=== PATIENT | female | born 1980 | race Caucasian/White ===

== ENCOUNTER 2019-05-07 14:28 | Emergency (ER) | payer MEDICAID, SELFPAY ==
[2019-05-07 14:29] VITALS: BP 195/97; PULSE 101; RESP 18; TEMP 36.6; O2SAT 95; BMI 42.3
--- NOTE | 2019-05-07 15:11 | ED.DCSUM_ITS ---
- ER Visit Summary Date of Service: 05/07/19 Chief Complaint: Anxiety History of Present Illness: The patient is a 39 F who presents with anxiety that has been getting progressively worse over the past 3 weeks. Patient states she recently moved up here from [place] and ran out of her anxiety medicati ons. Patient states she normally takes Zoloft 100 mg daily and Xanax 1 mg twice daily. Patient states she has been having difficulty focusing. Patient states it feels like my eyes are floating. Patient denies any chest pain or shortness of breath. Patient denies any nausea or vomiting. Patient denies any suicidal or homicidal ideations. Physical Examination: Vital signs are stable. Patient is afebrile. Patient is in no acute distress. Oral mucosa is pink and moist. Neck is supple. Trachea is midline. There is no JVD noted. Heart was regular rate and rhythm. Lungs are clear and equal bilateral. Abdomen is soft. Bowel sounds are normal. There is no tenderness. There is no guarding noted. Skin is warm dry. Cranial nerves II through XII are intact. There are no focal motor or sensory deficits noted. Emergency Department Course and Treatment: Patient was given a prescription for refills of her Zoloft and a short course of Xanax. Patient was instructed to follow-up with her primary care physician that she is assigned on her medical card. Patient understood and was agreeable with the plan. All questions were answered. Disposition: Discharge home Impression: 1. Anxiety This note was generated with [employer] dictation software. It may contain incorrect words, spelling, and punctuation that were not noted in review of the chart prior to signing ED Disposition - Plan for ED Patient: Disposition: Home or Assisted Living Diagnosis: Anxiety Instructions: Anxiety Reaction Prescriptions: ALPRAZolam [Xanax] 1 mg PO BID PRN PRN 5 Days #10 tab PRN Reason: Anxiety Prescription Printed Sertraline HCl [Zoloft] 100 mg PO DAILY #30 tab Prescription Printed Additional Instructions: Follow-up with the primary care physician on your medical card in 5 to 7 days.
[2019-05-07 15:35] VITALS: PULSE 99; RESP 17; O2SAT 97
== END 2019-05-07 15:36 | disposition home or self-care (01) ==
LOC: ED 15:35
PROVIDERS: Emergency Provider Emergency Medicine
DX: F41.9 Anxiety disorder, unspecified (principal); E66.9 Obesity, unspecified
CPT/HCPCS: 99282

== ENCOUNTER 2019-08-07 21:21 | Emergency (ER) | payer MEDICAID, SELFPAY ==
[2019-08-07 21:22] VITALS: BP 177/114; PULSE 93; RESP 16; TEMP 36.8; O2SAT 96; BMI 52.0
--- NOTE | 2019-08-07 21:47 | ED.VIS.GEN ---
History of Present Illness Chief Complaint: Edema Informant: Patient Narrative: Smooth presents with a chief complaint of swelling over the left side of the face and left neck region. She does have chronic eczema of her face. She noted some subjective fevers recently. She denies any cough or congestion, she denies any shortness of breath she denies any other rash, she denies any neck stiffness. Is no urinary symptoms. She has no chest pain or shortness of breath. I did notice her blood pressure was quite elevated in triage tells me she is not on any blood pressure medications but every time she comes to the emergency department she is told that she has high blood pressure and she attributed to her significant anxiety Past Medical History - Allergies and Home Meds Allergies/Adverse Reactions: Allergies No Known Allergies Allergy (Verified 08/07/19 21:25) Primary Care Physician: Care Physician,No Primary [Primary Care Provider] - Past Medical History: - - Anxiety and depression Smoking Status: Never smoker Review of Systems General: Denies: Fever Eyes: Denies: Visual changes - bilaterally ENT: Reports: - - Chronic facial eczema, eyelid swelling. Denies: Sore throat Respiratory: Denies: Dyspnea, Cough Gastrointestinal: Denies: Abdominal pain Genitourinary: Denies: Dysuria Musculoskeletal: Denies: Myalgias Skin: Reports: Rash Neurological: Reports: - - She has generalized weakness but no focal weakness. Denies: Headache Psych: Reports: Depression, Anxiety Endocrine: Denies: Polyuria Hematologic: Reports: Lymphadenopathy. Denies: Easy bruising Allergy: Denies: Swelling of the mouth Physical Exam Vital Signs/Narrative: Vital Signs Temp Pulse Resp BP Pulse Ox 08/07/19 21:22 98.3 F 93 16 177/114 H 96 General: Well nourished, Obese, - Head: Normocephalic Eyes: Perrl ENT: Moist mucous membranes, - - There is slight rash over her face which is consistent with eczema, she has a supraorbital pustule which is not fluctuant, she has a posterior auricular lymph node. She also has a lymph node in the posterior lymph chain Neck: Supple Cardiovascular: Regular rate, Regular rhythm Respiratory: No distress Abdomen: Soft, Nontender Back: Nontender, Normal Inspection Extremities: Nontender, No edema Skin: Normal color, No rash Neurological: Alert, Normal Sensation Diagnostic/Tx/Re-eval Chest X-Ray - ED: 1 View, Read by ED Physician, Normal, Heart, Mediastinum, No Acute Disease - Medical Decision Making Patient has a normal work-up. She has a slight urinary tract infection. She also has a lymph node and a facial infection this may be odontogenic because she does have some widespread dental decay although I do not see an abscess. Her blood pressure improved on her own but it still high. I told her she needs to get this followed up and be seen by her PCP. At this time I will start Keflex and Bactrim. ED Disposition - Plan for ED Patient: Disposition: Psychiatric Hospital or Unit Diagnosis: Facial infection, Hypertension, UTI (urinary tract infection) Instructions: Understanding Urinary Tract Infections (UTIs), High Blood Pressure (Hypertension) Prescriptions: Smz/Tmp Ds [Bactrim Ds] 1 tab PO BID #14 tab Prescription Printed Cephalexin [Keflex] 500 mg PO Q6 #28 cap Prescription Printed Referrals: Diallo Hill MD [STAFF PHYSICIAN] - 3-5 Days
[2019-08-07 22:00] LABS: Mucous, Urine 0 SEEN /hpf (<or=2+)
--- NOTE | 2019-08-07 22:00 | RAD_ITS ---
STUDY: X-RAY CHEST REASON FOR EXAM: Female, 39 years old. Multiple complaints TECHNIQUE: Single AP portable view of the chest. COMPARISON: None. FINDINGS: The lungs are clear and expanded. There is no demonstrated pleural abnormality. Normal size heart. Normal mediastinum and swati. Normal visualized pulmonary arteries. Normal visualized aortic arch and descending thoracic aorta. Normal visualized thoracic spine. Normal visualized ribs, clavicles, and shoulders. There is no demonstrated abnormality of the visualized soft tissue structures of the upper abdomen. RAD/Chest 1 View (Portable) IMPRESSION: Normal x-ray examination of the chest. Electronically Signed: Yosi Hopkins MD at 22:23 EST , Service support ,
[2019-08-07 22:03] LABS: Hemoglobin 14.7 g/dL (12.0-15.0); Mean Corp Hgb Conc 32.7 g/dL (32-36); Mean Corpuscular Hgb 28.2 pg (27.0-32.0); Mean Corpuscular Volume 86.4 fL (81-99); Mean Platelet Vol. 9.3 fl (6.2-12.0); Platelet Count 289 K/mm3 (150-450); RBC Distribution Width SD 40.2 fl (35.1-43.9); Red Blood Count 5.21 M/mm3 (4.2-5.4); White Blood Count 9.3 K/mm3 (4.4-11.0)
[2019-08-07 22:06] LABS: Color, Urine Yellow (Yellow); Glucose, Dipstick Normal (Normal); Ketone-Dipstick 5 mg/dl (Negative); Leukocyte Esterase-Dipstick 500 /ul (Negative); Nitrite-Dipstick Negative (Negative); Occult Blood-Urine 250 /ul (Negative); Protein-Dipstick 30 mg/dl (Negative); Specific Gravity, Urine 1.025 (1.002-1.030); Urine Bilirubin Dipstick Negative (Negative); Urine Clarity Sl. Cloudy (Clear); Urine Urobilinogen Normal (Normal)
[2019-08-07 22:14] VITALS: BP 159/97; PULSE 87; RESP 20; O2SAT 95
[2019-08-07 22:18] LABS: Red Blood Cells-Urine 5-10 SEEN /hpf (0-5); White Blood Cells 5-10 SEEN /hpf (0-5)
[2019-08-07 22:19] LABS: Bacteria 2+ /hpf (None Seen); Squamous Epithelial Cells - UA 10-25 SEEN /hpf (5-10)
[2019-08-07 22:29] LABS: ALB/GLOB Ratio 0.9 RATIO (0.9-2.4); AST(SGOT) 38 U/L (15-37); Alanine Aminotransfer ALT/SGPT 36 U/L (13-56); Albumin, Serum 3.9 g/dL (3.2-5.0); Alkaline Phosphatase 110 U/L (45-117); Anion Gap 8 (5-15); BUN 12 mg/dL (7-18); BUN/Creat Ratio 15.4 RATIO (10-20); Calcium,Total 9.5 mg/dL (8.5-10.1); Chloride 106 mmol/L (98-107); Creatinine, Serum 0.78 mg/dL (0.55-1.02); EST Glomerular Filtration Rate 86 mL/min (>60); Est Glom Filt Rate - Afr Amer 105 mL/min (>60); Estimated Creatinine Clearance 85.41 ml/min; Globulin 4.5 g/dL (2.2-4.2); Glucose 141 mg/dL (74-106); Potassium 4.2 mmol/L (3.5-5.1); Protein, Total 8.4 g/dL (6.4-8.2); Sodium Level 138 mmol/L (136-145)
[2019-08-07] MEDS: Cephalexin 250 MG Capsule 500 MG PO (23:02)
[2019-08-07] MEDS: Smz/Tmp Ds Tablet 1 TABLET PO (23:02)
[2019-08-07 23:07] VITALS: BP 159/99
== END 2019-08-07 23:08 ==
PROVIDERS: Emergency Provider Emergency Medicine
DX: L08.9 Local infection of the skin and subcutaneous tissue, unspecified (principal); N39.0 Urinary tract infection, site not specified; F41.9 Anxiety disorder, unspecified; F32.9 Major depressive disorder, single episode, unspecified; Z79.899 Other long term (current) drug therapy
CPT/HCPCS: 71045; 80053; 81001; 84484; 85027; 99284; A4216

== ENCOUNTER 2019-08-13 13:46 | Emergency (ER) | payer MEDICAID, SELFPAY ==
[2019-08-13 13:47] VITALS: BP 167/108; PULSE 89; RESP 20; TEMP 36.8; O2SAT 98; BMI 53.3
--- NOTE | 2019-08-13 14:25 | US_ITS ---
STUDY: ABDOMINAL ULTRASOUND - RIGHT UPPER QUADRANT REASON FOR VISIT: Female, 39 years old abdominal pain TECHNIQUE: Ultrasound evaluation of the right upper quadrant was performed with real-time and static burgess-scale imaging. TECHNICAL QUALITY: Adequate. COMPARISON: None. FINDINGS: Liver: The liver measures 17 cm. There is diffusely increased echogenicity of the liver. The bile ducts are within normal limits. There is hepatic color flow. The direction of portal flow is hepatopetal. There is no demonstrated mass lesion. Gallbladder: Normal distended gallbladder. The gallbladder wall measures 2.3 mm. There is a positive sonographic Aponte's sign. There is no pericholecystic fluid. There is biliary sludge and a large stone.. Common Bile Duct (C.B.D.): The common bile duct measures 3.3 mm. Pancreas: Suboptimal visualized due to bowel gas Right Kidney: Normal size of the right kidney. The right kidney measures 11.5 x 4.7 x 5.4 cm. Normal renal cortex. The right cortex measures 1.8 cm. There is no demonstrated renal mass or cyst. There is no right hydronephrosis. US/Gallbladder IMPRESSION: Cholelithiasis with findings suspicious for acute cholecystitis. HIDA scan would be helpful for confirmation if clinically warranted Electronically Signed: Kun Umanzor MD at 16:49 EST , Service support ,
--- NOTE | 2019-08-13 14:28 | ED.DCSUM_ITS ---
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 No prior abdominal or other surgeries. He states around 10 AM's major eating breakfast started having right upper abdominal pain. No vomiting. No diarrhea. No fever. No dysuria currently. With her sisters present in the room states she had gallbladder disease. Physical Examination: Middle-aged female no acute distress vital signs stable afebrile. HEENT exam unremarkable. Neck nontender. Lungs clear to auscultation bilaterally. Abdomen is soft. Obese. Patient reports right upper quadrant tenderness but no peritoneal signs. No Aponte sign. Normal bowel sounds. No hernias or masses. No signs of obstruction. Patient is moving all 4 extremities. Neurovascular intact. No edema. Neurologically she is awake and alert with no focal motor deficits. Test Results: CBC White count 11.2. And hemoglobin of 15. Her BMP is unremarkable normal creatinine and gap. Liver enzymes normal. Lipase normal at 93. Right upper quadrant ultrasound shows gallstones with sludge. Consistent with biliary colic. Emergency Department Course and Treatment: Patient treated with IV morphine, Zofran and Toradol. History and exam are consistent with possible gallbladder disease. Repeat exam patient is doing well at 5:03 PM. Comfortable being discharged home. We discussed all test results. She and her sister also stated that her blood pressure is consistently elevated. They wanted me to start her on a blood pressure medication. Initial blood pressure here was 167/108 and she will be started on lisinopril 20 mg once a day to be taken at night. Treatment Plan: Follow-up with Dr. Walter Lopez local general surgeon for her gallbladder disease. Follow-up with [facility] to get a primary care physician. Started on lisinopril for hypertension. Disposition: Discharge Impression: Acute right upper quadrant abdominal pain secondary to gallstones and gallbladder disease Newly diagnosed hypertension This note was generated with [employer] dictation software. It may contain incorrect words, spelling, and punctuation that were not noted in review of the chart prior to signing ED Disposition - Plan for ED Patient: Referrals: Care Physician,No Primary [Primary Care Provider] -
[2019-08-13 14:41] LABS: Absolute Lymphocyte Count 2.46 X10^3/uL (0.83-4.51); Absolute Neutrophil Count 7.5 X10^3/uL (2.0-7.7); Basophil# 0.04 X10^3/uL; Basophil% 0.4 % (0-1); Eosinophils% 3.6 % (0-5); Hematocrit 46.1 % (37-47); Hemoglobin 15.1 g/dL (12.0-15.0); Lymphocyte # 2.46 X10^3/ul (4.0); Lymphocyte % 21.9 % (19-41); Mean Corp Hgb Conc 32.8 g/dL (32-36); Mean Corpuscular Hgb 28.7 pg (27.0-32.0); Mean Corpuscular Volume 87.6 fL (81-99); Mean Platelet Vol. 9.5 fl (6.2-12.0); Monocyte# 0.76 X10^3/uL; Monocyte% 6.8 % (0-10); NRBC Flagged by Analyzer 0 % (0-5); Neutrophil # 7.53 X10^3/uL (2.7-7.7); Neutrophil % 66.9 % (47-70); Platelet Count 375 K/mm3 (150-450); RBC Distribution Width CV 12.7 % (11.6-14.6); RBC Distribution Width SD 40.5 fl (35.1-43.9); Red Blood Count 5.26 M/mm3 (4.2-5.4); White Blood Count 11.2 K/mm3 (4.4-11.0)
[2019-08-13] MEDS: Ondansetron 4 MG/2 ML Vial IV (14:49)
[2019-08-13] MEDS: Morphine 4 MG/ML Syringe 6 MG IV (14:50)
[2019-08-13] MEDS: Ketorolac 30 MG/ML Syringe IV (14:50)
[2019-08-13 14:52] LABS: AST(SGOT) 13 U/L (15-37); Alanine Aminotransfer ALT/SGPT 25 U/L (13-56); Alkaline Phosphatase 111 U/L (45-117); Anion Gap 9 (5-15); BUN 9 mg/dL (7-18); BUN/Creat Ratio 8.7 RATIO (10-20); Calcium,Total 9.1 mg/dL (8.5-10.1); Chloride 107 mmol/L (98-107); Creatinine, Serum 1.04 mg/dL (0.55-1.02); EST Glomerular Filtration Rate 62 mL/min (>60); Est Glom Filt Rate - Afr Amer 75 mL/min (>60); Estimated Creatinine Clearance 61.47 ml/min; Globulin 4.5 g/dL (2.2-4.2); Glucose 116 mg/dL (74-106); Lipase 93 U/L (73-393); Protein, Total 8.5 g/dL (6.4-8.2); Sodium Level 139 mmol/L (136-145)
[2019-08-13 16:40] VITALS: BP 156/100; PULSE 84; O2SAT 96
--- NOTE | 2019-08-13 17:06 | ED.DEP ---
ED Disposition - Plan for ED Patient: Disposition: Home or Assisted Living Instructions: BILIARY COLIC with Gallstone (Confirmed), High Blood Pressure (Hypertension) Prescriptions: Lisinopril 20 mg PO DAILY #30 tab Prescription Printed Ondansetron [Zofran Odt] 4 mg PO Q8H PRN PRN #10 tab PRN Reason: Nausea Prescription Printed Referrals: Donny Mcadams MD [STAFF PHYSICIAN] - As soon as possible Walter Lopez MD [STAFF PHYSICIAN] - As soon as possible Additional Instructions: Your right upper quadrant abdominal pain is secondary to gallbladder disease and gallstones. Call and follow-up with Dr. Phil Lopez local general surgeon for discussion of having her gallbladder removed. Call and follow-up with Dr. Donny Mcadams to get a local primary care physician and discuss with him treatment of high blood pressure. Lisinopril 20 mg once a day taken at night before you go to bed. This should help control your blood pressure. If it still running too high or too low the dose will need to be adjusted. If it is running too low and you are feeling lightheaded and your pressure is running below 120 systolic then stop the medication.
== END 2019-08-13 17:22 | disposition home or self-care (01) ==
PROVIDERS: Emergency Provider Emergency Medicine
DX: K80.20 Calculus of gallbladder without cholecystitis without obstruction (principal); I10 Essential (primary) hypertension; N39.0 Urinary tract infection, site not specified; F32.9 Major depressive disorder, single episode, unspecified; Z79.2 Long term (current) use of antibiotics; Z79.899 Other long term (current) drug therapy
CPT/HCPCS: 76705; 80048; 80076; 83690; 85025; 96374; 96375; 99283; A4216; J2405

== ENCOUNTER 2019-08-27 05:52 | Day surgery (SDC) | payer MEDICAID, SELFPAY ==
[2019-08-25 09:30] VITALS: BMI 53.3
[2019-08-27] VITALS (11 sets, daily range): BP systolic 112–144; BP diastolic 66–100; PULSE 84–100; RESP 16; TEMP 36.2–37.3; O2SAT 93–98; BMI 54.0
--- NOTE | 2019-08-27 05:56 | EKG12_ITS ---
Test Reason : COUGH Blood Pressure : / mmHG Vent. Rate : 095 BPM Atrial Rate : 095 BPM P-R Int : 136 ms QRS Dur : 084 ms QT Int : 344 ms P-R-T Axes : 053 032 022 degrees QTc Int : 432 ms Normal sinus rhythm Low voltage QRS Borderline ECG Confirmed by ISIAH GARCIA ([id number]), web content editor RONEN FERRO ([id number]) on 09/01/2019 1:00:35 PM Referred By: Sridhar Cruz Confirmed By:ISIAH GARCIA
[2019-08-27 06:19] LABS: Internal QC Validated? YES +Cl - CLEAR BKGD; Pregnancy, Urine Negative Negative
[2019-08-27] MEDS: Lactated Ringers 1,000 ML 100 ML IV (06:29)
--- NOTE | 2019-08-27 07:00 | HP.PCM_ITS ---
Problem List (1) Cholelithiasis Status: Acute Qualifiers: Cholelithiasis location: gallbladder Cholecystitis presence: with cholecystitis Cholecystitis acuity: acute and chronic Biliary obstruction: without biliary obstruction Qualified Code(s): K80.12 - Calculus of gallbladder with acute and chronic cholecystitis without obstruction (2) RUQ abdominal pain Status: Acute History and Physical Date of Admission: 08/27/19 Intake Vital Signs 08/25/19 Body Mass Index (BMI) 53.3 08/25/19 Height 5 ft 4 in 08/25/19 Weight: 305 lb 08/25/19 Body Mass Index (BMI) 52.3 08/25/19 Blood Pressure 126/86 H 08/25/19 Blood Pressure Location Rt brachial 08/25/19 Blood Pressure Position Sitting 08/25/19 Respiratory Rate 18 08/25/19 Pulse Rate 103 H 08/25/19 Pulse Source Monitor 08/25/19 Temperature 98.5 F 08/25/19 Temperature Source Oral 08/25/19 Pulse Ox 97 08/25/19 Oxygen Delivery Method room air Intake Visit Reasons: CHOLELITHIASIS/SLUDGE Coat Joiner Required: No Is patient in pain?: Yes (RUQ/ Right Flank) Pain scale (1-10): 3 Allergies No Known Allergies Allergy (Verified 08/25/19 09:29) Medications Alprazolam [Xanax] 0.5 mg PO BID PRN 08/07/19 [History Confirmed 08/25/19] Lisinopril 20 mg PO DAILY #30 tab 08/13/19 [Rx Confirmed 08/25/19] Sertraline HCl [Zoloft] 100 mg PO DAILY 08/13/19 [History Confirmed 08/25/19] PFSH Medical History (Updated 08/25/19 @ 09:25 by Dahiana Quintanilla) Hemorrhoids (Acute) RUQ abdominal pain (Acute) Abdominal pain (Acute) SOB (shortness of breath) (Acute) Anxiety (Acute) Depression (Acute) Hypertension (Chronic) Back problem (Acute) Fatigue (Acute) Surgical History (Updated 08/25/19 @ 09:25 by Dahiana Quintanilla) No pertinent past surgical history (Acute) Family History (Updated 08/25/19 @ 09:26 by Dahiana Quintanilla) Mother Asthma Aunt Colon cancer Father Asthma Sister Asthma Social History (Updated 08/25/19 @ 09:50 by Sridhar Cruz MD) Smoking Status: Former smoker second hand exposure: No alcohol intake: never substance use type: does not use caffeine: Yes what type of physical activity do you participate in: none frequency: does not exercise HPI HPI HPI: REKHA LEIWS, is a 39 F who presents to the office today for HPI HPI HPI: REKHA LEWIS is a 39 F who presents to the office today for right upper quadrant pain. The patient reports that she presented to the emergency room at the end of July with right upper quadrant pain. She had not had any pain in the right upper quadrant prior to this. She reports that since being seen in the ER it has improved but is still present especially with eating. It is in the right upper quadrant and radiates to the back. She also notes that she has an umbilical hernia. ROS General General: Yes fatigue; no weight change HEENT HEENT: No difficulty swallowing, eye injury or eye surgery Endo Endocrine: No thyroid disease or diabetes mellitus Skin Skin: No rash or changing moles Musc Musculoskeletal: Yes back problems; no arthritis or rheumatoid arthritis Cardio Cardiovascular: Yes high blood pressure; no murmur, pacemaker, heart disease, atrial fibrillation, heart attack, heart stent, palpitations, shortness of breat with exertion or chest pain Psych Psychiatric: Yes depression and anxiety Resp Respiratory: Yes shortness of breath, Yes sleep apnea, No cough, No COPD, No asthma, No emphysema, No wheezing Gastro Gastrointestinal: Yes abdominal pain, No nausea or vomiting, No diarrhea, No constipation, No blood in stool, No acid reflux, Yes hemorrhoids, No ulcers, Yes gallbladder problem, No black,tarry stools Thee Hematologic: No blood thinners Neuro Neurologic: Yes system reviewed and no additional complaints, except as docu Exam Const General: cooperative Nutritional Appearance: obese Orientation: alert, oriented x3 HENMT Head: normal to inspection Ears: hearing grossly normal bilaterally Eyes General: appearance normal, both eyes and all related structures Visual Guardado: normal visual guardado by confrontation Neck Neck: normal visual inspection Chest Chest palpation & inspection: normal inspection of the chest Resp Effort & Inspection: normal respiratory effort Auscultation: clear to auscultation bilaterally Cardio Rate: regular rate Rhythm: regular rhythm Heart Sounds: no murmurs GI Inspection: non-distended Palpation: soft, hernia umbilical, tender in the RUQ Musc Cervical Spine: normal cervical lordosis, cervical ROM normal Skin General: no rashes or lesions noted Neuro General: alert, oriented x3 Cranial Nerves: CN's II-XI intact bilaterally Cognition: normal cognition Extrem General: normal to inspection, full ROM Psych Appearance: grossly normal Affect: normal affect Assessment & Plan Problems 1. RUQ abdominal pain R10.11 2. Umbilical hernia without obstruction and without gangrene K42.9 3. Calculus of gallbladder with acute on chronic cholecystitis without obstruction K80.12 Plan The patient has cholelithiasis with a gallstone in the neck of the gallbladder. She was recently seen in the emergency room on August 13. She likely had acute cholecystitis at that point. She reports that since being seen her pain has subsided for the most part but it is still recurring when she eats. She denies any fevers or chills. She says that she does have no nausea or vomiting only pain. Patient also has a reducible umbilical hernia. I advised that this can be repaired during the surgery. I discussed the procedure in detail with the patient. I discussed the risks, benefits, and alternatives of the procedure. I discussed the risks including but not limited to bleeding, infection, injury to surrounding organs such as the liver, bile duct, bowels. I did discuss the possibility of having to convert to an open procedure as well as the possibility that if any injuries occurred this may necessitate further surgery at a tertiary care center. Sridhar Cruz MD Pager: [facility] [address] [place] [address], [address] [place] [address] Office:
--- NOTE | 2019-08-27 07:30 | GALL_PTH ---
PATIENT: REKHA LEWIS [place] [facility] [place][id number] AGE/SX: 39/F ROOM: RE08/27/[address]: Dr. Sridhar Cruz MD : 1980 BED: DIS: 08/27/2019 SPEC #: [id number] RECD: 08/27/19 10:08 STATUS: HERMANN SENG #: [id number] AVANI: 08/27/19 07:[address]: Sridhar Cruz DEPT: SURGICAL PATHOLOGY RECD BY: Carlos Whaley ENTERED: 08/27/19 10:42 SP TYPE: JESSICA SALAS DR: Dr. Juliet Gao MD Tissues: Gallbladder, NOS Procedures: Surgery Specimen Level III HEADER OPERATION: Laparoscopic, cholecystectomy with IOC PRE-OP DIAGNOSIS: RUQ abdominal pain R10.11, umbilical hernia without obstruction and without gangrene K42.9, calculus of gallbladder with acute on chronic cholecystitis without obstruction K80.12 TISSUE SUBMITTED: Gallbladder MICROSCOPIC DIAGNOSIS Gallbladder, cholecystectomy: Cholesterolosis, chronic cholecystitis and cholelithiasis. AM:tia 08/30/19 MICROSCOPIC DESCRIPTION Slides are reviewed. GROSS DESCRIPTION Received is one container labeled with the patient's name and designated gallbladder. The specimen consists of a gallbladder measuring 10.5 x 3 x 3 cm. The external surface is smooth and glistening. Focally, it is granular, hemorrhagic and contains cautery artifact. The lumen of the gallbladder contains yellow-green mucoid bile and two ovoid, green-yellow calculi average in size 1.7 cm. The mucosa is bile-stained and without any mass lesions. The gallbladder wall averages 0.2 cm in thickness and is free of mass lesions. Turn Operator sections of the gallbladder and the cystic duct are submitted in one cassette. / AM:tia 08/27/19 TC:3 CPT: 58449
--- NOTE | 2019-08-27 07:50 | RAD_ITS ---
STUDY: INTRAOPERATIVE CHOLANGIOGRAM. REASON FOR EXAM: Female, 39 years old. Laparoscopic cholecystectomy. FLUOROSCOPY TIME (if supplied): ( 31.9 seconds ) minutes/seconds. A cine loop consisting of 41 images was submitted. TECHNIQUE: An intraoperative cholangiogram was performed by the surgeon. Imaging was submitted. COMPARISON: None. FINDINGS: The intrahepatic biliary ducts are unremarkable. No intraluminal filling defect is seen. The common duct is not dilated. No intraluminal filling defect is seen. There is free flow of contrast into the duodenum. RAD/Cholangiogram/ O R,Initial IMPRESSION: Unremarkable intraoperative cholangiogram. Electronically Signed: Javier Salinas, at 9:53 EST , Service support ,
[2019-08-27] MEDS: Bupiv/Epi 0.25% 30 ML Vial (09:11)
--- NOTE | 2019-08-27 10:07 | OP.PCM_ITS ---
Problem List (1) Cholelithiasis Status: Acute Qualifiers: Cholelithiasis location: gallbladder Cholecystitis presence: with cholecystitis Cholecystitis acuity: acute and chronic Biliary obstruction: without biliary obstruction Qualified Code(s): K80.12 - Calculus of gallbladder with acute and chronic cholecystitis without obstruction (2) RUQ abdominal pain Status: Acute Report of Operation Date of Procedure: 08/27/19 Pre-Operative Diagnosis: Cholelithiasis and biliary colic. Umbilical hernia Post-Operative Diagnosis: Same Surgery/Procedure Performed:: 1. Laparoscopic cholecystectomy with cholangiogram. 2. Umbilical hernia repair Specimen's removed: Gallbladder and contents Estimated Blood Loss (mL): 200 Fluids Replaced: 1000 Description of Procedure: After obtaining informed consent patient was brought back to the operating room. General anesthesia was induced. The abdomen was prepped and draped in usual sterile fashion. An incision was marked in a curvilinear fashion in the superior umbilicus. Incision was made and deepened to the fascia using electrocautery. The hernia sac was entered. Finger sweep was performed and the Haque trocar was placed into the abdomen. The balloon was inflated. The abdomen was inflated to 15 mmHg. Next a camera was introduced into the abdomen and the abdomen was inspected. Next under direct visualization three 5-mm ports were placed one subxiphoid and 2 subcostal. Next the gallbladder was elevated and retracted toward the right shoulder. The peritoneum was stripped from the gallbladder. The infundibulum was located and retracted laterally. Next the triangle of Calot was dissected and the cystic duct and cystic artery were identified. Cholangiograms were performed. The Gonzalez clamp was used to clamp across the infundibulum and the catheter needle was inserted into the gallbladder. Under fluoroscopy contrast was instilled into the gallbladder and the common duct, cystic duct as well as proximal hepatic ducts were identified. There was good filling of the duodenum. There were no filling defects noted in the common bile duct. The clamp was removed as well as the needle and the infundibulum was grasped once more. Three hemolock clips were placed across the cystic duct. The cystic duct was then divided leaving 2 clips on the stump. The cystic artery was difficult to identify and tore from retraction. There was bleeding in the infundibular area. After maintaining retraction and finding the vessel it was clipped. There was 200 cc of blood loss during attempt of visualization of this vessel. The hook cautery was then used to take the gallbladder off of the gallbladder bed. Hemostasis was obtained. Gallbladder fossa was irrigated and no active bleeding or bile leakage was noted. Surgicel snow powder was placed in the gallbladder fossa. Next the camera switched to a 5 mm camera and introduced in the subxiphoid port. An Endopouch bag was placed through the umbilical port and the gallbladder was placed into it. The gallbladder was then removed through the umbilical incision. The camera was then reinserted through the umbilical port. The gallbladder fossa was inspected once more and noted to be hemostatic with no leaking bile. The abdomen was suctioned dry. The 5 mm ports were removed under direct visualization. The umb ilical port was then removed and the air was removed from the abdomen. Next the fascia at the umbilical level hernia was closed with interrupted 0 Nurolon sutures in a [id number] fashion. The umbilical port site was irrigated local anesthetic was administered to all the incisions. All the incisions were closed with interrupted subcuticular 4-0 Monocryl sutures followed by Steri- Strips and dressings. The patient was awoken and taken to PACU in stable condition. - Admit VTE Documentation VTE Mechan Device Prophylaxis: SCD's
--- NOTE | 2019-08-27 11:02 | DCINST_ITS ---
Discharge Diet: Light diet - advance as tolerated Discharge Activity: Return to Normal Activity, May Not Drive - for 2-3 days or while taking narcotic pain medicataions., - - Do not drive, work heavy equipment or sign legal documents for 24 hours. May shower in (days): 1 - with the bandage in place. Lifting Restrictions: 20 lbs for 2 weeks Additional Activity Instructions:: Pain medication may cause nausea. You should typically eat light foods as you take your pain medications. Pain medication may also cause constipation. If this is a problem for you, please discuss with your doctor. Call your doctor if your incision/area has: Continuous Slow Oozing, Sudden Increased Bleeding, Increased Pain/ Swelling, Increased Redness, Foul Smelling Discharge, Fever of 101 or Higher Call your doctor if you observe: Fever of 101 or Higher Suture Line Care: Avoid Pulling/Pushing, Avoid Pinching/Bending Additional Dressing/Incision Instructions:: Leave operative bandaids on for 2 days. When you remove dressing, leave Steri-Strips on until your follow-up appointment, or until the Steri-Strips fall off on their own. Allergies/Adverse Reactions: Allergies No Known Allergies Allergy (Verified 08/27/19 06:15) Medications to take at Discharge Alprazolam [Xanax] 0.5 mg PO BID PRN 08/07/19 Sertraline HCl [Zoloft] 100 mg PO QHS 08/13/19 Albuterol IH (ProAir) [Proair Hfa (SP)Vent Pts] 1 - 2 puff INHALATION Q6H PRN PRN 08/26/19 Lisinopril 20 mg PO QHS 08/26/19 Oxycodone HCl/Acetaminophen [Percocet 5/325] 1 - 2 tab PO Q4H PRN PRN 7 Days #40 tab 08/27/19 The following prescriptions were given: Oxycodone HCl/Acetaminophen [Percocet 5/325] 1 - 2 tab PO Q4H PRN PRN 7 Days #40 tab PRN Reason: Pain Transmission Status: Received by [facility] Primary Care Physician: Juliet Gao MD [Primary Care Provider] - Test Results: Test results from this visit will be discussed in further detail at your follow- up appointment, if applicable. Please Follow Up With: Sridhar Cruz MD When: Please call to schedule 2 week follow up appointment. [phone]
== END 2019-08-27 12:48 | disposition home or self-care (01) ==
LOC: SDC 05:52 → AC 05:53
PROVIDERS: Anesthesiology; Family Provider Student in an Organized Health Care Education/Training Program; PCP Student in an Organized Health Care Education/Training Program; Referring Provider Surgery; Visit Provider Surgery
PROC: (CPT 47610; principal; 2019-08-27 07:10)
PROC: (CPT 47563; 2019-08-27 07:10)
DX: K80.10 Calculus of gallbladder with chronic cholecystitis without obstruction (principal); K42.9 Umbilical hernia without obstruction or gangrene; I10 Essential (primary) hypertension; F32.9 Major depressive disorder, single episode, unspecified; F41.9 Anxiety disorder, unspecified; E66.01 Morbid (severe) obesity due to excess calories; Z68.43 Body mass index [BMI] 50.0-59.9, adult; Z87.891 Personal history of nicotine dependence; Z79.899 Other long term (current) drug therapy
CPT/HCPCS: 47563; 49585; 74300; 76000; 81025; 88304; 93005; J7120; A4216; J2405

== ENCOUNTER 2019-08-29 08:06 | Observation (INO) | payer MEDICAID, SELFPAY ==
[2019-08-27 06:16] VITALS: BMI 54.0
[2019-08-29] VITALS (12 sets, daily range): BP systolic 104–145; BP diastolic 45–108; PULSE 85–103; RESP 15–16; TEMP 37.1–37.6; O2SAT 80–98; BMI 57.3; BMI 55.5; BMI 55.6
--- NOTE | 2019-08-29 08:19 | EKG12_ITS ---
Test Reason : PREOP Blood Pressure : / mmHG Vent. Rate : 097 BPM Atrial Rate : 097 BPM P-R Int : 144 ms QRS Dur : 086 ms QT Int : 352 ms P-R-T Axes : 057 038 025 degrees QTc Int : 447 ms Normal sinus rhythm Normal ECG Confirmed by ALLYN LAKE, JEREMIE ([id number]), newspaper managing editor EMERALD BARROS ([id number]) on 09/01/2019 1:29:14 PM Referred By: Sridhar Cruz Confirmed By:JEREMIE GRUBER MD
--- NOTE | 2019-08-29 08:19 | RAD_ITS ---
STUDY: X-RAY CHEST REASON FOR EXAM: Female, 39 years old. Pain. TECHNIQUE: AP portable upright chest radiograph. COMPARISON: 08/07/2019 chest radiograph. FINDINGS: No apparent pneumothorax, pneumonia, pleural effusion, or edema. Cardiac silhouette, swati and mediastinal contours are within normal limits. No acute osseous abnormality. No evidence of free air under the diaphragm. RAD/Chest 1 View (Portable) IMPRESSION: Negative chest radiograph. Electronically Signed: Jesseanna Tal, at 9:33 EST Tel , Service support ,
[2019-08-29 08:36] LABS: Absolute Lymphocyte Count 1.78 X10^3/uL (0.83-4.51); Absolute Neutrophil Count 7.1 X10^3/uL (2.0-7.7); Basophil# 0.05 X10^3/uL; Basophil% 0.5 % (0-1); Eosinophil# 0.36 X10^3/uL; Eosinophils% 3.5 % (0-5); Hemoglobin 13.4 g/dL (12.0-15.0); Lymphocyte # 1.78 X10^3/ul (4.0); Lymphocyte % 17.1 % (19-41); Mean Corp Hgb Conc 30.5 g/dL (32-36); Mean Corpuscular Volume 92.1 fL (81-99); Mean Platelet Vol. 9.1 fl (6.2-12.0); Monocyte# 1.06 X10^3/uL; Monocyte% 10.2 % (0-10); NRBC Flagged by Analyzer 0 % (0-5); Neutrophil # 7.09 X10^3/uL (2.7-7.7); Platelet Count 308 K/mm3 (150-450); RBC Distribution Width CV 13.3 % (11.6-14.6); RBC Distribution Width SD 44.9 fl (35.1-43.9); Red Blood Count 4.78 M/mm3 (4.2-5.4); White Blood Count 10.4 K/mm3 (4.4-11.0)
--- NOTE | 2019-08-29 08:39 | CT_ITS ---
STUDY: CT ABDOMEN AND PELVIS WITHOUT CONTRAST REASON FOR EXAM: Female, 39 years old. Left-sided abdominal pain. Cholecystectomy 08/27/2019. TECHNIQUE: Transaxial images were obtained from the dome of the diaphragm to the symphysis pubis without oral contrast, and without intravenous contrast. Sagittal and coronal images were reconstructed. Individualized dose optimization techniques were used for this CT. COMPARISON: 08/13/2019 abdominal ultrasound. FINDINGS: Partially visualized lower chest: Lung bases unremarkable. Liver: Diffuse hepatic steatosis. Mild hepatomegaly. Gallbladder and biliary tree: Status post recent cholecystectomy. Small amount of air and trace fluid in the cholecystectomy operative bed. No well-formed drainable collection is evident. No biliary ductal dilation. Pancreas: No pancreatic lesions or inflammation. Spleen: Normal size, no splenic lesions. Adrenal glands: No concerning masses. Kidneys and ureters: No hydronephrosis or renal stones. No concerning masses. No ureteral dilation. Incidental renal cysts, largest 2.5 cm off the lower pole of the right kidney. Bowel: Normal appendix. No obstruction or inflammation of the bowel. Urinary bladder: No stones or wall thickening. Reproductive:Normal uterus and ovaries. Vascular: No abdominal aortic aneurysm. Retroperitoneal and peritoneal spaces: Besides the extraluminal air and trace fluid in the cholecystectomy bed, there is no remote free air and no fluid in the pelvis. No retroperitoneal lesions. Osseous: No acute osseous abnormality. Degenerative changes lower lumbar spine. Abdominal and pelvic wall: Mild subcutaneous stranding in the periumbilical region compatible with recent laparoscopic surgery. No abscess or hematoma or other apparent complication. CT/Abdomen/Pelvis without Cont IMPRESSION: Small amount of air and trace fluid in the cholecystectomy operative bed, most likely resolving postoperative changes. No drainable collection is evident. Hepatic steatosis. Electronically Signed: Yosi Parada, at 10:14 EST Tel , Service support ,
--- NOTE | 2019-08-29 08:40 | ED.DCSUM_ITS ---
History of Present Illness Chief Complaint: Shortness of Breath Informant: Patient, Family Onset: Today Maximum Severity: Mild Narrative: Status post laparoscopic cholecystectomy, umbilical hernia repair Friday indicate left the hospital same day no issues last night after eating potato soup she can have a vague pain to the left side of the abdomen chest that persisted today it is worse when she takes a deep breath she cannot find a position of comfort she actually points to the left lower subcostal margin, she has had urinary habits no bowel habits since the surgery, she is able to eat and drink without vomiting she denies history of AR PE or DVT Past Medical History - Allergies and Home Meds Allergies/Adverse Reactions: Allergies No Known Allergies Allergy (Verified 08/29/19 08:06) Primary Care Physician: Juliet Gao MD [Primary Care Provider] - Past Medical History: - - Includes as above Smoking Status: Former smoker Review of Systems General: Denies: Chills, Fever, Sweats Eyes: Denies: Visual changes - bilaterally, Diplopia ENT: Denies: Rhinorrhea, Sore throat Cardiovascular: Reports: Chest pain. Denies: Palpitations Respiratory: Denies: Dyspnea, Cough, Dyspnea on exertion Gastrointestinal: Reports: Abdominal pain. Denies: Nausea, Vomiting, Diarrhea, Melena, Hematochezia Genitourinary: Denies: Dysuria, Hematuria, Frequency Musculoskeletal: Denies: Back pain, Extremity Pain Skin: Denies: Rash, Wounds Neurological: Denies: Headache, Weakness, Numbness Physical Exam Vital Signs/Narrative: Vital Signs Temp Pulse Resp BP Pulse Ox 08/29/19 08:23 97 08/29/19 08:07 99.6 F H 100 16 145/108 H 94 General: Well nourished, Well developed, No Acute Distress Head: Normocephalic, Atraumatic Eyes: Perrl, EOMI ENT: Moist mucous membranes, No rhinorrhea Neck: Supple, Nontender Cardiovascular: Regular rate, Regular rhythm, No murmurs Respiratory: No distress, CTA bilaterally, Chest nontender Abdomen: Soft, Nontender, Nondistended, Normal bowel sounds, - - The abdomen is slightly distended, there is a vague pain to the left subcostal margin area, the port sites are unremarkable the umbilical hernia repairs appear is unremarkable there is no rebound guarding organomegaly other than the distention, she does complain of this pain to the left subcostal margin left chest area as well, no back pain or flank pain, rectal exam with nurse artist color separation shows soft brown stool no obstruction no pain Back: Nontender, Normal Inspection Extremities: Nontender, No edema Skin: Normal color, No rash Neurological: Alert, Oriented x3, Cranial nerves II-XII grossly intact, Normal Strength, Normal Sensation Psychological: Normal affect, Normal Mood Diagnostic/Tx/Re-eval - Medical Decision Making Given all of the above and her risk factors differentials extensive would certainly include PE pneumonia abdominal issues, IV fluids pain management screening labs CTA chest CTA abdomen The patient's creatinine returns at about 2.4 her baseline prior to surgery was about 1, her liver enzymes are slightly elevated white count normal, so she was not sent for CTA of the chest, CT of the abdomen shows nothing acute chest x-ray is unremarkable EKG showed a sinus rhythm rate was 95 intervals normal no acute injury pattern She is received IV fluid bolus, her UA is pending, spoke with Dr. Restreop [place] regional sales manager for Dr. causey her surgeon she will be down shortly to admit the patient and will consult medicine for further management of the chest discomfort and the elevated creatinine Admit stable Impression final Acute renal insufficiency, left-sided abdominal and chest pain, recent laparoscopic cholecystectomy ED Disposition - Plan for ED Patient: Diagnosis: Abdominal pain Referrals: Juliet Gao MD [Primary Care Provider] -
[2019-08-29] MEDS: Ondansetron 4 MG/2 ML Vial IV ×2 (08:52→23:44)
[2019-08-29] MEDS: morphine 8 MG/ML Syringe 6 MG IV (08:52)
[2019-08-29 09:03] LABS: Anion Gap 6 (5-15); BUN 31 mg/dL (7-18); BUN/Creat Ratio 13.1 RATIO (10-20); Calcium,Total 9.3 mg/dL (8.5-10.1); Chloride 102 mmol/L (98-107); Creatinine, Serum 2.37 mg/dL (0.55-1.02); EST Glomerular Filtration Rate 24 mL/min (>60); Est Glom Filt Rate - Afr Amer 29 mL/min (>60); Estimated Creatinine Clearance 26.97 ml/min; Glucose 139 mg/dL (74-106); Sodium Level 136 mmol/L (136-145)
[2019-08-29 10:03] LABS: AST(SGOT) 422 U/L (15-37); Alanine Aminotransfer ALT/SGPT 326 U/L (13-56); Albumin, Serum 3.8 g/dL (3.2-5.0); Alkaline Phosphatase 123 U/L (45-117); Bilirubin, Direct 0.76 mg/dL (0.00-0.30); Globulin 4.2 g/dL (2.2-4.2); Lipase 145 U/L (73-393)
--- NOTE | 2019-08-29 11:02 | HP.PCM_ITS ---
History of Present Illness Date of Admission: 08/29/19 The patient is a 39 year old F presented to the ER due to left upper quadrant abdominal pain starting last night after eating. Patient did undergo laparoscopic cholecystectomy with Dr. Cruz on 08/27/2018. Patient denies having any flatus since the surgery or black bowel movement. Patient states that after eating the potato soup started having left upper quadrant pain denies any nausea or vomiting and only had some burping times once now. Patient did say that she felt a little short of breath as she was not taking deep breaths due to the pain. Patient had a CT abdomen pelvis done without contrast due to patient's increased creatinine which did not show anything acute patient did have large amount of stool in the right/transverse colon cannot see nothing obvious at the gallbladder fossa, patient's stomach is enlarged. Patient's white blood count is within normal limits, patient did have elevated LFTs however patient also had issues with bleeding during the surgery and her gallbladder fossa was bovied. Patient only states that the right upper quadrant and umbilical sites are sore but they have been improving every day and they have not gotten any worse. Patient's creatinine is 2.37. Patient states she has not been drinking that much water and she also states she is only really been ambulating from room to room. Past Medical History Past Medical History (Chronic Problems): Chronic Problems (Last Updated 08/25/19 @ 09:25 by Dahiana Quintanilla) Hypertension (Chronic) Medical History: Medical History (Last Updated 08/25/19 @ 09:25 by Dahiana Quintanilla) Hemorrhoids (Acute) K64.9 RUQ abdominal pain (Acute) R10.11 Abdominal pain (Acute) R10.9 SOB (shortness of breath) (Acute) R06.02 Anxiety (Acute) F41.9 Depression (Acute) F32.9 Hypertension (Chronic) I10 Back problem (Acute) M53.9 Fatigue (Acute) R53.83 Allergies No Known Allergies Allergy (Verified 08/29/19 08:06) Home Medications: Ambulatory Orders Medication Instructions Recorded Alprazolam [Xanax] 0.5 mg PO BID PRN 08/07/19 Sertraline HCl [Zoloft] 100 mg PO QHS 08/13/19 Albuterol IH (ProAir) [Proair Hfa 1 - 2 puff INHALATION Q6H PRN PRN 08/26/19 (SP)Vent Pts] Lisinopril 20 mg PO QHS 08/26/19 Oxycodone HCl/Acetaminophen 1 - 2 tab PO Q4H PRN PRN 7 Days 08/27/19 [Percocet 5/325] #40 tab Oxycodone HCl/Acetaminophen 1 - 2 tab PO Q6H PRN PRN 7 Days 08/27/19 [Percocet 5/325] #40 tab Surgical History: Surgical History (Last Updated 08/25/19 @ 09:25 by Dahiana Quintanilla) No pertinent past surgical history (Acute) Z78.9 Surgical History: cholecystectomy Psychiatric History: Anxiety [employer] History: No pertinent [employer] history Smoking Status: Former smoker - *Family History Maternal Family History: Family History (Last Updated 08/25/19 @ 09:26 by Dahiana Quintanilla) Mother Asthma Aunt Colon cancer Father Asthma Sister Asthma History Items: No pertinent history Review of Systems Eyes: Denies: Blurred vision HEENT: Denies: Difficulty Swallowing Cardiovascular: Denies: Chest Pain Respiratory: Reports: Shortness of Breath - With abdominal pain Gastrointestinal: Reports: Abdominal Pain, Constipation VTE Information - Inpt Only VTE Present on Admission: Yes VTE Mechan Device Prophylaxis: SCD's VTE Pharm Prophylaxis ordered?: Yes Patient Problems: Active and Suspected Problems (Last Updated 08/25/19 @ 09:25 by Dahiana Quintanilla) Abdominal pain (Acute) - Physical Exam Vitals/I&O's: Vital Signs Temp Pulse Resp BP Pulse Ox 99.6 F H 95 15 145/108 H 96 08/29/19 08:07 08/29/19 10:42 08/29/19 10:42 08/29/19 08:07 08/29/19 10:42 Oxygen Flow Rate (L/min) 2 Oxygen Delivery Method Nasal Cannula Weight: 334 lb 0.005 oz Body Mass Index (BMI) 57.3 General: Alert, Oriented x3, Cooperative, No apparent distress HEENT: Atraumatic Lungs: Clear to auscultation Cardiovascular: Tachycardic - Heart rate 100 Abdomen: Soft, Distended - Mild, Tender - Mild near incisions, incisions clean dry and intact, mild tenderness palpation in the left upper quadrant, no peritoneal signs Extremities: No clubbing, No cyanosis, No edema Laboratory Results 12/15/19 06:30: Total Bilirubin 1.20 H, Direct Bilirubin 0.76 H, AST 422 H, ALT 326 H, Alkaline Phosphatase 123 H, Total Protein 8.0, Albumin 3.8, Globulin 4.2, Lipase 145 08/29/19 06:30: Lipase Cancelled 08/29/19 08:30: WBC 10.4, RBC 4.78, Hgb 13.4, Hct 44.0, MCV 92.1, MCH 28.0, MCHC 30.5 L, RDW Std Deviation 44.9 H, RDW Coeff of Michelle 13.3, Plt Count 308, MPV 9.1, Immature Gran % (Auto) 0.700, Neut % (Auto) 68.0, Lymph % (Auto) 17.1 L, [place] % (Auto) 10.2 H, Eos % (Auto) 3.5, Baso % (Auto) 0.5, Absolute Neuts (auto) 7.1, Absolute Lymphs (auto) 1.78, Nucleated RBC % 0 08/29/19 08:30: Sodium 136, Potassium 4.0, Chloride 102, Carbon Dioxide 28.0, Anion Gap 6, BUN 31 H, Creatinine 2.37 H, Estim Creat Clear Calc 26.97, Est GFR (MDRD) Af Amer 29 L, Est GFR (MDRD) Non-Af 24 L, BUN/Creatinine Ratio 13.1, Glucose 139 H, Calcium 9.3, Troponin I < 0.015 08/29/19 08:30: B-Natriuretic Peptide 12.0 Assessment/Plan All Active Problems (Last Updated 08/25/19 @ 09:25 by Dahiana Quintanilla) Cholelithiasis (Acute) No pertinent past surgical history (Acute) Hemorrhoids (Acute) RUQ abdominal pain (Acute) Abdominal pain (Acute) SOB (shortness of breath) (Acute) Anxiety (Acute) Depression (Acute) Back problem (Acute) Fatigue (Acute) 39-year-old female status post laparoscopic cholecystectomy postop day 2 with abdominal pain, acute kidney injury 1. We will keep patient n.p.o. with sips only give her total of 2 L bolus along with IV fluids for dehydration. We will recheck patient's creatinine after this if improved we will plan to check CTA of the chest to rule out a PE as patient has not been that active after surgery. 2. Constipation?we will give patient several suppositories until starts having flatus and also encourage patient to walk on the floor. 3. Elevated liver functions likely due to bowing of the gallbladder fossa during surgery will continue to monitor Bella Restrepo M.D. Pager: [phone] [facility] [address] [place] [address], [facility], [address] [place] [id number] Office: [phone]
[2019-08-29] MEDS: Bisacodyl 10 MG Suppository RECTAL ×2 (12:17→14:49)
[2019-08-29] MEDS: 0.9% Normal Saline 1,000 ML 999 ML IV (12:17)
[2019-08-29 12:31] LABS: Bacteria 0 SEEN /hpf (None Seen); Mucous, Urine 0 SEEN /hpf (<or=2+); Red Blood Cells-Urine 0 SEEN /hpf (0-5)
[2019-08-29] MEDS: Acetaminophen 325 MG Tablet 650 MG PO ×2 (12:55→20:34)
[2019-08-29 13:03] LABS: Color, Urine Yellow (Yellow); Glucose, Dipstick Normal (Normal); Ketone-Dipstick Negative (Negative); Leukocyte Esterase-Dipstick 25 /ul (Negative); Nitrite-Dipstick Negative (Negative); Occult Blood-Urine 10 /ul (Negative); Protein-Dipstick 30 mg/dl (Negative); Specific Gravity, Urine 1.025 (1.002-1.030); Urine Clarity Sl. Cloudy (Clear); Urine Urobilinogen 1 mg/dl (Normal)
[2019-08-29 13:04] LABS: Urine Bilirubin Dipstick 1 mg/dL (Negative)
[2019-08-29 13:09] LABS: Squamous Epithelial Cells - UA 5-10 SEEN /hpf (5-10)
[2019-08-29 13:10] LABS: Amorphous Sediment 1+; Fine Granular Cast- Urine 0-5 SEEN /lpf (0-5); White Blood Cells 0-5 SEEN /hpf (0-5)
--- NOTE | 2019-08-29 13:48 | CPS ---
O2 placed back in pt's nose...93% on 2 lpm
[2019-08-29] MEDS: 0.9% Saline Lock 10 ML Syringe IV (14:34)
[2019-08-29] MEDS: Lactated Ringers 1,000 ML 150 ML IV ×2 (14:34→20:52)
--- NOTE | 2019-08-29 15:42 | PCM.PN.BLA ---
Progress Note late entry: 14:30 Pt now denies any abd pain in the LUQ, only the mild soreness at incisions- completing the 2nd bolus. Pt on lovenox and will recheck Cr. 15:40 Pt Cr just drawn pt still denies abd pain even with deep breaths, 97 on 2L NC, + flatus, will have pt amb and see if her pain changes, if pt is able to be weaned off NC - may hold off on CTA chest as she had abd pain and only SOB because of the pain. STROKE Vital Signs/Narrative: Vital Signs Pulse Ox 08/29/19 13:40 80
[2019-08-29] MEDS: Polyethylene Glycol 3350 17 GM PACKET PO (16:00)
--- NOTE | 2019-08-29 16:11 | NURSING ---
pt up to amb in [place] per dr. linares orders. pt walked around [place] and hr 122 with pox 89-90%. talked with resp therapy and spot check when pt sleeping was only 80% on ra.
[2019-08-29 16:25] LABS: Anion Gap 5 (5-15); BUN 33 mg/dL (7-18); Calcium,Total 8.3 mg/dL (8.5-10.1); Chloride 104 mmol/L (98-107); Creatinine, Serum 1.94 mg/dL (0.55-1.02); EST Glomerular Filtration Rate 30 mL/min (>60); Est Glom Filt Rate - Afr Amer 37 mL/min (>60); Estimated Creatinine Clearance 32.95 ml/min; Glucose 124 mg/dL (74-106); Sodium Level 136 mmol/L (136-145)
[2019-08-29] MEDS: Enoxaparin 40 MG/0.4 ML Syringe SC (16:35)
--- NOTE | 2019-08-29 18:41 | NURSING ---
pt's sister here and pt up ambulating in halls. up to br to attempt bm.
[2019-08-29] MEDS: Sertraline 100 MG Tablet PO (20:35)
[2019-08-29] MEDS: Lisinopril 20 MG Tablet PO (20:35)
[2019-08-29] MEDS: ALPRAZolam 0.5 MG Tablet PO (23:44)
[2019-08-30 02:49] VITALS: BP 123/68; PULSE 90; RESP 16; TEMP 36.9; O2SAT 97
[2019-08-30] MEDS: Acetaminophen 325 MG Tablet 650 MG PO ×3 (02:52→15:59)
[2019-08-30] MEDS: Lactated Ringers 1,000 ML 150 ML IV (03:05)
[2019-08-30 06:39] LABS: AST(SGOT) 245 U/L (15-37); Alanine Aminotransfer ALT/SGPT 312 U/L (13-56); Albumin, Serum 2.9 g/dL (3.2-5.0); Alkaline Phosphatase 163 U/L (45-117); Anion Gap 3 (5-15); BUN 14 mg/dL (7-18); BUN/Creat Ratio 17.7 RATIO (10-20); Bilirubin, Direct 0.83 mg/dL (0.00-0.30); Chloride 105 mmol/L (98-107); Creatinine, Serum 0.79 mg/dL (0.55-1.02); EST Glomerular Filtration Rate 85 mL/min (>60); Est Glom Filt Rate - Afr Amer 103 mL/min (>60); Estimated Creatinine Clearance 80.92 ml/min; Globulin 3.7 g/dL (2.2-4.2); Glucose 111 mg/dL (74-106); Potassium 4.1 mmol/L (3.5-5.1); Protein, Total 6.6 g/dL (6.4-8.2); Sodium Level 139 mmol/L (136-145)
[2019-08-30 07:11] VITALS: O2SAT 97
--- NOTE | 2019-08-30 08:09 | PN.SURG_ITS ---
Patient Problems: Active and Suspected Problems (Last Updated 08/25/19 @ 09:25 by Dahiana Quintanilla) Abdominal pain (Acute) Subjective: Patient reports she is feeling better. She is passing flatus and would like to try diet. - Physical Exam Vitals/I&O's: Vital Signs Temp Pulse Resp BP Pulse Ox 98.5 F 90 16 123/68 H 97 08/30/19 02:49 08/30/19 02:49 08/30/19 02:49 08/30/19 02:49 08/30/19 07:11 Oxygen Flow Rate (L/min) 2 Oxygen Delivery Method Nasal Cannula Weight: 323 lb 10.217 oz Body Mass Index (BMI) 55.5 Intake and Output for Last 24 Hours 08/28/19 08/29/19 08/30/19 23:59 23:59 23:59 Intake Total 2545 / 2695 1322.5 / 1322.5 Output Total 2525 / 2525 Balance 2545 / 2145 -1202.5 / -1202.5 General: Alert, Oriented x3 Lungs: Normal air movement Abdomen: Soft, Non Tender, Non-Distended Laboratory Results 08/29/19 06:30: Total Bilirubin 1.20 H, Direct Bilirubin 0.76 H, AST 422 H, ALT 326 H, Alkaline Phosphatase 123 H, Total Protein 8.0, Albumin 3.8, Globulin 4.2, Lipase 145 08/29/19 06:30: Lipase Cancelled 08/29/19 08:30: WBC 10.4, RBC 4.78, Hgb 13.4, Hct 44.0, MCV 92.1, MCH 28.0, MCHC 30.5 L, RDW Std Deviation 44.9 H, RDW Coeff of Michelle 13.3, Plt Count 308, MPV 9.1, Immature Gran % (Auto) 0.700, Neut % (Auto) 68.0, Lymph % (Auto) 17.1 L, [place] % (Auto) 10.2 H, Eos % (Auto) 3.5, Baso % (Auto) 0.5, Absolute Neuts (auto) 7.1, Absolute Lymphs (auto) 1.78, Nucleated RBC % 0 08/29/19 08:30: Sodium 136, Potassium 4.0, Chloride 102, Carbon Dioxide 28.0, Anion Gap 6, BUN 31 H, Creatinine 2.37 H, Estim Creat Clear Calc 26.97, Est GFR (MDRD) Af Amer 29 L, Est GFR (MDRD) Non-Af 24 L, BUN/Creatinine Ratio 13.1, Glucose 139 H, Calcium 9.3, Troponin I < 0.015 08/29/19 08:30: B-Natriuretic Peptide 12.0 08/29/19 12:20: Urine Color Yellow, Urine Clarity Sl. Cloudy, Urine pH 5.0, Ur Specific Rush 1.025, Urine Protein 30 H, Urine Glucose (UA) Normal, Urine Ketones Negative, Urine Occult Blood 10 H, Urine Nitrite Negative, Urine Bilirubin 1 H, Urine Urobilinogen 1 H, Ur Leukocyte Esterase 25 H, Urine RBC 0 SEEN, Urine WBC 0-5 SEEN, Ur Squamous Epith Cells 5-10 SEEN, Amorphous Sediment 1+, Urine Bacteria 0 SEEN, Fine Granular Casts 0-5 SEEN, Urine Mucus 0 SEEN 08/29/19 15:57: Sodium 136, Potassium 4.0, Chloride 104, Carbon Dioxide 27.0, Anion Gap 5, BUN 33 H, Creatinine 1.94 H, Estim Creat Clear Calc 32.95, Est GFR (MDRD) Af Amer 37 L, Est GFR (MDRD) Non-Af 30 L, BUN/Creatinine Ratio 17.0, Glucose 124 H, Calcium 8.3 L 08/30/19 05:20: Sodium 139, Potassium 4.1, Chloride 105, Carbon Dioxide 31.0, Anion Gap 3 L, BUN 14, Creatinine 0.79, Estim Creat Clear Calc 80.92, Est GFR (MDRD) Af Amer 103, Est GFR (MDRD) Non-Af 85, BUN/Creatinine Ratio 17.7, Glucose 111 H, Calcium 8.0 L, Total Bilirubin 1.70 H, Direct Bilirubin 0.83 H, AST 245 H , ALT 312 H, Alkaline Phosphatase 163 H, Total Protein 6.6, Albumin 2.9 L, Globulin 3.7 Current Medications Acetaminophen (Tylenol) 650 mg PO Q6H PRN PRN PRN Reason: HEADACHE PAIN (1-06/24) Last Admin: 08/30/19 02:52 Dose: 650 mg Documented by: Albuterol Sulfate (Ventolin Aerosols) 2.5 mg INHALATION Q4H PRN PRN PRN Reason: SOB &/OR WHEEZING Alprazolam (Xanax) 0.5 mg PO BID PRN PRN PRN Reason: ANXIETY Last Admin: 08/29/19 23:44 Dose: 0.5 mg Documented by: Enoxaparin Sodium (Lovenox) 40 mg SC BID [facility] Last Admin: 08/29/19 16:35 Dose: 40 mg Documented by: Lactated Ringer's () 1,000 mls @ 150 mls/hr IV .Q6H40M [facility] Last Admin: 08/30/19 03:05 Dose: 150 mls/hr Documented by: Lisinopril (Zestril) 20 mg PO QHS [facility] Last Admin: 08/29/19 20:35 Dose: 20 mg Documented by: Morphine Sulfate () 1 - 2 mg IV Q2H PRN PRN PRN Reason: Pain Score 1-10/10 Ondansetron HCl (Zofran) 4 mg IV Q8H PRN PRN PRN Reason: NAUSEA Last Admin: 08/29/19 23:44 Dose: 4 mg Documented by: Polyethylene Glycol (Miralax) 17 gm PO DAILY [facility] Last Admin: 08/29/19 16:00 Dose: 17 gm Documented by: Sertraline HCl (Zoloft) 100 mg PO QHS [facility] Last Admin: 08/29/19 20:35 Dose: 100 mg Documented by: Sodium Chloride () 10 - 40 ml IV UD PRN PRN Reason: SALINE FLUSH Last Admin: 08/29/19 14:34 Dose: 10 ml Documented by: Medical Necessity - Tobacco Use Smoking Status: Former smoker Assessment/Plan All Active Problems (Last Updated 08/25/19 @ 09:25 by Dahiana Quintanilla) Cholelithiasis (Acute) No pertinent past surgical history (Acute) Hemorrhoids (Acute) RUQ abdominal pain (Acute) Abdominal pain (Acute) SOB (shortness of breath) (Acute) Anxiety (Acute) Depression (Acute) Back problem (Acute) Fatigue (Acute) 39-year-old female status post laparoscopic cholecystectomy 1. Patient was readmitted through the emergency room with dehydration and abdominal pain. CT scan revealed a few air bubbles likely postoperative in the gallbladder fossa but nothing else. Her creatinine has responded to rehydration and she is making urine. I will lower her fluids and start a clear liquid diet and advance as tolerated. Once her diet is advanced and she is not having any abdominal pain she can go home. Sridhar Cruz MD Pager: [facility] [address] [place] [address] [address] [place] [phone] Office:
[2019-08-30 08:28] VITALS: BP 135/70; PULSE 86; RESP 18; TEMP 36.5; O2SAT 93
[2019-08-30] MEDS: Ondansetron 4 MG/2 ML Vial IV ×2 (08:53→22:00)
[2019-08-30] MEDS: Polyethylene Glycol 3350 17 GM PACKET PO (08:55)
[2019-08-30] MEDS: Enoxaparin 40 MG/0.4 ML Syringe SC ×2 (08:55→21:55)
[2019-08-30] MEDS: Lactated Ringers 1,000 ML 60 ML IV (13:05)
[2019-08-30 13:09] VITALS: BP 142/80; PULSE 88; RESP 18; TEMP 36.8; O2SAT 97
--- NOTE | 2019-08-30 13:50 | DCINST_ITS ---
Discharge Diet: Light diet - advance as tolerated Discharge Activity: Return to Normal Activity, May Shower May shower in (days): 1 - with the bandage in place. Additional Activity Instructions:: Pain medication may cause nausea. You should typically eat light foods as you take your pain medications. Pain medication may also cause constipation. If this is a problem for you, please discuss with your doctor. Call your doctor if your incision/area has: Continuous Slow Oozing, Sudden Increased Bleeding, Increased Pain/ Swelling, Increased Redness, Foul Smelling Discharge, Fever of 101 or Higher Call your doctor if you observe: Fever of 101 or Higher Suture Line Care: Avoid Pulling/Pushing, Avoid Pinching/Bending Allergies/Adverse Reactions: Allergies No Known Allergies Allergy (Verified 08/29/19 08:06) Medications to take at Discharge Alprazolam [Xanax] 0.5 mg PO BID PRN 08/07/19 Sertraline HCl [Zoloft] 100 mg PO QHS 08/13/19 Albuterol IH (ProAir) [Proair Hfa] 1 - 2 puff INHALATION Q6H PRN PRN 08/26/19 Lisinopril 20 mg PO QHS 08/26/19 Oxycodone HCl/Acetaminophen [Percocet 5-325] 1 - 2 tab PO Q4H PRN PRN 7 Days #40 tab 08/27/19 Primary Care Physician: Juliet Gao MD [Primary Care Provider] - Test Results: Test results from this visit will be discussed in further detail at your follow- up appointment, if applicable. Please Follow Up With: Sridhar Cruz MD When: Please call to schedule 2 week follow up appointment. [phone]
[2019-08-30] MEDS: oxyCODONE 5 MG Tablet PO ×2 (14:07→19:34)
[2019-08-30 17:45] VITALS: BP 143/72; PULSE 107; RESP 18; TEMP 37.2; O2SAT 97
[2019-08-30 21:52] VITALS: BP 110/59; PULSE 87; RESP 16; TEMP 36.9; O2SAT 96
[2019-08-30] MEDS: Sertraline 100 MG Tablet PO (21:55)
[2019-08-30] MEDS: Lisinopril 20 MG Tablet PO (21:55)
[2019-08-30] MEDS: 0.9% Saline Lock 10 ML Syringe IV (22:00)
[2019-08-31] MEDS: Acetaminophen 325 MG Tablet 650 MG PO (00:12)
[2019-08-31 00:14] VITALS: BP 131/67; PULSE 90; RESP 18; TEMP 37.1; O2SAT 100
[2019-08-31 05:42] VITALS: BP 109/65; PULSE 78; RESP 16; TEMP 36.8; O2SAT 94
[2019-08-31 08:40] VITALS: BP 117/69; PULSE 91; RESP 16; TEMP 37.1; O2SAT 96
--- NOTE | 2019-08-31 09:01 | PCM.DC.SUM ---
Discharge Date and Diagnosis Date of Admission: 08/29/19 Date of Discharge: 08/31/19 - Primary Discharge Diagnosis Constipation - Secondary Discharge Diagnosis Chronic Problems (Last Updated 08/25/19 @ 09:25 by Dahiana Quintanilla) Hypertension (Chronic) Hospital Course and Treatment Summary of Care Provided: The patient is a 39 year old F who presented two days post-op with abdominal pain. CT scan was performed and demonstrated Small amount of air and trace fluid in the cholecystectomy operative bed, most likely resolving postoperative changes. No drainable collection is evident. Hepatic steatosis. Patient was given Miralax with successful bowel movements. Patient had an uneventful hospitalization. Upon discharge, patient denies abdominal pain. She is tolerating a diet well. She is having bowel movements. Recommend continued Miralax. - Physical Exam Vitals/I&O's: Vital Signs Temp Pulse Resp BP Pulse Ox 98.8 F 91 16 117/69 96 08/31/19 08:40 08/31/19 08:40 08/31/19 08:40 08/31/19 08:40 08/31/19 08:40 Oxygen Flow Rate (L/min) 2 Oxygen Delivery Method Room Air Weight: 323 lb 10.217 oz Body Mass Index (BMI) 55.5 Intake and Output for Last 24 Hours 08/29/19 08/30/19 08/31/19 23:59 23:59 23:59 Intake Total 2545 / 2695 3376.5 / 3376.5 950 / 950 Output Total 3575 / 3575 Balance 2545 / 2145 -198.5 / -198.5 950 / 950 General: Alert, Oriented x3, Cooperative Abdomen: Bowel Sounds Present, Soft, Non Tender, - - Incisions c/d/i. No erythema or infection noted Microbiology Past 72 Hours 08/29/19 12:20 Urine, Clean Catch Urine Culture - Final Enterococcus faecalis Discharge Diet: Light diet - advance as tolerated Discharge Activity: Return to Normal Activity, May Shower May shower in (days): 1 - with the bandage in place. Additional Activity Instructions:: Pain medication may cause nausea. You should typically eat light foods as you take your pain medications. Pain medication may also cause constipation. If this is a problem for you, please discuss with your doctor. Call your doctor if your incision/area has: Continuous Slow Oozing, Sudden Increased Bleeding, Increased Pain/ Swelling, Increased Redness, Foul Smelling Discharge, Fever of 101 or Higher Call your doctor if you observe: Fever of 101 or Higher Suture Line Care: Avoid Pulling/Pushing, Avoid Pinching/Bending Home Medications: Medications to take at Discharge Alprazolam [Xanax] 0.5 mg PO BID PRN 08/07/19 Sertraline HCl [Zoloft] 100 mg PO QHS 08/13/19 Albuterol IH (ProAir) [Proair Hfa] 1 - 2 puff INHALATION Q6H PRN PRN 08/26/19 Lisinopril 20 mg PO QHS 08/26/19 Oxycodone HCl/Acetaminophen [Percocet 5-325] 1 - 2 tab PO Q4H PRN PRN 7 Days #40 tab 08/27/19 Primary Care Physician: Juliet Gao MD [Primary Care Provider] - Please Follow Up With: Sridhar Cruz MD When: Please call to schedule 2 week follow up appointment. [phone] Disposition: Home Minutes spent on discharge:: 20 Patient Condition:: Stable Medical Necessity - Tobacco Use Smoking Status: Former smoker Meaningful Use Info Meaningful Use Diagnoses (Choose all that apply): None applicable Code Visit Inpatient E&M: 16523 Disch Hosp
== END 2019-08-31 07:46 | disposition home or self-care (01) ==
LOC: ED 08:59 → PCU 12:04
PROVIDERS: Admitting Provider Surgery; Emergency Provider Emergency Medicine; Family Provider Student in an Organized Health Care Education/Training Program; PCP Student in an Organized Health Care Education/Training Program; Visit Provider Surgery
DX: K59.00 Constipation, unspecified (principal); I10 Essential (primary) hypertension; R06.02 Shortness of breath; F41.9 Anxiety disorder, unspecified; F32.9 Major depressive disorder, single episode, unspecified; E86.0 Dehydration; K76.0 Fatty (change of) liver, not elsewhere classified; Z79.899 Other long term (current) drug therapy; Z87.891 Personal history of nicotine dependence; Z90.49 Acquired absence of other specified parts of digestive tract
CPT/HCPCS: 36415; 71045; 74176; 80048; 80076; 81001; 83690; 83880; 84484; 85025; 87077; 87086; 87088; 87186; 93005; 96361; 96372; 96374; 96375; 96376; 99218; 99251; 99285; J7030; J7120; A4216; G0378; G0463; J2405

== ENCOUNTER 2020-03-17 15:02 | Emergency (ER) | payer MEDICAID, SELFPAY ==
[2019-08-29 11:28] VITALS: BMI 55.5
[2020-03-17 15:07] VITALS: BP 134/84; PULSE 104; RESP 17; TEMP 36.9; O2SAT 98; BMI 52.9
--- NOTE | 2020-03-17 15:19 | EKG12_ITS ---
Test Reason : DIZZINESS Blood Pressure : / mmHG Vent. Rate : 100 BPM Atrial Rate : 100 BPM P-R Int : 142 ms QRS Dur : 086 ms QT Int : 346 ms P-R-T Axes : 062 050 016 degrees QTc Int : 446 ms Normal sinus rhythm Normal ECG Confirmed by ISIAH GARCIA ([id number]), graphic editor EMERALD BARROS ([id number]) on 03/20/2020 2:12:52 PM Referred By: HARSHAL Confirmed By:ISIAH GARCIA
--- NOTE | 2020-03-17 15:36 | ED.DCSUM_ITS ---
History of Present Illness Chief Complaint: Anxiety Informant: Patient Narrative: Patient is a 39-year-old male with a past medical history of anxiety, hypertension who presents to the emergency department after having a panic attack today. She states that she was in the check out line self packing her groceries at [employer] and felt very rushed. Whenever she feels anxious she holds her breath. She felt very flushed in the face and warm. Her tongue became numb. She got tingling sensation in her bilateral fingers. The episode lasted no more than 10 minutes. She has had these many times before in the past. She states that she has anxiety attacks every day. Her doctor did just recently lower her dose of Zoloft and Ativan. She denies having any chest pain, chest pain or shortness of breath during any of this. She is currently asymptomatic. Denies any family history of cardiac disease. She denies smoking, drinking or drug use. Past Medical History - Allergies and Home Meds Allergies/Adverse Reactions: Allergies No Known Allergies Allergy (Verified 03/17/20 15:06) Primary Care Physician: Juliet Gao MD [Primary Care Provider] - Prior records reviewed: Yes Past Medical History: - - Hypertension, anxiety Surgical History: cholecystectomy Smoking Status: Never smoker Alcohol: None Drugs: None - Family History Maternal Family History: Family History (Last Updated 08/25/19 @ 09:26 by Dahiana Quintanilla) Mother Asthma Aunt Colon cancer Father Asthma Sister Asthma Family History: Reports: No pertinent history Review of Systems All systems negative except as indicated General: Denies: Chills, Fever, Sweats Eyes: Denies: Visual changes - bilaterally, Diplopia ENT: Denies: Rhinorrhea, Sore throat Cardiovascular: Denies: Chest pain, Palpitations Respiratory: Denies: Dyspnea, Cough, Dyspnea on exertion Gastrointestinal: Denies: Abdominal pain, Nausea, Vomiting, Diarrhea, Melena, Hematochezia Genitourinary: Denies: Dysuria, Hematuria, Frequency Musculoskeletal: Denies: Back pain, Extremity Pain Skin: Denies: Rash, Wounds Neurological: Reports: Parasthesia - Resolved. Denies: Headache, Weakness, Numbness Psych: Reports: Anxiety. Denies: Suicidal thoughts, Suicidal ideations Physical Exam Vital Signs/Narrative: Vital Signs Temp Pulse Resp BP Pulse Ox 03/17/20 15:07 98.4 F 104 H 17 134/84 H 98 General: Well nourished, Well developed, No Acute Distress Head: Normocephalic, Atraumatic Eyes: Perrl, EOMI ENT: Moist mucous membranes, No rhinorrhea Neck: Supple, Nontender Cardiovascular: Regular rate, Regular rhythm, No murmurs Respiratory: No distress, CTA bilaterally, Chest nontender Abdomen: Soft, Nontender, Nondistended, Normal bowel sounds Back: Nontender, Normal Inspection Extremities: Nontender, No edema Skin: Normal color, No rash Neurological: Alert, Oriented x3, Cranial nerves II-XII grossly intact, Normal Strength, Normal Sensation Psychological: Normal affect, Normal Mood, - - Patient does not feel anxious at this time. She is feeling much better and conversing well. Diagnostic/Tx/Re-eval - Medical Decision Making Patient is a 39-year-old female who presents emerge department for a panic attack. Upon arrival to the emerge department her symptoms have completely resolved. She states that she has been struggling with this for a long time. The ambulance was called for and the checkout line at [facility]. Whenever she arrived to the ED she was borderline tachycardic with otherwise normal vital signs. Given this I did offer to do some lab work but she is declining at this time. We did do an EKG which showed a ventricular rate of 100 bpm with normal intervals. Normal axis. No ST elevations or depressions. No arrhythmia. Throughout the course of ED stay. She has been asymptomatic. She is denying any chest pain, shortness of breath or heart palpitations. I have low concern for ACS.. No leg swelling to be concern for any PE and all symptoms have resolved. She is been satting well on room air. At this time will discharge her home in stable condition. She is to follow-up with her PCP to discuss medication adjustments as she is struggling with this daily. She understands and is agreeable this plan. Warning signs and symptoms for which to return to the emerge department were reviewed with her. ED Disposition - Plan for ED Patient: Disposition: Home or Assisted Living Diagnosis: Panic attack, Flushing Instructions: ED Panic Attack Referrals: Juliet aGo MD [Primary Care Provider] - 2 Days
[2020-03-17 15:49] VITALS: BP 128/89; PULSE 97; RESP 17; O2SAT 98
== END 2020-03-17 15:50 | disposition home or self-care (01) ==
LOC: ED 15:50
PROVIDERS: Emergency Provider Emergency Medicine; PCP Student in an Organized Health Care Education/Training Program
DX: F41.0 Panic disorder [episodic paroxysmal anxiety] (principal); R23.2 Flushing; I10 Essential (primary) hypertension; Z79.899 Other long term (current) drug therapy
CPT/HCPCS: 93005; 99284

== ENCOUNTER 2020-07-09 17:17 | Emergency (ER) | payer MEDICAID, SELFPAY ==
[2020-07-09 17:18] VITALS: BP 140/114; PULSE 108; RESP 16; TEMP 36.4; O2SAT 95; BMI 51.1
--- NOTE | 2020-07-09 17:27 | ED.VIS.GEN ---
History of Present Illness Chief Complaint: Eye Problem Narrative: Patient presents with supraorbital swelling, as well as facial pain. She has no fever or chills. She has chronic dry skin on her face. No cough or congestion. She has no eye involvement or vision changes. Past Medical History - Allergies and Home Meds Allergies/Adverse Reactions: Allergies No Known Allergies Allergy (Verified 03/17/20 15:06) Primary Care Physician: Juliet Gao MD [Primary Care Provider] - Past Medical History: - - Hypertension, she has not taken her antihypertensive medication today. Surgical History: cholecystectomy Smoking Status: Never smoker - Family History Maternal Family History: Family History (Last Updated 08/25/19 @ 09:26 by Dahiana Quintanilla) Mother Asthma Aunt Colon cancer Father Asthma Sister Asthma Family History: Reports: No pertinent history Review of Systems General: Denies: Fever Eyes: Denies: Visual changes - left ENT: Reports: - - Facial pain including the left supraorbital region. Cardiovascular: Denies: Chest pain Respiratory: Denies: Dyspnea, Cough Musculoskeletal: Denies: Myalgias Skin: Reports: Rash Neurological: Denies: Weakness Hematologic: Denies: Easy bruising Allergy: Denies: Swelling of the mouth, Swelling of the tongue Physical Exam Vital Signs/Narrative: Vital Signs Temp Pulse Resp BP Pulse Ox 07/09/20 17:18 97.6 F L 108 H 16 140/114 H 95 General: No Acute Distress Head: Normocephalic, Atraumatic Eyes: Perrl, EOMI. Negative for: Pale conjunctiva, Scleral icterus ENT: - - Patient has dry skin over her face, she has supraorbital fullness which could be early cellulitis there is some erythema in that region and some slight swelling of the left facial region. No posterior auricular lymph nodes or anterior lymphadenopathy. 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 We will treat with antibiotics if anything changes or worsen she is to return. She understands this. ED Disposition - Plan for ED Patient: Disposition: Psychiatric Hospital or Unit Diagnosis: Periorbital cellulitis of left eye Instructions: ED Cellulitis, ED FACIAL CELLULITIS Prescriptions: Clindamycin [Cleocin] 150 mg PO 4X/DAY #40 cap Prescription Printed Referrals: Juliet Gao MD [Primary Care Provider] - 2 Days
[2020-07-09] MEDS: Clindamycin HCl 150 MG Capsule 300 MG PO (17:31)
== END 2020-07-09 17:50 | disposition home or self-care (01) ==
LOC: ED 17:42
PROVIDERS: Emergency Provider Emergency Medicine; PCP Student in an Organized Health Care Education/Training Program
DX: L03.213 Periorbital cellulitis (principal); I10 Essential (primary) hypertension; Z79.899 Other long term (current) drug therapy
CPT/HCPCS: 99281

== ENCOUNTER → 2021-02-08 16:57 | Outpatient (CLI) | payer MEDICAID, SELFPAY ==
[2021-02-07 14:24] VITALS: BMI 46.0
--- NOTE | 2021-02-08 16:57 | CT_ITS ---
STUDY: CT ABDOMEN AND PELVIS WITH CONTRAST REASON FOR EXAM: Female, 40 years old. Right upper quadrant and lower abdominal pain. Status post hernia repair. RADIATION DOSAGE (If Supplied By Facility): CTDIvol = ( 23.87 ) mGy, DLP = ( 2705.15 ) mGycm TECHNIQUE: Transaxial images were obtained from the dome of the diaphragm to the symphysis pubis with oral contrast. Oral and amp; IV Readi-CAT and amp; 100mL Isovue-300 was administered. Sagittal and coronal images were reconstructed. Individualized dose optimization techniques were used for this CT. COMPARISON: Comparison is made with prior examination dated 08/29/2019. FINDINGS: The visualized lung bases are unremarkable. The visualized portions of the heart are within normal limits. There is decreased attenuation of the liver consistent with steatosis. Mild hepatomegaly. The patient is status post cholecystectomy. Normal spleen. Normal pancreas. Normal bilateral adrenal glands. There is a 2.3 cm cyst in the upper lateral aspect of the right kidney. A 1 cm cyst as well as a 3.2 cm cyst are seen in the lower pole. There is a 1.7 cm cyst in the lower pole of the left kidney. Normal visualized stomach. Normal small intestine. Normal colon. The appendix is visualized and appears normal. Normal abdominal aorta. Normal inferior vena cava. Normal retroperitoneum. Normal urinary bladder. There is a moderate-sized umbilical hernia containing fat. The neck of the hernia measures 8 cm. There are mild degenerative changes of the visualized lumbar spine. CT/Abdomen/Pelvis WITH Contrast IMPRESSION: Moderate sized umbilical hernia containing fat. The neck of the hernia measures 8 cm. Mild hepatomegaly and diffuse fatty infiltration of the liver. Stable bilateral renal cysts. The patient is status post cholecystectomy. Electronically Signed: Javier Salinas MD at 13:19 EDT , Service support ,
== END ==
PROVIDERS: PCP Student in an Organized Health Care Education/Training Program; Referring Provider Surgery; Visit Provider Surgery
DX: K46.9 Unspecified abdominal hernia without obstruction or gangrene (principal); R10.9 Unspecified abdominal pain
CPT/HCPCS: 74177; Q9967; A4216

== ENCOUNTER 2021-02-21 21:10 | Emergency (ER) | payer MEDICAID, SELFPAY ==
[2021-02-15 10:19] VITALS: BMI 46.0
[2021-02-21 21:11] VITALS: BP 168/105; PULSE 102; RESP 18; TEMP 36.6; O2SAT 97; BMI 48.0
--- NOTE | 2021-02-21 21:23 | ED.VIS.DENTA ---
HPI History of Present Illness Chief Complaint: Dental Informant: patient Onset/Context/Timing Onset: Days Context: Sudden Onset Timing: Continuous Quality: Pain Location: Numerous teeth Current Severity: Severe Maximum Severity: Severe Worsened by: Cold and hot Associated Symptoms Assocated Symptom - Dental: cold sensitivity and hot sensitivity; Negative for fever, jaw swelling or face swelling Narrative Narrative: Patient is a middle-aged woman who presents with dental pain that is worse with cold and possibly hot fluids. She has been on 7 days of Augmentin with no improvement. She was told she cannot be seen by dentist at the start of my clinic until May. She denies fever, chills night sweats. She denies rheumatic fever, heart murmur, SBE or being immune suppressed. She denies history of ulcers, renal disease or diabetes. Prior similar symptoms: Yes Recent Illness/Hospitalization: No PFSH PFSH Medical History Abdominal pain Anxiety Back problem Dental caries Depression Fatigue Hemorrhoids Hypertension Recurrent hernia RUQ abdominal pain SOB (shortness of breath) Home Medications albuterol sulfate 1 - 2 puff INHALATION Q6H PRN PRN 08/26/19 [History Last Taken Unknown] lisinopril 20 mg tablet 20 mg PO QHS PRN 01/30/21 [History Last Taken Unknown] hydrocodone-acetaminophen 1 tab PO Q6H PRN PRN 3 Days #10 tablet 02/21/21 [Rx Last Taken Unknown] naproxen 500 mg PO BID #20 tab 02/21/21 [Rx Last Taken Unknown] Allergy/AdvReac Type Severity Reaction Status Date / Time No Known Allergies Allergy Verified 02/21/21 21:12 Family History Mother Asthma Aunt Colon cancer Father Asthma Sister Asthma Surgical History History of laparoscopic cholecystectomy Social History Smoking Status: Former smoker second hand exposure: No alcohol intake: never substance use type: does not use caffeine: Yes what type of physical activity do you participate in: none frequency: does not exercise ROS ROS ED Constitutional Constitutional ED: Denies chills, fever(s) or subjective Eyes Eyes: Denies blurry vision or change in vision ENT ENT ED: Denies ear pain, rhinorrhea or sore throat Cardiovascular Cardiovascular: Denies chest pain or palpitations Respiratory/Chest Respiratory/Chest: Denies cough, dyspnea or dyspnea on exertion Gastrointestinal Gastrointestinal: Denies nausea or vomiting Musculoskeletal Musculoskeletal: Denies back pain or neck pain Integumentary Denies abscess or rash Allergic/Immunologic Allergic/Immunologic ED: Denies mouth swelling or tongue swelling EXAM Physical Exam Const Vital Signs: 02/21/21 21:11 Temperature 97.9 F Temperature Source Temporal Pulse Rate 102 H Respiratory Rate 18 Blood Pressure 168/105 H Blood Pressure Mean 126 Pulse Ox 97 Oxygen Delivery Method Room Air Positive well nourished, well developed and obese General Appearance ED: well developed Nutritional Appearance: obese HEENT Negative for trauma or tenderness Face and Sinus: Negative for sinuses nontender Mouth ED: Yes oral and palatal mucosa normal, Yes lips normal, Yes tongue normal, Yes salivary gland normal and No mouth trauma Mouth: oral and palatal mucosa normal, lips normal, tongue normal, salivary gland normal and No mouth trauma Teeth and Gingiva: abnormal tooth and associated gingiva, caries and poor dentition Throat: posterior oropharynx normal Eyes PERRL and EOMs intact bilaterally General Eye ED: Negative for pale conjunctiva or scleral icterus Neck no lymphadenopathy, supple and no JVD Neck Narrative: Trachea midline no inspiratory expiratory stridor. General: normal visual inspection Lymph Lymphatic: no lymphadenopathy noted Resp normal respiratory effort Cardio regular rate, regular rhythm, S1 normal heart sound, S2 normal heart sound and no murmurs Neuro oriented x3 and CN's II-XII intact bilaterally Sensorium / Orientation: alert Psych mental status grossly normal Skin no rashes or lesions noted and no wounds MDM MDM MDM Narrative Medical decision making narrative: Patient with numerous dental caries with exposure of dentin and pulp as well as erosions of the gumline. There is evidence of periodontal disease as well as gingivitis. With patient having persistent pain to cold she has developed symptomatic irreversible pulpitis. Patient was treated with NSAID and opiate analgesia. She was given a list of dentist that will care for her. Discharge Plan Triage Chief Complaint: Dental ED Provider: Jorge Eldridge Dx/Rx/DC Orders Clinical Impression: Symptomatic irreversible pulpitis, Dental caries extending into pulp, Dental caries extending into dentin Instructions: ED Dental Pain, ED Dental Cavity Prescriptions: New hydrocodone-acetaminophen [hydrocodone-acetaminophen] 1 TABLET tablet 1 tab PO Q6H PRN PRN (Reason: Pain) 3 Days Qty: 10 RF: 0 naproxen 500 MG tablet 500 mg PO BID Qty: 20 RF: 0 No Action albuterol sulfate 1 PUFF inhaler 1 - 2 puff inhalation Q6H PRN PRN (Reason: Sob &/Or Wheezing) RF: 0 lisinopril 20 mg tablet 20 mg PO QHS PRN (Reason: bloodpressure) RF: 0 Primary Care Provider: Juliet Gao Referrals: Juliet Gao MD [Primary Care Provider] - Melissa Bartlett [NON-STAFF] - As soon as possible Disposition Disposition: Home, self care
[2021-02-21] MEDS: HYDROcodone Bitartrate/Apap 5/325 Tablet PO (21:28)
[2021-02-21] MEDS: Naproxen 250 MG Tablet 500 MG PO (21:28)
[2021-02-21 21:38] VITALS: BP 144/78; PULSE 100; RESP 18; O2SAT 99
== END 2021-02-21 21:38 | disposition home or self-care (01) ==
LOC: ED 21:31
PROVIDERS: Emergency Provider Emergency Medicine; PCP Student in an Organized Health Care Education/Training Program
DX: K02.9 Dental caries, unspecified (principal); K04.02 Irreversible pulpitis; E66.9 Obesity, unspecified; Z79.899 Other long term (current) drug therapy; Z87.891 Personal history of nicotine dependence
CPT/HCPCS: 99283

== ENCOUNTER 2022-01-13 18:01 | Emergency (ER) | payer MEDICAID, SELFPAY ==
[2022-01-13 18:03] VITALS: BP 157/113; PULSE 99; RESP 17; TEMP 37; O2SAT 95; BMI 50.6
--- NOTE | 2022-01-13 18:19 | CT_ITS ---
STUDY: CT ABDOMEN AND PELVIS WITH CONTRAST REASON FOR EXAM: Female, 41 years old. right flank and rlq abd pain. No kidney stone hx. RADIATION DOSAGE (If Supplied By Facility): CTDIvol = ( 22.07 ) mGy, DLP = ( 1284.53 ) mGycm TECHNIQUE: Transaxial images were obtained from the dome of the diaphragm to the symphysis pubis without oral contrast. IV 100mL Isovue-370 was administered. Sagittal and coronal images were reconstructed. Individualized dose optimization techniques were used for this CT. COMPARISON: 02/08/2021 FINDINGS: The visualized lung bases are unremarkable. The visualized portions of the heart are within normal limits. Normal liver. There is non-visualization of the gallbladder, which may be secondary to either contraction or a prior cholecystectomy. Normal spleen. Normal pancreas. Normal bilateral adrenal glands. Normal right kidney. Normal left kidney. Multiple small bilateral renal cysts. Normal visualized stomach. Normal small intestine. Normal colon. The appendix is visualized and appears normal. Normal abdominal aorta. Normal inferior vena cava. Normal retroperitoneum. Normal urinary bladder. 7 cm umbilical hernia containing fat. Normal osseous structures. CT/Abdomen/Pelvis W IV Cont ONLY IMPRESSION: No acute abnormality. Electronically Signed: Chirag Miller MD at 20:08 EDT ,
--- NOTE | 2022-01-13 18:21 | ED.VIS.GI ---
HPI HPI - GI History of Present Illness Chief Complaint: Abd Pain Informant: patient Abdominal Pain/Flank Pain Onset: Days Context: Gradual Onset Timing: Continuous Quality: Aching Location: Right Flank Current Severity: Mild Maximum Severity: Mild Worsened by: Nothing Relieved by: Nothing Nausea/Vomiting/Emesis GI Symptom: Negative for Nausea and Vomiting Diarrhea/Melena/Hematochezia GI Symptom: Negative for Diarrhea, Melena and Hematochezia Associated Symptoms Associated Symptoms: Negative for Dysuria, Frequency and Hematuria Narrative Narrative: 41-year-old female history of a prior cholecystectomy. She said from a laparoscopic incisions she has a known periumbilical hernia which her surgeon is going to eventually fix but she is also diabetic and they want her to get her sugars under better control. She states the last 4 days she is also had right flank pain. She denies any history of kidney stone. She denies any trauma. She denies any nausea, vomiting, diarrhea or fever. No dysuria or hematuria. Nothing specifically makes the pain better or worse. Prior similar symptoms: No Recent Illness/Hospitalization: No PFSH PFSH Medical History (Updated 01/13/22 @ 20:[address] Ac Flores MD) Abdominal pain Anxiety Back problem Dental caries Depression Diabetes Fatigue Hemorrhoids Hypertension Recurrent hernia RUQ abdominal pain SOB (shortness of breath) Home Medications albuterol sulfate 1 - 2 puff INHALATION Q6H PRN PRN 08/26/19 [History Last Taken Unknown] lisinopril 20 mg tablet 20 mg PO QHS PRN 01/30/21 [History Last Taken Unknown] hydrocodone-acetaminophen 1 tab PO Q6H PRN PRN 3 Days #10 tablet 02/21/21 [Rx Last Taken Unknown] naproxen 500 mg PO BID #20 tab 02/21/21 [Rx Last Taken Unknown] Allergy/AdvReac Type Severity Reaction Status Date / Time No Known Allergies Allergy Verified 01/13/22 18:02 Family History Mother Asthma Aunt Colon cancer Father Asthma Sister Asthma Surgical History History of laparoscopic cholecystectomy Social History Smoking Status: Former smoker second hand exposure: No alcohol intake: never substance use type: does not use caffeine: Yes what type of physical activity do you participate in: none frequency: does not exercise ROS ROS ED ROS Narrative Right flank abdominal pain without other symptoms. Constitutional Constitutional ED: Reports fever(s) ENT ENT ED: Reports ear pain Cardiovascular Cardiovascular: Reports chest pain Respiratory/Chest Respiratory/Chest: Reports dyspnea Gastrointestinal Gastrointestinal: Reports abdominal pain; Denies diarrhea, nausea or vomiting Genitourinary Genitourinary ED: Denies dysuria or hematuria Musculoskeletal Musculoskeletal: Denies arthralgias or myalgias Integumentary Denies rash Neurologic Neurologic: Denies headache(s) Psychiatric Psychiatric: Denies depression Endocrine Endocrinology: Denies polyuria Hematologic/Lymphatic Hematologic/Lymphatic: Denies easy bruising Allergic/Immunologic Allergic/Immunologic ED: Denies urticaria EXAM Physical Exam Narrative Exam Narrative: 41-year-old female no acute distress vital signs stable except for blood pressure 137/113. H EENT exam unremarkable. Neck nontender no lymphadenopathy. Lungs clear to auscultation bilaterally. Heart regular rhythm no murmur. Abdomen morbidly obese soft nondistended normal bowel sounds no peritoneal signs. She has reducible umbilical hernia that she has had for some time. She also has pain over her right flank that not particularly reproducible. Patient is morbidly obese. There are no peritoneal signs. There is no McBurney's point tenderness. No distention or obstruction. Moving all 4 extremities. Back nontender. Neurologically she is awake and alert. Const Vital Signs: 01/13/22 18:03 Temperature 98.6 F Temperature Source Temporal Pulse Rate 99 Respiratory Rate 17 Blood Pressure 157/113 H Blood Pressure Mean 127 Pulse Ox 95 Oxygen Delivery Method Room Air Positive well nourished, well developed and obese; Negative for cachectic, contractures or unkempt General Appearance ED: well developed and NAD; Negative for unkempt, cachectic, contractures or pallor Nutritional Appearance: obese; Negative for cachectic HEENT Reports moist mucous membranes; Denies TM's clear normocephalic and atraumatic; Negative for trauma or tenderness Tympanic Membrane ED: Negative for TM's clear Eyes PERRL and EOMs intact bilaterally Neck no lymphadenopathy, supple and no JVD General: Negative for tenderness Resp normal respiratory effort and clear to auscultation bilaterally Auscultation: Negative for rales, rhonchi or wheezes Cardio regular rate, regular rhythm, S1 normal heart sound, S2 normal heart sound and no murmurs GI non-tender, non-distended and no masses Inspection: Negative for abdominal distention Auscultation: normoactive bowel sounds; Negative for hyperactive bowel sounds or hypoactive bowel sounds Palpation: soft; Negative for tender, guarding, rigid or rebound tenderness present Back/Spine no CVA tenderness General Back: Negative for CVA tenderness Cervical Spine: Negative for cervical spine tenderness Thoracic Spine / Upper Back: Negative for thoracic spinal tenderness Extremity full ROM General Extremety ED: Negative for edema or tenderness General Extremity: Negative for edema Neuro moves all extremities Sensorium / Orientation: alert, oriented to person, oriented to place and oriented to time; Negative for orientation impaired, confused, lethargic or stuporous Motor Exam: strength 5/5 throughout Psych mental status grossly normal and thought process normal Appearance: Negative for unkempt Skin no wounds General Skin Exam: Negative for jaundice or pallor Lesions: no lesions Rashes: no rashes MDM MDM MDM Narrative Medical decision making narrative: 41-year-old female with right flank pain. Exam benign. CAT scan labs pending. She has not anything for pain or nausea at this time. Repeat exam patient is doing well at 8:20 PM. We went over her test results. CAT scan showed no acute abnormality. She will be discharged home with outpatient follow-up. Lab Data Attestation: I reviewed the patient's lab results. Lab results narrative: Patient is awake 11.3. H&H 14 and 44. Platelets 319. Electrolytes unremarkable gap of 5 normal BUN and creatinine. Normal liver enzymes. UA negative. No whites nor reds nor nitrates nor bacteria. Labs: Laboratory Results - last 24 hr 01/13/22 01/13/22 01/13/22 16:30 16:30 18:35 WBC 11.3 H RBC 5.03 Hgb 14.6 Hct 44.1 MCV 87.7 MCH 29.0 MCHC 33.1 RDW Std Deviation 41.4 RDW Coeff of Michelle 12.9 Plt Count 319 MPV 9.4 Immature Gran % (Auto) 0.700 Neut % (Auto) 69.8 Lymph % (Auto) 20.9 [place] % (Auto) 5.6 Eos % (Auto) 2.6 Baso % (Auto) 0.4 Absolute Neuts (auto) 7.9 H Absolute Lymphs (auto) 2.37 Nucleated RBC % 0 Sodium 138 Potassium 4.1 Chloride 107 Carbon Dioxide 26.0 Anion Gap 5 BUN 14 Creatinine 0.76 Estim Creat Clear Calc 85.89 Est GFR (MDRD) Af Amer 107 Est GFR (MDRD) Non-Af 89 BUN/Creatinine Ratio 18.5 Glucose 113 H Calcium 9.8 Total Bilirubin 0.40 AST 10 L ALT 28 Alkaline Phosphatase 106 Total Protein 8.1 Albumin 3.9 Globulin 4.2 Albumin/Globulin Ratio 0.9 Urine Color Yellow Urine Clarity Clear Urine pH 6.0 Ur Specific [place] 1.020 Urine Protein Negative Urine Glucose (UA) Normal Urine Ketones Negative Urine Occult Blood 50 H Urine Nitrite Negative Urine Bilirubin Negative Urine Urobilinogen Normal Ur Leukocyte Esterase 25 H Urine RBC 0 SEEN Urine WBC 0 SEEN Ur Squamous Epith Cells 0-5 SEEN Urine Bacteria 0 SEEN Urine Mucus 0 SEEN Radiography Diagnostic Testing: Clinical Impression(s) from Imaging Studies Abdomen/Pelvis CT 01/13/22 18:19 IMPRESSION: No acute abnormality. Electronically Signed: Chirag Miller MD at 20:08 EDT , Discharge Plan Triage Chief Complaint: Abd Pain ED Provider: Ac Flores Dx/Rx/DC Orders Clinical Impression: Right flank pain, Hernia, umbilical, History of diabetes mellitus Instructions: ED Flank Pain, Uncertain Cause Prescriptions: No Action albuterol sulfate 1 PUFF inhaler 1 - 2 puff inhalation Q6H PRN PRN (Reason: Sob &/Or Wheezing) RF: 0 lisinopril 20 mg tablet 20 mg PO QHS PRN (Reason: bloodpressure) RF: 0 hydrocodone-acetaminophen [hydrocodone-acetaminophen] 1 TABLET tablet 1 tab PO Q6H PRN PRN (Reason: Pain) 3 Days Qty: 10 RF: 0 naproxen 500 MG tablet 500 mg PO BID Qty: 20 RF: 0 Primary Care Provider: Juliet Gao Referrals: Juliet Gao MD [Primary Care Provider] - As Needed Activity Restrictions/Additional Instructions: CAT scan labs are unremarkable. No specific cause for your right flank pain. Follow-up with your surgeon for your umbilical hernia. Disposition Disposition: Home, Self Care
[2022-01-13 18:39] LABS: Absolute Lymphocyte Count 2.37 X10^3/uL (0.83-4.51); Absolute Neutrophil Count 7.9 X10^3/uL (2.0-7.7); Basophil# 0.05 X10^3/uL; Basophil% 0.4 % (0-1); Eosinophil# 0.29 X10^3/uL; Eosinophils% 2.6 % (0-5); Hematocrit 44.1 % (37-47); Hemoglobin 14.6 g/dL (12.0-15.0); Lymphocyte # 2.37 X10^3/ul (0.83-4.51); Lymphocyte % 20.9 % (19-41); Mean Corp Hgb Conc 33.1 g/dL (32-36); Mean Corpuscular Volume 87.7 fL (81-99); Mean Platelet Vol. 9.4 fl (6.2-12.0); Monocyte# 0.64 X10^3/uL; Monocyte% 5.6 % (0-10); NRBC Flagged by Analyzer 0 % (0-5); Neutrophil # 7.91 X10^3/uL (2.7-7.7); Neutrophil % 69.8 % (47-70); Platelet Count 319 K/mm3 (150-450); RBC Distribution Width CV 12.9 % (11.6-14.6); RBC Distribution Width SD 41.4 fl (35.1-43.9); Red Blood Count 5.03 M/mm3 (4.2-5.4); White Blood Count 11.3 K/mm3 (4.4-11.0)
[2022-01-13 18:40] LABS: Bacteria 0 SEEN /hpf (None Seen); Mucous, Urine 0 SEEN /hpf (<or=2+); Red Blood Cells-Urine 0 SEEN /hpf (0-5); White Blood Cells 0 SEEN /hpf (0-5)
[2022-01-13 18:41] LABS: Color, Urine Yellow (Yellow); Glucose, Dipstick Normal (Normal); Ketone-Dipstick Negative (Negative); Leukocyte Esterase-Dipstick 25 /ul (Negative); Nitrite-Dipstick Negative (Negative); Occult Blood-Urine 50 /ul (Negative); Protein-Dipstick Negative (Negative); Urine Bilirubin Dipstick Negative (Negative); Urine Clarity Clear (Clear); Urine Urobilinogen Normal (Normal)
[2022-01-13 18:54] LABS: Squamous Epithelial Cells - UA 0-5 SEEN /hpf (5-10)
[2022-01-13 19:09] LABS: ALB/GLOB Ratio 0.9 RATIO (0.9-2.4); AST(SGOT) 10 U/L (15-37); Alanine Aminotransfer ALT/SGPT 28 U/L (13-56); Albumin, Serum 3.9 g/dL (3.2-5.0); Alkaline Phosphatase 106 U/L (45-117); Anion Gap 5 (5-15); BUN 14 mg/dL (7-18); BUN/Creat Ratio 18.5 RATIO (10-20); Calcium,Total 9.8 mg/dL (8.5-10.1); Chloride 107 mmol/L (98-107); Creatinine, Serum 0.76 mg/dL (0.55-1.02); EST Glomerular Filtration Rate 89 mL/min (>60); Est Glom Filt Rate - Afr Amer 107 mL/min (>60); Estimated Creatinine Clearance 85.89 ml/min; Globulin 4.2 g/dL (2.2-4.2); Glucose 113 mg/dL (74-106); Potassium 4.1 mmol/L (3.5-5.1); Protein, Total 8.1 g/dL (6.4-8.2); Sodium Level 138 mmol/L (136-145)
[2022-01-13 20:37] VITALS: BP 159/99; PULSE 76; RESP 18; O2SAT 93
== END 2022-01-13 20:38 | disposition home or self-care (01) ==
PROVIDERS: Emergency Provider Emergency Medicine; PCP Student in an Organized Health Care Education/Training Program; Visit Provider Emergency Medicine
DX: R10.9 Unspecified abdominal pain (principal); E11.9 Type 2 diabetes mellitus without complications; I10 Essential (primary) hypertension; Z87.891 Personal history of nicotine dependence; K42.9 Umbilical hernia without obstruction or gangrene; Z79.899 Other long term (current) drug therapy
CPT/HCPCS: 74177; 80053; 81001; 85025; 99283; Q9967; A4216

== ENCOUNTER 2022-01-21 21:17 | Emergency (ER) | payer MEDICAID, SELFPAY ==
[2022-01-21 21:17] VITALS: BP 180/99; PULSE 107; RESP 16; TEMP 36.2; O2SAT 97; BMI 49.4
[2022-01-21 21:19] VITALS: BP 180/99; PULSE 107; RESP 16; TEMP 36.2; O2SAT 97
--- NOTE | 2022-01-21 22:22 | EDS_ITS ---
HPI History of Present Illness Chief Complaint: Palpitations Informant: patient Onset/Context/Timing Onset: Days (2-3) Context: Sudden Onset Timing: Intermittent and Lasts (brief; seconds) Quality: flutter Location: mid-chest Current Severity: Gone Maximum Severity: Moderate Worsened by: nothing Relieved by: nothing Associated Symptoms Associated Symptoms: anxiety, none otherwise Narrative Narrative: Patient states she has a history of anxiety, when she has painful issues it tends to increase her anxiety, she has been having back issues lately, and for the past couple days she has felt intermittent palpitations-sensation in her mid chest, she states she cannot tell if it is her heart or if it is just anxiety, so she presents for evaluation. No associated lightheadedness, near- syncope or syncope. No dyspnea. No nausea. No chest pain. No other associated symptoms when this occurs. [facility] Medical History (Updated 01/21/22 @ 22:[address] Hugo Nick MD) Abdominal pain Anxiety Back problem Dental caries Depression Diabetes Fatigue Hemorrhoids Hyperlipidemia Hypertension Recurrent hernia RUQ abdominal pain SOB (shortness of breath) Home Medications albuterol sulfate 1 - 2 puff INHALATION Q6H PRN PRN 08/26/19 [History Last Taken Unknown] lisinopril 20 mg tablet 20 mg PO QHS PRN 01/30/21 [History Last Taken Unknown] hydrocodone-acetaminophen 1 tab PO Q6H PRN PRN 3 Days #10 tablet 02/21/21 [Rx Last Taken Unknown] naproxen 500 mg PO BID #20 tab 02/21/21 [Rx Last Taken Unknown] Allergy/AdvReac Type Severity Reaction Status Date / Time No Known Allergies Allergy Verified 01/21/22 21:19 Family History Mother Asthma Aunt Colon cancer Father Asthma Sister Asthma Surgical History History of laparoscopic cholecystectomy Social History Smoking Status: Former smoker second hand exposure: No alcohol intake: never substance use type: does not use caffeine: Yes what type of physical activity do you participate in: none frequency: does not exercise ROS ROS ED Constitutional Constitutional ED: Denies chills or fever(s) Eyes Eyes: Denies change in vision or diplopia ENT ENT ED: Denies rhinorrhea or sore throat Cardiovascular Cardiovascular: Reports as per HPI and palpitations; Denies chest pain Respiratory/Chest Respiratory/Chest: Denies cough or dyspnea Gastrointestinal Gastrointestinal: Denies abdominal pain, diarrhea, nausea or vomiting Genitourinary Genitourinary ED: Denies dysuria or hematuria Musculoskeletal Musculoskeletal: Reports back pain; Denies neck pain Integumentary Denies abscess or rash Neurologic Neurologic: Denies headache(s), paresthesias or weakness Psychiatric Psychiatric: Reports anxiety; Denies suicidal thoughts EXAM Physical Exam Const Vital Signs: 01/21/22 21:17 01/21/22 21:19 01/21/22 21:50 Temperature 97.2 F L 97.2 F L Temperature Source Temporal Temporal Pulse Rate 107 H 107 H Respiratory Rate 16 16 Respiratory Effort Normal Respiratory Pattern Normal Blood Pressure 180/99 H 180/99 H Blood Pressure Mean 126 126 Pulse Ox 97 97 Oxygen Delivery Method Room Air Room Air 01/21/22 22:23 Temperature Temperature Source Pulse Rate 93 Respiratory Rate 21 H Respiratory Effort Respiratory Pattern Blood Pressure 131/84 H Blood Pressure Mean 99 Pulse Ox Oxygen Delivery Method Positive well nourished, well developed and obese General Appearance ED: well developed and NAD Nutritional Appearance: obese HEENT Reports moist mucous membranes normocephalic and atraumatic Eyes PERRL and EOMs intact bilaterally Neck full ROM and supple Resp normal respiratory effort and clear to auscultation bilaterally Cardio regular rate, regular rhythm and no murmurs GI non-tender and non-distended Auscultation: normoactive bowel sounds Palpation: soft Back/Spine no CVA tenderness General Back: other FROM Thoracic Spine / Upper Back: pain with ROM Lumbar Spine / Lower Back: pain with ROM Extremity normal to inspection General Extremety ED: Negative for edema, pulses abnormal or tenderness General Extremity: Negative for edema or pulses abnormal Neuro oriented x3, CN's II-XII intact bilaterally and no sensory deficits noted Sensorium / Orientation: awake and alert Motor Exam: strength 5/5 throughout Skin no rashes or lesions noted and no wounds MDM MDM MDM Narrative Medical decision making narrative: Initial blood pressure when the patient arrived was 180/99, however before treating this, it came down spontaneously to 131/84 so we continued monitoring it did not give her any antihypertensives. She did have a brief event of palpitations while I was examining her initially, she did not have any ectopy or events on the monitor. I repeated her blood counts and electrolytes, and performed a troponin, she had a lot of these test when she was here for abdominal pain a week or so ago, they are unremarkable. She is reassured and discharged with advised to follow-up if the symptoms continue. Lab Data Attestation: I reviewed the patient's lab results. Labs: Laboratory Results - last 24 hr 01/21/22 01/21/22 22:45 22:45 WBC 10.4 RBC 4.78 Hgb 13.8 Hct 41.7 MCV 87.2 MCH 28.9 MCHC 33.1 RDW Std Deviation 40.9 RDW Coeff of Michelle 12.9 Plt Count 314 MPV 9.4 Immature Gran % (Auto) 0.400 Neut % (Auto) 69.2 Lymph % (Auto) 22.0 [place] % (Auto) 5.8 Eos % (Auto) 2.3 Baso % (Auto) 0.3 Absolute Neuts (auto) 7.2 Absolute Lymphs (auto) 2.28 Nucleated RBC % 0 Sodium 141 Potassium 4.2 Chloride 108 H Carbon Dioxide 25.0 Anion Gap 8 BUN 15 Creatinine 0.87 Estim Creat Clear Calc 75.03 Est GFR (MDRD) Af Amer 92 Est GFR (MDRD) Non-Af 76 BUN/Creatinine Ratio 17.3 Glucose 119 H Calcium 9.4 Troponin I High Sens < 3 L Rhythm Strip Rhythm Strip: Sinus Rhythm Rate: 95 Ectopy: None EKG Initial EKG: Attestation: I personally reviewed and interpreted this EKG as follows: Interpretation: Sinus Rhythm and No Acute Injury Pattern Comments: Normal EKG Discharge Plan Triage Chief Complaint: Palpitations ED Provider: Hugo Nick Dx/Rx/DC Orders Clinical Impression: Palpitations, Anxiety Instructions: ED Palpitations Prescriptions: No Action albuterol sulfate 1 PUFF inhaler 1 - 2 puff inhalation Q6H PRN PRN (Reason: Sob &/Or Wheezing) RF: 0 lisinopril 20 mg tablet 20 mg PO QHS PRN (Reason: bloodpressure) RF: 0 hydrocodone-acetaminophen [hydrocodone-acetaminophen] 1 TABLET tablet 1 tab PO Q6H PRN PRN (Reason: Pain) 3 Days Qty: 10 RF: 0 naproxen 500 MG tablet 500 mg PO BID Qty: 20 RF: 0 Primary Care Provider: Juliet Gao Referrals: Juliet Gao MD [Primary Care Provider] - 3-5 Days if not improving Disposition Disposition: Home, Self Care
[2022-01-21 22:23] VITALS: BP 131/84; PULSE 93; RESP 21
[2022-01-21 22:51] LABS: Absolute Lymphocyte Count 2.28 X10^3/uL (0.83-4.51); Absolute Neutrophil Count 7.2 X10^3/uL (2.0-7.7); Basophil# 0.03 X10^3/uL; Basophil% 0.3 % (0-1); Eosinophil# 0.24 X10^3/uL; Eosinophils% 2.3 % (0-5); Hematocrit 41.7 % (37-47); Hemoglobin 13.8 g/dL (12.0-15.0); Lymphocyte # 2.28 X10^3/ul (0.83-4.51); Mean Corp Hgb Conc 33.1 g/dL (32-36); Mean Corpuscular Hgb 28.9 pg (27.0-32.0); Mean Corpuscular Volume 87.2 fL (81-99); Mean Platelet Vol. 9.4 fl (6.2-12.0); Monocyte% 5.8 % (0-10); NRBC Flagged by Analyzer 0 % (0-5); Neutrophil # 7.17 X10^3/uL (2.7-7.7); Neutrophil % 69.2 % (47-70); Platelet Count 314 K/mm3 (150-450); RBC Distribution Width CV 12.9 % (11.6-14.6); RBC Distribution Width SD 40.9 fl (35.1-43.9); Red Blood Count 4.78 M/mm3 (4.2-5.4); White Blood Count 10.4 K/mm3 (4.4-11.0)
[2022-01-21 23:10] LABS: Anion Gap 8 (5-15); BUN 15 mg/dL (7-18); BUN/Creat Ratio 17.3 RATIO (10-20); Calcium,Total 9.4 mg/dL (8.5-10.1); Chloride 108 mmol/L (98-107); Creatinine, Serum 0.87 mg/dL (0.55-1.02); EST Glomerular Filtration Rate 76 mL/min (>60); Est Glom Filt Rate - Afr Amer 92 mL/min (>60); Estimated Creatinine Clearance 75.03 ml/min; Glucose 119 mg/dL (74-106); Potassium 4.2 mmol/L (3.5-5.1); Sodium Level 141 mmol/L (136-145); Troponin-I HS < 3 pg/mL (3.0-54.0)
--- NOTE | 2022-01-21 23:52 | EKG12_ITS ---
Test Reason : CP Blood Pressure : / mmHG Vent. Rate : 096 BPM Atrial Rate : 096 BPM P-R Int : 144 ms QRS Dur : 088 ms QT Int : 358 ms P-R-T Axes : 057 017 028 degrees QTc Int : 452 ms Normal sinus rhythm Normal ECG Confirmed by ALLYN LAKE, JEREMIE ([id number]), state editor EMERALD BARROS ([id number]) on 01/23/2022 11:03:48 AM Referred By: VIRGILIO Confirmed By:JEREMIE GRUBER MD
== END 2022-01-21 23:38 | disposition home or self-care (01) ==
PROVIDERS: Emergency Provider Emergency Medicine; PCP Student in an Organized Health Care Education/Training Program; Visit Provider Emergency Medicine
DX: R00.2 Palpitations (principal); E11.9 Type 2 diabetes mellitus without complications; I10 Essential (primary) hypertension; Z87.891 Personal history of nicotine dependence; E78.5 Hyperlipidemia, unspecified; F41.9 Anxiety disorder, unspecified; Z79.899 Other long term (current) drug therapy
CPT/HCPCS: 80048; 84484; 85025; 93005; 99283

== ENCOUNTER 2022-11-08 22:12 | Emergency (ER) | payer MEDICAID, SELFPAY ==
[2022-11-08 22:16] VITALS: BP 155/91; PULSE 98; RESP 16; TEMP 36.3; O2SAT 99; BMI 53.2
--- NOTE | 2022-11-08 22:45 | EDS_ITS ---
HPI HPI - GI History of Present Illness Chief Complaint: Abd Pain Informant: patient Abdominal Pain/Flank Pain Onset: Days Context: Gradual Onset Timing: Intermittent Location: RUQ Current Severity: Mild Maximum Severity: Mild Worsened by: Nothing Relieved by: Nothing Nausea/Vomiting/Emesis GI Symptom: Positive for Nausea Severity: Mild Associated Symptoms Associated Symptoms: Negative for Dysuria, Frequency, Hematuria or Urgency Narrative Narrative: 42-year-old female history of insulin-dependent diabetes, hypertension, anxiety, prior hernia repairs and prior cholecystectomy. States the last several days her blood sugars have been elevating and running around 280. She is also had diarrhea. Said initially it was watery and very loose and now she is having a small amount of bright red blood with her stool. No melena. No hematemesis. No fever. No dysuria. States that she has anxiety and that she believes that is playing a part in this. Prior similar symptoms: Yes Recent Illness/Hospitalization: No PFSH PFSH Medical History Abdominal pain Anxiety Back problem Dental caries Depression Diabetes Fatigue Hemorrhoids Hyperlipidemia Hypertension Recurrent hernia RUQ abdominal pain SOB (shortness of breath) Home Medications albuterol sulfate 90 mcg/actuation aerosol inhaler 1 - 2 puff inhalation Q6H PRN PRN Sob &/Or Wheezing 08/26/19 [History Last Taken Unknown] lisinopril 20 mg tablet (Zestril) 20 mg PO QHS PRN bloodpressure 01/30/21 [History Last Taken Unknown] alprazolam 1 mg tablet 0.5 mg PO TID PRN Anxiety 11/08/22 [History Last Taken Unknown] atorvastatin 20 mg tablet 20 mg PO QHS 11/08/22 [History Last Taken Unknown] insulin glargine 100 unit/mL (3 mL) subcutaneous pen (Lantus Solostar U-100 Insulin) 20 unit subcut BREAKFAST 11/08/22 [History Last Taken Unknown] insulin lispro 100 unit/mL subcutaneous pen (Humalog KwikPen (U-100) Insulin) 10 unit subcut TID 11/08/22 [History Last Taken Unknown] metformin 500 mg tablet 500 mg PO BID 11/08/22 [History Last Taken Unknown] sertraline 100 mg tablet (Zoloft) 200 mg PO DAILY 11/08/22 [History Last Taken Unknown] penicillin V potassium 500 mg tablet 500 mg PO 4X/DAY #40 tabs 11/09/22 [Rx Last Taken Unknown] Allergy/AdvReac Type Severity Reaction Status Date / Time No Known Allergies Allergy Verified 11/08/22 22:16 Family History Mother Asthma Aunt Colon cancer Father Asthma Sister Asthma Surgical History History of laparoscopic cholecystectomy Social History Smoking Status: Former smoker second hand exposure: No alcohol intake: never substance use type: does not use caffeine: Yes what type of physical activity do you participate in: none frequency: does not exercise ROS ROS ED ROS Narrative Nausea, diarrhea bright red blood with stool. Mild right upper quadrant abdominal discomfort. Review of Systems ROS Unobtainable: Denies due to encephalopathy Constitutional Constitutional ED: Reports chills; Denies fever(s) ENT ENT ED: Denies ear pain Cardiovascular Cardiovascular: Denies chest pain Respiratory/Chest Respiratory/Chest: Denies cough or dyspnea Gastrointestinal Gastrointestinal: Reports abdominal pain, diarrhea and nausea; Denies melena Genitourinary Genitourinary ED: Denies dysuria Musculoskeletal Musculoskeletal: Denies arthralgias Integumentary Denies abscess Neurologic Neurologic: Denies headache(s) Psychiatric Psychiatric: Reports anxiety Endocrine Endocrinology: Denies polydipsia Hematologic/Lymphatic Hematologic/Lymphatic: Denies easy bleeding Allergic/Immunologic Allergic/Immunologic ED: Denies mouth swelling or tongue swelling EXAM Physical Exam Narrative Exam Narrative: 42-year-old female no acute distress. Vital signs stable afebrile. She does not look septic or toxic. Does not look significantly dehydrated. H EENT exam unremarkable. Moist mucous membranes. Neck nontender. Lungs clear to auscultation bilaterally. Heart regular rhythm rate about 95 no murmur. Chest wall nontender. Abdomen soft, nondistended normal bowel sounds. No peritoneal signs. Very minimal right upper quadrant tenderness. No Aponte sign. Right lower quadrant unremarkable. No signs of obstruction. Moving all 4 extremit ies. Calves are nontender without edema. Back nontender. Neurologically she is awake and alert with no focal motor deficits Const Vital Signs: 11/08/22 22:16 11/09/22 02:20 Temperature 97.4 F L Temperature Source Temporal Pulse Rate 98 78 Respiratory Rate 16 18 Blood Pressure 155/91 H 145/78 H Blood Pressure Mean 112 100 Pulse Ox 99 97 Oxygen Delivery Method Room Air Room Air Positive well nourished, well developed and obese; Negative for cachectic, contractures or unkempt General Appearance ED: well developed; Negative for unkempt, cachectic, contractures or pallor Nutritional Appearance: obese; Negative for cachectic HEENT Reports moist mucous membranes normocephalic and atraumatic; Negative for trauma or tenderness Eyes PERRL and EOMs intact bilaterally General Eye ED: Negative for pale conjunctiva, scleral icterus or other Neck no lymphadenopathy, supple and no JVD General: Negative for tenderness Carotids: Negative for other Resp normal respiratory effort and clear to auscultation bilaterally Effort and Inspection: Negative for respiratory distress Auscultation: Negative for rales, rhonchi or wheezes Cardio regular rate, regular rhythm, S1 normal heart sound, S2 normal heart sound and no murmurs Rhythm: Negative for abnormal rhythm GI non-distended and no masses; Negative for non-tender Inspection: Negative for abdominal distention Auscultation: normoactive bowel sounds Palpation: soft and tender; Negative for guarding, rigid, mass, pulsatile mass or rebound tenderness present Back/Spine no CVA tenderness General Back: Negative for CVA tenderness Cervical Spine: Negative for cervical spine tenderness Thoracic Spine / Upper Back: Negative for thoracic spinal tenderness Lumbar Spine / Lower Back: Negative for lumbar spinal tenderness Extremity full ROM General Extremety ED: Negative for edema or tenderness General Extremity: Negative for edema Neuro CN's II-XII intact bilaterally and moves all extremities Sensorium / Orientation: alert, oriented to person, oriented to place and oriented to time; Negative for orientation impaired, confused, lethargic or stuporous Sensory Exam: No sensory level loss detected Motor Exam: strength 5/5 throughout; Negative for general weakness Psych mental status grossly normal and thought process normal Appearance: Negative for unkempt Attitude: No agitated Mood & Affect: Negative for depressed Skin General Skin Exam: Negative for jaundice or pallor Lesions: no lesions Rashes: no rashes Trauma: Negative for abrasion Nails: Negative for discolored MDM MDM MDM Narrative Medical decision making narrative: 42-year-old female anxious with nausea and diarrhea. I suspect the bright red blood is either from hemorrhoids or irritation to her rectum or colon. Does not sound like a significant mount of blood. She will be treated with IV fluids and IV Zofran. Screening labs are being obtained. Her exam is benign. At this time I do not think she needs any imaging. Differential would include viral syndrome versus colitis versus other etiologies. Also there is definitely a component of anxiety. She also has an elevated blood sugar which will be checked with the labs. Repeat exam patient is doing well. Abdomen is benign. At 2:40 AM. She has no peritoneal signs. No localizing tenderness. She and I went over her test results. She has had multiple recent CAT scans all of which were unremarkable of her abdomen. I do not think she needs further imaging. She will be discharged to home. She did have me evaluate her teeth her upper tooth is eroded into the gum there is gingivitis. She will be started on Pen-Vee K and a prescription to be sent to her pharmacy 4 times a day for 10 days. She has a follow-up appointment to see a dentist. She has a follow-up appointment to see a primary care physician at the local [facility]. Lab Data Attestation: I reviewed the patient's lab results. Lab results narrative: CBC shows a white count of 15.3. H&H of 14.1 and 43. Platelet count 305. Electrolytes show a gap of 9 normal BUN of 13 creatinine 0.79. Liver enzymes are normal. Lipase is 63. Glucose is 159. Labs: Laboratory Results - last 24 hr 11/08/22 11/08/22 23:40 23:40 WBC 15.3 H RBC 5.02 Hgb 14.1 Hct 43.1 MCV 85.9 MCH 28.1 MCHC 32.7 RDW Std Deviation 40.3 RDW Coeff of Michelle 13.1 Plt Count 305 MPV 9.3 Immature Gran % (Auto) 2.100 H Neut % (Auto) 81.4 H Lymph % (Auto) 10.3 L [place] % (Auto) 5.6 Eos % (Auto) 0.3 Baso % (Auto) 0.3 Absolute Neuts (auto) 12.5 H Absolute Lymphs (auto) 1.57 Nucleated RBC % 0 Sodium 140 Potassium 3.8 Chloride 107 Carbon Dioxide 24.0 Anion Gap 9 BUN 13 Creatinine 0.79 Estim Creat Clear Calc 81.77 Est GFR (MDRD) Af Amer 101 Est GFR (MDRD) Non-Af 84 BUN/Creatinine Ratio 16.4 Glucose 159 H Calcium 9.2 Total Bilirubin 0.50 AST 13 L ALT 31 Alkaline Phosphatase 97 Total Protein 7.6 Albumin 3.6 Globulin 4.0 Albumin/Globulin Ratio 0.9 Lipase 63 L Discharge Plan Triage Chief Complaint: Abd Pain Other Complaint: Nausea/Vomiting/Diarrhea ED Provider: Ac Flores Dx/Rx/DC Orders Clinical Impression: Abdominal pain, Diarrhea Instructions: Abdominal Pain Prescriptions: New penicillin V potassium 500 mg tablet 500 mg PO 4X/DAY Qty: 40 0RF No Action albuterol sulfate 1 PUFF inhaler 1 - 2 puff inhalation Q6H PRN PRN (Reason: Sob &/Or Wheezing) lisinopril [Zestril] 20 mg tablet 20 mg PO QHS PRN (Reason: bloodpressure) metformin 500 mg tablet 500 mg PO BID atorvastatin 20 mg tablet 20 mg PO QHS alprazolam 1 mg tablet 0.5 mg PO TID PRN (Reason: Anxiety) sertraline [Zoloft] 100 mg tablet 200 mg PO DAILY insulin lispro [Humalog KwikPen Insulin] 100 unit/mL insulin pen 10 unit SUBCUT TID insulin glargine [Lantus Solostar U-100 Insulin] 100 unit/mL (3 mL) insulin pen 20 unit SUBCUT BREAKFAST Primary Care Provider: Juliet Gao Referrals: Juliet Gao MD [Primary Care Provider] - Activity Restrictions/Additional Instructions: Follow-up with your doctor Disposition Disposition: Home, Self Care
[2022-11-08] MEDS: Ondansetron 4 MG/2 ML Vial IV (23:06)
[2022-11-08] MEDS: 0.9% Normal Saline 1,000 ML 999 ML IV (23:06)
[2022-11-09 00:04] LABS: Absolute Lymphocyte Count 1.57 X10^3/uL (0.83-4.51); Absolute Neutrophil Count 12.5 X10^3/uL (2.0-7.7); Basophil# 0.05 X10^3/uL; Basophil% 0.3 % (0-1); Eosinophil# 0.05 X10^3/uL; Eosinophils% 0.3 % (0-5); Hematocrit 43.1 % (37-47); Hemoglobin 14.1 g/dL (12.0-15.0); Lymphocyte # 1.57 X10^3/ul (0.83-4.51); Lymphocyte % 10.3 % (19-41); Mean Corp Hgb Conc 32.7 g/dL (32-36); Mean Corpuscular Hgb 28.1 pg (27.0-32.0); Mean Corpuscular Volume 85.9 fL (81-99); Mean Platelet Vol. 9.3 fl (6.2-12.0); Monocyte# 0.86 X10^3/uL; Monocyte% 5.6 % (0-10); NRBC Flagged by Analyzer 0 % (0-5); Neutrophil # 12.46 X10^3/uL (2.7-7.7); Neutrophil % 81.4 % (47-70); Platelet Count 305 K/mm3 (150-450); RBC Distribution Width CV 13.1 % (11.6-14.6); RBC Distribution Width SD 40.3 fl (35.1-43.9); Red Blood Count 5.02 M/mm3 (4.2-5.4); White Blood Count 15.3 K/mm3 (4.4-11.0)
[2022-11-09 00:20] LABS: ALB/GLOB Ratio 0.9 RATIO (0.9-2.4); AST(SGOT) 13 U/L (15-37); Alanine Aminotransfer ALT/SGPT 31 U/L (13-56); Albumin, Serum 3.6 g/dL (3.2-5.0); Alkaline Phosphatase 97 U/L (45-117); Anion Gap 9 (5-15); BUN 13 mg/dL (7-18); BUN/Creat Ratio 16.4 RATIO (10-20); Calcium,Total 9.2 mg/dL (8.5-10.1); Chloride 107 mmol/L (98-107); Creatinine, Serum 0.79 mg/dL (0.55-1.02); EST Glomerular Filtration Rate 84 mL/min (>60); Est Glom Filt Rate - Afr Amer 101 mL/min (>60); Estimated Creatinine Clearance 81.77 ml/min; Glucose 159 mg/dL (74-106); Lipase 63 U/L (73-393); Potassium 3.8 mmol/L (3.5-5.1); Protein, Total 7.6 g/dL (6.4-8.2); Sodium Level 140 mmol/L (136-145)
[2022-11-09 02:20] VITALS: BP 145/78; PULSE 78; RESP 18; O2SAT 97
[2022-11-09 03:11] VITALS: BP 138/76; PULSE 69; RESP 18; O2SAT 97
== END 2022-11-09 03:11 | disposition home or self-care (01) ==
PROVIDERS: Emergency Provider Emergency Medicine; PCP Student in an Organized Health Care Education/Training Program; Visit Provider Emergency Medicine
DX: R10.9 Unspecified abdominal pain (principal); E11.65 Type 2 diabetes mellitus with hyperglycemia; Z79.4 Long term (current) use of insulin; F41.9 Anxiety disorder, unspecified; I10 Essential (primary) hypertension; R11.2 Nausea with vomiting, unspecified; E78.5 Hyperlipidemia, unspecified; R19.7 Diarrhea, unspecified; Z87.891 Personal history of nicotine dependence; Z90.49 Acquired absence of other specified parts of digestive tract; Z79.84 Long term (current) use of oral hypoglycemic drugs; E66.9 Obesity, unspecified
CPT/HCPCS: 36415; 80053; 83690; 85025; 96361; 96374; 99284; J7030; A4216; J2405

== ENCOUNTER 2023-02-07 21:29 | Emergency (ER) | payer MEDICAID, SELFPAY ==
[2023-02-07 21:29] VITALS: BP 158/104; PULSE 103; RESP 16; TEMP 36.9; O2SAT 95; BMI 52.7
[2023-02-07 22:32] LABS: Mucous, Urine 0 SEEN /hpf (<or=2+)
[2023-02-07] MEDS: Cefazolin 1 GM/5 ML Vial IM (22:35)
[2023-02-07 22:44] LABS: Color, Urine Yellow (Yellow); Glucose, Dipstick Normal (Normal); Ketone-Dipstick 5 mg/dl (Negative); Leukocyte Esterase-Dipstick 100 /ul (Negative); Nitrite-Dipstick Negative (Negative); Occult Blood-Urine 150 /ul (Negative); Protein-Dipstick 30 mg/dl (Negative); Urine Bilirubin Dipstick Negative (Negative); Urine Clarity Clear (Clear); Urine Urobilinogen Normal (Normal)
[2023-02-07 22:56] LABS: Bacteria 3+ /hpf (None Seen); Red Blood Cells-Urine 0-5 SEEN /hpf (0-5); Squamous Epithelial Cells - UA 0-5 SEEN /hpf (5-10); White Blood Cells 0-5 SEEN /hpf (0-5)
--- NOTE | 2023-02-07 23:17 | EX.ED.UPPERE ---
HPI History of Present Illness Chief Complaint: Upper Extremity Injury Informant: patient Narrative Narrative: Patient states yesterday, she started getting a recurrent sore rash on the palmar right hand hyperthenar eminence that she has been having off and on for 10-15 years. She states they look like little blisters and they eventually go away. This morning, she noticed on the dorsum of the radial side of her hand, a red area that is very sore and now she has a red streak going up her arm and has what feels like to her a sore lymph node in her axilla. She denies any fevers chills obvious etiology of any of this, foreign body, injury recently. She also states that she recently had urinary symptoms dysuria and frequency, she was treated for UTI with an antibiotic, and she finished the UTI and her symptoms immediately came back which has been about a week ago. She still has those symptoms. No back pain, abdominal pain, vomiting, or fevers. No hematuria. [facility] Medical History Abdominal pain Anxiety Back problem Dental caries Depression Diabetes Fatigue Hemorrhoids Hyperlipidemia Hypertension Recurrent hernia RUQ abdominal pain SOB (shortness of breath) Home Medications albuterol sulfate 90 mcg/actuation aerosol inhaler 1 - 2 puff inhalation Q6H PRN PRN Sob &/Or Wheezing 08/26/19 [History Last Taken Unknown] lisinopril 20 mg tablet (Zestril) 20 mg PO QHS PRN bloodpressure 01/30/21 [History Last Taken Unknown] alprazolam 1 mg tablet 0.5 mg PO TID PRN Anxiety 11/08/22 [History Last Taken Unknown] atorvastatin 20 mg tablet 20 mg PO QHS 11/08/22 [History Last Taken Unknown] insulin glargine 100 unit/mL (3 mL) subcutaneous pen (Lantus Solostar U-100 Insulin) 20 unit subcut BREAKFAST 11/08/22 [History Last Taken Unknown] insulin lispro 100 unit/mL subcutaneous pen (Humalog KwikPen (U-100) Insulin) 10 unit subcut TID 11/08/22 [History Last Taken Unknown] metformin 500 mg tablet 500 mg PO BID 11/08/22 [History Last Taken Unknown] sertraline 100 mg tablet (Zoloft) 200 mg PO DAILY 11/08/22 [History Last Taken Unknown] penicillin V potassium 500 mg tablet 500 mg PO 4X/DAY #40 tabs 11/09/22 [Rx Last Taken Unknown] acyclovir 800 mg tablet 800 mg PO TID 1 week #21 tabs 02/07/23 [Rx Last Taken Unknown] cephalexin 500 mg capsule 500 mg PO Q6 #40 CAPSULES 02/07/23 [Rx Last Taken Unknown] Allergy/AdvReac Type Severity Reaction Status Date / Time No Known Allergies Allergy Verified 02/07/23 21:31 Family History Mother Asthma Aunt Colon cancer Father Asthma Sister Asthma Surgical History History of laparoscopic cholecystectomy Social History Smoking Status: Former smoker second hand exposure: No alcohol intake: never substance use type: does not use caffeine: Yes what type of physical activity do you participate in: none frequency: does not exercise ROS ROS ED Constitutional Constitutional ED: Denies chills or fever(s) Genitourinary Genitourinary ED: Reports dysuria; Denies hematuria Musculoskeletal Musculoskeletal: Reports extremity pain; Denies neck pain Integumentary Reports rash; Denies Abrasions or wounds Neurologic Neurologic: Denies paresthesias or weakness EXAM Physical Exam Const Vital Signs: 02/07/23 21:29 Temperature 98.4 F Temperature Source Temporal Pulse Rate 103 H Respiratory Rate 16 Blood Pressure 158/104 H Blood Pressure Mean 122 Pulse Ox 95 Oxygen Delivery Method Room Air Positive well nourished, well developed and obese Constitutional Narrative: Well-appearing in no distress General Appearance ED: well developed and NAD Nutritional Appearance: obese Neck full ROM and supple Back/Spine normal ROM and normal to inspection Extremity Extremity Narrative: On the right palmar hypothenar eminence, there is a single patch of tender erythema with multiple tender vesicles within it. No petechiae. No fluctuance or abscess. There is no streaking from this area, but on the dorsum of the hand radial aspect there is a patch of very mild erythema that is tender without subcutaneous emphysema or abscess, this extends to the dorsum of the wrist, and there is very faint redness that may be early lymphangitis that goes up the radial aspect of the forearm and up the medial aspect of the arm the patient is having pain and tenderness without redness, she also has a palpable tenderness in the axilla without an abscess that may be a lymph node obesity limits as part of the exam however. All muscular compartments are soft and nondistended throughout the right upper extremity, she has full range of motion of the fingers, wrist, elbow, shoulder. Neuro oriented x3, no focal motor deficits and no sensory deficits noted Sensorium / Orientation: alert Psych mental status grossly normal and thought process normal Skin no wounds Skin Narrative: See extremity exam right upper extremity rash/lesions. MDM MDM MDM Narrative Medical decision making narrative: First off, we did a urinalysis shows bacteria and leukocyte Estrace but no pyuria, so I am sending it for culture but not specifically treating it. However, with regards to the right upper extremity symptoms, the patch on the palm looks like herpetic megan. Since she has been having this recurrently I asked her about it, she states she has been told that may be the case in the past, and she has been put on an antiviral in the past which did help prevent it from recurring but now it is recurring again. She is amenable to antivirals especially since she has started with this in the past 48 hours I would be reasonable. It is possible this lymphangitis is due to that but it is not emanating from the patch itself, it is coming from somewhere different. They are firm considering the possibility of cellulitis separate from the megan, and treating her empirically for both with acyclovir 800 mg 3 times daily for 1 week, and cephalexin as well which if she has a UTI, should cover that. She is comfortable with that plan. Lab Data Attestation: I reviewed the patient's lab results. 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 Instructions: Cellulitis Dc, The Herpes Virus Prescriptions: New cephalexin [cephalexin] 500 mg capsule 500 mg PO Q6 Qty: 40 0RF acyclovir 800 mg tablet 800 mg PO TID 7 Days Qty: 21 0RF No Action albuterol sulfate 1 PUFF inhaler 1 - 2 puff inhalation Q6H PRN PRN (Reason: Sob &/Or Wheezing) lisinopril [Zestril] 20 mg tablet 20 mg PO QHS PRN (Reason: bloodpressure) metformin 500 mg tablet 500 mg PO BID atorvastatin 20 mg tablet 20 mg PO QHS alprazolam 1 mg tablet 0.5 mg PO TID PRN (Reason: Anxiety) sertraline [Zoloft] 100 mg tablet 200 mg PO DAILY insulin lispro [Humalog KwikPen Insulin] 100 unit/mL insulin pen 10 unit SUBCUT TID insulin glargine [Lantus Solostar U-100 Insulin] 100 unit/mL (3 mL) insulin pen 20 unit SUBCUT BREAKFAST penicillin V potassium 500 mg tablet 500 mg PO 4X/DAY Qty: 40 0RF Primary Care Provider: Juliet Gao Referrals: Juliet Gao MD [Primary Care Provider] - 3-5 Days if not improving Disposition Disposition: Home, Self Care Discharge Date/Time: 02/07/23 23:55
[2023-02-07] MEDS: Acyclovir 800 MG Tablet PO (23:48)
[2023-02-07 23:51] VITALS: BP 153/96; PULSE 94; RESP 18; O2SAT 95
== END 2023-02-07 23:55 | disposition home or self-care (01) ==
PROVIDERS: Emergency Provider Emergency Medicine; PCP Student in an Organized Health Care Education/Training Program; Visit Provider Emergency Medicine
DX: L03.113 Cellulitis of right upper limb (principal); E11.9 Type 2 diabetes mellitus without complications; Z87.891 Personal history of nicotine dependence; B00.89 Other herpesviral infection; I10 Essential (primary) hypertension; E78.5 Hyperlipidemia, unspecified; R30.0 Dysuria; R35.0 Frequency of micturition; E66.9 Obesity, unspecified
CPT/HCPCS: 81001; 87086; 87088; 96372; 99283

== ENCOUNTER 2023-04-14 20:37 | Emergency (ER) | payer MEDICAID, SELFPAY ==
[2023-04-14 20:41] VITALS: BP 129/89; PULSE 102; RESP 18; TEMP 36.6; O2SAT 98; BMI 51.2
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
[2023-04-14] MEDS: HYDROcodone Bitartrate/Apap 5/325 Tablet PO (22:02)
== END 2023-04-14 22:05 | disposition home or self-care (01) ==
PROVIDERS: Emergency Provider Emergency Medicine; PCP Student in an Organized Health Care Education/Training Program; Visit Provider Emergency Medicine
DX: K02.63 Dental caries on smooth surface penetrating into pulp (principal); Z68.43 Body mass index [BMI] 50.0-59.9, adult; Z79.4 Long term (current) use of insulin; K02.62 Dental caries on smooth surface penetrating into dentin; K04.02 Irreversible pulpitis; I10 Essential (primary) hypertension; E78.5 Hyperlipidemia, unspecified; E66.9 Obesity, unspecified; F32.A Depression, unspecified; F41.9 Anxiety disorder, unspecified; Z63.0 Problems in relationship with spouse or partner; Z79.84 Long term (current) use of oral hypoglycemic drugs; Z79.899 Other long term (current) drug therapy; Z87.891 Personal history of nicotine dependence
CPT/HCPCS: 99283

== ENCOUNTER 2023-06-06 04:01 | Emergency (ER) | payer MEDICAID, SELFPAY ==
[2023-06-06 04:04] VITALS: BP 146/92; PULSE 97; RESP 16; TEMP 36.5; O2SAT 98; BMI 51.0
[2023-06-06 04:18] VITALS: PULSE 95; RESP 17; O2SAT 99
--- NOTE | 2023-06-06 04:18 | EDS_ITS ---
HPI History of Present Illness Chief Complaint: Dental Narrative Narrative: 43-year-old female presents with dental pain that began acutely this morning that woke her from sleep. She had multiple problems including symptomatic irreversible pulpitis. She has had multiple root canals by Dr. Irvin, her dentist. She states that she had teeth in her right upper jaw worked on previously with root canals, [facility] Medical History Abdominal pain Anxiety Back problem Dental caries Depression Diabetes Fatigue Hemorrhoids Hyperlipidemia Hypertension Recurrent hernia RUQ abdominal pain SOB (shortness of breath) Home Medications albuterol sulfate 90 mcg/actuation aerosol inhaler 1 - 2 puff inhalation Q6H PRN PRN Sob &/Or Wheezing 08/26/19 [History Last Taken Unknown] lisinopril 20 mg tablet (Zestril) 20 mg PO QHS PRN bloodpressure 01/30/21 [History Last Taken Unknown] alprazolam 1 mg tablet 0.5 mg PO TID PRN Anxiety 11/08/22 [History Last Taken Unknown] atorvastatin 20 mg tablet 20 mg PO QHS 11/08/22 [History Last Taken Unknown] insulin glargine 100 unit/mL (3 mL) subcutaneous pen (Lantus Solostar U-100 Insulin) 20 unit subcut BREAKFAST 11/08/22 [History Last Taken Unknown] insulin lispro 100 unit/mL subcutaneous pen (Humalog KwikPen (U-100) Insulin) 10 unit subcut TID 11/08/22 [History Last Taken Unknown] metformin 500 mg tablet 500 mg PO BID 11/08/22 [History Last Taken Unknown] sertraline 100 mg tablet (Zoloft) 200 mg PO DAILY 11/08/22 [History Last Taken Unknown] amoxicillin 875 mg tablet 875 mg PO Q12H 06/06/23 [History Last Taken Unknown] hydrocodone-acetaminophen 5-325mg 5mg-325mg 1 tab PO Q6H PRN PRN Pain 3 days #12 TABLETS 06/06/23 [Rx Last Taken Unknown] Allergy/AdvReac Type Severity Reaction Status Date / Time ibuprofen Allergy Intermediate Swelling Verified 06/06/23 04:02 tramadol Allergy Intermediate Swelling Verified 06/06/23 04:02 Family History Mother Asthma Aunt Colon cancer Father Asthma Sister Asthma Surgical History History of laparoscopic cholecystectomy Social History Smoking Status: Former smoker second hand exposure: No alcohol intake: never substance use type: does not use caffeine: Yes what type of physical activity do you participate in: none frequency: does not exercise ROS ROS ED ROS Narrative Constitutional: No fever, no chills. HEENT: No sore throat. No neck pain. No loss of vision. No rhinorrhea. Positive dental pain mainly in teeth and right upper jaw towards front teeth. Cardiovascular: No chest pain. No palpitations. No pedal edema. Respiratory: No cough, no shortness of breath. Abdominal: No abdominal pain. No nausea. No vomiting. Genitourinary: No dysuria. No hematuria. Musculoskeletal: No myalgias. No arthralgias. Neurologic: No headaches. No dizziness. No lightheadedness. Skin: No rash. No change in color. Psychiatric: No depression. No anxiety. EXAM Physical Exam Narrative Exam Narrative: Afebrile. Vital signs noted. HEENT: Normocephalic. Atraumatic. PERRL, EOMI. Neck soft and supple. No point tenderness or step off. Positive dental tenderness right to front upper teeth, airway patent. No drooling or trismus. No fluctuant abscess of the gums, but mild gingival inflammation. Cardiovascular: Regular rate and rhythm. No murmurs, rubs, or gallops appreciated. Respiratory: No tachypnea. Lungs clear to auscultation bilaterally. Gastrointestinal: Abdomen soft, nontender, with normoactive bowel sounds. No rebound or guarding. Neurological: Awake. Alert. Nonfocal, nonlateralizing. Skin: No rash. Normal color. No pallor. Musculoskeletal: No pedal edema. Full range of motion extremities. Const Vital Signs: 06/06/23 04:04 Temperature 97.7 F L Temperature Source Temporal Pulse Rate 97 Respiratory Rate 16 Blood Pressure 146/92 H Blood Pressure Mean 110 Pulse Ox 98 Oxygen Delivery Method Room Air MDM MDM MDM Narrative Medical decision making narrative: I reviewed the patient's prior records. She was treated with opiates in the past because of her fear of washable pulpitis. She states she already has prescriptions that she can fill for antibiotics which would treat any gingivitis, but I do not feel that she has acute necrotizing gingivitis. This may be her irreversible pulpitis, but she states she has had root canal on some of these teeth before. As she drove here, I cannot give her any analgesics because she has strong allergies to ibuprofen and tramadol. She was written a prescription for 12 tablets of [place] which she has been prescribed in the past. She will follow-up with her dentist, Dr. Soto, on Friday as she states they are closed today. I feel she can be discharged safely home with follow-up on her antibiotics and a short course of therapy of narcotics. I did review her prescription monitoring program. Disposition is discharged in stable condition. Discharge Plan Triage Chief Complaint: Dental ED Provider: Andrews Scruggs Dx/Rx/DC Orders Clinical Impression: Pain, dental, Symptomatic irreversible pulpitis Instructions: ED Dental Pain Prescriptions: New hydrocodone-acetaminophen 5-325 mg tablet 1 tab PO Q6H PRN PRN (Reason: Pain) 3 Days Qty: 12 0RF No Action albuterol sulfate 1 PUFF inhaler 1 - 2 puff inhalation Q6H PRN PRN (Reason: Sob &/Or Wheezing) lisinopril [Zestril] 20 mg tablet 20 mg PO QHS PRN (Reason: bloodpressure) metformin 500 mg tablet 500 mg PO BID atorvastatin 20 mg tablet 20 mg PO QHS alprazolam 1 mg tablet 0.5 mg PO TID PRN (Reason: Anxiety) sertraline [Zoloft] 100 mg tablet 200 mg PO DAILY insulin lispro [Humalog KwikPen Insulin] 100 unit/mL insulin pen 10 unit SUBCUT TID insulin glargine [Lantus Solostar U-100 Insulin] 100 unit/mL (3 mL) insulin pen 20 unit SUBCUT BREAKFAST amoxicillin 875 mg tablet 875 mg PO Q12H Patient Comments: TAKE 1 TABLET BY MOUTH TWICE A DAY FOR 10 DAYS Primary Care Provider: Juliet Gao Referrals: Juliet Gao MD [Primary Care Provider] - Activity Restrictions/Additional Instructions: Follow-up with your dentist, Dr. Irvin on Friday. Disposition Disposition: Home, Self Care
== END 2023-06-06 05:27 | disposition home or self-care (01) ==
PROVIDERS: Emergency Provider Emergency Medicine; PCP Student in an Organized Health Care Education/Training Program; Visit Provider Emergency Medicine
DX: K04.02 Irreversible pulpitis (principal); E11.638 Type 2 diabetes mellitus with other oral complications; Z87.891 Personal history of nicotine dependence; I10 Essential (primary) hypertension; E78.5 Hyperlipidemia, unspecified
CPT/HCPCS: 99282

== ENCOUNTER 2023-07-15 02:13 | Emergency (ER) | payer MEDICAID, SELFPAY ==
[2023-07-15 02:13] VITALS: BP 138/87; PULSE 95; RESP 18; TEMP 35.8; O2SAT 99; BMI 23.8
--- NOTE | 2023-07-15 02:22 | ED.VIS.DENTA ---
HPI History of Present Illness Chief Complaint: Dental Narrative Narrative: Dental pain. She tells me she has widespread dental decay she has had multiple dental visits in the past few years she just had a dental visit and asked the dentist for pain medications and antibiotics but apparently they were not prescribed. She has no fever or chills. She tells me her pain is throughout her mouth and she points to 5 or 6 different teeth that are hurting. [facility] Medical History Abdominal pain Anxiety Back problem Dental caries Depression Diabetes Fatigue Hemorrhoids Hyperlipidemia Hypertension Recurrent hernia RUQ abdominal pain SOB (shortness of breath) Home Medications albuterol sulfate 90 mcg/actuation aerosol inhaler 1 - 2 puff inhalation Q6H PRN PRN Sob &/Or Wheezing 08/26/19 [History Last Taken Unknown] lisinopril 20 mg tablet (Zestril) 20 mg PO QHS PRN bloodpressure 01/30/21 [History Last Taken Unknown] atorvastatin 20 mg tablet 20 mg PO QHS 11/08/22 [History Last Taken Unknown] metformin 500 mg tablet 500 mg PO BID 11/08/22 [History Last Taken Unknown] sertraline 100 mg tablet (Zoloft) 200 mg PO DAILY 11/08/22 [History Last Taken Unknown] clindamycin HCl 150 mg capsule 150 mg PO TID #15 caps 07/15/23 [Rx Last Taken Unknown] dulaglutide 0.75 mg/0.5 mL subcutaneous pen injector (Trulicity) mg subcut .qwed 07/15/23 [History Last Taken Unknown] Allergy/AdvReac Type Severity Reaction Status Date / Time ibuprofen Allergy Intermediate Swelling Verified 07/15/23 02:18 tramadol Allergy Intermediate Swelling Verified 07/15/23 02:18 Family History Mother Asthma Aunt Colon cancer Father Asthma Sister Asthma Surgical History History of laparoscopic cholecystectomy Social History Smoking Status: Former smoker second hand exposure: No alcohol intake: never substance use type: does not use caffeine: Yes what type of physical activity do you participate in: none frequency: does not exercise ROS ROS ED ROS Narrative Review of systems: All systems negative except as indicated General: No fever ENT: Dental pain as in HPI Neck: No neck pain Cardiovascular: No chest pain Respiratory: No shortness of breath or cough EXAM Physical Exam Narrative Exam Narrative: Physical exam General: There is relatively comfortable as I walk into the Head: Normocephalic, Atraumatic Eyes: Conjunctiva not pale ENT: Some dental decay, she does not have any Alberto apical abscesses or any abscesses throughout her mouth. She is painful throughout but not 1 specific spot. There is no facial swelling. Neck: Supple, Nontender, No lymphadenopathy Const Vital Signs: 07/15/23 02:13 Temperature 96.4 F L Temperature Source Temporal Pulse Rate 95 Respiratory Rate 18 Blood Pressure 138/87 H Blood Pressure Mean 104 Pulse Ox 99 Oxygen Delivery Method Room Air MDM MDM MDM Narrative Medical decision making narrative: Patient had may have an infection especially she had recent dental work. I will put her on antibiotics. She tells me she can only take small amounts of ibuprofen she cannot take Naprosyn, she has been taking Tylenol at home. She requested opiate analgesics on multiple occasions, I told her I can give her a Percocet in the ED but she was driving if she can get a ride home I would give her Percocet. I do not feel comfortable prescribing opiate analgesics for home, as far as I am concerned this is relatively not verifiable pain she had a recent prescription about a month ago of Percocet, and I am worried about addiction therefore I will not prescribe opiates for home. She can follow-up with her dentist who can also prescribe opiates. Otherwise I will discharge her. I did give her clindamycin in the ED and a prescription for home Discharge Plan Triage Chief Complaint: Dental ED Provider: Diallo Harley Dx/Rx/DC Orders Clinical Impression: Dental caries, Odontalgia Instructions: ED Dental Pain Prescriptions: New clindamycin HCl 150 mg capsule 150 mg PO TID Qty: 15 0RF No Action albuterol sulfate 1 PUFF inhaler 1 - 2 puff inhalation Q6H PRN PRN (Reason: Sob &/Or Wheezing) lisinopril [Zestril] 20 mg tablet 20 mg PO QHS PRN (Reason: bloodpressure) metformin 500 mg tablet 500 mg PO BID atorvastatin 20 mg tablet 20 mg PO QHS sertraline [Zoloft] 100 mg tablet 200 mg PO DAILY Trulicity 0.75 mg/0.5 mL pen injector SUBCUT .qwed Patient Comments: INJECT 0.5 ML SUBCUTANEOUSLY EVERY WEEK Primary Care Provider: Juliet Gao Referrals: Juliet Gao MD [Primary Care Provider] - Activity Restrictions/Additional Instructions: Follow-up with your dentist who can prescribe pain medications and can reevaluate you. Disposition Disposition: Home, Self Care
[2023-07-15] MEDS: Clindamycin HCl 150 MG Capsule 300 MG PO (02:27)
== END 2023-07-15 02:31 | disposition home or self-care (01) ==
PROVIDERS: Emergency Provider Emergency Medicine; PCP Student in an Organized Health Care Education/Training Program; Visit Provider Emergency Medicine
DX: K02.9 Dental caries, unspecified (principal); E11.638 Type 2 diabetes mellitus with other oral complications; E78.5 Hyperlipidemia, unspecified; I10 Essential (primary) hypertension; Z87.891 Personal history of nicotine dependence; Z79.85 Long-term (current) use of injectable non-insulin antidiabetic drugs
CPT/HCPCS: 99282

== ENCOUNTER 2023-07-15 18:01 | Emergency (ER) | payer MEDICAID, SELFPAY ==
[2023-07-15 18:05] VITALS: BP 139/102; PULSE 96; RESP 18; TEMP 36.6; O2SAT 97; BMI 51.7
--- NOTE | 2023-07-15 19:03 | ED.VIS.DENTA ---
HPI History of Present Illness Chief Complaint: Dental Narrative Narrative: 43-year-old female presenting with dental pain. She states he is got multiple areas of dental pain including upper and lower teeth. She states that her dentist has been doing extensive work on her teeth but nothing seems to be getting fixed. She was seen this morning at 2 to 3 AM in the ED and was started on clindamycin. She states he is taken this in the past. She also states has been on multiple antibiotics. She does have any facial swelling. No tongue swelling. No difficulty swallowing or breathing. No fevers. She states that she tried to follow-up with her primary care physician however her primary care physician is out on maternity leave. She called the person who is on-call for them and the nursing line referred her to the emergency room for pain management consult. [facility] Medical History Abdominal pain Anxiety Back problem Dental caries Depression Diabetes Fatigue Hemorrhoids Hyperlipidemia Hypertension Recurrent hernia RUQ abdominal pain SOB (shortness of breath) Home Medications albuterol sulfate 90 mcg/actuation aerosol inhaler 1 - 2 puff inhalation Q6H PRN PRN Sob &/Or Wheezing 08/26/19 [History Last Taken Unknown] lisinopril 20 mg tablet (Zestril) 20 mg PO QHS PRN bloodpressure 01/30/21 [History Last Taken Unknown] atorvastatin 20 mg tablet 20 mg PO QHS 11/08/22 [History Last Taken Unknown] metformin 500 mg tablet 500 mg PO BID 11/08/22 [History Last Taken Unknown] sertraline 100 mg tablet (Zoloft) 200 mg PO DAILY 11/08/22 [History Last Taken Unknown] clindamycin HCl 150 mg capsule 150 mg PO TID #15 caps 07/15/23 [Rx Last Taken Unknown] dulaglutide 0.75 mg/0.5 mL subcutaneous pen injector (Trulicity) mg subcut .qwed 07/15/23 [History Last Taken Unknown] lidocaine HCl 2 % mucosal solution (Lidocaine Viscous) 1 applic mucous membrane TID PRN pain #100 mL 07/15/23 [Rx Last Taken Unknown] Allergy/AdvReac Type Severity Reaction Status Date / Time ibuprofen Allergy Intermediate Swelling Verified 07/15/23 18:05 tramadol Allergy Intermediate Swelling Verified 07/15/23 18:05 Family History Mother Asthma Aunt Colon cancer Father Asthma Sister Asthma Surgical History History of laparoscopic cholecystectomy Social History Smoking Status: Former smoker second hand exposure: No alcohol intake: never substance use type: does not use caffeine: Yes what type of physical activity do you participate in: none frequency: does not exercise ROS ROS ED Constitutional Constitutional ED: Denies chills, fever(s) or sweats Eyes Eyes: Denies blurry vision or change in vision ENT ENT ED: Reports other Details: Dental pain ; Denies ear pain or sore throat Cardiovascular Cardiovascular: Denies chest pain, palpitations or racing heartbeat Respiratory/Chest Respiratory/Chest: Denies cough, dyspnea or sputum Gastrointestinal Gastrointestinal: Denies abdominal pain, constipation, diarrhea, nausea or vomiting Genitourinary Genitourinary ED: Denies dysuria, hematuria or urinary frequency Musculoskeletal Musculoskeletal: Denies arthralgias, myalgias or neck pain Integumentary Denies abscess, Abrasions or rash Neurologic Neurologic: Denies headache(s), paresthesias or weakness Psychiatric Psychiatric: Denies anxiety, depression, suicidal ideation or suicidal thoughts Endocrine Endocrinology: Denies polydipsia or polyuria EXAM Physical Exam Const Vital Signs: 07/15/23 18:05 Temperature 98 F Temperature Source Temporal Pulse Rate 96 Respiratory Rate 18 Blood Pressure 139/102 H Blood Pressure Mean 114 Pulse Ox 97 Oxygen Delivery Method Room Air Positive well nourished HEENT Mouth ED: Yes oral and palatal mucosa normal, Yes lips normal, Yes tongue normal, Yes salivary gland normal and No mouth trauma Mouth: oral and palatal mucosa normal, lips normal, tongue normal, salivary gland normal and No mouth trauma Teeth and Gingiva: poor dentition; Negative for gingiva abnormal Throat: posterior oropharynx normal Eyes PERRL Resp normal respiratory effort Cardio regular rate and regular rhythm Neuro oriented x3 and CN's II-XII intact bilaterally Sensorium / Orientation: alert Psych mental status grossly normal Skin no rashes or lesions noted MDM MDM MDM Narrative Medical decision making narrative: Patient seen and evaluated for dental pain. On examination her dentition does not look infected or inflamed. She complains of subjective pain with palpation but otherwise her oropharynx is patent without stridor. Tongue not swollen. No sublingual edema. No submandibular edema. No evidence of Garland's angina. Agree with previous physician that the pain is not verifiable. I do not feel comfortable prescribing her narcotics for this either. I did further counseling services director her that I cannot provide her with a pain management consult from the ED. I did offer to switch her medications however she just started the clindamycin this morning. Patient offered an oxycodone here to help with pain. She is recommended to use NSAIDs at home. I gave her viscous lidocaine to see if this would help with some of her pain. Her [facility] report shows several different providers over the last few months of pain medicine. On reevaluation the patient had received her lidocaine swish and spit and it did help. Her oxycodone was given as well. I counseled her that I cannot confirm this and she is amenable to the lidocaine swishes at home. She will follow-up with her dentist. Impression: 1 dental pain Discharge Plan Triage Chief Complaint: Dental ED Provider: Andrea Luna Dx/Rx/DC Orders Instructions: ED Dental Pain Prescriptions: New lidocaine HCl [Lidocaine Viscous] 2 % solution 1 applic mucous membrane TID PRN (Reason: pain) Qty: 100 0RF No Action albuterol sulfate 1 PUFF inhaler 1 - 2 puff inhalation Q6H PRN PRN (Reason: Sob &/Or Wheezing) lisinopril [Zestril] 20 mg tablet 20 mg PO QHS PRN (Reason: bloodpressure) metformin 500 mg tablet 500 mg PO BID atorvastatin 20 mg tablet 20 mg PO QHS sertraline [Zoloft] 100 mg tablet 200 mg PO DAILY Trulicity 0.75 mg/0.5 mL pen injector SUBCUT .qwed Patient Comments: INJECT 0.5 ML SUBCUTANEOUSLY EVERY WEEK clindamycin HCl 150 mg capsule 150 mg PO TID Qty: 15 0RF Primary Care Provider: Juliet Gao Referrals: Juliet Gao MD [Primary Care Provider] - Disposition Disposition: Home, Self Care
[2023-07-15] MEDS: oxyCODONE 5 MG Tablet PO (20:04)
== END 2023-07-15 20:59 | disposition home or self-care (01) ==
PROVIDERS: Emergency Provider Student in an Organized Health Care Education/Training Program; PCP Student in an Organized Health Care Education/Training Program; Visit Provider Student in an Organized Health Care Education/Training Program
DX: K08.89 Other specified disorders of teeth and supporting structures (principal); E11.638 Type 2 diabetes mellitus with other oral complications; Z87.891 Personal history of nicotine dependence; I10 Essential (primary) hypertension; E78.5 Hyperlipidemia, unspecified; Z79.85 Long-term (current) use of injectable non-insulin antidiabetic drugs
CPT/HCPCS: 99283

== ENCOUNTER 2023-09-03 00:02 | Emergency (ER) | payer MEDICAID, SELFPAY ==
[2023-09-03 00:03] VITALS: BP 144/92; PULSE 105; RESP 15; TEMP 36.4; O2SAT 97
--- NOTE | 2023-09-03 00:18 | CT_ITS ---
EXAM: CT ABDOMEN AND PELVIS WITH INTRAVENOUS CONTRAST CLINICAL INDICATION: PAIN, SUPRAUMBILICAL HERNIA TECHNIQUE: Helically acquired images were obtained of the abdomen and pelvis with intravenous contrast. This CT exam was performed using one or more of the following dose reduction techniques: automated exposure control, adjustment of the mA and/or kV according to patient size, and/or use of iterative reconstruction technique. CONTRAST: IV 100mL Isovue-370 RADIATION DOSE: Total DLP: 1324.88 mGy-cm. COMPARISON: Abdominal pelvic CT of 01/13/2022. FINDINGS: LOWER THORAX: Visualized lung bases are clear. No coronary artery calcification is visualized. No significant pericardial effusion. ABDOMEN: LIVER: Unremarkable. Homogeneous. No focal mass. GALLBLADDER AND BILE DUCTS: Gallbladder is absent. No biliary ductal dilatation. PANCREAS: Unremarkable. No focal cystic or solid mass. SPLEEN: Unremarkable. Normal size without focal cystic or solid mass. ADRENALS: Unremarkable. No nodules. KIDNEYS AND URETERS: Spleen remains enlarged measuring 16.2 cm in AP diameter. Kidneys are normal in size, with symmetric nephrograms. Stable simple renal cysts are present bilaterally and require no follow-up. No hydronephrosis or obstructing ureteral stone. STOMACH AND BOWEL: A broad fat-filled periumbilical hernia is again noted , with the anterior abdominal wall defect measuring 7.8 cm in transverse diameter. No bowel loops extend into this hernia. No fat stranding is seen within the hernia to indicate fat process. No stomach or bowel distention. No focal inflammatory change. PELVIS: APPENDIX: Normal. No evidence of acute appendicitis. BLADDER: Urinary bladder is nearly empty. REPRODUCTIVE: Unremarkable as visualized. Normal size uterus. Normal size ovaries. 1.5 cm dominant follicle in the right ovary. ABDOMEN and PELVIS: INTRAPERITONEAL SPACE: Unremarkable. No ascites or other fluid collection. No free air. BONES/JOINTS: Lower thoracic and lumbar degenerative disc disease again noted. The L3/4 through L5/S1 disc spaces remain narrowed, most severe at L4/5. Posterior osteophytes in a central-left paracentral location at L3/4 moderately flatten the ventral aspect of the thecal sac. Posterior osteophytes at L4/5 are mildly flatten and efface the thecal sac. Thecal sac at L5/S1 is mildly effaced by annular bulging, posterior osteophytes, ligamentum flavum calcification and facet hypertrophy. No suspicious lytic or blastic abnormality. SOFT TISSUES: See above. VASCULATURE: Normal caliber abdominal aorta. LYMPH NODES: Unremarkable. No enlarged lymph nodes. CT/Abdomen/Pelvis W IV Cont ONLY IMPRESSION: Large fat-filled periumbilical hernia again noted; no bowel loops extend into the hernia and there are no findings of fat necrosis within the hernia. Stable splenomegaly. No findings of small bowel obstruction or other acute intra-abdominal abnormality. Electronically Signed: Igor Bueno MD at 3:01 EST ,
--- NOTE | 2023-09-03 00:20 | EDS_ITS ---
HPI HPI - GI History of Present Illness Chief Complaint: Abd Pain Informant: patient Narrative Narrative: Patient presents with left flank and abdominal discomfort. Patient states that for the last several days she has been having pain in her left back. It will occasionally radiate around the front. But that is mostly when she presses on it. She can lay on her left side and it does not hurt. But if she lays on her right it hurts. She can lean toward her right side and it does not hurt but if she leans toward the left it does hurt. It also hurts twisting. It is very motion related. She cannot think of anything she did to hurt it. Patient also states that she has chronic umbilical and ventral hernias. They have been there for years. They are slowly getting worse. They will bother her and hurt at times. But they have been hurting more for the last 4 days. She states that she can never reduce the upper hernia. But she is eating and drinking well. No nausea or vomiting and no change in bowel habits. No fevers or chills. But it is more painful than normal. Prior surgery in the abdomen was cholecystectomy several years ago [facility] Medical History Abdominal pain Anxiety Back problem Dental caries Depression Diabetes Fatigue Hemorrhoids Hyperlipidemia Hypertension Recurrent hernia RUQ abdominal pain SOB (shortness of breath) Home Medications albuterol sulfate 90 mcg/actuation aerosol inhaler 1 - 2 puff inhalation Q6H PRN PRN Sob &/Or Wheezing 08/26/19 [History Last Taken Unknown] lisinopril 20 mg tablet (Zestril) 20 mg PO QHS bloodpressure 01/30/21 [History Last Taken Unknown] atorvastatin 20 mg tablet 20 mg PO QHS 11/08/22 [History Last Taken Unknown] metformin 500 mg tablet 500 mg PO BID 11/08/22 [History Last Taken Unknown] sertraline 100 mg tablet (Zoloft) 200 mg PO DAILY 11/08/22 [History Last Taken Unknown] dulaglutide 0.75 mg/0.5 mL subcutaneous pen injector (Trulicity) 0.75 mg subcut .COMPLEX 07/15/23 [History Last Taken Unknown] alprazolam 1 mg tablet 1 mg PO BID PRN anxiety 09/03/23 [History Last Taken Unknown] hydrocodone-acetaminophen 5-325mg 5mg-325mg 1 tab PO Q6H PRN PRN Pain 3 days #10 TABLETS 09/03/23 [Rx Last Taken Unknown] insulin glargine 100 unit/mL (3 mL) subcutaneous pen (Lantus Solostar U-100 Insulin) 20 unit subcut DAILY hyperglycemia 09/03/23 [History Last Taken Unknown] insulin lispro 100 unit/mL subcutaneous pen (Humalog KwikPen (U-100) Insulin) 8 unit subcut Q8H hyperglycemia 09/03/23 [History Last Taken Unknown] tizanidine 2 mg tablet 2 mg PO .COMPLEX 09/03/23 [History Last Taken Unknown] Allergy/AdvReac Type Severity Reaction Status Date / Time diphenhydramine Allergy Severe Angioedema Verified 09/03/23 01:08 ibuprofen Allergy Intermediate Swelling Verified 09/03/23 01:08 tramadol Allergy Intermediate Swelling Verified 09/03/23 01:08 Family History Mother Asthma Aunt Colon cancer Father Asthma Sister Asthma Surgical History History of laparoscopic cholecystectomy Social History Smoking Status: Former smoker second hand exposure: No alcohol intake: never substance use type: does not use caffeine: Yes what type of physical activity do you participate in: none frequency: does not exercise ROS ROS ED ROS Narrative A complete review of systems was performed and is negative except as documented in the history of present illness. Some specific details below. Constitutional: No recent fevers or chills. Eyes: No change in color. ENT: No difficulty swallowing. No swelling. No pain. No GERD. CV: No chest pain or palpitations. Respiratory: No dyspnea. No hemoptysis. No difficulty taking breaths. GI: Please see history of present illness. : No frequency dysuria or hematuria. Musculoskeletal: No recent trauma. See history of present illness. No radicular symptoms whatsoever. No bowel or bladder dysfunction Skin: No rash. Nondiaphoretic. Neuro: No weakness or numbness. Endocrine: No polyuria or polydipsia. EXAM Physical Exam Narrative Exam Narrative: CONSTITUTIONAL: Patient is nontoxic in appearance. The patient looks comfortable. HEENT: No notable trauma. Mucous membranes moist. No sinus tenderness. No indication of pain with swallowing. EYES: No conjunctival injection. No icterus. CARDIOVASCULAR: Regular rate. Regular rhythm. No notable murmur. No JVD. RESPIRATORY: No respiratory distress. Breathing is unlabored. No wheezes. No rhonchi. No rales. No pain with a deep breath. GASTROINTESTINAL: Abdomen is obese and this does limit exam somewhat. Bowel sounds are normal. She does have supraumbilical hernia. The edges appear to be approximately 8 cm around. It is more tender on the left side. It is hard to tell if I can reduce this or not. It does not feel as though it is fully reducible but she states it has been out and not reducible for years. Rest of her abdomen is not tender. GENITOURINARY: No tenderness over the bladder. Mild left paraspinal tenderness but that is even with soft touch. Not truly CVA tenderness. There are no rashes or skin changes. There is very clear pain with twisting or bending that bothers her back. MUSCULOSKELETAL: Atraumatic. No asymmetry or tenderness. No numbness or tingling. NEUROLOGICAL: Patient is alert and appropriate. No focal deficit noted. SKIN: No noted rashes. No diaphoresis. PSYCHIATRIC: Patient is calm. Mood is appropriate. Const Vital Signs: 09/03/23 00:03 Temperature 97.5 F L Temperature Source Temporal Pulse Rate 105 H Respiratory Rate 15 Blood Pressure 144/92 H Blood Pressure Mean 109 Pulse Ox 97 Oxygen Delivery Method Room Air [facility] Narrative Medical decision making narrative: Pain and seem ECG shows no acute abnormality. Patient's electrolytes show no marked abnormalities. Glucose is well- controlled. Patient's liver function test show mild elevation of the alkaline phosphatase which has occurred before but other transaminases are normal. Patient's lipase normal. Patient's serum is negative. Patient's urinalysis shows no sign of infection of significance. It is not a perfectly clean-catch though. Patient is a CT scan of the abdomen done. Due to a problem with our system I am not able to look at these images at all and I therefore cannot get an independent interpretation. I am awaiting for the final reading. Final reading shows fatty tissue within the hernia. But no findings of necros is. No involvement of bowel. No I think the patient's back pain is really musculoskeletal. But she cannot tolerate nonsteroidals. I will give her a few tablets of pain meds. She has tolerated hydrocodone before. I did review her online prescribing report. But I am limited in what she can take. She will follow-up as planned to have this hernia repaired. If she develops worsening pain, redness over the hernia, fevers, nausea vomiting change in bowel habits or other issues she should return. It is not possible to predict when or if this hernia will cause a problem for her. Obstruction. No acute intra-abdominal process. Lab Data Attestation: I reviewed the patient's lab results. Labs: Laboratory Results - last 24 hr 09/03/23 09/03/23 00:33 00:55 WBC 9.1 RBC 4.51 Hgb 12.7 Hct 39.7 MCV 88.0 MCH 28.2 MCHC 32.0 RDW Std Deviation 42.3 RDW Coeff of Michelle 13.1 Plt Count 266 MPV 9.3 Immature Gran % (Auto) 0.800 Neut % (Auto) 62.6 Lymph % (Auto) 25.1 [place] % (Auto) 5.5 Eos % (Auto) 5.5 H Baso % (Auto) 0.5 Absolute Neuts (auto) 5.7 Absolute Lymphs (auto) 2.28 Nucleated RBC % 0 Sodium 140 Potassium 3.9 Chloride 108 H Carbon Dioxide 28.0 Anion Gap 4 L BUN 14 Creatinine 0.73 Est GFR (MDRD) Af Amer 111 Est GFR (MDRD) Non-Af 92 BUN/Creatinine Ratio 19.2 Glucose 117 H Calcium 9.2 Total Bilirubin 0.20 AST 22 ALT 49 Alkaline Phosphatase 120 H Total Protein 7.3 Albumin 3.6 Globulin 3.7 Albumin/Globulin Ratio 1.0 Lipase 29 Serum , Qual NEGATIVE Urine Color Yellow Urine Clarity Clear Urine pH 5.0 Ur Specific [place] 1.025 Urine Protein 15 H Urine Glucose (UA) Normal Urine Ketones 5 H Urine Occult Blood 25 H Urine Nitrite Negative Urine Bilirubin Negative Urine Urobilinogen 1 H Ur Leukocyte Esterase 25 H Urine RBC 5-10 SEEN Urine WBC 5-10 SEEN Ur Squamous Epith Cells 5-10 SEEN Urine Bacteria RARE Urine Mucus 0 SEEN Discharge Plan Triage Chief Complaint: Abd Pain ED Provider: Jesús Khan Dx/Rx/DC Orders Clinical Impression: Left lumbar pain, Supraumbilical hernia Instructions: ED Back Pain (Acute or Chronic), ED Hernia (Adult) Prescriptions: New hydrocodone-acetaminophen [hydrocodone-acetaminophen] 5-325 mg tablet 1 tab PO Q6H PRN PRN (Reason: Pain) 3 Days Qty: 10 0RF No Action albuterol sulfate 1 PUFF inhaler 1 - 2 puff inhalation Q6H PRN PRN (Reason: Sob &/Or Wheezing) lisinopril [Zestril] 20 mg tablet 20 mg PO QHS metformin 500 mg tablet 500 mg PO BID Patient Comments: once daily due to undesirable side effects atorvastatin 20 mg tablet 20 mg PO QHS sertraline [Zoloft] 100 mg tablet 200 mg PO DAILY alprazolam 1 mg tablet 1 mg PO BID PRN (Reason: anxiety) Patient Comments: TAKE 1 TABLET BY MOUTH TWICE DAILY NEEDED FOR ANXIETY tizanidine 2 mg tablet 2 mg PO .COMPLEX Patient Comments: TAKE 1 TABLET BY MOUTH ONCE DAILY in the IN THE MORNING, 1 (ONE) TABLET at noon, 2 (TWO) TABLETS at bedtime NEEDED (don't drive if you take medication) Rx Instructions: 2 mg orally ONCE DAILY in the IN THE MORNING, 1 (ONE) TABLET at noon, 2 (TWO) TABLETS at bedtime NEEDED; insulin glargine [Lantus Solostar U-100 Insulin] 100 unit/mL (3 mL) insulin pen 20 unit SUBCUT DAILY Patient Comments: INJECT 20 Units subcutaneously once daily In a.m insulin lispro [Humalog KwikPen Insulin] 100 unit/mL insulin pen 8 unit SUBCUT Q8H Patient Comments: INJECT 8 UNITS SUBCUTANEOUSLY THREE TIMES DAILY WITH MEALS; rarely takes d/t more controlled blood sugar Rx Instructions: 8 units subcutaneously; Trulicity 0.75 mg/0.5 mL pen injector 0.75 mg SUBCUT .COMPLEX Patient Comments: INJECT 0.5 ML SUBCUTANEOUSLY EVERY WEEK Rx Instructions: 0.75 mg subcutaneously every week on Wednesdays; Primary Care Provider: Juliet Gao Referrals: Juliet Gao MD [Primary Care Provider] - 3-5 Days Disposition Disposition: Home, Self Care
[2023-09-03 00:39] LABS: Mucous, Urine 0 SEEN /hpf (<or=2+)
[2023-09-03 00:40] LABS: Color, Urine Yellow (Yellow); Glucose, Dipstick Normal (Normal); Ketone-Dipstick 5 mg/dl (Negative); Leukocyte Esterase-Dipstick 25 /ul (Negative); Nitrite-Dipstick Negative (Negative); Occult Blood-Urine 25 /ul (Negative); Protein-Dipstick 15 mg/dl (Negative); Specific Gravity, Urine 1.025 (1.002-1.030); Urine Bilirubin Dipstick Negative (Negative); Urine Clarity Clear (Clear); Urine Urobilinogen 1 mg/dl (Normal)
[2023-09-03 00:48] LABS: Bacteria RARE /hpf (None Seen); Red Blood Cells-Urine 5-10 SEEN /hpf (0-5); Squamous Epithelial Cells - UA 5-10 SEEN /hpf (5-10); White Blood Cells 5-10 SEEN /hpf (0-5)
[2023-09-03] MEDS: 0.9% Normal Saline (1000mL) 500 ML 1000 ML IV (00:55)
[2023-09-03 01:01] LABS: Absolute Lymphocyte Count 2.28 X10^3/uL (0.83-4.51); Absolute Neutrophil Count 5.7 X10^3/uL (2.0-7.7); Basophil# 0.05 X10^3/uL; Basophil% 0.5 % (0-1); Eosinophils% 5.5 % (0-5); Hematocrit 39.7 % (37-47); Hemoglobin 12.7 g/dL (12.0-15.0); Lymphocyte # 2.28 X10^3/ul (0.83-4.51); Lymphocyte % 25.1 % (19-41); Mean Corpuscular Hgb 28.2 pg (27.0-32.0); Mean Platelet Vol. 9.3 fl (6.2-12.0); Monocyte% 5.5 % (0-10); NRBC Flagged by Analyzer 0 % (0-5); Neutrophil % 62.6 % (47-70); Platelet Count 266 K/mm3 (150-450); RBC Distribution Width CV 13.1 % (11.6-14.6); RBC Distribution Width SD 42.3 fl (35.1-43.9); Red Blood Count 4.51 M/mm3 (4.2-5.4); White Blood Count 9.1 K/mm3 (4.4-11.0)
[2023-09-03 01:19] LABS: AST(SGOT) 22 U/L (15-37); Alanine Aminotransfer ALT/SGPT 49 U/L (13-56); Albumin, Serum 3.6 g/dL (3.2-5.0); Alkaline Phosphatase 120 U/L (45-117); Anion Gap 4 (5-15); BUN 14 mg/dL (7-18); BUN/Creat Ratio 19.2 RATIO (10-20); Calcium,Total 9.2 mg/dL (8.5-10.1); Chloride 108 mmol/L (98-107); Creatinine, Serum 0.73 mg/dL (0.55-1.02); EST Glomerular Filtration Rate 92 mL/min (>60); Est Glom Filt Rate - Afr Amer 111 mL/min (>60); Globulin 3.7 g/dL (2.2-4.2); Glucose 117 mg/dL (74-106); Lipase 29 U/L (13-75); Potassium 3.9 mmol/L (3.5-5.1); Protein, Total 7.3 g/dL (6.4-8.2); Sodium Level 140 mmol/L (136-145)
[2023-09-03 01:27] LABS: Internal QC Validated? YES +Cl - CLEAR BKGD; Pregnancy, Serum, hCG Quali. NEGATIVE Negative
[2023-09-03 03:43] VITALS: BP 140/89; PULSE 74; RESP 16; O2SAT 97
== END 2023-09-03 03:47 | disposition home or self-care (01) ==
PROVIDERS: Emergency Provider Emergency Medicine; PCP Student in an Organized Health Care Education/Training Program; Visit Provider Emergency Medicine
DX: M54.50 Low back pain, unspecified (principal); E11.9 Type 2 diabetes mellitus without complications; I10 Essential (primary) hypertension; E78.5 Hyperlipidemia, unspecified; Z87.891 Personal history of nicotine dependence; K42.9 Umbilical hernia without obstruction or gangrene
CPT/HCPCS: 74177; 80053; 81001; 83690; 84703; 85025; 96360; 99282; J7030; Q9967; A4216

== ENCOUNTER 2023-12-27 21:31 | Emergency (ER) | payer MEDICAID, SELFPAY ==
[2023-12-27 21:33] VITALS: BP 165/104; PULSE 103; RESP 16; TEMP 35.7; O2SAT 96
--- NOTE | 2023-12-27 21:46 | EDS_ITS ---
HPI <ROWAN Lewis - Last Filed: 12/27/23 21:50> History of Present Illness Chief Complaint: Dental Narrative Narrative: Patient is a 43-year-old female with history of recurrent dental infections, anxiety, depression, back pain, obesity who presents the emergency department for pain to her upper jaw. Patient had gum flap surgery 4 days ago, she was given [place] for 3 days, however she states the pain is getting significantly worse. She is currently on amoxicillin. She called the dentist however they were unable to see her. She is here for evaluation for her pain. She did drive here, she was hoping to get a prescription for Percocet. She states [place] does not help her PFSH <ROWAN Lewis - Last Filed: 12/27/23 21:50> PFSH Medical History Abdominal pain Anxiety Back problem Dental caries Depression Diabetes Fatigue Hemorrhoids Hyperlipidemia Hypertension Recurrent hernia RUQ abdominal pain SOB (shortness of breath) Home Medications albuterol sulfate 90 mcg/actuation aerosol inhaler 1 - 2 puff inhalation Q6H PRN PRN Sob &/Or Wheezing 08/26/19 [History Last Taken Unknown] lisinopril 20 mg tablet (Zestril) 20 mg PO QHS bloodpressure 01/30/21 [History Last Taken Unknown] atorvastatin 20 mg tablet 20 mg PO QHS 11/08/22 [History Last Taken Unknown] metformin 500 mg tablet 500 mg PO DAILY 11/08/22 [History Last Taken Unknown] sertraline 100 mg tablet (Zoloft) 200 mg PO DAILY 11/08/22 [History Last Taken Unknown] dulaglutide 0.75 mg/0.5 mL subcutaneous pen injector (Trulicity) 0.75 mg subcut .COMPLEX 07/15/23 [History Last Taken Unknown] alprazolam 1 mg tablet 1 mg PO BID PRN anxiety 09/03/23 [History Last Taken Un known] hydrocodone-acetaminophen 5-325mg 5mg-325mg 1 tab PO Q6H PRN PRN Pain 3 days #10 TABLETS 09/03/23 [Rx Last Taken Unknown] insulin glargine 100 unit/mL (3 mL) subcutaneous pen (Lantus Solostar U-100 Insulin) 20 unit subcut DAILY hyperglycemia 09/03/23 [History Last Taken Unknown] insulin lispro 100 unit/mL subcutaneous pen (Humalog KwikPen (U-100) Insulin) 8 unit subcut Q8H hyperglycemia 09/03/23 [History Last Taken Unknown] tizanidine 2 mg tablet 2 mg PO .COMPLEX PRN pulled muscles 09/03/23 [History Last Taken Unknown] amoxicillin 875 mg tablet 875 mg PO BID 12/27/23 [History Last Taken Unknown] amoxicillin 875 mg-potassium clavulanate 125 mg tablet 1 tab PO BID 12/27/23 [History Last Taken Unknown] blood sugar diagnostic (True Metrix Glucose Test Strip) 12/27/23 [History Last Taken Unknown] oxycodone-acetaminophen 5 mg-325 mg tablet (Percocet) 1 tab PO Q8H PRN pain 3 days #10 tabs 12/27/23 [Rx Last Taken Unknown] Allergy/AdvReac Type Severity Reaction Status Date / Time diphenhydramine Allergy Severe Angioedema Verified 12/27/23 21:37 ibuprofen Allergy Intermediate Swelling Verified 12/27/23 21:37 tramadol Allergy Intermediate Swelling Verified 12/27/23 21:37 Family History Mother Asthma Aunt Colon cancer Father Asthma Sister Asthma Surgical History History of laparoscopic cholecystectomy Social History Smoking Status: Former smoker second hand exposure: No alcohol intake: never substance use type: does not use caffeine: Yes what type of physical activity do you participate in: none frequency: does not exercise ROS <ROWAN Lewis - Last Filed: 12/27/23 21:50> ROS ED ROS Narrative Constitutional: Negative for fever, chills, weight loss, weakness Eyes: Negative for vision loss, vision change, double vision ENT: Negative for any sore throat, ear pain, congestion. Positive for upper gum pain Cardiovascular: Negative for any chest pain, tightness, palpitations Respiratory: Negative for any cough, sputum production, hemoptysis, dyspnea, dyspnea on exertion, orthopnea Gastrointestinal: Negative for any abdominal pain, nausea, vomiting, diarrhea, constipation, blood in stool, blood in vomit : Negative for any urinary frequency, dysuria, retention, blood in urine Muscle skeletal: Negative for any neck pain, back pain Neurological: Negative for any headache, syncope, dizziness Skin: Negative for any rashes, itching, abrasions, lacerations Psychiatric: Negative for any depression, anxiety, stress, suicidal ideation, homicidal ideation Hematologic: Negative for any excessive bruising, easy bleeding EXAM <ROWAN Lewis - Last Filed: 12/27/23 21:50> Physical Exam Narrative Exam Narrative: Vital signs reviewed. HEET: Head normocephalic atraumatic, TMs clear bilaterally. Posterior pharynx is clear, moist mucous membranes. Nares clear bilaterally. Patient does have multiple sutures in place to the upper anterior gumline. There is some granulation tissue surrounding the gumline. Neck: Supple with no lymphadenopathy or tenderness. No signs of meningismus. Cardiac: Regular rate and rhythm no murmurs gallops or rubs, equal peripheral pulses bilaterally. Respiratory: Lungs clear to auscultation bilaterally. No chest tenderness. Abdomen: Soft, nontender, nondistended. No abdominal bruit or pulsatile masses. No hepatosplenomegaly Extremities: No peripheral edema, no signs of gross trauma or deformity. Active full range of motion of all extremities. Neuro: Cranial nerves II through XII intact, no focal neurological deficits. Skin: Clean dry and intact with no rash, purpura, petechiae, vesicles or pustules. Backs/flank: No CVA tenderness, no midline spinal tenderness, no deformity. Psych: Normal mood and affect. No SI, HI or acute psychosis. Const Vital Signs: 12/27/23 21:33 Temperature 96.2 F L Temperature Source Temporal Pulse Rate 103 H Respiratory Rate 16 Blood Pressure 165/104 H Blood Pressure Mean 124 Pulse Ox 96 Oxygen Delivery Method Room Air <Andrews Scruggs MD - Last Filed: 12/27/23 21:54> Physical Exam Const Vital Signs: 12/27/23 21:33 Temperature 96.2 F L Temperature Source Temporal Pulse Rate 103 H Respiratory Rate 16 Blood Pressure 165/104 H Blood Pressure Mean 124 Pulse Ox 96 Oxygen Delivery Method Room Air MDM <ROWAN Lewis - Last Filed: 12/27/23 21:50> [facility] Treatment and Re-Evaluation :: Differential diagnosis includes however is not limited to: Dental abscess, reversible pulpitis, gum abscess, postsurgery pain Patient appears to be in mild discomfort secondary to pain to her mouth. Patient is present to the emergency department for pain control following a recent gum flap surgery 4 days ago. Patient was given [place], and she states [place] does not help, she also used all of them. I did look at the patient's gumline, there does seem to be some inflammation, I looked at the patient's phone, it does appear that this surgery was pretty significant. I spoke with the patient regarding pain medicine in the ER for dental pain. Patient will follow-up with her oral surgeon this upcoming week. I will provide her with 10 Percocet tablets. She is on amoxicillin at this time. She was instructed that if she needs more pain medicine that she needs to go back to her dentist, did not use the ER, she verbally understands, stable for discharge. <Andrews Scruggs MD - Last Filed: 12/27/23 21:54> [facility] MDM Narrative Medical decision making narrative: Dr. Scruggs: I have personally performed a face to face assessment of the patient and have reviewed the SARTHAK Note. I performed a substantive portion of the visit including all aspects of the following. My sauceda findings include: History is mouth pain with recent dental surgery on , 3 days ago. Out of pain medication. Already on antibiotics. Exam is afebrile. Vital signs noted, positive noted sutures in place upper portion of jaw/front teeth. No drooling or trismus. Airway patent. Medical Decision Making: I reviewed her [facility] report. She was written for 10 tablets of [place] which she states does not really work for her. She is already on antibiotics. She will be written for 10 Percocet tablets for the next 3 days. She was told that further narcotic should not come from the emergency department but from her dentist. She does have multiple allergies to tramadol and ibuprofen/naproxen. Discharge. Other additions or changes: [None] Discharge Plan Triage Chief Complaint: Dental ED Midlevel Provider: Diallo Benitez ED Provider: Andrews Scruggs Dx/Rx/DC Orders Clinical Impression: Dental abscess Instructions: Dental Abscess, ED Tooth Abscess Prescriptions: New oxycodone-acetaminophen [Percocet] 5-325 mg tablet 1 tab PO Q8H PRN (Reason: pain) 3 Days Qty: 10 0RF No Action albuterol sulfate 1 PUFF inhaler 1 - 2 puff inhalation Q6H PRN PRN (Reason: Sob &/Or Wheezing) lisinopril [Zestril] 20 mg tablet 20 mg PO QHS metformin 500 mg tablet 500 mg PO DAILY Patient Comments: once daily due to undesirable side effects atorvastatin 20 mg tablet 20 mg PO QHS sertraline [Zoloft] 100 mg tablet 200 mg PO DAILY alprazolam 1 mg tablet 1 mg PO BID PRN (Reason: anxiety) Patient Comments: TAKE 1 TABLET BY MOUTH TWICE DAILY NEEDED FOR ANXIETY tizanidine 2 mg tablet 2 mg PO .COMPLEX PRN (Reason: pulled muscles) Patient Comments: TAKE 1 TABLET BY MOUTH ONCE DAILY in the IN THE MORNING, 1 (ONE) TABLET at noon, 2 (TWO) TABLETS at bedtime NEEDED (don't drive if you take medication) Rx Instructions: 2 mg orally ONCE DAILY in the IN THE MORNING, 1 (ONE) TABLET at noon, 2 (TWO) TABLETS at bedtime NEEDED; PRN; insulin glargine [Lantus Solostar U-100 Insulin] 100 unit/mL (3 mL) insulin pen 20 unit SUBCUT DAILY Patient Comments: INJECT 20 Units subcutaneously once daily In a.m insulin lispro [Humalog KwikPen Insulin] 100 unit/mL insulin pen 8 unit SUBCUT Q8H Patient Comments: INJECT 8 UNITS SUBCUTANEOUSLY THREE TIMES DAILY WITH MEALS; rarely takes d/t more controlled blood sugar Rx Instructions: 8 units subcutaneously; hydrocodone-acetaminophen [hydrocodone-acetaminophen] 5-325 mg tablet 1 tab PO Q6H PRN PRN (Reason: Pain) 3 Days Qty: 10 0RF Trulicity 0.75 mg/0.5 mL pen injector 0.75 mg SUBCUT .COMPLEX Patient Comments: INJECT 0.5 ML SUBCUTANEOUSLY EVERY WEEK Rx Instructions: 0.75 mg subcutaneously every week on Wednesdays; (DME) True Metrix Glucose Test Strip Strip MISCELLANEOUS 4X/DAY amoxicillin 875 mg tablet 875 mg PO BID amoxicillin-pot clavulanate 875-125 mg tablet 1 tab PO BID Primary Care Provider: Juliet Gao Referrals: Juliet Gao MD [Primary Care Provider] - Activity Restrictions/Additional Instructions: Please follow-up with your dentist. Disposition Disposition: Home, Self Care
[2023-12-27 22:03] VITALS: BP 140/97; PULSE 100; RESP 19; TEMP 36.9; O2SAT 99
== END 2023-12-27 22:03 | disposition home or self-care (01) ==
PROVIDERS: Emergency Provider Emergency Medicine; Visit Provider Emergency Medicine
DX: K04.7 Periapical abscess without sinus (principal); E11.638 Type 2 diabetes mellitus with other oral complications; F41.9 Anxiety disorder, unspecified; Z87.891 Personal history of nicotine dependence; R68.84 Jaw pain; E66.9 Obesity, unspecified; E78.5 Hyperlipidemia, unspecified; I10 Essential (primary) hypertension; Z98.890 Other specified postprocedural states
CPT/HCPCS: 99282

== ENCOUNTER 2024-04-23 09:43 | Emergency (ER) | payer MEDICAID, SELFPAY ==
[2024-04-23 09:45] VITALS: BP 171/102; PULSE 87; PULSE 95; RESP 20; TEMP 36.4; O2SAT 100; O2SAT 99; BMI 51.3
[2024-04-23 10:28] LABS: Absolute Lymphocyte Count 1.85 X10^3/uL (0.83-4.51); Absolute Neutrophil Count 5.1 X10^3/uL (2.0-7.7); Basophil# 0.04 X10^3/uL; Basophil% 0.5 % (0-1); Eosinophil# 0.42 X10^3/uL; Eosinophils% 5.4 % (0-5); Hematocrit 42.2 % (37-47); Hemoglobin 13.4 g/dL (12.0-15.0); Lymphocyte # 1.85 X10^3/ul (0.83-4.51); Lymphocyte % 23.6 % (19-41); Mean Corp Hgb Conc 31.8 g/dL (32-36); Mean Corpuscular Hgb 27.1 pg (27.0-32.0); Mean Corpuscular Volume 85.4 fL (81-99); Mean Platelet Vol. 9.2 fl (6.2-12.0); Monocyte# 0.38 X10^3/uL; Monocyte% 4.9 % (0-10); NRBC Flagged by Analyzer 0 % (0-5); Neutrophil # 5.11 X10^3/uL (2.7-7.7); Neutrophil % 65.2 % (47-70); Platelet Count 260 K/mm3 (150-450); RBC Distribution Width CV 13.3 % (11.6-14.6); Red Blood Count 4.94 M/mm3 (4.2-5.4); White Blood Count 7.8 K/mm3 (4.4-11.0)
[2024-04-23 10:38] LABS: Anion Gap 3 (5-15); BUN 9 mg/dL (7-18); BUN/Creat Ratio 11.9 RATIO (10-20); Chloride 108 mmol/L (98-107); Creatinine, Serum 0.76 mg/dL (0.55-1.02); EST Glomerular Filtration Rate 88 mL/min (>60); Est Glom Filt Rate - Afr Amer 106 mL/min (>60); Estimated Creatinine Clearance 129.02 ml/min; Glucose 113 mg/dL (74-106); Sodium Level 139 mmol/L (136-145)
[2024-04-23 11:44] VITALS: BP 131/85
[2024-04-23 13:00] VITALS: BP 140/94
--- NOTE | 2024-04-23 14:09 | EDS_ITS ---
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 Surgery was this past Friday. Patient was placed on Percocet. She presents because of facial swelling, bruising and pain. She states occasionally she taste blood. She attempted to contact the dentist. She was in instructed to come to the ER since they are closed. Patient denies objective fever. She did complain of subjective fever. She denies ocular, visual auditory symptoms. She denies difficulty opening or closing her mouth. She denies change in voice. Prior similar symptoms: No Recent Illness/Hospitalization: Yes PFSH PFS Medical History Hyperlipidemia Diabetes Dental caries Recurrent hernia Hemorrhoids RUQ abdominal pain Abdominal pain SOB (shortness of breath) Anxiety Depression Hypertension Back problem Fatigue Home Medications ?Medication ?Instructions ?Recorded ?Last Taken ?Type albuterol sulfate 90 mcg/actuation 1 - 2 puff inhalation Q6H PRN PRN 08/26/19 Unknown History aerosol inhaler Sob &/Or Wheezing lisinopril 20 mg tablet (Zestril) 20 mg PO QHS bloodpressure 01/30/21 Unknown History atorvastatin 20 mg tablet 20 mg PO QHS 11/08/22 Unknown History metformin 500 mg tablet 500 mg PO DAILY 11/08/22 Unknown History sertraline 100 mg tablet (Zoloft) 200 mg PO DAILY 11/08/22 Unknown History dulaglutide 0.75 mg/0.5 mL 0.75 mg subcut .COMPLEX 07/15/23 Unknown History subcutaneous pen injector (Trulicity) alprazolam 1 mg tablet 1 mg PO BID PRN anxiety 09/03/23 Unknown History hydrocodone-acetaminophen 5-325mg 1 tab PO Q6H PRN PRN Pain 3 days 09/03/23 Unknown Rx 5mg-325mg #10 TABLETS insulin glargine 100 unit/mL (3 20 unit subcut DAILY hyperglycemia 09/03/23 Unknown History mL) subcutaneous pen (Lantus Solostar U-100 Insulin) insulin lispro 100 unit/mL 8 unit subcut Q8H hyperglycemia 09/03/23 Unknown History subcutaneous pen (Humalog KwikPen (U-100) Insulin) tizanidine 2 mg tablet 2 mg PO .COMPLEX PRN pulled muscles 09/03/23 Unknown History amoxicillin 875 mg tablet 875 mg PO BID 12/27/23 Unknown History amoxicillin 875 mg-potassium 1 tab PO BID 12/27/23 Unknown History clavulanate 125 mg tablet blood sugar diagnostic (True 12/27/23 Unknown History Metrix Glucose Test Strip) oxycodone-acetaminophen 5 mg-325 1 tab PO Q8H PRN pain 3 days #10 12/27/23 Unknown Rx mg tablet (Percocet) tabs oxycodone-acetaminophen 5 mg-325 1 tab PO Q6H PRN PRN Pain 3 days 04/23/24 Unknown Rx mg tablet #12 TABLETS penicillin V potassium 500 mg 500 mg PO 4X/DAY #28 tabs 04/23/24 Unknown Rx tablet Allergy/AdvReac Type Severity Reaction Status Date / Time diphenhydramine Allergy Severe Angioedema Verified 04/23/24 09:44 ibuprofen Allergy Intermediate Swelling Verified 04/23/24 09:44 tramadol Allergy Intermediate Swelling Verified 04/23/24 09:44 Family History Mother Asthma Aunt Colon cancer Father Asthma Sister Asthma Surgical History History of laparoscopic cholecystectomy Social History Smoking Status: Former smoker second hand exposure: No alcohol intake: never substance use type: does not use caffeine: Yes what type of physical activity do you participate in: none frequency: does not exercise ROS ROS ED Constitutional Constitutional ED: Reports fever(s); Denies chills, subjective or sweats Eyes Eyes: Denies blurry vision or change in vision ENT ENT ED: Denies ear pain, rhinorrhea or sore throat Cardiovascular Cardiovascular: Denies chest pain or palpitations Respiratory/Chest Respiratory/Chest: Denies cough, dyspnea or dyspnea on exertion Gastrointestinal Gastrointestinal: Reports nausea; Denies abdominal pain or vomiting Musculoskeletal Musculoskeletal: Denies arthralgias, myalgias or neck pain Integumentary Denies rash Neurologic Neurologic: Denies headache(s) Allergic/Immunologic Allergic/Immunologic ED: Denies mouth swelling, tongue swelling or urticaria EXAM Physical Exam Narrative Exam Narrative: Vital signs are marked for an elevated blood pressure initially. Pressure has improved. Const Vital Signs: 04/23/24 09:45 04/23/24 09:45 04/23/24 11:44 Temperature 97.5 F L Temperature Source Temporal Pulse Rate 87 95 Respiratory Rate 20 H 20 H Blood Pressure 171/102 H 171/102 H 131/85 H Blood Pressure Mean 125 125 100 Pulse Ox 99 100 Oxygen Delivery Method Room Air Room Air 04/23/24 13:00 Temperature Temperature Source Pulse Rate Respiratory Rate Blood Pressure 140/94 H Blood Pressure Mean 109 Pulse Ox Oxygen Delivery Method Positive well nourished and well developed Constitutional Narrative: Patient does appear uncomfortable. She does not appear ill or toxic. General Appearance ED: well developed; Negative for NAD HEENT HEENT Narrative: There is tenderness above the lip on the right side in the proximity of tooth 6 7 and 8. Incisions are intact. There is no obvious drainage. There may be some soft tissue swelling which 1 would expect since she recently had significant surgery. There is no obvious dental caries. Tooth #7 had prior root canal. tenderness; Negative for trauma Mouth ED: Yes oral and palatal mucosa normal, Yes lips normal, Yes tongue normal, Yes salivary gland normal, No mouth trauma and Yes oral and palatal mucosa abnormal Mouth: oral and palatal mucosa normal, lips normal, tongue normal, salivary gland normal, No mouth trauma and oral and palatal mucosa abnormal Eyes PERRL and EOMs intact bilaterally General Eye ED: Negative for pale conjunctiva or scleral icterus Neck no lymphadenopathy, supple and no JVD Lymph Lymphatic: no lymphadenopathy noted and lymphadenopathy Resp normal respiratory effort and no retractions Cardio regular rate, regular rhythm, S1 normal heart sound, S2 normal heart sound and no murmurs Extremity normal to inspection and no joint enlargement Neuro oriented x3 and CN's II-XII intact bilaterally Sensorium / Orientation: alert Psych mental status grossly normal Skin Skin Narrative: Bruising noted near the area of the right mental foramen. There is soft tissue swelling above the upper lip on the right side. There is no induration, warmth or fluctuance. She does complain of tenderness. MDM MDM MDM Narrative Medical decision making narrative: Will obtain CBC to assess white count differential. As well as anemia since she complains of fatigue. BMP was obtained because of history of diabetes in the past. Images were not obtained since we do not have Capability of performing dental x-rays. Lab Data Attestation: I reviewed the patient's lab results. Lab results narrative: CBC is normal. BMP is remarkable for slight elevation of glucose of 113 with normal CO2 anion gap. Labs: Laboratory Results - last 24 hr 04/23/24 10:20 WBC 7.8 RBC 4.94 Hgb 13.4 Hct 42.2 MCV 85.4 MCH 27.1 MCHC 31.8 L RDW Std Deviation 41.0 RDW Coeff of Michelle 13.3 Plt Count 260 MPV 9.2 Immature Gran % (Auto) 0.400 Neut % (Auto) 65.2 Lymph % (Auto) 23.6 [place] % (Auto) 4.9 Eos % (Auto) 5.4 H Baso % (Auto) 0.5 Absolute Neuts (auto) 5.1 Absolute Lymphs (auto) 1.85 Nucleated RBC % 0 Sodium 139 Potassium 4.0 Chloride 108 H Carbon Dioxide 28.0 Anion Gap 3 L BUN 9 Creatinine 0.76 Estim Creat Clear Calc 129.02 Est GFR (MDRD) Af Amer 106 Est GFR (MDRD) Non-Af 88 BUN/Creatinine Ratio 11.9 Glucose 113 H Calcium 9.0 Treatment and Re-Evaluation Narrative: This patient does not have a ride she was medicated with p.o. Tylenol. She was discharged home with prescription for penicillin and Percocet. Discharge Plan Triage Chief Complaint: Dental ED Provider: Jorge Eldridge Dx/Rx/DC Orders Clinical Impression: Pain, dental, Post-op pain, Abscess of apex of dental root complicating chronic inflammation, Adult BMI 50.0-59.9 kg/sq m Instructions: ED Dental Pain Prescriptions: New penicillin V potassium 500 mg tablet 500 mg PO 4X/DAY Qty: 28 0RF oxycodone-acetaminophen 5-325 mg tablet 1 tab PO Q6H PRN PRN (Reason: Pain) 3 Days Qty: 12 0RF No Action albuterol sulfate 1 PUFF inhaler 1 - 2 puff inhalation Q6H PRN PRN (Reason: Sob &/Or Wheezing) lisinopril [Zestril] 20 mg tablet 20 mg PO QHS metformin 500 mg tablet 500 mg PO DAILY Patient Comments: once daily due to undesirable side effects atorvastatin 20 mg tablet 20 mg PO QHS sertraline [Zoloft] 100 mg tablet 200 mg PO DAILY alprazolam 1 mg tablet 1 mg PO BID PRN (Reason: anxiety) Patient Comments: TAKE 1 TABLET BY MOUTH TWICE DAILY NEEDED FOR ANXIETY tizanidine 2 mg tablet 2 mg PO .COMPLEX PRN (Reason: pulled muscles) Patient Comments: TAKE 1 TABLET BY MOUTH ONCE DAILY in the IN THE MORNING, 1 (ONE) TABLET at noon, 2 (TWO) TABLETS at bedtime NEEDED (don't drive if you take medication) Rx Instructions: 2 mg orally ONCE DAILY in the IN THE MORNING, 1 (ONE) TABLET at noon, 2 (TWO) TABLETS at bedtime NEEDED; PRN; insulin glargine [Lantus Solostar U-100 Insulin] 100 unit/mL (3 mL) insulin pen 20 unit SUBCUT DAILY Patient Comments: INJECT 20 Units subcutaneously once daily In a.m insulin lispro [Humalog KwikPen Insulin] 100 unit/mL insulin pen 8 unit SUBCUT Q8H Patient Comments: INJECT 8 UNITS SUBCUTANEOUSLY THREE TIMES DAILY WITH MEALS; rarely takes d/t more controlled blood sugar Rx Instructions: 8 units subcutaneously; hydrocodone-acetaminophen [hydrocodone-acetaminophen] 5-325 mg tablet 1 tab PO Q6H PRN PRN (Reason: Pain) 3 Days Qty: 10 0RF Trulicity 0.75 mg/0.5 mL pen injector 0.75 mg SUBCUT .COMPLEX Patient Comments: INJECT 0.5 ML SUBCUTANEOUSLY EVERY WEEK Rx Instructions: 0.75 mg subcutaneously every week on Wednesdays; oxycodone-acetaminophen [Percocet] 5-325 mg tablet 1 tab PO Q8H PRN (Reason: pain) 3 Days Qty: 10 0RF (DME) True Metrix Glucose Test Strip Strip MISCELLANEOUS 4X/DAY amoxicillin 875 mg tablet 875 mg PO BID amoxicillin-pot clavulanate 875-125 mg tablet 1 tab PO BID Primary Care Provider: Care Physician,No Primary Referrals: Care Physician,No Primary [Primary Care Provider] - Print Language: Japanese Disposition Disposition: Home, Self Care
[2024-04-23] MEDS: Acetaminophen 325 MG Tablet 650 MG PO (14:14)
== END 2024-04-23 14:46 | disposition home or self-care (01) ==
PROVIDERS: Emergency Provider Emergency Medicine; Visit Provider Emergency Medicine
DX: K04.7 Periapical abscess without sinus (principal); E11.9 Type 2 diabetes mellitus without complications; Z79.4 Long term (current) use of insulin; G89.18 Other acute postprocedural pain; E78.5 Hyperlipidemia, unspecified; I10 Essential (primary) hypertension; Z79.84 Long term (current) use of oral hypoglycemic drugs; Z79.85 Long-term (current) use of injectable non-insulin antidiabetic drugs; Z79.899 Other long term (current) drug therapy; Z87.891 Personal history of nicotine dependence
CPT/HCPCS: 80048; 85025; 99284; A4216

== ENCOUNTER 2024-09-11 16:29 | Emergency (ER) | payer MEDICAID, SELFPAY ==
[2024-09-11 16:31] VITALS: BP 134/106; PULSE 90; RESP 18; TEMP 35.9; O2SAT 97; BMI 55.6
[2024-09-11 17:08] LABS: Mucous, Urine 0 SEEN /hpf (<or=2+)
[2024-09-11 17:14] LABS: Color, Urine Red (Yellow); Glucose, Dipstick Normal (Normal); Ketone-Dipstick Negative (Negative); Leukocyte Esterase-Dipstick 500 /ul (Negative); Nitrite-Dipstick Positive (Negative); Occult Blood-Urine 250 /ul (Negative); Protein-Dipstick 100 mg/dl (Negative); Specific Gravity, Urine 1.025 (1.002-1.030); Urine Clarity Turbid (Clear); Urine Urobilinogen 8 mg/dl (Normal)
[2024-09-11 17:22] LABS: Urine Bilirubin Dipstick 3 mg/dL (Negative)
[2024-09-11 17:42] LABS: Bacteria 1+ /hpf (None Seen); Red Blood Cells-Urine > 100 SEEN /hpf (0-5); Squamous Epithelial Cells - UA 0-5 SEEN /hpf (5-10); White Blood Cells >100 SEEN /hpf (0-5)
--- NOTE | 2024-09-11 17:59 | EX.ED.DYSGE1 ---
HPI History of Present Illness Chief Complaint: Complaint Informant: patient Onset/Context/Timing Onset: Days (3) Context: Gradual Onset Timing: Continuous Quality: Throbbing, sharp with urination Location: Suprapubic area, low back, right flank Worsened by: Urination Relieved by: Nothing Associated Symptoms Associated Symptoms: Bilateral lower extremity edema, hematuria Narrative Narrative: Patient presents with possible urinary tract infection that has been getting worse over the last 3 days. Patient states she has been having very painful urination. Patient states she is having some hematuria and passing some clots. Patient states she recently completed a course of Keflex. Patient states her pain is sharp and throbbing. Patient states it is over the suprapubic area and into her back. Patient admits to some right flank pain as well. Patient states it is worse with urination. Patient states nothing seems to help with it. Patient admits to some subjective fevers and chills. Prior similar symptoms: Yes PFSH PFSH Medical History Hyperlipidemia Diabetes Dental caries Recurrent hernia Hemorrhoids RUQ abdominal pain Abdominal pain SOB (shortness of breath) Anxiety Depression Hypertension Back problem Fatigue Home Medications ?Medication ?Instructions ?Recorded ?Last Taken ?Type albuterol sulfate 90 mcg/actuation 1 - 2 puff inhalation Q6H PRN PRN 08/26/19 Unknown History aerosol inhaler Sob &/Or Wheezing lisinopril 20 mg tablet (Zestril) 20 mg PO QHS bloodpressure 01/30/21 Unknown History atorvastatin 20 mg tablet 20 mg PO QHS 11/08/22 Unknown History metformin 500 mg tablet 500 mg PO DAILY 11/08/22 Unknown History sertraline 100 mg tablet (Zoloft) 200 mg PO DAILY 11/08/22 Unknown History dulaglutide 0.75 mg/0.5 mL 0.75 mg subcut .COMPLEX 07/15/23 Unknown History subcutaneous pen injector (Trulicity) alprazolam 1 mg tablet 1 mg PO BID PRN anxiety 09/03/23 Unknown History hydrocodone-acetaminophen 5-325mg 1 tab PO Q6H PRN PRN Pain 3 days 09/03/23 Unknown Rx 5mg-325mg #10 TABLETS insulin glargine 100 unit/mL (3 20 unit subcut DAILY hyperglycemia 09/03/23 Unknown History mL) subcutaneous pen (Lantus Solostar U-100 Insulin) insulin lispro 100 unit/mL 8 unit subcut Q8H hyperglycemia 09/03/23 Unknown History subcutaneous pen (Humalog KwikPen (U-100) Insulin) tizanidine 2 mg tablet 2 mg PO .COMPLEX PRN pulled muscles 09/03/23 Unknown History amoxicillin 875 mg tablet 875 mg PO BID 12/27/23 Unknown History amoxicillin 875 mg-potassium 1 tab PO BID 12/27/23 Unknown History clavulanate 125 mg tablet blood sugar diagnostic (True 12/27/23 Unknown History Metrix Glucose Test Strip) oxycodone-acetaminophen 5 mg-325 1 tab PO Q8H PRN pain 3 days #10 12/27/23 Unknown Rx mg tablet (Percocet) tabs oxycodone-acetaminophen 5 mg-325 1 tab PO Q6H PRN PRN Pain 3 days 04/23/24 Unknown Rx mg tablet #12 TABLETS penicillin V potassium 500 mg 500 mg PO 4X/DAY #28 tabs 04/23/24 Unknown Rx tablet hydrocodone-acetaminophen 5-325mg 1 tab PO Q6H PRN PRN Pain 1 day #4 09/11/24 Unknown Rx 5mg-325mg TABLETS nitrofurantoin 100 mg PO Q12 #10 CAPSULES 09/11/24 Unknown Rx monohydrate/macrocrystals 100 mg capsule Allergy/AdvReac Type Severity Reaction Status Date / Time diphenhydramine Allergy Severe Angioedema Verified 09/11/24 16:31 ibuprofen Allergy Intermediate Swelling Verified 09/11/24 16:31 tramadol Allergy Intermediate Swelling Verified 09/11/24 16:31 Family History Mother Asthma Aunt Colon cancer Father Asthma Sister Asthma Surgical History History of laparoscopic cholecystectomy Social History Smoking Status: Former smoker second hand exposure: No alcohol intake: never substance use type: does not use caffeine: Yes what type of physical activity do you participate in: none frequency: does not exercise ROS ROS ED Constitutional Constitutional ED: Reports chills, fever(s) and subjective Eyes Eyes: Denies blurry vision or change in vision ENT ENT ED: Denies rhinorrhea or sore throat Cardiovascular Cardiovascular: Denies chest pain or palpitations Respiratory/Chest Respiratory/Chest: Denies cough or dyspnea Gastrointestinal Gastrointestinal: Reports abdominal pain and nausea; Denies vomiting Genitourinary Genitourinary ED: Reports dysuria and hematuria Musculoskeletal Musculoskeletal: Reports back pain; Denies neck pain Integumentary Denies abscess or rash Neurologic Neurologic: Reports headache(s); Denies weakness Allergic/Immunologic Allergic/Immunologic ED: Denies mouth swelling or urticaria EXAM Physical Exam Const Vital Signs: 09/11/24 16:31 09/11/24 18:30 09/11/24 19:59 Temperature 96.6 F L 98.1 F 98.7 F Temperature Source Temporal Oral Oral Pulse Rate 90 79 75 Respiratory Rate 18 18 18 Blood Pressure 134/106 H Blood Pressure Mean 115 Pulse Ox 97 98 96 Oxygen Delivery Method Room Air Room Air Room Air Positive well nourished and well developed General Appearance ED: well developed and NAD HEENT Reports moist mucous membranes Neck supple and no JVD Resp normal respiratory effort and clear to auscultation bilaterally Cardio regular rate and regular rhythm GI non-distended Palpation: soft and tender LLQ, RLQ and suprapubic; Negative for guarding or rebound tenderness present Back/Spine General Back: CVA tenderness right (Mild) Extremity General Extremety ED: Negative for tenderness Neuro oriented x3, CN's II-XII intact bilaterally and no sensory deficits noted Sensorium / Orientation: alert Motor Exam: strength 5/5 throughout Psych mental status grossly normal MDM MDM MDM Narrative Medical decision making narrative: Differential diagnosis includes urinary tract infection, ureteral calculus, pyelonephritis, ovarian cyst, and viral illness. CBC will be obtained to assess for leukocytosis and anemia. Basic metabolic profile will be obtained to assess for electrolyte abnormality and renal function. Urinalysis will be obtained to assess for urinary tract infection and hematuria. CT scan of the abdomen and pelvis will be obtained to assess for ureteral calculus and pyelonephritis. Urine culture will be obtained to assess for urinary tract infection. Lab Data Attestation: I reviewed the patient's lab results. Lab results narrative: Urinalysis was reviewed. There is turbid red urine. Leukocyte esterase was 500 with greater than 100 white blood cells. There is 1+ bacteria and positive nitrites. Urine occult blood was 250 with greater than 100 red blood cells. Labs: Laboratory Results - last 24 hr 09/11/24 09/11/24 17:00 18:21 WBC 11.1 H RBC 4.62 Hgb 12.9 Hct 40.4 MCV 87.4 MCH 27.9 MCHC 31.9 L RDW Std Deviation 41.8 RDW Coeff of Michelle 13.0 Plt Count 275 MPV 8.9 Immature Gran % (Auto) 0.500 Neut % (Auto) 74.1 H Lymph % (Auto) 16.7 L [place] % (Auto) 4.9 Eos % (Auto) 3.3 Baso % (Auto) 0.5 Absolute Neuts (auto) 8.2 H Absolute Lymphs (auto) 1.85 Nucleated RBC % 0 Sodium 139 Potassium 4.2 Chloride 105 Carbon Dioxide 28.0 Anion Gap 6 BUN 12 Creatinine 0.72 Estim Creat Clear Calc 141.19 Est GFR (MDRD) Af Amer 111 Est GFR (MDRD) Non-Af 92 BUN/Creatinine Ratio 16.6 Glucose 120 H Calcium 8.9 Urine Color Red Urine Clarity Turbid Urine pH 6.0 Ur Specific [place] 1.025 Urine Protein 100 H Urine Glucose (UA) Normal Urine Ketones Negative Urine Occult Blood 250 H Urine Nitrite Positive H Urine Bilirubin 3 H Urine Urobilinogen 8 H Ur Leukocyte Esterase 500 H Urine RBC > 100 SEEN Urine WBC >100 SEEN Ur Squamous Epith Cells 0-5 SEEN Urine Bacteria 1+ Urine Mucus 0 SEEN Radiography Diagnostic Testing: Clinical Impression(s) from Imaging Studies Abdomen/Pelvis CT 09/11/24 18:05 IMPRESSION: No acute disease. Electronically Signed: Hai Villegas MD at 20:39 EST , CT scan of the abdomen and pelvis was obtained. There is no acute abdominal process noted. There is no evidence of ureteral calculus or pyelonephritis. There is no free air or free fluid. There is no evidence of bowel obstruction or perforation. This was interpreted by the radiologist was also independently reviewed by myself Treatment and Re-Evaluation :: Patient was given IV fluids and morphine. Patient was given a dose of Rocephin here. Patient was advised of her findings. Patient was given a prescription for Macrobid. Patient was instructed to follow-up with her primary care physician in 5 to 7 days. Patient understood and was agreeable with plan. All questions were answered. Discharge Plan Triage Chief Complaint: Complaint ED Provider: Mathew Gonsales Dx/Rx/DC Orders Clinical Impression: Hemorrhagic cystitis, Abdominal pain Instructions: ED Cystitis Female Adult Prescriptions: New nitrofurantoin monohyd/m-cryst 100 mg capsule 100 mg PO Q12 Qty: 10 0RF hydrocodone-acetaminophen 5-325 mg tablet 1 tab PO Q6H PRN PRN (Reason: Pain) 1 Days Qty: 4 0RF No Action albuterol sulfate 1 PUFF inhaler 1 - 2 puff inhalation Q6H PRN PRN (Reason: Sob &/Or Wheezing) lisinopril [Zestril] 20 mg tablet 20 mg PO QHS metformin 500 mg tablet 500 mg PO DAILY Patient Comments: once daily due to undesirable side effects atorvastatin 20 mg tablet 20 mg PO QHS sertraline [Zoloft] 100 mg tablet 200 mg PO DAILY alprazolam 1 mg tablet 1 mg PO BID PRN (Reason: anxiety) Patient Comments: TAKE 1 TABLET BY MOUTH TWICE DAILY NEEDED FOR ANXIETY tizanidine 2 mg tablet 2 mg PO .COMPLEX PRN (Reason: pulled muscles) Patient Comments: TAKE 1 TABLET BY MOUTH ONCE DAILY in the IN THE MORNING, 1 (ONE) TABLET at noon, 2 (TWO) TABLETS at bedtime NEEDED (don't drive if you take medication) Rx Instructions: 2 mg orally ONCE DAILY in the IN THE MORNING, 1 (ONE) TABLET at noon, 2 (TWO) TABLETS at bedtime NEEDED; PRN; insulin glargine [Lantus Solostar U-100 Insulin] 100 unit/mL (3 mL) insulin pen 20 unit SUBCUT DAILY Patient Comments: INJECT 20 Units subcutaneously once daily In a.m insulin lispro [Humalog KwikPen Insulin] 100 unit/mL insulin pen 8 unit SUBCUT Q8H Patient Comments: INJECT 8 UNITS SUBCUTANEOUSLY THREE TIMES DAILY WITH MEALS; rarely takes d/t more controlled blood sugar Rx Instructions: 8 units subcutaneously; hydrocodone-acetaminophen [hydrocodone-acetaminophen] 5-325 mg tablet 1 tab PO Q6H PRN PRN (Reason: Pain) 3 Days Qty: 10 0RF Trulicity 0.75 mg/0.5 mL pen injector 0.75 mg SUBCUT .COMPLEX Patient Comments: INJECT 0.5 ML SUBCUTANEOUSLY EVERY WEEK Rx Instructions: 0.75 mg subcutaneously every week on Wednesdays; oxycodone-acetaminophen [Percocet] 5-325 mg tablet 1 tab PO Q8H PRN (Reason: pain) 3 Days Qty: 10 0RF (DME) True Metrix Glucose Test Strip Strip MISCELLANEOUS 4X/DAY amoxicillin 875 mg tablet 875 mg PO BID amoxicillin-pot clavulanate 875-125 mg tablet 1 tab PO BID penicillin V potassium 500 mg tablet 500 mg PO 4X/DAY Qty: 28 0RF oxycodone-acetaminophen 5-325 mg tablet 1 tab PO Q6H PRN PRN (Reason: Pain) 3 Days Qty: 12 0RF Primary Care Provider: Care Physician,No Primary Referrals: Care Physician,No Primary [Primary Care Provider] - Doctor,Your [Non-Staff] - 5-7 Days Print Language: Mohawk Disposition Disposition: Home, Self Care
--- NOTE | 2024-09-11 18:05 | CT_ITS ---
STUDY: CT ABDOMEN AND PELVIS WITHOUT CONTRAST REASON FOR EXAM: Female, 44 years old. Abdominal pain RADIATION DOSAGE (If Supplied By Facility): CTDIvol = ( 24.05 ) mGy, DLP = ( 1195.62 ) mGycm TECHNIQUE: Transaxial images were obtained from the dome of the diaphragm to the symphysis pubis without oral contrast, and without intravenous contrast. Sagittal and coronal images were reconstructed. Individualized dose optimization techniques were used for this CT. The protocol utilizes one or more of the following dose reduction techniques: automated exposure control, adjustment of mA and/or kV according to patient size,and/or use of iterative reconstruction technique. COMPARISON: CT chest abdomen and pelvis September 03, 2023. FINDINGS: The visualized lung bases are unremarkable. The visualized portions of the heart are within normal limits. Normal liver. There is non-visualization of the gallbladder, which may be secondary to either contraction or a prior cholecystectomy. Normal spleen. Normal pancreas. Normal bilateral adrenal glands. 3.9 cm simple right renal cortical cyst. Punctate nonobstructing nephrolith on the left. Simple left renal cortical cyst measuring up to 2.6 cm. No further follow-up required as the cysts appear simple/benign. Normal visualized stomach. Normal small intestine. Normal colon. The appendix is visualized and appears normal. Normal abdominal aorta. Normal inferior vena cava. Normal retroperitoneum. Normal urinary bladder. Uterus normal. Fat-containing ventral hernia. Multilevel disc marginal osteophytes and spinal stenosis.. CT/Abdomen/Pelvis without Cont IMPRESSION: No acute disease. Electronically Signed: Hai Villegas MD at 20:39 EST ,
[2024-09-11] MEDS: 0.9% Normal Saline (1000mL) 1,000 ML 1000 ML IV (18:22)
[2024-09-11] MEDS: Morphine 4 MG/ML Syringe IV (18:24)
[2024-09-11 18:29] LABS: Absolute Lymphocyte Count 1.85 X10^3/uL (0.83-4.51); Absolute Neutrophil Count 8.2 X10^3/uL (2.0-7.7); Basophil# 0.06 X10^3/uL; Basophil% 0.5 % (0-1); Eosinophil# 0.36 X10^3/uL; Eosinophils% 3.3 % (0-5); Hematocrit 40.4 % (37-47); Hemoglobin 12.9 g/dL (12.0-15.0); Lymphocyte # 1.85 X10^3/ul (0.83-4.51); Lymphocyte % 16.7 % (19-41); Mean Corp Hgb Conc 31.9 g/dL (32-36); Mean Corpuscular Hgb 27.9 pg (27.0-32.0); Mean Corpuscular Volume 87.4 fL (81-99); Mean Platelet Vol. 8.9 fl (6.2-12.0); Monocyte# 0.54 X10^3/uL; Monocyte% 4.9 % (0-10); NRBC Flagged by Analyzer 0 % (0-5); Neutrophil # 8.19 X10^3/uL (2.7-7.7); Neutrophil % 74.1 % (47-70); Platelet Count 275 K/mm3 (150-450); RBC Distribution Width SD 41.8 fl (35.1-43.9); Red Blood Count 4.62 M/mm3 (4.2-5.4); White Blood Count 11.1 K/mm3 (4.4-11.0)
[2024-09-11 18:30] VITALS: PULSE 79; RESP 18; TEMP 36.7; O2SAT 98
[2024-09-11 18:52] LABS: Anion Gap 6 (5-15); BUN 12 mg/dL (7-18); BUN/Creat Ratio 16.6 RATIO (10-20); Calcium,Total 8.9 mg/dL (8.5-10.1); Chloride 105 mmol/L (98-107); Creatinine, Serum 0.72 mg/dL (0.55-1.02); EST Glomerular Filtration Rate 92 mL/min (>60); Est Glom Filt Rate - Afr Amer 111 mL/min (>60); Estimated Creatinine Clearance 141.19 ml/min; Glucose 120 mg/dL (74-106); Potassium 4.2 mmol/L (3.5-5.1); Sodium Level 139 mmol/L (136-145)
[2024-09-11] MEDS: Ceftriaxone 1 GM/50 ML BAG IV (19:56)
[2024-09-11 19:59] VITALS: PULSE 75; RESP 18; TEMP 37.1; O2SAT 96
[2024-09-11 20:57] VITALS: PULSE 75; RESP 18; TEMP 36.3; O2SAT 97
== END 2024-09-11 21:18 | disposition home or self-care (01) ==
PROVIDERS: Emergency Provider Emergency Medicine; Visit Provider Emergency Medicine
DX: N30.81 Other cystitis with hematuria (principal); E11.9 Type 2 diabetes mellitus without complications; I10 Essential (primary) hypertension; Z87.891 Personal history of nicotine dependence; E78.5 Hyperlipidemia, unspecified; R60.0 Localized edema; R31.9 Hematuria, unspecified
CPT/HCPCS: 74176; 80048; 81001; 85025; 87086; 87088; 87186; 96361; 96365; 96375; 99283; A4216

== ENCOUNTER → 2024-12-31 | Outpatient (CLI) | payer MEDICAID, SELFPAY ==
--- NOTE | 2024-12-31 08:58 | EKG12_ITS ---
Test Reason : [facility] DR[employer] USE Blood Pressure : */* mmHG Vent. Rate : 88 BPM Atrial Rate : 88 BPM P-R Int : 152 ms QRS Dur : 88 ms QT Int : 374 ms P-R-T Axes : 65 59 53 degrees QTcB Int : 452 ms Normal sinus rhythm Normal ECG Confirmed by Martin Reese ([id number]), editor department VONDA CASH ([id number]) on 01/03/2025 8:50:46 AM Referred By: Virginia Sanchez Confirmed By: Martin Reese
== END | disposition home or self-care (01) ==
LOC: PSN 08:58
PROVIDERS: PCP Student in an Organized Health Care Education/Training Program; Referring Provider Psychiatry & Neurology Psychiatry; Visit Provider Psychiatry & Neurology Psychiatry
DX: Z79.899 Other long term (current) drug therapy (principal)
CPT/HCPCS: 93005

== ENCOUNTER 2025-05-16 15:27 | Emergency (ER) | payer MEDICAID, SELFPAY ==
[2025-05-16 15:28] VITALS: BP 151/100; PULSE 93; RESP 18; TEMP 35.6; O2SAT 97; BMI 53.2
--- OUTSIDE RECORDS SUMMARY | 2025-05-16 15:57 | XMS RPT_ITS | CCD ---
Author Organization [facility] Care Team Providers Care Flume Worker Name Role Phone [place], DR ROHAN [place] Attending Unavailabl e PHYSICIAN, NONE Primary Care Unavailable RADHA GAO MD Primary Care Unavailable RADHA GAO MD Consulting Unavailable RADHA GAO MD Admitting Unavailable RADHA GAO MD Attending Unavailable PROVIDER, UNKNOWN Consulting Unavailable PROVIDER, UNKNOWN Consulting Unavailable RADHA GAO MD Admitting Unavailable RADHA GAO MD Attending Unavailable RADHA GAO MD Consulting Unavailable RADHA GAO MD Primary Care Unavailable PROVIDER, UNKNOWN Consulting Unavailable PROVIDER, UNKNOWN Consulting Unavailable RADHA GAO MD Primary Care Unavailable RADHA GAO MD Consulting Unavailable RADHA GAO MD Admitting Unavailable RADHA GAO MD Attending Unavailable PROVIDER, UNKNOWN Consulting Unavailable PROVIDER, UNKNOWN Consulting Unavailable RADHA GAO MD Consulting Unavailable RADHA GAO MD Admitting Unavailable RADHA GAO MD Attending Unavailable RADHA GAO MD Primary Care Unavailable PROVIDER, UNKNOWN Consulting Unavailable PROVIDER, UNKNOWN Consulting Unavailable RADHA GAO MD Admitting Unavailable RADHA GAO MD Attending Unavailable RADHA GAO MD Consulting Unavailable RADHA GAO MD Primary Care Unavailable PROVIDER, UNKNOWN Consulting Unavailable PROVIDER, UNKNOWN Consulting Unavailable RADHA GAO MD Admitting Unavailable RADHA GAO MD Attending Unavailable RADHA GAO MD Consulting Unavailable RADHA GAO MD Primary Care Unavailable PROVIDER, UNKNOWN Consulting Unavailable PROVIDER, UNKNOWN Consulting Unavailable Eldridge, Jorge Attending Unavailable Care Physician, No Primary Primary Care Unava ilable Mathew Gonsales Attending Unavailable Care Physician, No Primary Primary Care Unava ilable Astreika, Vera Referring Unavailable Astreika, Vera Attending Unavailable Radha Gao Primary Care Unavailable Martin Reese Attending Unavailable Virginia Sanchez Referring Unavailable Radha Gao Primary Care Unavailable Allergies Allergy Classification Reported Allergen(s) Allergy Type Date of Onset Reaction(s) Facility (6 sources) Ibuprofen Drug Allergy 3 Swelling [facility] (6 sources) traMADol Drug Allergy 3 Swelling [facility] (2 sources) diphenhydrAMINE Drug Allergy 3 Angioedema [facility] (1 source) diphenhydrAMINE Drug Allergy 4 [facility] (1 source) Ibuprofen Drug Allergy 4 [facility] (1 source) traMADol Drug Allergy 4 [facility] Medications Current Medications Medication Drug Class(es) Dates Sig (Normalized) Sig (Original) acetaminophen 325 mg / HYDROcodone bitartrate 5 mg oral tablet (10 sources) Opioid Agonist Start: 09-03-2023 take 1 tablet by mouth every six hours as needed Hydrocodone-Aceta minophen Active 1 TABLET PO EVERY 6 HOURS NEEDED 10 September 03, 2023 Start: 04-14-2023 End: 06-06-2023 take 1 tablet by mouth every six hours as needed Hydrocodone-Acetaminophen Discontinued 1 TABLET PO EVERY 6 HOURS NEEDED 10 April 14, 2023 June 06, 2023 4:03am Start: 02-21-2021 take 1 tablet by patricia th every six hours as needed Hydrocodone-Acetaminophen Active 1 TABLE T PO EVERY 6 HOURS NEEDED 10 February 21, 2021 9:27pm acetaminophen 325 mg / oxyCODONE hydrochloride 5 mg oral tablet (15 sources) Opioid Agonist Start: 12-27-2023 take 1 tablet by mouth every eight hours Oxycodone-Acetaminophen (Percocet) 5-325 mg tablet Active 1 TABLET PO Q8H 10 December 27, 2023 Start: 06-06-2023 End: 07-15-2023 take 1 tablet by mouth every six hours Oxycodone-Acetaminophen (Percocet) 5-325 mg tablet Discontinued 1 TABLET PO EVERY 6 HOURS 10 June 06, 2023 July 15, 2023 2:20am Start: 08-27-2019 End: 09-03-2019 take 1 tablet by mouth every four hours as needed Oxycodone-Acetaminophen Discontinued 1 - 2 TABLET PO EVERY 4 HOURS NEEDED 40 7 August 27, 2019 September 03, 2019 1:10am [id number] 200 actuat albuterol 0.09 mg/actuat metered dose inhaler (9 sources) beta2-Adrenergic Agonist Start: 08-26-2019 take 1 puff(s) by inhalation every six hours as needed Albuterol Sulfate Active 1 - 2 PUFF INHALATION EVERY 6 HOURS NEEDED August 26, 2019 1:00am ALPRAZolam 1 mg oral tablet (20 sources) Benzodiazepine Start: 09-03-2023 take 1 mg by mouth twice daily Alprazolam Active 1 MG PO TWICE A DAY September 03, 2023 1:00am Start: 11-08-2022 End: 07-15-2023 take 0.5 mg by mouth three times daily Alprazolam Discontinued 0.5 MG PO THREE TIMES A DAY November 08, 2022 1:00am July 15, 2023 2:21am Start: 08-07-2019 End: 01-30-2021 Alprazolam Discontinued 0.2 MG PO NEEDED August 07, 2019 1:00am January 30, 2021 2:23pm Start: 05-07-2019 End: 05-15-2019 take 1 mg by mouth twice daily as needed Alprazolam Discontinued 1 MG PO TWICE DAILY NEEDED 10 5 May 07, 2019 12:00am May 15, 2019 12:08am amoxicillin 875 mg oral tablet (6 sources) Penicillin-class Antibacterial Start: 12-27-2023 take 875 mg by mouth twice daily Amoxicillin Active 875 MG PO TWICE A DAY December 27, 2023 12:00am Start: 06-06-2023 End: 07-15-2023 take 875 mg by mouth every twelve hours Amoxicillin Discontinued 875 MG PO Q12H June 06, 2023 12:00am July 15, 2023 2:21am amoxicillin 875 mg / clavulanate 125 mg oral tablet (1 source) Penicillin-class Antibacterial Start: 12-27-2023 take 1 tablet by mouth twice daily Amoxicillin-Pot Clavulanate Active 1 TABLET PO TWICE A DAY December 27, 2023 12:00am atorvastatin 20 mg oral tablet (7 sources) HMG-CoA Reductase Inhibitor Start: 11-08-2022 take 20 mg by mouth at bedtime Atorvastatin Active 20 MG PO AT BEDTIME November 08, 2022 1:00am Blood Sugar Diagnostic (1 source) Start: 12-27-2023 Blood Sugar Diagnostic Active STRIP MC 4 TIMES DAILY December 27, 2023 12:00am 0.5 ml dulaglutide 1.5 mg/ml auto-injector (4 sources) GLP-1 Receptor Agonist Start: 07-15-2023 Dulaglutide (Dulaglutide 0.75 Mg/0.5 Ml Subcutaneous Pen Injector) 0.75 mg/0.5 mL pen injector Active 0.75 MG SC .COMPLEX July 15, 2023 12:00am 0.75 mg subcutaneously every week on Wednesdays; 3 ml insulin glargine 100 unt/ml pen injector (9 sources) Insulin Analog Start: 09-03-2023 Insulin Glargine (Insulin Glargine 100 Unit/Ml (3 Ml) Subcutaneous Pen) 100 unit/mL (3 mL) insulin pen Active 20 UNIT SC DAILY September 03, 2023 1:00am Start: 11-08-2022 End: 07-15-2023 Insulin Glargine (Lantus Shelli ostar U-100 Insulin) 100 unit/mL (3 mL) insulin pen Discontinued 20 UNIT SC WITH BREAKFAST November 08, 2022 1:00am July 15, 2023 2:21am 3 ml insulin lispro 100 unt/ml pen injector (9 sources) Insulin Analog Start: 09-03-2023 inject 8 [IU] by subcutaneous injection every eight hours Insulin Lispro (Insulin Lispro 100 Unit/Ml Subcutaneous Pen) 100 unit/mL insulin pen Active 8 UNIT SC Q8H September 03, 2023 1:00am 8 units subcutaneously; Start: 11-08-2022 End: 07-15-2023 Insulin Lispro (Humalog Kwik pen Insulin) 100 unit/mL insulin pen Discontinued 10 UNIT SC THREE TIMES A DAY November 08, 2022 1:00am July 15, 2023 2:21am metFORMIN hydrochloride 500 mg oral tablet (7 sources) Biguanide Start: 11-08-2022 take 500 mg by mouth once daily Metformin Active 500 MG PO DAILY November 08, 2022 1:00am Start: 11-08-2022 take 500 mg by mouth twice igor ly Metformin Active 500 MG PO TWICE A DAY November 08, 2022 12:00am naproxen 500 mg oral tablet (2 sources) Nonsteroidal Anti-inflammatory Drug Start: 02-21-2021 take 500 mg by mouth twice daily Naproxen Active 500 MG PO TWICE A DAY February 21, 2021 9:27pm sertraline 100 mg oral tablet (16 sources) Serotonin Reuptake Inhibitor Start: 11-08-2022 take 2 tablets by mouth once daily Sertraline (Zoloft) 100 mg tablet Active 200 MG PO DAILY November 08, 2022 1:00am Start: 08-13-2019 End: 01-30-2021 take 100 mg by mouth at bedtime Sertraline Discontinue d 100 MG PO AT BEDTIME August 13, 2019 1:00am January 30, 2021 2:23pm tiZANidine 2 mg oral tablet (2 sources) Central alpha-2 Adrenergic Agonist Start: 09-03-2023 take 2 tablets by mouth once daily at bedtime as needed Tizanidine Active 2 MG PO .COMPLEX September 03, 2023 1:00am 2 mg orally ONCE DAILY in the IN THE MORNING, 1 (ONE) TABLET at noon, 2 (TWO) TABLETS at bedtime NEEDED; PRN; Completed/Discontinued Medications Medication Drug Class(es) Dates Sig (Normalized) Sig (Original) acyclovir 800 mg oral tablet (6 sources) Herpesvirus Nucleoside Analog DNA Polymerase Inhibitor, Herpes Simplex Virus Nucleoside Analog DNA Polymerase Inhibitor, Herpes Zoster Virus Nucleoside Analog DNA Polymerase Inhibitor Start: 02-07-2023 End: 06-06-2023 take 800 mg by mouth three times daily Acyclovir Discontinued 800 MG PO THREE TIMES A DAY 04 04February 07, 2023 12:00am June 06, 2023 4:02am cephalexin 500 mg oral capsule (15 sources) Cephalosporin Antibacterial Start: 02-07-2023 End: 06-06-2023 take 500 mg by mouth every six hours Cephalexin Discontinued 500 MG PO EVERY 6 HOURS February 07, 2023 12:00am June 06, 2023 4:03am Start: 08-07-2019 End: 08-25-2019 take 500 mg by mouth every six hours Cephalexin Discontinued 500 MG PO EVERY 6 HOURS August 07, 2019 1:00am August 25, 2019 10:30am clindamycin 150 mg oral capsule (13 sources) Lincosamide Antibacterial Start: 07-15-2023 End: 09-03-2023 take 150 mg by mouth three times daily Clindamycin Hcl Discontinued 150 MG PO THREE TIMES A DAY July 15, 2023 12:00am September 03, 2023 2:01am Start: 07-09-2020 End: 01-30-2021 take 150 mg by mouth four times daily Clindamycin Hcl Discontinued 150 MG PO 4 TIMES DAILY July 09, 2020 12:00am January 30, 2021 2:23pm Lidocaine (3 sources) Antiarrhythmic, Amide Local Anesthetic Start: 07-15-2023 End: 09-03-2023 Lidocaine Hcl (Lidocaine Viscous) 2 % solution Discontinued 1 APPLIC MUCOUS MEM THREE TIMES A DAY July 15, 2023 12:00am September 03, 2023 2:01am Start: 07-15-2023 End: 09-03-2023 Lidocaine Hcl (Lidocaine Vis cous) 2 % solution Discontinued 1 APPLIC MUCOUS MEM THREE TIMES A DAY July 14, 2023 11:00pm September 03, 2023 1:01am Start: 07-15-2023 Lidocaine Hcl (Lidocaine Viscous) 2 % solution Active 1 APPLIC MUCOUS MEM THREE TIMES A DAY July 15, 2023 12:00am lisinopril 20 mg oral tablet (20 sources) Angiotensin Converting Enzyme Inhibitor Start: 08-13-2019 End: 01-30-2021 take 20 mg by mouth at bedtime Lisinopril Discontinued 20 MG PO AT BEDTIME August 26, 2019 2:34pm January 30, 2021 2:24pm ondansetron 4 mg disintegrating oral tablet (9 sources) Serotonin-3 Receptor Antagonist Start: 08-13-2019 End: 08-25-2019 take 4 mg by mouth every eight hours as needed Ondansetron Discontinued 4 MG PO EVERY 8 HOURS NEEDED August 13, 2019 1:00am August 25, 2019 10:30am penicillin v potassium 500 mg oral tablet (7 sources) Start: 11-09-2022 End: 06-06-2023 take 500 mg by mouth four times daily Penicillin V Potassium Discontinued 500 MG PO 4 TIMES DAILY November 09, 2022 1:00am June 06, 2023 4:03am sulfamethoxazole 800 mg / trimethoprim 160 mg oral tablet (9 sources) Dihydrofolate Reductase Inhibitor Antibacterial, Sulfonamide Antimicrobial Start: 08-07-2019 End: 08-25-2019 take 1 tablet by mouth twice daily Sulfamethoxazole- Trimethoprim Discontinued 1 TABLET PO TWICE A DAY August 07, 2019 1:00am August 25, 2019 10:30am Problems Active Problems Problem Classification Problem Date Documented Da te Episodic/Chronic Abdominal hernia (20 sources) Umbilical hernia; Translations: [Umbilical hernia without obstruction or gangrene] 01-21-2022 Episodic Abdominal pain (20 sources) Right upper quadrant pain; Translations: [Right upper quadrant pain] 08-27-2019 Episodic Anxiety disorders (20 sources) Anxiety; Translations: [Anxiety disorder, unspecified] 01-21-2022 Chronic Biliary tract disease (9 sources) Biliary calculus; Translations: [Calculus of gallbladder without cholecystitis without obstruction] 08-29-2019 Episodic Cardiac dysrhythmias (8 sources) Palpitations; Translations: [Palpitations] 01-29-2022 Episodic Diabetes mellitus without complication (2 sources) Type 2 diabetes mellitus without complications; Translations: [Type 2 diabetes mellitus without complications] Onset: 08-11-2024 Chronic Essential hypertension (18 sources) Hypertensive disorder; Translations: [Essential (primary) hypertension] 08-27-2019 Chronic Hemorrhoids (9 sources) Hemorrhoids; Translations: [Unspecified hemorrhoids] 08-27-2019 Episodic Malaise and fatigue (9 sources) Fatigue; Translations: [Other fatigue] 08-27-2019 Episodic Mood disorders (9 sources) Depressive disorder; Translations: [Depression] 08-27-2019 Chronic Nutritional deficiencies (1 source) Vitamin D deficiency, unspecified; Translations: [Vitamin D deficiency, unspecified] Onset: 08-11-2024 Chronic Other aftercare (1 source) Other longterm (current) drug therapy; Translations: [Other longterm (current) drug therapy] Onset: 01-10-2025 Episodic Other gastrointestinal disorders (7 sources) Diarrhea; Translations: [Diarrhea, unspecified] 11-09-2022 Episodic Other lower respiratory disease (9 sources) Dyspnea; Translations: [Shortness of breath] 08-27-2019 Episodic Other nutritional; endocrine; and metabolic disorders (1 source) Morbid (severe) obesity due to excess calories; Translations: [Morbid (severe) obesity due to excess calories] Onset: 12-08-2023 Chronic Other nutritional; endocrine; and metabolic disorders (9 sources) H/O: diabetes mellitus; Translations: [Personal history of other endocrine, nutritional and metabolic disease] 01-21-2022 Episodic Residual codes; unclassified (9 sources) History finding; Translations: [Other specified health status] 01-30-2021 Episodic Residual codes; unclassified (9 sources) Flushing; Translations: [Flushing] 03-18-2020 Episodic Skin and subcutaneous tissue infections (20 sources) Infected face; Translations: [Local infection of the skin and subcutaneous tissue, unspecified] 08-08-2019 Episodic Spondylosis; intervertebral disc disorders; other back problems (11 sources) Back problem; Translations: [Dorsopathy, unspecified] 08-27-2019 Episodic Urinary tract infections (9 sources) Urinary tract infectious disease; Translations: [Urinary tract infection, site not specified] 08-08-2019 Episodic Viral infection (6 sources) Herpetic megan; Translations: [Other herpesviral infection] 02-15-2023 Episodic Past or Other Problems Problem Classification Problem Date Documented Da te Episodic/Chronic Disorders of teeth and jaw (20 sources) Dental caries; Translations: [Dental caries, unspecified] Onset: 05-07-2024 02-15-2021 Episodic Other female genital disorders (1 source) Unspecified condition associated with female genital organs and menstrual cycle; Translations: [Unspecified condition associated with female genital organs and menstrual cycle] Onset: 10-07-2024 Episodic Other non-traumatic joint disorders (1 source) Pain in unspecified joint; Translations: [Pain in unspecified joint] Onset: 12-08-2023 Episodic Results Test Name Value Interpretation Reference Range Facility 12 Lead EKGon 12-31-2024 12 Lead EKG [facility] Cardiovascular Services [address] [place] [address] 12 Lead EKG 12/31/24 0909 MR#: [id number] Acct: [id number] Name: REKHA LEWIS Rep #: [id number] : 1980 44 From: Martin Reese MD Attending Dr: Dr. 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 Rate : 88 BPM Atrial Rate : 88 BPM P-R Int : 152 ms QRS Dur : 88 ms QT Int : 374 ms P-R-T Axes : 65 59 53 degrees QTcB Int : 452 ms Normal sinus rhythm Normal ECG Confirmed by Martin Reese ([id number]), purchasing expeditor VONDA CASH ([id number]) on 01/03/2025 8:50:46 AM Referred By: Virginia Sanchez Confirmed By: Martin Reese 01/03/25 0850 Date Martin Reese MD CC: Dr. Radha Gao MD; Dr. Virginia Sanchez MD Signed Normal [facility] Urine Cultureon 09-13-2024 [facility] Presumptive E. coli [place] Count 80,000-100,000 Presumptive E. coli: REACTION Ampicillin Islt MARY <=2 Ampicillin+Sulbac Islt MARY <=2 S Cefepime Islt MARY <=0.12 S cefTRIAXone Islt MARY <=0.25 S Ciprofloxacin Islt MARY <=0.06 S B-Lactamase Extended Susc Islt NEG Gentamicin Islt MARY <=1 S levoFLOXacin Islt MARY <=0.12 S Meropenem Islt MARY <=0.25 S Nitrofurantoin Islt MARY <=16 S Pip+Tazo Islt MARY <=4 S TMP SMX Islt MARY <=20 S Normal [facility] Comment on above: Performed By: #### M [id number] #### [facility] [address] [place], [address] Abdomen/Pelvis without Conto n 09-11-2024 Abdomen/Pelvis without Cont [facility] Imaging Services [address] [facility] [place] [address] Abdomen/Pelvis without Cont MR#: [id number] Acct: [id number] Name: REKHA LEWIS Rep #: [id number] : 1980 F 44 From: Hai Patel PCP: Care Physician,No Primary Status: REG ER Study: Abdomen/Pelvis without Cont Date of Exam: 08/16 05/08 Exam# [id number] Ordering Dr: Mathew Gonsales DO [id number] STUDY: CT ABDOMEN AND PELVIS WITHOUT CONTRAST REASON FOR EXAM: Female, 44 years old. Abdominal pain RADIATION DOSAGE (If Supplied By Facility): CTDIvol = ( 24.05 ) mGy, DLP = ( 1195.62 ) mGycm TECHNIQUE: Transaxial images were obtained from the dome of the diaphragm to the symphysis pubis without oral contrast, and without intravenous contrast. Sagittal and coronal images were reconstructed. Individualized dose optimization techniques were used for this CT. The protocol utilizes one or more of the following dose reduction techniques: automated exposure control, adjustment of mA and/or kV according to patient size,and/or use of iterative reconstruction technique. COMPARISON: CT chest abdomen and pelvis September 03, 2023. FINDINGS: The visualized lung bases are unremarkable. The visualized portions of the heart are within normal limits. Normal liver. There is non-visualization of the gallbladder, which may be secondary to either contraction or a prior cholecystectomy. Normal spleen. Normal pancreas. Normal bilateral adrenal glands. 3.9 cm simple right renal cortical cyst. Punctate nonobstructing nephrolith on the left. Simple left renal cortical cyst measuring up to 2.6 cm. No further follow-up required as the cysts appear simple/benign. Normal visualized stomach. Normal small intestine. Normal colon. The appendix is visualized and appears normal. Normal abdominal aorta. Normal inferior vena cava. Normal retroperitoneum. Normal urinary bladder. Uterus normal. Fat-containing ventral hernia. Multilevel disc marginal osteophytes and spinal stenosis.. CT/Abdomen/Pelvis without Cont IMPRESSION: No acute disease. Electronically Signed: Hai Villegas MD at 20:39 EST , CC: Dr. Mathew Gonsales, DO; No Primary Care Physician County Administrator: Signed Normal [facility] Basic Metabolic Profile (BMP )on 09-11-2024 BUN/CRE 16.6 RATIO Normal 10-20 [facility] Comment on above: Performed By: #### L 500.2500, L100.0100 #### [facility] [address] [place], [address] CA,Total 8.9 mg/dL Normal 8.5-10.1 [facility] Comment on above: Performed By: #### L 500.2500, L100.0100 #### [facility] [address] [place], [address] Chloride [Moles/Vol] 105 mmol/L Normal 98-107 [facility] Comment on above: Performed By: #### L 500.2500, L100.0100 #### [facility] [address] [place], [address] CO2 [Moles/Vol] 28.0 mmol/L Normal 21.0-32.0 [facility] Comment on above: Performed By: #### L 500.2500, L100.0100 #### [facility] [address] [place], [address] Creatinine [Mass/Vol] 0.72 mg/dL Normal 0.55-1.02 [facility] Comment on above: Result Comment: The validity of the calculated GFR GFRAA in patients over 70 years has not been determined. Clinical correlation is essential. Performed By: #### L 500.2500, L100.0100 #### [facility] [address] [place], [address] ECRCL 141.19 ml/min Normal [facility] Comment on above: Performed By: #### L 500.2500, L100.0100 #### [facility] [address] [place], [address] EST GFR - AA 111 mL/min Normal >60 [facility] Comment on above: Result Comment: Afri can Citizen Of [place] GFR Calc Performed By: #### L 500.2500, L100.0100 #### [facility] [address] [place], [address] GAP 6 Normal 5-15 [facility] Comment on above: Performed By: #### L 500.2500, L100.0100 #### [facility] [address] [place], [address] GFR/1.73 sq M.predicted among non-blacks MDRD (S/P/Bld) [Vol rate/Area] 92 mL/min/{1.73_m2} Normal >60 [facility] Comment on above: Result Comment: Non- GFR Calc Performed By: #### L 500.2500, L100.0100 #### [facility] [address] [place], [address] Glucose [Mass/Vol] 120 mg/dL High 74-106 [facility] Comment on above: Result Comment: Fast ing Glucose result from 100 to 125 mg/dL suggests IMPAIRED HOMEOSTASIS per A.D.A. criteria. Performed By: #### L 500.2500, L100.0100 #### [facility] [address] [place], [address] Potassium [Moles/Vol] 4.2 mmol/L Normal 3.5-5.1 [facility] Comment on above: Performed By: #### L 500.2500, L100.0100 #### [facility] [address] [place], [address] Sodium [Moles/Vol] 139 mmol/L Normal 136-145 [facility] Comment on above: Performed By: #### L 500.2500, L100.0100 #### [facility] [address] [place], [address] Urea nitrogen [Mass/Vol] 12 mg/dL Normal 7-18 [facility] Comment on above: Performed By: #### L 500.2500, L100.0100 #### [facility] [address] [place], [address] CBC W/Diff, Automatedon 12-2 -2023 Absolute Lymph 1.85 X10 3/uL Normal 0.83-4.51 [facility] Comment on above: Performed By: #### L 500.2500, L100.0100 #### [facility] [address] [place], [address] Absolute Neut 8.2 X10 3/uL High 2.0-7.7 [facility] Comment on above: Performed By: #### L 500.2500, L100.0100 #### [facility] [address] [place], [address] Basophils/100 WBC (Bld) 0.5 % Normal 0-1 [facility] Comment on above: Performed By: #### L 500.2500, L100.0100 #### [facility] [address] [place], [address] Eosinophils/100 WBC (Bld) 3.3 % Normal 0-5 [facility] Comment on above: Performed By: #### L 500.2500, L100.0100 #### [facility] [address] [place], [address] Erythrocyte distribution width (RBC) [Ratio] 13.0 % Normal 11.6-14.6 [facility] Comment on above: Performed By: #### L 500.2500, L100.0100 #### [facility] [address] [place], [address] Hematocrit (Bld) [Volume fraction] 40.4 % Normal 37-47 [facility] Comment on above: Performed By: #### L 500.2500, L100.0100 #### [facility] [address] [place], [address] Hemoglobin (Bld) [Mass/Vol] 12.9 g/dL Normal 12.0-15.0 [facility] Comment on above: Performed By: #### L 500.2500, L100.0100 #### [facility] [address] [place], [address] IG% 0.500 Normal 0.0-0.9 [facility] Comment on above: Result Comment: IG% - Immature Granulocytes (promyelocytes, myelocytes and metamyelocytes) > 1% indicates that a LEFT SHIFT is Present. Performed By: #### L 500.2500, L100.0100 #### [facility] [address] [place], [address] Lymphocytes/100 WBC (Bld) 16.7 % Low 19-41 [facility] Comment on above: Performed By: #### L 500.2500, L100.0100 #### [facility] [address] [place], [address] MCH (RBC) [Entitic mass] 27.9 pg Normal 27.0-32.0 [facility] Comment on above: Performed By: #### L 500.2500, L100.0100 #### [facility] [address] [place], [address] MCHC (RBC) [Mass/Vol] 31.9 g/dL Low 32-36 [facility] Comment on above: Performed By: #### L 500.2500, L100.0100 #### [facility] [address] [place], [address] MCV (RBC) [Entitic vol] 87.4 fL Normal 81-99 [facility] Comment on above: Performed By: #### L 500.2500, L100.0100 #### [facility] [address] [place], [address] Monocytes/100 WBC (Bld) 4.9 % Normal 0-10 [facility] Comment on above: Performed By: #### L 500.2500, L100.0100 #### [facility] [address] [place], [address] Neutrophils/100 WBC (Bld) 74.1 % High 47-70 [facility] Comment on above: Performed By: #### L 500.2500, L100.0100 #### [facility] [address] [place], [address] Nucleated RBC (Bld) [#/Vol] 0 10*3/uL Normal 0-5 [facility] Comment on above: Performed By: #### L 500.2500, L100.0100 #### [facility] [address] [place], [address] Platelet mean volume (Bld) [Entitic vol] 8.9 fL Normal 6.2-12.0 [facility] Comment on above: Performed By: #### L 500.2500, L100.0100 #### [facility] [address] [place], [address] Platelets (Bld) [#/Vol] 275 10*3/uL Normal 150-450 [facility] Comment on above: Performed By: #### L 500.2500, L100.0100 #### [facility] [address] [place], [address] RBC (Bld) [#/Vol] 4.62 10*6/uL Normal 4.2-5.4 [facility] Comment on above: Performed By: #### L 500.2500, L100.0100 #### [facility] [address] [place], [address] RDW SD 41.8 fl Normal 35.1-43.9 [facility] Comment on above: Performed By: #### L 500.2500, L100.0100 #### [facility] [address] [place], [address] WBC (Bld) [#/Vol] 11.1 10*3/uL High 4.4-11.0 [facility] Comment on above: Performed By: #### L 500.2500, L100.0100 #### [facility] [address] [place], [address] Emergency Department Summary on 09-11-2024 Emergency Department Summary [facility] Medical Records Department [address] [place] [address] Emergency Department Summary 09/11/24 MR#: [id number] Acct: [id number] Name: REKHA LEWIS Rep #: [id number] : 1980 44 From: Mathew Gonsales DO PCP: Care Physician,No Primary Status:DEP ER Location: ED HPI History of Present Illness Chief Complaint: Complaint Informant: patient Onset/Context/Darling faye Onset: Days (3) Context: Gradual Onset Timing: Continuous Quality: Throbbing, sharp with urination Location: Suprapubic area, low back, right flank Worsened by: Urination Relieved by: Nothing Associated Symptoms Associated Symptoms: Bilateral lower extremity edema, hematuria Narrative Narrative: Patient presents with possible urinary tract infection that has been getting worse over the last 3 days. Patient states she has been having very painful urination. Patient states she is having some hematuria and passing some clots. Patient states she recently completed a course of Keflex. Patient states her pain is sharp and throbbing. Patient states it is over the suprapubic area and into her back. Patient admits to some right flank pain as well. Patient states it is worse with urination. Patient states nothing seems to help with it. Patient admits to some subjective fevers and chills. Prior similar symptoms: Yes PFSH PFS Medical History Hyperlipidemia Diabetes Dental caries Recurrent hernia Hemorrhoids RUQ abdominal pain Abdominal pain SOB (shortness of breath) Anxiety Depression Hypertension Back problem Fatigue Home Medications ???Medication ???Instructions ???Recorded ???Last Taken ???Type albuterol sulfate 90 mcg/actuation 1 - 2 puff inhalation Q6H PRN PRN 08/26/19 Unknown History aerosol inhaler Sob /Or Wheezing lisinopril 20 mg tablet (Zestril) 20 mg PO QHS bloodpressure 01/30/21 Unknown History atorvastatin 20 mg tablet 20 mg PO QHS 11/08/22 Unknown History metformin 500 mg tablet 500 mg PO DAILY 11/08/22 Unknown History sertraline 100 mg tablet (Zoloft) 200 mg PO DAILY 11/08/22 Unknown History dulaglutide 0.75 mg/0.5 mL 0.75 mg subcut .COMPLEX 07/15/23 Unknown History subcutaneous pen injector (Trulicity) alprazolam 1 mg tablet 1 mg PO BID PRN anxiety 09/03/23 Unknown History hydrocodone-acetami nophen 5-325mg 1 tab PO Q6H PRN PRN Pain 3 days 09/03/23 Unknown Rx 5mg-325mg #10 TABLETS insulin glargine 100 unit/mL (3 20 unit subcut DAILY hyperglycemia 09/03/23 Unknown History mL) subcutaneous pen (Lantus Solostar U-100 Insulin) insulin lispro 100 unit/mL 8 unit subcut Q8H hyperglycemia 09/03/23 Unknown History subcutaneous pen (Humalog KwikPen (U-100) Insulin) tizanidine 2 mg tablet 2 mg PO .COMPLEX PRN pulled muscles 09/03/23 Unknown History amoxicillin 875 mg tablet 875 mg PO BID 12/27/23 Unknown History amoxicillin 875 mg-potassium 1 tab PO BID 12/27/23 Unknown History clavulanate 125 mg tablet blood sugar diagnostic (True 12/27/23 Unknown History Metrix Glucose Test Strip) oxycodone-acetamino phen 5 mg-325 1 tab PO Q8H PRN pain 3 days #10 12/27/23 Unknown Rx mg tablet (Percocet) tabs oxycodone-acetamino phen 5 mg-325 1 tab PO Q6H PRN PRN Pain 3 days 04/23/24 Unknown Rx mg tablet #12 TABLETS penicillin V potassium 500 mg 500 mg PO 4X/DAY #28 tabs 04/23/24 Unknown Rx tablet hydrocodone-acetami nophen 5-325mg 1 tab PO Q6H PRN PRN Pain 1 day #4 09/11/24 Unknown Rx 5mg-325mg TABLETS nitrofurantoin 100 mg PO Q12 #10 CAPSULES 09/11/24 Unknown Rx monohydrate/macrocr ystals 100 mg capsule Allergy/AdvReac Type Severity Reaction Status Date / Time diphenhydramine Allergy Severe Angioedema Verified 09/11/24 16:31 ibuprofen Allergy Intermediate Swelling Verified 09/11/24 16:31 tramadol Allergy Intermediate Swelling Verified 09/11/24 16:31 Family History Mother Asthma Aunt Colon cancer Father Asthma Sister Asthma Surgical History History of laparoscopic cholecystectomy Social History Smoking Status: Former smoker second hand exposure: No alcohol intake: never substance use type: does not use caffeine: Yes what type of physical activity do you participate in: none frequency: does not exercise ROS ROS ED Constitutional Constitutional ED: Reports chills, fever(s) and subjective Eyes Eyes: Denies blurry vision or change in vision ENT ENT ED: Denies rhinorrhea or sore throat Cardiovascular Cardiovascular: Denies chest pain or palpitations Respiratory/Chest Respiratory/Chest: Denies cough or dyspnea Gastrointestinal Gastrointestinal: Reports ab (more content not included)... Normal [facility] Urinalysis, Completeon 09-11 BACTERIA 1+ /hpf Normal None Seen [facility] Comment on above: Order Comment: COLOR OF URINE MAY AFFECT DIPSTICK RESULTS. Microscopic field is filled. Other elements may be obscured. CLEAN CATCH Performed By: #### L 400.0001 #### [facility] [address] [place], [address] EPI,SQUAMOUS 0-5 SEEN Normal 5-10 [facility] Comment on above: Order Comment: COLOR OF URINE MAY AFFECT DIPSTICK RESULTS. Microscopic field is filled. Other elements may be obscured. CLEAN CATCH Performed By: #### L 400.0001 #### [facility] [address] [place], [address] RBC > 100 SEEN Normal 0-5 [facility] Comment on above: Order Comment: COLOR OF URINE MAY AFFECT DIPSTICK RESULTS. Microscopic field is filled. Other elements may be obscured. CLEAN CATCH Performed By: #### L 400.0001 #### [facility] [address] [place], [address] WBC >100 SEEN Normal 0-5 [facility] Comment on above: Order Comment: COLOR OF URINE MAY AFFECT DIPSTICK RESULTS. Microscopic field is filled. Other elements may be obscured. CLEAN CATCH Performed By: #### L 400.0001 #### [facility] [address] [place], [address] Mucus Ql (Urine sed) 0 SEEN Normal [facility] Comment on above: Order Comment: COLOR OF URINE MAY AFFECT DIPSTICK RESULTS. Microscopic field is filled. Other elements may be obscured. CLEAN CATCH Performed By: #### L 400.0001 #### [facility] [address] [place], [address] HEMOGLOBIN A1C (POM)on 08-11 Glucose [Mass/Vol] 111.2 mg/dL High 0.0 - 0.0 [facility] Comment on above: Result Comment: Do HEMOGLOBIN A1C REFERENCE RANGESBLDo Suggested Diagnosis HbA1c(%) HbA1C (mmol/mol Diabetic >/=6.5 >/=48 Prediabetes 5.7 - 6.4 39 - 47 Normal <5.7 <39 Performed By: #### 2 [id number] #### [facility],[address] [place] [address] HbA1c (Bld) [Mass fraction] 5.5 % Normal 0.0 - 6.5 [facility] Comment on above: Performed By: #### 2 22486 #### [facility],[address] [place] [address] VITAMIN D, 25 HYDROXYon 11-2 VitD 21.60 ng/mL Low 30.00 - 100 [facility] Comment on above: Result Comment: 25-O HD3 indicates both endogenous production and supplementation. 25-OHD2 is an indicator of exogenous sources, such as diet or supplementation. Therapy is based on measurement of Total 25-OHD, with levels <20 ng/mL indicative of Vitamin D deficiency, while levels between 20 ng/mL and 30 ng/mL suggest insufficiency. Optimal levels are >=30ng/mL. Vitamin D, 25-OH D3 Not Established Vitamin D, 25-OH D2 Not Established Performed By: #### 2 [id number] #### [facility],[address] [place] [address] Basic Metabolic Profile (BMP )on 04-23-2024 BUN/CRE 11.9 RATIO Normal 10-20 [facility] Comment on above: Performed By: #### L 500.2500, L100.0100 #### [facility] [address] [place], [address] CA,Total 9.0 mg/dL Normal 8.5-10.1 [facility] Comment on above: Performed By: #### L 500.2500, L100.0100 #### [facility] [address] [place], [address] Chloride [Moles/Vol] 108 mmol/L High 98-107 [facility] Comment on above: Performed By: #### L 500.2500, L100.0100 #### [facility] [address] [place], [address] CO2 [Moles/Vol] 28.0 mmol/L Normal 21.0-32.0 [facility] Comment on above: Performed By: #### L 500.2500, L100.0100 #### [facility] [address] [place], [address] Creatinine [Mass/Vol] 0.76 mg/dL Normal 0.55-1.02 [facility] Comment on above: Result Comment: The validity of the calculated GFR GFRAA in patients over 70 years has not been determined. Clinical correlation is essential. Performed By: #### L 500.2500, L100.0100 #### [facility] [address] [place], [address] ECRCL 129.02 ml/min Normal [facility] Comment on above: Performed By: #### L 500.2500, L100.0100 #### [facility] [address] [place], [address] EST GFR - AA 106 mL/min Normal >60 [facility] Comment on above: Result Comment: Afri can Citizen Of [place] GFR Calc Performed By: #### L 500.2500, L100.0100 #### [facility] [address] [place], [address] GAP 3 Low 5-15 [facility] Comment on above: Performed By: #### L 500.2500, L100.0100 #### [facility] [address] [place], [address] GFR/1.73 sq M.predicted among non-blacks MDRD (S/P/Bld) [Vol rate/Area] 88 mL/min/{1.73_m2} Normal >60 [facility] Comment on above: Result Comment: Non- GFR Calc Performed By: #### L 500.2500, L100.0100 #### [facility] [address] [place], [address] Glucose [Mass/Vol] 113 mg/dL High 74-106 [facility] Comment on above: Result Comment: Fast ing Glucose result from 100 to 125 mg/dL suggests IMPAIRED HOMEOSTASIS per A.D.A. criteria. Performed By: #### L 500.2500, L100.0100 #### [facility] [address] [place], [address] Potassium [Moles/Vol] 4.0 mmol/L Normal 3.5-5.1 [facility] Comment on above: Performed By: #### L 500.2500, L100.0100 #### [facility] [address] [place], [address] Sodium [Moles/Vol] 139 mmol/L Normal 136-145 [facility] Comment on above: Performed By: #### L 500.2500, L100.0100 #### [facility] [address] [place], [address] Urea nitrogen [Mass/Vol] 9 mg/dL Normal 7-18 [facility] Comment on above: Performed By: #### L 500.2500, L100.0100 #### [facility] [address] [place], [address] CBC W/Diff, Automatedon 08-0 9-2023 Absolute Lymph 1.85 X10 3/uL Normal 0.83-4.51 [facility] Comment on above: Performed By: #### L 500.2500, L100.0100 #### [facility] [address] [place], [address] Absolute Neut 5.1 X10 3/uL Normal 2.0-7.7 [facility] Comment on above: Performed By: #### L 500.2500, L100.0100 #### [facility] [address] [place], [address] Basophils/100 WBC (Bld) 0.5 % Normal 0-1 [facility] Comment on above: Performed By: #### L 500.2500, L100.0100 #### [facility] [address] [place] [place], [address] Eosinophils/100 WBC (Bld) 5.4 % High 0-5 [facility] Comment on above: Performed By: #### L 500.2500, L100.0100 #### [facility] [address] [place], [address] Erythrocyte distribution width (RBC) [Ratio] 13.3 % Normal 11.6-14.6 [facility] Comment on above: Performed By: #### L 500.2500, L100.0100 #### [facility] [address] [place], [address] Hematocrit (Bld) [Volume fraction] 42.2 % Normal 37-47 [facility] Comment on above: Performed By: #### L 500.2500, L100.0100 #### [facility] [address] [place], [address] Hemoglobin (Bld) [Mass/Vol] 13.4 g/dL Normal 12.0-15.0 [facility] Comment on above: Performed By: #### L 500.2500, L100.0100 #### [facility] [address] [place], [address] IG% 0.400 Normal 0.0-0.9 [facility] Comment on above: Result Comment: IG% - Immature Granulocytes (promyelocytes, myelocytes and metamyelocytes) > 1% indicates that a LEFT SHIFT is Present. Performed By: #### L 500.2500, L100.0100 #### [facility] [address] [place], [address] Lymphocytes/100 WBC (Bld) 23.6 % Normal 19-41 [facility] Comment on above: Performed By: #### L 500.2500, L100.0100 #### [facility] [address] [place], [address] MCH (RBC) [Entitic mass] 27.1 pg Normal 27.0-32.0 [facility] Comment on above: Performed By: #### L 500.2500, L100.0100 #### [facility] [address] [place], [address] MCHC (RBC) [Mass/Vol] 31.8 g/dL Low 32-36 [facility] Comment on above: Performed By: #### L 500.2500, L100.0100 #### [facility] [address] [place], [address] MCV (RBC) [Entitic vol] 85.4 fL Normal 81-99 [facility] Comment on above: Performed By: #### L 500.2500, L100.0100 #### [facility] [address] [place], [address] Monocytes/100 WBC (Bld) 4.9 % Normal 0-10 [facility] Comment on above: Performed By: #### L 500.2500, L100.0100 #### [facility] [address] [place], [address] Neutrophils/100 WBC (Bld) 65.2 % Normal 47-70 [facility] Comment on above: Performed By: #### L 500.2500, L100.0100 #### [facility] [address] [place], [address] Nucleated RBC (Bld) [#/Vol] 0 10*3/uL Normal 0-5 [facility] Comment on above: Performed By: #### L 500.2500, L100.0100 #### [facility] [address] [place], [address] Platelet mean volume (Bld) [Entitic vol] 9.2 fL Normal 6.2-12.0 [facility] Comment on above: Performed By: #### L 500.2500, L100.0100 #### [facility] [address] [place], [address] Platelets (Bld) [#/Vol] 260 10*3/uL Normal 150-450 [facility] Comment on above: Performed By: #### L 500.2500, L100.0100 #### [facility] [address] [place], [address] RBC (Bld) [#/Vol] 4.94 10*6/uL Normal 4.2-5.4 [facility] Comment on above: Performed By: #### L 500.2500, L100.0100 #### [facility] [address] [place], [address] RDW SD 41.0 fl Normal 35.1-43.9 [facility] Comment on above: Performed By: #### L 500.2500, L100.0100 #### [facility] [address] [place], [address] WBC (Bld) [#/Vol] 7.8 10*3/uL Normal 4.4-11.0 [facility] Comment on above: Performed By: #### L 500.2500, L100.0100 #### [facility] [address] [place], [address] Emergency Department Summary on 04-23-2024 Emergency Department Summary [facility] Medical Records Department [address] [place] [address] Emergency Department Summary 04/23/24 MR#: [id number] Acct: [id number] Name: REKHA LEWIS Rep #: [id number] : 1980 43 From: Jorge Eldridge MD PCP: Care Physician,No Primary Status:REG ER Location: ED HPI History of Present Illness Chief Complaint: Dental Detail of Chief Complaint: Dental pain status post oral surgery Informant: patient Onset/Context/Darling faye Onset: Days Context: Sudden Onset Timing: Continuous Quality: Pain Location: Above tooth #7 and 8 Current Severity: Moderate Maximum Severity: Severe Worsened by: Touch Relieved by: - (Patient has significant allergy to NSAIDs) Associated Symptoms Assocated Symptom - Dental: face swelling and hot sensitivity; Negative for fever, jaw swelling or cold sensitivity Narrative Narrative: 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 Surgery was this past Friday. Patient was placed on Percocet. She presents because of facial swelling, bruising and pain. She states occasionally she taste blood. She attempted to contact the dentist. She was in instructed to come to the ER since they are closed. Patient denies objective fever. She did complain of subjective fever. She denies ocular, visual auditory symptoms. She denies difficulty opening or closing her mouth. She denies change in voice. Prior similar symptoms: No Recent Illness/Hospitaliza tion: Yes PFSH PFSH Medical History Hyperlipidemia Diabetes Dental caries Recurrent hernia Hemorrhoids RUQ abdominal pain Abdominal pain SOB (shortness of breath) Anxiety Depression Hypertension Back problem Fatigue Home Medications ???Medication ???Instructions ???Recorded ???Last Taken ???Type albuterol sulfate 90 mcg/actuation 1 - 2 puff inhalation Q6H PRN PRN 08/26/19 Unknown History aerosol inhaler Sob /Or Wheezing lisinopril 20 mg tablet (Zestril) 20 mg PO QHS bloodpressure 01/30/21 Unknown History atorvastatin 20 mg tablet 20 mg PO QHS 11/08/22 Unknown History metformin 500 mg tablet 500 mg PO DAILY 11/08/22 Unknown History sertraline 100 mg tablet (Zoloft) 200 mg PO DAILY 11/08/22 Unknown History dulaglutide 0.75 mg/0.5 mL 0.75 mg subcut .COMPLEX 07/15/23 Unknown History subcutaneous pen injector (Trulicity) alprazolam 1 mg tablet 1 mg PO BID PRN anxiety 09/03/23 Unknown History hydrocodone-acetami nophen 5-325mg 1 tab PO Q6H PRN PRN Pain 3 days 09/03/23 Unknown Rx 5mg-325mg #10 TABLETS insulin glargine 100 unit/mL (3 20 unit subcut DAILY hyperglycemia 09/03/23 Unknown History mL) subcutaneous pen (Lantus Solostar U-100 Insulin) insulin lispro 100 unit/mL 8 unit subcut Q8H hyperglycemia 09/03/23 Unknown History subcutaneous pen (Humalog KwikPen (U-100) Insulin) tizanidine 2 mg tablet 2 mg PO .COMPLEX PRN pulled muscles 09/03/23 Unknown History amoxicillin 875 mg tablet 875 mg PO BID 04/13/24 Unknown History amoxicillin 875 mg-potassium 1 tab PO BID 12/27/23 Unknown History clavulanate 125 mg tablet blood sugar diagnostic (True 12/27/23 Unknown History Metrix Glucose Test Strip) oxycodone-acetamino phen 5 mg-325 1 tab PO Q8H PRN pain 3 days #10 12/27/23 Unknown Rx mg tablet (Percocet) tabs oxycodone-acetamino phen 5 mg-325 1 tab PO Q6H PRN PRN Pain 3 days 04/23/24 Unknown Rx mg tablet #12 TABLETS penicillin V potassium 500 mg 500 mg PO 4X/DAY #28 tabs 04/23/24 Unknown Rx tablet Allergy/AdvReac Type Severity Reaction Status Date / Time diphenhydramine Allergy Severe Angioedema Verified 04/23/24 09:44 ibuprofen Allergy Intermediate Swelling Verified 04/23/24 09:44 tramadol Allergy Intermediate Swelling Verified 04/23/24 09:44 Family History Mother Asthma Aunt Colon cancer Father Asthma Sister Asthma Surgical History History of laparoscopic cholecystectomy Social History Smoking Status: Former smoker second hand exposure: No alcohol intake: never substance use type: does not use caffeine: Yes what type of physical activity do you participate in: none frequency: does not exercise ROS ROS ED Constitutional Constitutional ED: Reports fever(s); Denies chills, subjective or sweats Eyes Eyes: Denies blurry vision or change in vision ENT ENT ED: Denies ear pain, rhinorrhea or sore throat Cardiovascular Cardiovascular: Denies chest pain or palpitations Respiratory/Chest Respiratory/Chest: Denies cough, dyspnea or dyspnea on exertion Gastrointestinal Gastrointestinal: Reports nausea; Denies abdominal pain or vomiting Musculoskeletal Musculoskelet (more content not included)... Normal [facility] BETTY PANEL 1 [CCL]on 12-09-19 BETTY Scr Qual. Negative Normal Negative [facility] Comment on above: Result Comment: The qualitative antinuclear antibody screen test performed using the following antigens: dsDNA, Chromatin, Ribosomal P, SS-A 60, SS-A 52, SS-B, Sm, SmRNP, TOOLING MANAGER A, TOOLING MANAGER 68, Scl-70, Cadence-1, and Centromere B. Methodology: Multiplex [place] [address] Sean Little III, M.D. [id number] Performed By: #### 2 [id number] #### [facility],[address] [place] [address] C-REACTIVE PROTEINon 024 CRP [Mass/Vol] mg/L Normal 0.00 - 0.90 [facility] Comment on above: Performed By: #### 2 [id number] #### [facility],[address] [place] [address] CBC + DIFFon 12-08-2023 Baso # 0.02 x10EE3/UL Normal 0.00 - 0.10 [facility] Comment on above: Performed By: #### 2 68579 #### [facility],[address] [place] [address] Basophils/100 WBC (Bld) 0.2 % Normal 0.0 - 2.0 [facility] Comment on above: Performed By: #### 2 14361 #### [facility],[address] [place] [address] CBC + DIFF Normal [facility] Comment on above: Result Comment: CBC- COMPLETE BLOOD COUNT Performed By: #### 2 62014 #### [facility],[address] [place] [address] EO # 0.14 x10EE3/UL Normal 0.00 - 0.50 [facility] Comment on above: Performed By: #### 2 01384 #### [facility],[address] [place] [address] Eosinophils/100 WBC (Bld) 1.3 % Normal 0.0 - 7.0 [facility] Comment on above: Performed By: #### 2 42587 #### [facility],[address] [place] [address] Erythrocyte distribution width (RBC) [Ratio] 13.8 % Normal 12.0 - 15.6 [facility] Comment on above: Performed By: #### 2 38014 #### [facility] [facility],[address] [place] [address] Hematocrit (Bld) [Volume fraction] 44.7 % Normal 34.0 - 46.0 [facility] Comment on above: Performed By: #### 2 [id number] #### [facility],[address] [place] [address] Hemoglobin (Bld) [Mass/Vol] 14.4 g/dL Normal 12.0 - 16.0 [facility] Comment on above: Performed By: #### 2 07442 #### [facility],[address] [place] [address] Lymph # 1.55 x10EE3/UL Normal 0.80 - 2.80 [facility] Comment on above: Performed By: #### 2 82636 #### [facility],[address] [place] [address] Lymphocytes/100 WBC (Bld) 14.3 % Low 20.0 - 45. 0 [facility] Comment on above: Performed By: #### 2 42656 #### [facility],[address] [place], [place] [id number] MANUAL DIFF N/A Normal [facility] Comment on above: Performed By: #### 2 72057 #### [facility],[address] [place], [place] [id number] MCH (RBC) [Entitic mass] 27 pg Normal 27 - 33 [facility] Comment on above: Performed By: #### 2 01528 #### [place] [id number] MCHC 32 X10 3 Normal 32 - 36 [facility] Comment on above: Performed By: #### 2 57261 #### [facility],[address] [place] [address]39 MCV (RBC) [Entitic vol] 84 fL Normal 80 - [address] [facility] Comment on above: Performed By: #### 2 36101 #### [facility],[address] [place] [address] [place] # 0.50 x10EE3/UL Normal 0.20 - 1.00 [facility] Comment on above: Performed By: #### 2 00083 #### [facility],[address] [place] [address] MONOS % 4.6 % Normal 0.0 - 10.0 [facility] Comment on above: Performed By: #### 2 66182 #### [facility],[address] [place] [address] Morphology [place] (Bld) [Interp] N/A Normal [facility] Comment on above: Performed By: #### 2 35736 #### [facility],[address] [place] [address] Neut # 8.67 x10EE3/UL High 1.50 - 7.10 [facility] Comment on above: Performed By: #### 2 47630 #### [facility],[address] [place], [place] [id number] Neutrophils/100 WBC (Bld) 79.7 % High 46.0 - 76. 0 [facility] Comment on above: Performed By: #### 2 59707 #### [facility],[address] [place] [address]30 PLATELET 301 x10EE3/UL Normal 150 - 450 [facility] Comment on above: Performed By: #### 2 80150 #### [facility],[address] [place], [place] [id number] Platelet mean volume (Bld) [Entitic vol] 7.4 fL Normal 6.6 - 10.5 [facility] Comment on above: Result Comment: AUTO MATED DIFFERENTIAL Performed By: #### 2 93212 #### [facility],[address] [place] [address] 98482 RBC 5.33 x 10EE6/UL High 4.10 - 5.30 [facility] Comment on above: Performed By: #### 2 82480 #### [facility],[address] [place] [address] 74916 WBC 10.9 x 10EE3/UL High 4.5 - 10.8 [facility] Comment on above: Performed By: #### 2 90513 #### [facility],[address] [place] [address]24 CMP with eGFRon 12-08-2023 AGE 43 years Normal [facility] Comment on above: Performed By: #### 2 58638 #### [facility],[address] [place] [address] 84476 Albumin [Mass/Vol] 3.9 g/dL Normal 3.4 - 5.0 [facility] Comment on above: Performed By: #### 2 73111 #### [facility],[address] [place] [address] 83859 Albumin/Globulin [Mass ratio] 1.0 {ratio} Normal 0.9 - 1.6 [facility] Comment on above: Performed By: #### 2 45468 #### [facility],[address] [place] [address] 26011 ALK PHOS 84 U/L Normal 46 - 116 [facility] Comment on above: Performed By: #### 2 34055 #### [facility],[address] [place] [address] 58358 ALT [Catalytic activity/Vol] 27 U/L Normal 16 - 63 [facility] Comment on above: Performed By: #### 2 90147 #### [facility],[address] [place] [address] 25337 Anion gap [Moles/Vol] 14 mmol/L Normal 10 - 20 [facility] Comment on above: Performed By: #### 2 72760 #### [facility],[address] [place] [address] 48978 AST [Catalytic activity/Vol] 14 U/L Normal 13 - 39 [facility] Comment on above: Performed By: #### 2 81649 #### [facility],[address] [place] [address] 60443 B/C RATIO 14 ratio Normal 0 - 30 [facility] Comment on above: Performed By: #### 2 36389 #### [facility],[address] [place] [address] 23259 Bilirubin [Mass/Vol] 0.6 mg/dL Normal 0.2 - 1.0 [facility] Comment on above: Performed By: #### 2 62919 #### [facility],[address] [place] [address] 85958 Calcium [Mass/Vol] 9.4 mg/dL Normal 8.5 - 10.1 [facility] Comment on above: Performed By: #### 2 28387 #### [facility],[address] [place] [address] 97818 Chloride [Moles/Vol] 103 mmol/L Normal 98 - 107 [facility] Comment on above: Performed By: #### 2 09903 #### [facility],[address] [place] [address] 56618 CMP with eGFR Normal [facility] Comment on above: Result Comment: COMP REHENSIVE METABOLIC PANEL Performed By: #### 2 35023 #### [facility],[address] [place] [address] 28297 CO2 [Moles/Vol] 27.1 mmol/L Normal 21.0 - 32.0 [facility] Comment on above: Performed By: #### 2 34217 #### [facility],[address] [place] [address] 02957 Creatinine [Mass/Vol] 0.69 mg/dL Normal 0.55 - 1.02 [facility] Comment on above: Performed By: #### 2 01255 #### [facility],[address] [place] [address] 78048 GFR/1.73 sq M.predicted among non-blacks MDRD (S/P/Bld) [Vol rate/Area] mL/min/{1.73_m2} Normal 60 - 999 [facility] Comment on above: Performed By: #### 2 04654 #### [facility],[address] [place], [place] [id number] Result Comment: ACCO RDING TO THE NATIONAL KIDNEY DISEASE EDUCATION PROGRAM(NKDE), A NORMAL eGFR IS A VALUE GREATER THAN OR EQUAL TO 60 ML/MIN/1.73 SQ METERS. CHRONIC KIDNEY DISEASE: <60mL/MIN/1.73 SQ METERS KIDNEY FAILURE: <15mL/MIN/1.73 SQ METERS THIS TEST SHOULD ONLY BE USED FOR PATIENTS 18 YEARS OF AGE AND OLDER. Globulin (S) [Mass/Vol] 4.0 g/dL High 1.5 - 3.8 [facility] Comment on above: Performed By: #### 2 16140 #### [facility],[address] [place] [address] 81390 Glucose [Mass/Vol] 116 mg/dL High 74 - 106 [facility] Comment on above: Performed By: #### 2 19419 #### [facility],[address] [place] [address] 76979 Potassium [Moles/Vol] 3.9 mmol/L Normal 3.5 - 5.1 [facility] Comment on above: Performed By: #### 2 70055 #### [facility],[address] [place] [address] 64385 Protein [Mass/Vol] 7.9 g/dL Normal 6.4 - 8.2 [facility] Comment on above: Performed By: #### 2 87363 #### [facility],[address] [place] [address] 66266 Sodium [Moles/Vol] 140 mmol/L Normal 136 - 145 [facility] Comment on above: Performed By: #### 2 07927 #### [facility],[address] [place] [address] 31816 Urea nitrogen [Mass/Vol] 10 mg/dL Normal 7 - 18 [facility] Comment on above: Performed By: #### 2 56827 #### [facility],[address] [place] [address] 19928 FACIAL BONES LESS 2 VIEWSon 12-08-2023 FACIAL BONES LESS 2 VIEWS [facility] [address] [place], [place] [id number] Patient: REKHA LEWIS Phone#: : 1980 Age: 43 Gender: F Pt. Type: Out Account: [id number] Location: Ordering: RADHA GAO Exam Date: 12/08/2023/12:07 Family Phys: Charge Code: [id number] Physician: [place] Order #: [id number] Dose#: PROCEDURE: X-RAY FACIAL BONES 2 VIEWS COMPARISON: None. INDICATIONS: Right side facial pain FINDINGS: BONES: Periapical lucency adjacent to a right anterior maxillary tooth. The frontal sinuses and maxillary sinuses aerated. Mastoid air cells are aerated. SOFT TISSUES: Negative. No visible soft tissue swelling. OTHER: Negative. CONCLUSION: 1. A right anterior maxillary tooth demonstrates a periapical lucency, concerning for focal infection. If there is concern for soft tissue involvement recommend CT face with contrast. Dictated by: Val Paige MD on 12/08/2023 at 12:44 Approved by: Val Paige MD on 12/08/2023 at 12:46 Normal [facility] HEMOGLOBIN A1C (POM)on 12-07 Glucose [Mass/Vol] 119.8 mg/dL High 0.0 - 0.0 [facility] Comment on above: Result Comment: BLDo HEMOGLOBIN A1C REFERENCE RANGESBLDo Suggested Diagnosis HbA1c(%) HbA1C (mmol/mol Diabetic >/=6.5 >/=48 Prediabetes 5.7 - 6.4 39 - 47 Normal <5.7 <39 Performed By: #### 2 03447 #### [facility],[address] [place] [address] 85191 HbA1c (Bld) [Mass fraction] 5.8 % Normal 0.0 - 6.5 [facility] Comment on above: Performed By: #### 2 98737 #### [facility],[address] [place] [address] 96655 LIPID PROFILEon 12-08-2023 Cholesterol [Mass/Vol] 119 mg/dL Normal 0 - 240 [facility] Comment on above: Performed By: #### 2 70200 #### [facility],[address] [place] [address] 54460 Cholesterol in HDL [Mass/Vol] 58 mg/dL Normal 40 - 60 [facility] Comment on above: Performed By: #### 2 56162 #### [facility],[address] [place] [address] 95280 Cholesterol in LDL [Mass/Vol] 43 mg/dL Normal 0 - 129 [facility] Comment on above: Performed By: #### 2 44820 #### [facility],[address] [place] [address] 65642 Cholesterol.total/Cholest negin in HDL [Mass ratio] 2.1 {ratio} Normal 0.0 - 5.0 [facility] Comment on above: Performed By: #### 2 29846 #### [facility],[address] [place] [address] 82735 Lipid 1996 panel Normal [facility] Comment on above: Result Comment: LIPI D PROFILE Performed By: #### 2 72229 #### [facility],[address] [place] [address] 66268 Triglyceride [Mass/Vol] 92 mg/dL Normal 0 - 150 [facility] Comment on above: Performed By: #### 2 48158 #### [facility],[address] [place], [place] [id number] SEDRATEon 12-08-2023 SEDRATE 13 mm/hr Normal 0 - 30 [facility] Comment on above: Performed By: #### 2 48380 #### [facility],[address] [place] [address] TSHon 12-08-2023 TSH Qn 1.79 m[IU]/L Normal 0.35 - 3.74 [facility] Comment on above: Performed By: #### 2 23025 #### [facility],[address] [place] [address] VITAMIN D, 25 HYDROXYon 11-14 VitD 15.30 ng/mL Low 30.00 - 100 [facility] Comment on above: Result Comment: 25-O HD3 indicates both endogenous production and supplementation. 25-OHD2 is an indicator of exogenous sources, such as diet or supplementation. Therapy is based on measurement of Total 25-OHD, with levels <20 ng/mL indicative of Vitamin D deficiency, while levels between 20 ng/mL and 30 ng/mL suggest insufficiency. Optimal levels are >=30ng/mL. Vitamin D, 25-OH D3 Not Established Vitamin D, 25-OH D2 Not Established Performed By: #### 2 44481 #### [facility],[address] [place], [place] [id number] Absolute lymphocyte countOrd ered By: Jesús Khan on 09-03-2023 Lymphocytes Auto (Unsp spec) [#/Vol] 2.28 10*3/uL 0.83-4.51 [facility] Basophil percentageOrdered B y: Jesús Khan on 09-03-2023 Basophils/100 WBC (Bld) 0.5 % 0-1 [facility] Bilirubin [Mass/Vol] 0.20 mg/dL 0.20-1.00 [facility] Comment on above: For patients on eltr ombopag therapy, use of Dimension [place] TBIL is not recommended. Chloride [Moles/Vol] 108 mmol/L 98-107 [facility] Eosinophils/100 WBC (Bld) 5.5 % 0-5 [facility] Glucose [Mass/Vol] 117 mg/dL 74-106 [facility] Comment on above: Fasting Glucose resu lt from 100 to 125 mg/dL suggests IMPAIRED HOMEOSTASIS per A.D.A. criteria. Neutrophils (Bld) [#/Vol] 5.7 10*3/uL 2.0-7.7 [facility] Neutrophils/100 WBC (Bld) 62.6 % 47-70 [facility] Potassium [Moles/Vol] 3.9 mmol/L 3.5-5.1 [facility] Protein [Mass/Vol] 7.3 g/dL 6.4-8.2 [facility] Sodium [Moles/Vol] 140 mmol/L 136-145 [facility] WBC (Bld) [#/Vol] 9.1 10*3/uL 4.4-11.0 [facility] Basophil percentage 5-10 SEEN /hpf 0-5 [facility] Beta hCG serum qualOrdered B y: Jesús Khan on 09-03-2023 Beta HCG ( test) Ql Negative [facility] Bilirubin Test strip Ql (U)O rdered By: Jesús Khan on 09-03-2023 Bilirubin Ql (U) Negative Negative [facility] Blood erythrocytes count (nu mber/volume)Ordered By: Jesús Khan on 09-03-2023 RBC (Bld) [#/Vol] 4.51 10*6/uL 4.2-5.4 [facility] Blood hemoglobin measurement (mass/volume)Ordered By: Jesús Khan on 09-03-2023 Hemoglobin (Bld) [Mass/Vol] 12.7 g/dL 12.0-15.0 [facility] Blood lymphocytes/100 leukoc ytesOrdered By: Jesús Khan on 09-03-2023 Lymphocytes/100 WBC (Bld) 25.1 % 19-41 [facility] Blood monocytes/100 leukocyt esOrdered By: Jesús Khan on 09-03-2023 Monocytes/100 WBC (Bld) 5.5 % 0-10 [facility] Blood platelet mean volumeOr dered By: Jesús Khan on 09-03-2023 Platelet mean volume (Bld) [Entitic vol] 9.3 fL 6.2-12.0 [facility] Determination of erythrocyte mean corpuscular volume (MCV)Ordered By: Jesús Khan on 09-03-2023 MCV (RBC) [Entitic vol] 88.0 fL 81-99 [facility] Hematocrit Auto (Bld) [Volum e fraction]Ordered By: Jesús Khan on 09-03-2023 Hematocrit (Bld) [Volume fraction] 39.7 % 37-47 [facility] Ketones Test strip Ql (U)Ord ered By: Jesús Khan on 09-03-2023 Ketones Ql (U) 5 mg/dl Negative [facility] Laboratory - Chemistry and C hemistry - challengeOrdered By: Jesús Khan on 09-03-2023 ALP [Catalytic activity/Vol] 120 U/L 45-117 [facility] ALT [Catalytic activity/Vol] 49 U/L 13-56 [facility] CO2 [Moles/Vol] 28.0 mmol/L 21.0-32.0 [facility] Globulin (S) [Mass/Vol] 3.7 g/dL 2.2-4.2 [facility] Lipase [Catalytic activity/Vol] 29 U/L - [facility] Comment on above: Please note:LIPASE r evised reference range effective 22. New Lipase methodology. Expected to produce lower values than the previous assay method. NEW Reference Range: 13 - 75 U/L Urea nitrogen/Creatinine [Mass ratio] 19.2 mg/mg - [facility] - Hematology and Cell countsOrdered By: Jesús Khan on 09-03-2023 Erythrocyte distribution width (RBC) [Entitic vol] 42.3 fL 35.1-43.9 [facility] Erythrocyte distribution width (RBC) [Ratio] 13.1 % 11.6-14.6 [facility] Immature granulocytes/100 WBC (Bld) 0.800 % 0.0-0.9 [facility] Comment on above: IG% - Immature Granu locytes (promyelocytes, myelocytes and metamyelocytes) > 1% indicates that a LEFT SHIFT is Present. MCH (RBC) [Entitic mass] 28.2 pg 27.0-32.0 [facility] Nucleated RBC/100 WBC (Bld) [Ratio] 0 % 0-5 [facility] MCHC Auto (RBC) [Mass/Vol]Or dered By: Jesús Khan on 09-03-2023 MCHC (RBC) [Mass/Vol] 32.0 g/dL 32-36 [facility] Mucus LM Ql (Urine sed)Order ed By: Jesús Khan on 09-03-2023 Mucus Ql (Urine sed) 0 SEEN /hpf [facility] Nitrite Test strip Ql (U)Ord ered By: Jesús Khan on 09-03-2023 Nitrite Ql (U) Negative Negative [facility] No Panel InformationOrdered By: Jesús Khan on 09-03-2023 Estimated GFR (MDRD) Amer 111 mL/min >60 [facility] Comment on above: GFR Calc Estimated GFR (MDRD) Non-Af Amer 92 mL/min >60 [facility] Comment on above: Non- GFR Calc Platelets bldOrdered By: Santy Khan on 09-03-2023 Platelets (Bld) [#/Vol] 266 10*3/uL 150-450 [facility] Protein Test strip Ql (U)Ord ered By: Jesús Khan on 09-03-2023 Protein Ql (U) 15 mg/dl Negative [facility] Serum or plasma albumin regulo urement (mass/volume)Ordered By: Jesús Khan on 09-03-2023 Albumin [Mass/Vol] 3.6 g/dL 3.2-5.0 [facility] Serum or plasma albumin/glob ulin mass ratioOrdered By: Jesús Khan on 09-03-2023 Albumin/Globulin [Mass ratio] 1.0 {ratio} 0.9-2.4 [facility] Serum or plasma calcium regulo urement (mass/volume)Ordered By: Jesús Khan on 09-03-2023 Calcium [Mass/Vol] 9.2 mg/dL 8.5-10.1 [facility] Serum or plasma creatinine m easurement (mass/volume)Ordered By: Jesús Khan on 09-03-2023 Creatinine [Mass/Vol] 0.73 mg/dL 0.55-1.02 [facility] Comment on above: The validity of the calculated GFR & GFRAA in patients over 70 years has not been determined. Clinical correlation is essential. Serum or plasma urea nitroge n measurement (mass/volume)Ordered By: Jesús Khan on 09-03-2023 Urea nitrogen [Mass/Vol] 14 mg/dL 7-18 [facility] Squamous epithelial cells de tection in urine sediment by light microscopyOrdered By: Jesús Khan on 09-03-2023 Epithelial cells.squamous LM Ql (Urine sed) 5-10 SEEN /hpf 5-10 [facility] Thin prep Papanicolaou smear with manual screeningOrdered By: Jesús Khan on 09-03-2023 Thin prep Papanicolaou smear with manual screening 22 U/L 15-37 [facility] Thin prep Papanicolaou smear with manual screening 4 5-15 [facility] Urine blood detectionOrdered By: Jesús Khan on 09-03-2023 RBC Ql (U) 25 /ul Negative [facility] RBC Ql (U) 5-10 SEEN /hpf 0-5 [facility] Urine clarityOrdered By: Santy Khan on 09-03-2023 Clarity (U) Clear Clear [facility] Urine color determinationOrd ered By: Jesús Khan on 09-03-2023 Color (U) Yellow Yellow [facility] Urine glucose detectionOrder ed By: Jesús Khan on 09-03-2023 Glucose Ql (U) Normal mg/dl Normal [facility] Urine leukocyte esterase det ection by dipstickOrdered By: Jesús Khan on 09-03-2023 Leukocyte esterase Test strip Ql (U) 25 /ul Negative [facility] Urine pHOrdered By: Jesús tafoya on 09-03-2023 pH (U) 5.0 [pH] 5.0 - 8.0 [facility] Urine sediment bacteria coun t by microscopy (number/high power field)Ordered By: Jesús Khan on 09-03-2023 Bacteria LM.HPF (Urine sed) [#/Area] RARE /hpf None Seen [facility] Urine specific gravity measu rementOrdered By: Jesús Khan on 09-03-2023 Specific gravity (U) [Rel density] 1.025 1.002-1.030 [facility] Urobilinogen Auto test strip Ql (U)Ordered By: Jesús Khan on 09-03-2023 Urobilinogen Ql (U) 1 mg/dl Normal [facility] Basophil percentageOrdered B y: Hugo Nick on 02-07-2023 Basophil percentage 0-5 SEEN /hpf 0-5 [facility] Bilirubin Test strip Ql (U)O rdered By: Hugo Nick on 02-07-2023 Bilirubin Ql (U) Negative Negative [facility] Culture, urineOrdered By: Taiwo Nick on 02-07-2023 Bacteria identified Cx Nom (U) Positive [facility] Ketones Test strip Ql (U)Ord ered By: Hugo Nick on 02-07-2023 Ketones Ql (U) 5 mg/dl Negative [facility] Mucus LM Ql (Urine sed)Order ed By: Hugo Nick on 02-07-2023 Mucus Ql (Urine sed) 0 SEEN /hpf [facility] Nitrite Test strip Ql (U)Ord ered By: Hugo Nick on 02-07-2023 Nitrite Ql (U) Negative Negative [facility] Protein Test strip Ql (U)Ord ered By: Hugo Nick on 02-07-2023 Protein Ql (U) 30 mg/dl Negative [facility] Squamous epithelial cells de tection in urine sediment by light microscopyOrdered By: Hugo Nick on 02-07-2023 Epithelial cells.squamous LM Ql (Urine sed) 0-5 SEEN /hpf 5-10 [facility] Urine blood detectionOrdered By: Hugo Nick on 02-07-2023 RBC Ql (U) 150 /ul Negative [facility] RBC Ql (U) 0-5 SEEN /hpf 0-5 [facility] Urine clarityOrdered By: Brenda Nick on 02-07-2023 Clarity (U) Clear Clear [facility] Urine color determinationOrd ered By: Hugo Nick on 02-07-2023 Color (U) Yellow Yellow [facility] Urine glucose detectionOrder ed By: Hugo Nick on 02-07-2023 Glucose Ql (U) Normal mg/dl Normal [facility] Urine leukocyte esterase det ection by dipstickOrdered By: Hugo Nick on 02-07-2023 Leukocyte esterase Test strip Ql (U) 100 /ul Negative [facility] Urine pHOrdered By: Hugo Nick on 02-07-2023 pH (U) 5.0 [pH] 5.0 - 8.0 [facility] Urine sediment bacteria coun t by microscopy (number/high power field)Ordered By: Hugo Nick on 02-07-2023 Bacteria LM.HPF (Urine sed) [#/Area] 3 /[HPF] None Seen [facility] Urine specific gravity measu rementOrdered By: Hugo Nick on 02-07-2023 Specific gravity (U) [Rel density] 1.020 1.002-1.030 [facility] Urobilinogen Auto test strip Ql (U)Ordered By: Hugo Nick on 02-07-2023 Urobilinogen Ql (U) Normal mg/dl Normal [facility] Absolute lymphocyte countOrd ered By: ED PROVIDER on 11-08-2022 Lymphocytes Auto (Unsp spec) [#/Vol] 1.57 10*3/uL 0.83-4.51 [facility] Basophil percentageOrdered B y: ED PROVIDER on 11-08-2022 Basophils/100 WBC (Bld) 0.3 % 0-1 [facility] Eosinophils/100 WBC (Bld) 0.3 % 0-5 [facility] Neutrophils (Bld) [#/Vol] 12.5 10*3/uL 2.0-7.7 [facility] Neutrophils/100 WBC (Bld) 81.4 % 47-70 [facility] WBC (Bld) [#/Vol] 15.3 10*3/uL 4.4-11.0 [facility] Basophil percentageOrdered B y: Dr. Flores on 11-08-2022 Bilirubin [Mass/Vol] 0.50 mg/dL 0.20-1.00 [facility] Comment on above: For patients on eltr ombopag therapy, use of Dimension [place] TBIL is not recommended. Chloride [Moles/Vol] 107 mmol/L 98-107 [facility] Glucose [Mass/Vol] 159 mg/dL 74-106 [facility] Comment on above: Fasting Glucose resu lt greater than or equal to 126 mg/dL suggests DIABETES MELLITUS per A.D.A. criteria. Potassium [Moles/Vol] 3.8 mmol/L 3.5-5.1 [facility] Protein [Mass/Vol] 7.6 g/dL 6.4-8.2 [facility] Sodium [Moles/Vol] 140 mmol/L 136-145 [facility] Blood erythrocytes count (nu mber/volume)Ordered By: ED PROVIDER on 11-08-2022 RBC (Bld) [#/Vol] 5.02 10*6/uL 4.2-5.4 [facility] Blood hemoglobin measurement (mass/volume)Ordered By: ED PROVIDER on 11-08-2022 Hemoglobin (Bld) [Mass/Vol] 14.1 g/dL 12.0-15.0 [facility] Blood lymphocytes/100 leukoc ytesOrdered By: ED PROVIDER on 11-08-2022 Lymphocytes/100 WBC (Bld) 10.3 % 19-41 [facility] Blood monocytes/100 leukocyt esOrdered By: ED PROVIDER on 11-08-2022 Monocytes/100 WBC (Bld) 5.6 % 0-10 [facility] Blood platelet mean volumeOr dered By: ED PROVIDER on 11-08-2022 Platelet mean volume (Bld) [Entitic vol] 9.3 fL 6.2-12.0 [facility] Determination of erythrocyte mean corpuscular volume (MCV)Ordered By: ED PROVIDER on 11-08-2022 MCV (RBC) [Entitic vol] 85.9 fL 81-99 [facility] Hematocrit Auto (Bld) [Volum e fraction]Ordered By: ED PROVIDER on 11-08-2022 Hematocrit (Bld) [Volume fraction] 43.1 % 37-47 [facility] Laboratory - Chemistry and C hemistry - challengeOrdered By: Dr. Flores on 11-08-2022 ALP [Catalytic activity/Vol] 97 U/L 45-117 [facility] ALT [Catalytic activity/Vol] 31 U/L 13-56 [facility] CO2 [Moles/Vol] 24.0 mmol/L 21.0-32.0 [facility] Globulin (S) [Mass/Vol] 4.0 g/dL 2.2-4.2 [facility] Lipase [Catalytic activity/Vol] 63 U/L 73-393 [facility] Urea nitrogen/Creatinine [Mass ratio] 16.4 mg/mg 10-20 [facility] Laboratory - Hematology and Cell countsOrdered By: ED PROVIDER on 11-08-2022 Erythrocyte distribution width (RBC) [Entitic vol] 40.3 fL 35.1-43.9 [facility] Erythrocyte distribution width (RBC) [Ratio] 13.1 % 11.6-14.6 [facility] Immature granulocytes/100 WBC (Bld) 2.100 % 0.0-0.9 [facility] Comment on above: IG% - Immature Granu locytes (promyelocytes, myelocytes and metamyelocytes) > 1% indicates that a LEFT SHIFT is Present. MCH (RBC) [Entitic mass] 28.1 pg 27.0-32.0 [facility] Nucleated RBC/100 WBC (Bld) [Ratio] 0 % 0-5 [facility] MCHC Auto (RBC) [Mass/Vol]Or dered By: ED PROVIDER on 11-08-2022 MCHC (RBC) [Mass/Vol] 32.7 g/dL 32-36 [facility] No Panel InformationOrdered By: Dr. Flores on 11-08-2022 Estimated Creatinine Clearance Calc 81.77 ml/min [facility] Estimated GFR (MDRD) Amer 101 mL/min >60 [facility] Comment on above: GFR Calc Estimated GFR (MDRD) Non-Af Amer 84 mL/min >60 [facility] Comment on above: Non- GFR Calc Platelets bldOrdered By: ED PROVIDER on 11-08-2022 Platelets (Bld) [#/Vol] 305 10*3/uL 150-450 [facility] Serum or plasma albumin regulo urement (mass/volume)Ordered By: Dr. Flores on 11-08-2022 Albumin [Mass/Vol] 3.6 g/dL 3.2-5.0 [facility] Serum or plasma albumin/glob ulin mass ratioOrdered By: Dr. Flores on 11-08-2022 Albumin/Globulin [Mass ratio] 0.9 {ratio} 0.9-2.4 [facility] Serum or plasma calcium regulo urement (mass/volume)Ordered By: Dr. Flores on 11-08-2022 Calcium [Mass/Vol] 9.2 mg/dL 8.5-10.1 [facility] Serum or plasma creatinine m easurement (mass/volume)Ordered By: Dr. Flores on 11-08-2022 Creatinine [Mass/Vol] 0.79 mg/dL 0.55-1.02 [facility] Comment on above: The validity of the calculated GFR & GFRAA in patients over 70 years has not been determined. Clinical correlation is essential. Serum or plasma urea nitroge n measurement (mass/volume)Ordered By: Dr. Flores on 11-08-2022 Urea nitrogen [Mass/Vol] 13 mg/dL 7-18 [facility] Thin prep Papanicolaou smear with manual screeningOrdered By: Dr. Flores on 11-08-2022 Thin prep Papanicolaou smear with manual screening 13 U/L 15-37 [facility] Thin prep Papanicolaou smear with manual screening 9 5-15 [facility] Absolute lymphocyte counton 01-21-2022 Lymphocytes Auto (Unsp spec) [#/Vol] 2.28 10*3/uL 0.83-4.51 [facility] Work Phone: Basophil percentageon 2021 Basophils/100 WBC (Bld) 0.3 % 0-1 [facility] Work Phone: [phone] Chloride [Moles/Vol] 108 mmol/L 98-107 [facility] Work Phone: [phone] Eosinophils/100 WBC (Bld) 2.3 % 0-5 [facility] Work Phone: Glucose [Mass/Vol] 119 mg/dL 74-106 [facility] Work Phone: Comment on above: Fasting Glucose resu lt from 100 to 125 mg/dL suggests IMPAIRED HOMEOSTASIS per A.D.A. criteria. Neutrophils (Bld) [#/Vol] 7.2 10*3/uL 2.0-7.7 [facility] Work Phone: [phone] Neutrophils/100 WBC (Bld) 69.2 % 47-70 [facility] Work Phone: Potassium [Moles/Vol] 4.2 mmol/L 3.5-5.1 [facility] [place]: Sodium [Moles/Vol] 141 mmol/L 136-145 [facility] Work Phone: WBC (Bld) [#/Vol] 10.4 10*3/uL 4.4-11.0 [facility] Work [facility]: Blood erythrocytes count (nu mber/volume)on 01-21-2022 RBC (Bld) [#/Vol] 4.78 10*6/uL 4.2-5.4 [facility] Work Phone: Blood hemoglobin measurement (mass/volume)on 01-21-2022 Hemoglobin (Bld) [Mass/Vol] 13.8 g/dL 12.0-15.0 [facility] Work Phone: Blood lymphocytes/100 leukoc yteson 01-21-2022 Lymphocytes/100 WBC (Bld) 22.0 % 19-41 [facility] Work Phone: Blood monocytes/100 leukocyt eson 01-21-2022 Monocytes/100 WBC (Bld) 5.8 % 0-10 [facility] Work Phone: Blood platelet mean volumeon 01-21-2022 Platelet mean volume (Bld) [Entitic vol] 9.4 fL 6.2-12.0 [facility] Work Phone: Determination of erythrocyte mean corpuscular volume (MCV)on 01-21-2022 MCV (RBC) [Entitic vol] 87.2 fL 81-99 [facility] Work Phone: Hematocrit Auto (Bld) [Volum e fraction]on 01-21-2022 Hematocrit (Bld) [Volume fraction] 41.7 % 37-47 [facility] Work Phone: Laboratory - Chemistry and C hemistry - challengeon 01-21-2022 CO2 [Moles/Vol] 25.0 mmol/L 21.0-32.0 [facility] Work Phone: Urea nitrogen/Creatinine [Mass ratio] 17.3 mg/mg 10-20 [facility] Work Phone: Laboratory - Hematology and Cell countson 01-21-2022 Erythrocyte distribution width (RBC) [Entitic vol] 40.9 fL 35.1-43.9 [facility] Work Phone: Erythrocyte distribution width (RBC) [Ratio] 12.9 % 11.6-14.6 [facility] Work Phone: Immature granulocytes/100 WBC (Bld) 0.400 % 0.0-0.9 [facility] Work Phone: Comment on above: IG% - Immature Granu locytes (promyelocytes, myelocytes and metamyelocytes) > 1% indicates that a LEFT SHIFT is Present. MCH (RBC) [Entitic mass] 28.9 pg 27.0-32.0 [facility] Work Phone: Nucleated RBC/100 WBC (Bld) [Ratio] 0 % 0-5 [facility] Work Phone: MCHC Auto (RBC) [Mass/Vol]on 01-21-2022 MCHC (RBC) [Mass/Vol] 33.1 g/dL 32-36 [facility] Work Phone: No Panel Informationon 01-21 Estimated Creatinine Clearance Calc 75.03 ml/min [facility] Work Phone: Estimated GFR (MDRD) Amer 92 mL/min >60 [facility] Work Phone: Comment on above: GFR Calc Estimated GFR (MDRD) Non-Af Amer 76 mL/min >60 [facility] Work Phone: Comment on above: Non- GFR Calc Troponin I High Sensitivity < 3 pg/mL 3.0-54.0 [facility] Work Phone: Comment on above: Please Note: New Theodora t Units and Gender Specific Reference Ranges. For more information see Policy Stat Procedure [place] High Sensitivity Troponin (TNIH) and attachments. Platelets bldon 01-21-2022 Platelets (Bld) [#/Vol] 314 10*3/uL 150-450 [facility] Work Phone: Serum or plasma calcium regulo urement (mass/volume)on 01-21-2022 Calcium [Mass/Vol] 9.4 mg/dL 8.5-10.1 [facility] Work Phone: Serum or plasma creatinine m easurement (mass/volume)on 01-21-2022 Creatinine [Mass/Vol] 0.87 mg/dL 0.55-1.02 [facility] Work Phone: Comment on above: The validity of the calculated GFR & GFRAA in patients over 70 years has not been determined. Clinical correlation is essential. Serum or plasma urea nitroge n measurement (mass/volume)on 01-21-2022 Urea nitrogen [Mass/Vol] 15 mg/dL 7-18 [facility] Work Phone: Thin prep Papanicolaou smear with manual screeningon 01-21-2022 Thin prep Papanicolaou smear with manual screening 8 5-15 [facility] Work Phone: Absolute lymphocyte counton 01-13-2022 Lymphocytes Auto (Unsp spec) [#/Vol] 2.37 10*3/uL 0.83-4.51 [facility] Work Phone: Basophil percentageon 2021 Basophil percentage 0 SEEN /hpf [facility] Work Phone: Basophils/100 WBC (Bld) 0.4 % 0-1 [facility] Work Phone: Bilirubin [Mass/Vol] 0.40 mg/dL 0.20-1.00 [facility] Work Phone: Comment on above: For patients on eltr ombopag therapy, use of Dimension [place] TBIL is not recommended. Chloride [Moles/Vol] 107 mmol/L 98-107 [facility] Work Phone: Eosinophils/100 WBC (Bld) 2.6 % 0-5 [facility] Work Phone: Glucose [Mass/Vol] 113 mg/dL 74-106 [facility] Work Phone: Comment on above: Fasting Glucose resu lt from 100 to 125 mg/dL suggests IMPAIRED HOMEOSTASIS per A.D.A. criteria. Neutrophils (Bld) [#/Vol] 7.9 10*3/uL 2.0-7.7 [facility] Work Phone: Neutrophils/100 WBC (Bld) 69.8 % 47-70 [facility] Work Phone: Potassium [Moles/Vol] 4.1 mmol/L 3.5-5.1 [facility] Work Phone: Protein [Mass/Vol] 8.1 g/dL 6.4-8.2 [facility] Work Phone: Sodium [Moles/Vol] 138 mmol/L 136-145 [facility] Work Phone: WBC (Bld) [#/Vol] 11.3 10*3/uL 4.4-11.0 [facility] Work Phone: Bilirubin Test strip Ql (U)o n 01-13-2022 Bilirubin Ql (U) Negative Negative [facility] Work Phone: Blood erythrocytes count (nu mber/volume)on 01-13-2022 RBC (Bld) [#/Vol] 5.03 10*6/uL 4.2-5.4 [facility] Work Phone: Blood hemoglobin measurement (mass/volume)on 01-13-2022 Hemoglobin (Bld) [Mass/Vol] 14.6 g/dL 12.0-15.0 [facility] Work Phone: Blood lymphocytes/100 leukoc yteson 01-13-2022 Lymphocytes/100 WBC (Bld) 20.9 % 19-41 [facility] Work Phone: Blood monocytes/100 leukocyt eson 01-13-2022 Monocytes/100 WBC (Bld) 5.6 % 0-10 [facility] Work Phone: Blood platelet mean volumeon 01-13-2022 Platelet mean volume (Bld) [Entitic vol] 9.4 fL 6.2-12.0 [facility] Work Phone: Determination of erythrocyte mean corpuscular volume (MCV)on 01-13-2022 MCV (RBC) [Entitic vol] 87.7 fL 81-99 [facility] Work Phone: Hematocrit Auto (Bld) [Volum e fraction]on 01-13-2022 Hematocrit (Bld) [Volume fraction] 44.1 % 37-47 [facility] Work Phone: Ketones Test strip Ql (U)on 01-13-2022 Ketones Ql (U) Negative Negative [facility] Work Phone: Laboratory - Chemistry and C hemistry - challengeon 01-13-2022 ALP [Catalytic activity/Vol] 106 U/L 45-117 [facility] Work Phone: ALT [Catalytic activity/Vol] 28 U/L 13-56 [facility] Work Phone: CO2 [Moles/Vol] 26.0 mmol/L 21.0-32.0 [facility] Work Phone: Globulin (S) [Mass/Vol] 4.2 g/dL 2.2-4.2 [facility] Work Phone: Urea nitrogen/Creatinine [Mass ratio] 18.5 mg/mg 10-20 [facility] Work Phone: Laboratory - Hematology and Cell countson 01-13-2022 Erythrocyte distribution width (RBC) [Entitic vol] 41.4 fL 35.1-43.9 [facility] Work Phone: Erythrocyte distribution width (RBC) [Ratio] 12.9 % 11.6-14.6 [facility] Work Phone: Immature granulocytes/100 WBC (Bld) 0.700 % 0.0-0.9 [facility] Work Phone: Comment on above: IG% - Immature Granu locytes (promyelocytes, myelocytes and metamyelocytes) > 1% indicates that a LEFT SHIFT is Present. MCH (RBC) [Entitic mass] 29.0 pg 27.0-32.0 [facility] Work Phone: Nucleated RBC/100 WBC (Bld) [Ratio] 0 % 0-5 [facility] Work Phone: MCHC Auto (RBC) [Mass/Vol]on 01-13-2022 MCHC (RBC) [Mass/Vol] 33.1 g/dL 32-36 [facility] Work Phone: Mucus LM Ql (Urine sed)on Mucus Ql (Urine sed) 0 SEEN /hpf [facility] Work Phone: Nitrite Test strip Ql (U)on 01-13-2022 Nitrite Ql (U) Negative Negative [facility] Work Phone: No Panel Informationon 01-13 Estimated Creatinine Clearance Calc 85.89 ml/min [facility] Work Phone: Estimated GFR (MDRD) Amer 107 mL/min >60 [facility] Work Phone: Comment on above: GFR Calc Estimated GFR (MDRD) Non-Af Amer 89 mL/min >60 [facility] Work Phone: Comment on above: Non- GFR Calc Platelets bldon 01-13-2022 Platelets (Bld) [#/Vol] 319 10*3/uL 150-450 [facility] Work Phone: Protein Test strip Ql (U)on 01-13-2022 Protein Ql (U) Negative Negative [facility] Work Phone: Serum or plasma albumin regulo urement (mass/volume)on 01-13-2022 Albumin [Mass/Vol] 3.9 g/dL 3.2-5.0 [facility] Work Phone: Serum or plasma albumin/glob ulin mass ratioon 01-13-2022 Albumin/Globulin [Mass ratio] 0.9 {ratio} 0.9-2.4 [facility] Work Phone: Serum or plasma calcium regulo urement (mass/volume)on 01-13-2022 Calcium [Mass/Vol] 9.8 mg/dL 8.5-10.1 [facility] Work Phone: Serum or plasma creatinine m easurement (mass/volume)on 01-13-2022 Creatinine [Mass/Vol] 0.76 mg/dL 0.55-1.02 [facility] Work Phone: Comment on above: The validity of the calculated GFR & GFRAA in patients over 70 years has not been determined. Clinical correlation is essential. Serum or plasma urea nitroge n measurement (mass/volume)on 01-13-2022 Urea nitrogen [Mass/Vol] 14 mg/dL 7-18 [facility] Work Phone: Squamous epithelial cells de tection in urine sediment by light microscopyon 01-13-2022 Epithelial cells.squamous LM Ql (Urine sed) 0-5 SEEN /hpf [facility] Work Phone: Thin prep Papanicolaou smear with manual screeningon 01-13-2022 Thin prep Papanicolaou smear with manual screening 10 U/L 15-37 [facility] Work Phone: Thin prep Papanicolaou smear with manual screening 5 5-15 [facility] Work Phone: Urine blood detectionon RBC Ql (U) 50 /ul Negative [facility] Work Phone: RBC Ql (U) 0 SEEN /hpf [facility] Work Phone: Urine clarityon 01-13-2022 Clarity (U) Clear Clear [facility] Work Phone: Urine color determinationon 01-13-2022 Color (U) Yellow Yellow [facility] Work Phone: Urine glucose detectionon Glucose Ql (U) Normal mg/dl Normal [facility] Work Phone: Urine leukocyte esterase det ection by dipstickon 01-13-2022 Leukocyte esterase Test strip Ql (U) 25 /ul Negative [facility] Work Phone: Urine pHon 01-13-2022 pH (U) 6.0 [pH] [facility] Work Phone: Urine sediment bacteria coun t by microscopy (number/high power field)on 01-13-2022 Bacteria LM.HPF (Urine sed) [#/Area] 0 /[HPF] None Seen [facility] Work Phone: Urine specific gravity measu rementon 01-13-2022 Specific gravity (U) [Rel density] 1.020 [facility] Work Phone: Urobilinogen Auto test strip Ql (U)on 01-13-2022 Urobilinogen Ql (U) Normal mg/dl Normal [facility] Work Phone: Hemoglobin A1con 05-31-2021 Glucose [Mass/Vol] 252 mg/dL Normal [facility] Comment on above: Performed By: #### H BA1C #### [facility] Routine Lab [address], [place] [address] HbA1c (Bld) [Mass fraction] 10.4 % High 4.3-5.6 [facility] Comment on above: Performed By: #### H BA1C #### [facility] Routine Lab [address], [place] [address] Vital Signs Date Time Vital Sign Value Performing Clinician Faci lity 12-27-2023 22:03-0400 Body temperature 98.4 [degF] [facility] 12-27-2023 22:03-0400 Diastolic blood pressure 97 mm[Hg] [facility] 12-27-2023 22:03-0400 Heart rate 100 /min [facility] 12-27-2023 22:03-0400 Respiratory rate 19 /min [facility] 12-27-2023 22:03-0400 SaO2% (BldA) [Mass fraction] 99 % [facility] 12-27-2023 22:03-0400 Systolic blood pressure 140 mm[Hg] [facility] 12-27-2023 21:33-0400 Body height 162.56 cm [facility] 09-03-2023 03:43-0500 Diastolic blood pressure 89 mm[Hg] [facility] 09-03-2023 03:43-0500 Heart rate 74 /min [facility] 09-03-2023 03:43-0500 Respiratory rate 16 /min [facility] 09-03-2023 03:43-0500 SaO2% (BldA) [Mass fraction] 97 % [facility] 09-03-2023 03:43-0500 Systolic blood pressure 140 mm[Hg] [facility] 09-03-2023 00:03-0500 Body height 162.56 cm [facility] 09-03-2023 00:03-0500 Body temperature 97.5 [degF] [facility] 07-15-2023 18:05-0400 Body height 162.56 cm [facility] 07-15-2023 18:05-0400 Body mass index (BMI) [Ratio] 51.7 kg/m2 [facility] 07-15-2023 18:05-0400 Body temperature 98 [degF] [facility] 07-15-2023 18:05-0400 Body weight 136.8 kg [facility] 07-15-2023 18:05-0400 Diastolic blood pressure 102 mm[Hg] [facility] 07-15-2023 18:05-0400 Heart rate 96 /min [facility] 07-15-2023 18:05-0400 Respiratory rate 18 /min [facility] 07-15-2023 18:05-0400 SaO2% (BldA) [Mass fraction] 97 % [facility] 07-15-2023 18:05-0400 Systolic blood pressure 139 mm[Hg] [facility] 07-15-2023 02:13-0400 Body height 162.56 cm [facility] 07-15-2023 02:13-0400 Body mass index (BMI) [Ratio] 23.8 kg/m2 [facility] 07-15-2023 02:13-0400 Body temperature 96.4 [degF] [facility] 07-15-2023 02:13-0400 Body weight 63.04 kg [facility] 07-15-2023 02:13-0400 Diastolic blood pressure 87 mm[Hg] [facility] 07-15-2023 02:13-0400 Heart rate 95 /min [facility] 07-15-2023 02:13-0400 Respiratory rate 18 /min [facility] 07-15-2023 02:13-0400 SaO2% (BldA) [Mass fraction] 99 % [facility] 07-15-2023 02:13-0400 Systolic blood pressure 138 mm[Hg] [facility] 06-06-2023 04:18-0400 Heart rate 95 /min [facility] 06-06-2023 04:18-0400 Respiratory rate 17 /min [facility] 06-06-2023 04:18-0400 SaO2% (BldA) [Mass fraction] 99 % [facility] 06-06-2023 04:04-0400 Body height 162.56 cm [facility] 06-06-2023 04:04-0400 Body mass index (BMI) [Ratio] 51 kg/m2 [facility] 06-06-2023 04:04-0400 Body temperature 97.7 [degF] [facility] 06-06-2023 04:04-0400 Body weight 134.71 kg [facility] 06-06-2023 04:04-0400 Diastolic blood pressure 92 mm[Hg] [facility] 06-06-2023 04:04-0400 Systolic blood pressure 146 mm[Hg] [facility] 04-14-2023 20:41-0400 Body height 165.1 cm [facility] 04-14-2023 20:41-0400 Body mass index (BMI) [Ratio] 51.2 kg/m2 [facility] 04-14-2023 20:41-0400 Body temperature 97.9 [degF] [facility] 04-14-2023 20:41-0400 Body weight 139.75 kg [facility] 04-14-2023 20:41-0400 Diastolic blood pressure 89 mm[Hg] [facility] 04-14-2023 20:41-0400 Heart rate 102 /min [facility] 04-14-2023 20:41-0400 Respiratory rate 18 /min [facility] 04-14-2023 20:41-0400 SaO2% (BldA) [Mass fraction] 98 % [facility] 04-14-2023 20:41-0400 Systolic blood pressure 129 mm[Hg] [facility] 02-07-2023 23:51-0400 Diastolic blood pressure 96 mm[Hg] [facility] 02-07-2023 23:51-0400 Heart rate 94 /min [facility] 02-07-2023 23:51-0400 Respiratory rate 18 /min [facility] 02-07-2023 23:51-0400 SaO2% (BldA) [Mass fraction] 95 % [facility] 02-07-2023 23:51-0400 Systolic blood pressure 153 mm[Hg] [facility] 02-07-2023 21:29-0400 Body mass index (BMI) [Ratio] 52.7 kg/m2 [facility] 02-07-2023 21:29-0400 Body temperature 98.4 [degF] [facility] 02-07-2023 21:29-0400 Body weight 139.3 kg [facility] 11-09-2022 03:11-0500 Diastolic blood pressure 76 mm[Hg] [facility] 11-09-2022 03:11-0500 Heart rate 69 /min [facility] 11-09-2022 03:11-0500 Respiratory rate 18 /min [facility] 11-09-2022 03:11-0500 SaO2% (BldA) [Mass fraction] 97 % [facility] 11-09-2022 03:11-0500 Systolic blood pressure 138 mm[Hg] [facility] 11-08-2022 22:16-0500 Body height 165.1 cm [facility] 11-08-2022 22:16-0500 Body mass index (BMI) [Ratio] 53.2 kg/m2 [facility] 11-08-2022 22:16-0500 Body temperature 97.4 [degF] [facility] 11-08-2022 22:16-0500 Body weight 145.14 kg [facility] 01-21-2022 22:23-0400 Diastolic blood pressure 84 mm[Hg] [facility] Work Phone: 01-21-2022 22:23-0400 Heart rate 93 /min [facility] Work Phone: 01-21-2022 22:23-0400 Respiratory rate 21 /min [facility] Work Phone: 01-21-2022 22:23-0400 Systolic blood pressure 131 mm[Hg] [facility] Work Phone: 01-21-2022 21:19-0400 Body temperature 97.2 [degF] [facility] Work Phone: 01-21-2022 21:19-0400 SaO2% (BldA) [Mass fraction] 97 % [facility] Work Phone: 01-21-2022 21:17-0400 Body height 165.1 cm [facility] Work Phone: 01-21-2022 21:17-0400 Body mass index (BMI) [Ratio] 49.4 kg/m2 [facility] Work Phone: 01-21-2022 21:17-0400 Body weight 134.71 kg [facility] Work Phone: 01-13-2022 20:37-0400 Diastolic blood pressure 99 mm[Hg] [facility] Work Phone: 01-13-2022 20:37-0400 Heart rate 76 /min [facility] Work Phone: 01-13-2022 20:37-0400 Respiratory rate 18 /min [facility] Work Phone: 01-13-2022 20:37-0400 SaO2% (BldA) [Mass fraction] 93 % [facility] Work Phone: 01-13-2022 20:37-0400 Systolic blood pressure 159 mm[Hg] [facility] Work Phone: 01-13-2022 18:03-0400 Body height 165.1 cm [facility] Work Phone: 01-13-2022 18:03-0400 Body mass index (BMI) [Ratio] 50.6 kg/m2 [facility] Work Phone: 01-13-2022 18:03-0400 Body temperature 98.6 [degF] [facility] Work Phone: 01-13-2022 18:03-0400 Body weight 138.1 kg [facility] Work Phone: Encounters Encounter Date Encounter Type Care Provider Facility Start: 12-31-2024 End: 12-31-2024 ambulatory Martin Reese Facility:[facility] Start: 12-31-2024 End: 12-31-2024 ambulatory Virginia Sanchez Facility:[facility] Start: 10-12-[address] [facility] Start: 09-11-2024 End: 09-11-2024 Emergency department patient visit Mathew Gonsales Facility:[facility] Start: 08-11-2024 End: 08-11-2024 ambulatory RADHA GAO [facility] Start: 04-23-2024 End: 04-23-2024 Emergency department patient visit Jorge Eldridge Facility:[facility] Start: 12-27-2023 End: 12-27-2023 Emergency department patient visit [facility] Work Phone: Start: 12-08-2023 End: 12-08-2023 ambulatory RADHA LAKE [facility] Start: 12-08-2023 End: 12-08-2023 ambulatory RADHA LAKE [facility] Start: 09-03-2023 End: 09-03-2023 Emergency department patient visit [facility] Work Phone: Start: 07-15-2023 End: 07-15-2023 Emergency department patient visit [facility] Work Phone: Start: 07-15-2023 End: 07-15-2023 Emergency department patient visit [facility] Work Phone: Start: 06-20-2023 End: 06-20-2023 Emergency department patient visit DR ROHAN MEDRANO MD Facility:B Start: 06-06-2023 End: 06-06-2023 Emergency department patient visit [facility] Work Phone: Start: 04-14-2023 End: 04-14-2023 Emergency department patient visit [facility] Work Phone: Start: 02-07-2023 End: 02-07-2023 Emergency department patient visit [facility] Work Phone: Start: 11-08-2022 End: 11-09-2022 Emergency department patient visit [facility] Start: 01-21-2022 End: 01-21-2022 Emergency department patient visit [facility] Start: 01-13-2022 End: 01-13-2022 [facility] Date Procedure Procedure Detail Performing Clinician Start: 09-03-2023 Computed tomography of abdomen and pelvis with intravenous contrast Start: 02-07-2023 Urine culture Start: 01-13-2022 Computed tomography of abdomen and pelvis with intravenous contrast Plan of Treatment Date Care Activity Detail Author Start: 12-27-2023 [facility] Start: 09-03-2023 [facility] Start: 09-03-2023 Computed tomography of abdomen and pelvis with intravenous contrast Abdomen/Pelvis W IV Cont ONLY [facility] Start: 09-03-2023 CT Abdomen and Pelvi s W contrast IV [facility] Start: 07-15-2023 [facility] Start: 07-15-2023 [facility] Patient Education [facility] Work Phone: Patient referral [facility] Work Phone: Immunizations Immunization Date Immunization Notes Care Provider Fa antwonty 09-15-2016 tetanus toxoid, redu roxana diphtheria toxoid, and acellular pertussis vaccine, adsorbed [facility] Payers Date Payer Category Payer Self-pay [id number] 2023 Unknown [id number] 1980 Unknown [id number] 2.16.8 [id number] 1980 Unknown [id number] 2.16.8 [id number] 1980 Unknown [id number] 2.16.8 [id number] Unknown [id number] Unknown [id number] 2.16.8 [id number] Unknown [id number] 2.16.8 [id number] Unknown [id number] 2.16.8 [id number] Unknown [id number] 2.16.8 [id number] Social History Date Type Detail Facility [facility] Work Phone: Start: 01-13-2022 End: 12-27-2023 Tobacco smoking status NHIS Unknown if ever smoked [facility] Start: 03-17-2020 None [facility] Start: 08-26-2019 Non-smoker [facility] Start: 1980 Sex Assigned At Female [facility] NEGATED: Highlighted row [facility] Medical Equipment Procedure Code Equipment Code Equipment Original Text Equipment Identifier Dates Total cholecystectomy with exploration of common bile duct CLIP,HEMOLOCK MED WECK FDA Start: 08-27-2019 Total cholecystectomy with exploration of common bile duct CLIP,HEMOLOCK MED WECK FDA Start: 08-27-2019 Total cholecystectomy with exploration of common bile duct CLIP,HEMOLOCK MED WECK FDA Start: 08-27-2019 Total cholecystectomy with exploration of common bile duct SURGICEL, POWDER 3GR FDA Start: 08-27-2019 Total cholecystectomy with exploration of common bile duct CLIP,HEMOLOCK MED WECK FDA Start: 08-27-2019 Total cholecystectomy with exploration of common bile duct CLIP,HEMOLOCK MED WECK FDA Start: 08-27-2019 Total cholecystectomy with exploration of common bile duct CLIP,HEMOLOCK MED WECK FDA Start: 08-27-2019 Total cholecystectomy with exploration of common bile duct SURGICEL, POWDER 3GR FDA Start: 08-27-2019 Total cholecystectomy with exploration of common bile duct CLIP,HEMOLOCK MED WECK FDA Start: 08-27-2019 Total cholecystectomy with exploration of common bile duct CLIP,HEMOLOCK MED WECK FDA Start: 08-27-2019 Total cholecystectomy with exploration of common bile duct CLIP,HEMOLOCK MED WECK FDA Start: 08-27-2019 Total cholecystectomy with exploration of common bile duct SURGICEL, POWDER 3GR FDA Start: 08-27-2019 Total cholecystectomy with exploration of common bile duct CLIP,HEMOLOCK MED WECK FDA Start: 08-27-2019 Total cholecystectomy with exploration of common bile duct CLIP,HEMOLOCK MED WECK FDA Start: 08-27-2019 Total cholecystectomy with exploration of common bile duct CLIP,HEMOLOCK MED WECK FDA Start: 08-27-2019 Total cholecystectomy with exploration of common bile duct SURGICEL, POWDER 3GR FDA Start: 08-27-2019 Total cholecystectomy with exploration of common bile duct CLIP,HEMOLOCK MED WECK FDA Start: 08-27-2019 Total cholecystectomy with exploration of common bile duct CLIP,LATESHA NAGY FDA Start: 08-27-2019 Total cholecystectomy with exploration of common bile duct CLIP,LATESHA NAGY FDA Start: 08-27-2019 Total cholecystectomy with exploration of common bile duct SURGICEL, POWDER 3GR FDA Start: 08-27-2019 Total cholecystectomy with exploration of common bile duct CLIP,LATESHA NAGY FDA Start: 08-27-2019 Total cholecystectomy with exploration of common bile duct CLIP,LATESHA NAGY FDA Start: 08-27-2019 Total cholecystectomy with exploration of common bile duct CLIP,LATESHA NAGY FDA Start: 08-27-2019 Total cholecystectomy with exploration of common bile duct SURGICEL, POWDER 3GR FDA Start: 08-27-2019 Total cholecystectomy with exploration of common bile duct CLIP,LATESHA NAGY FDA Start: 08-27-2019 Total cholecystectomy with exploration of common bile duct CLIP,LATESHA NAGY FDA Start: 08-27-2019 Total cholecystectomy with exploration of common bile duct CLIP,LATESHA NAGY FDA Start: 08-27-2019 Total cholecystectomy with exploration of common bile duct SURGICEL, POWDER 3GR FDA Start: 08-27-2019 Total cholecystectomy with exploration of common bile duct CLIP,LATESHA NAGY FDA Start: 08-27-2019 Total cholecystectomy with exploration of common bile duct CLIP,LATESHA NAGY FDA Start: 08-27-2019 Total cholecystectomy with exploration of common bile duct CLIP,LATESHA NAGY FDA Start: 08-27-2019 Total cholecystectomy with exploration of common bile duct SURGICEL, POWDER 3GR FDA Start: 08-27-2019 Total cholecystectomy with exploration of common bile duct CLIP,LATESHA NAGY FDA Start: 08-27-2019 Total cholecystectomy with exploration of common bile duct CLIP,LATESHA NAGY FDA Start: 08-27-2019 Total cholecystectomy with exploration of common bile duct CLIP,LATESHA NAGY FDA Start: 08-27-2019 Total cholecystectomy with exploration of common bile duct SURGICEL, POWDER 3GR FDA Start: 08-27-2019 Mental Status Date Assessment Result Facility 01-21-2022 Cognitive function Level Of Cons ciousness Awake;Alert;Appropriate;Follow s Commands [facility] Work Phone: Clinical Notes 11-09-2022 to 12-27-2023 Note Date & Type Note Facility 12-27-2023 Discharge summary Note Date/Time December 27, 2023 9:48pm [facility] Medical Records Department [address] [place] [address] Emergency Department Summary 12/27/23 MR#: [id number] Acct: [id number] Name: REKHA LEWIS Rep #:[id number] : 1980 43 From: Andrews Scruggs MD PCP: Dr. Radha Gao MD Status:P RE ER Location: ED HPI <ROWAN Lewis - Last Filed: 12/27/23 21:50> History of Present Illness Chief Complaint: Dental Narrative Narrative: Patient is a 43-year-old female with history of recurrent dental infections, anxiety, depression, back pain, obesity who presents the emergency department for pain to her upper jaw. Patient had gum flap surgery 4 days ago, she was given Homosassa for 3 days, however she states the pain is getting significantly worse. She is currently on amoxicillin. She called the dentist however they were unable to see her. She is here for evaluation for her pain. She did drivehere, she was hoping to get a prescription for Percocet. She states Homosassa does not help her PFSH <ROWAN Lewis - Last Filed: 12/27/23 21:50> PFSH Medical History Abdominal pain Anxiety Back problem Dental caries Depression Diabetes Fatigue Hemorrhoids Hyperlipidemia Hypertension Recurrent hernia RUQ abdominal pain SOB (shortness of breath) Home Medications albuterol sulfate 90 mcg/actuation aerosol inhaler 1 - 2 puff inhalation Q6H PRNPRN Sob &/Or Wheezing 08/26/19 [History Last Taken Unknown] lisinopril 20 mg tablet (Zestril) 20 mg PO QHS bloodpressure 01/30/21 [History Last Taken Unknown] atorvastatin 20 mg tablet 20 mg PO QHS 11/08/22 [History Last Taken Unknown] metformin 500 mg tablet 500 mg PO DAILY 11/08/22 [History Last Taken Unknown] sertraline 100 mg tablet (Zoloft) 200 mg PO DAILY 11/08/22 [History Last Taken Unknown] dulaglutide 0.75 mg/0.5 mL subcutaneous pen injector (Trulicity) 0.75 mg subcut .COMPLEX 07/15/23 [History Last Taken Unknown] alprazolam 1 mg tablet 1 mg PO BID PRN anxiety 09/03/23 [History Last Taken Unknown] hydrocodone-acetaminophen 5-325mg 5mg-325mg 1 tab PO Q6H PRN PRN Pain 3 days #10TABLETS 09/03/23 [Rx Last Taken Unknown] insulin glargine 100 unit/mL (3 mL) subcutaneous pen (Lantus Solostar U-100 Insulin) 20 unit subcut DAILY hyperglycemia 09/03/23 [History Last Taken Unknown] insulin lispro 100 unit/mL subcutaneous pen (Humalog KwikPen (U-100) Insulin) 8 unit subcut Q8H hyperglycemia 09/03/23 [History Last Taken Unknown] tizanidine 2 mg tablet 2 mg PO .COMPLEX PRN pulled muscles 09/03/23 [History Last Taken Unknown] amoxicillin 875 mg tablet 875 mg PO BID 12/27/23 [History Last Taken Unknown] amoxicillin 875 mg-potassium clavulanate 125 mg tablet 1 tab PO BID 12/27/23 [History Last Taken Unknown] blood sugar diagnostic (True Metrix Glucose Test Strip) 12/27/23 [History Last Taken Unknown] oxycodone-acetaminophen 5 mg-325 mg tablet (Percocet) 1 tab PO Q8H PRN pain 3 days #10 tabs 12/27/23 [Rx Last Taken Unknown] Allergy/AdvReac Type Severity Reaction Status Date / Time diphenhydramine Allergy Severe Angioedema Verified 12/27/23 21:37 ibuprofen Allergy Intermediate Swelling Verified 12/27/23 21:37 tramadol Allergy Intermediate Swelling Verified 12/27/23 21:37 Family History Mother Asthma Aunt Colon cancer Father Asthma Sister Asthma Surgical History History of laparoscopic cholecystectomy Social History Smoking Status: Former smoker second hand exposure: No alcohol intake: never substance use type: does not use caffeine: Yes what type of physical activity do you participate in: none frequency: does not exercise ROS <ROWAN Lewis - Last Filed: 12/27/23 21:50> ROS ED ROS Narrative Constitutional: Negative for fever, chills, weight loss, weakness Eyes: Negative for vision loss, vision change, double vision ENT: Negative for any sore throat, ear pain, congestion. Positive for upper gumpain Cardiovascular: Negative for any chest pain, tightness, palpitations Respiratory: Negative for any cough, sputum production, hemoptysis, dyspnea, dyspnea on exertion, orthopnea Gastrointestinal: Negative for any abdominal pain, nausea, vomiting, diarrhea, constipation, blood in stool, blood in vomit : Negative for any urinary frequency, dysuria, retention, blood in urine Muscle skeletal: Negative for any neck pain, back pain Neurological: Negative for any headache, syncope, dizziness Skin: Negative for any rashes, itching, abrasions, lacerations Psychiatric: Negative for any depression, anxiety, stress, suicidal ideation, homicidal ideation Hematologic: Negative for any excessive bruising, easy bleeding EXAM <ROWAN Lewis - Last Filed: 12/27/23 21:50> Physical Exam Narrative Exam Narrative: Vital signs reviewed. HEET: Head normocephalic atraumatic, TMs clear bilaterally. Posterior pharynx is clear, moist mucous membranes. Nares clear bilaterally. Patient does have multiple sutures in place to the upper anterior gumline. There is some granulation tissue surrounding the gumline. Neck: Supple with no lymphadenopathy or tenderness. No signs of meningismus. Cardiac: Regular rate and rhythm no murmurs gallops or rubs, equal peripheral pulses bilaterally. Respiratory: Lungs clear to auscultation bilaterally. No chest tenderness. Abdomen: Soft, nontender, nondistended. No abdominal bruit or pulsatile masses. No hepatosplenomegaly Extremities: No peripheral edema, no signs of gross trauma or deformity. Activefull range of motion of all extremities. Neuro: Cranial nerves II through XII intact, no focal neurological deficits. Skin: Clean dry and intact with no rash, purpura, petechiae, vesicles or pustules. Backs/flank: No CVA tenderness, no midline spinal tenderness, no deformity. Psych: Normal mood and affect. No SI, HI or acute psychosis. Const Vital Signs: 12/27/23 21:33 Temperature 96.2 F L Temperature Source Temporal Pulse Rate 103 H Respiratory Rate 16 Blood Pressure 165/104 H Blood Pressure Mean 124 Pulse Ox 96 Oxygen Delivery Method Room Air <Andrews Scruggs MD - Last Filed: 12/27/23 21:54> Physical Exam Const Vital Signs: 12/27/23 21:33 Temperature 96.2 F L Temperature Source Temporal Pulse Rate 103 H Respiratory Rate 16 Blood Pressure 165/104 H Blood Pressure Mean 124 Pulse Ox 96 Oxygen Delivery Method Room Air [facility] <ROWAN Lewis - Last Filed: 12/27/23 21:50> [facility] Treatment and Re-Evaluation :: Differential diagnosis includes however is not limited to: Dental abscess, reversible pulpitis, gum abscess, postsurgery pain Patient appears to be in mild discomfort secondary to pain to her mouth. Patient is present to the emergency department for pain control following a recent gum flap surgery 4 days ago. Patient was given Homosassa, and she states Homosassa does not help, she also used all of them. I did look at the patient's gumline, there does seem to be some inflammation, I looked at the patient's phone, it does appear that this surgery was pretty significant. I spoke with the patient regarding pain medicine in the ER for dental pain. Patient will follow-up with her oral surgeon this upcoming week. I will provide her with 10 Percocet tablets. She is on amoxicillin at this time. She was instructed that if she needs more pain medicine that she needs to go back to her dentist, did not use the ER, she verbally understands, stable for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 Last Taken Unknown] sertraline 100 mg tablet (Zoloft) 200 mg PO DAILY 11/08/22 [History Last Taken Unknown] penicillin V potassium 500 mg tablet 500 mg PO 4X/DAY #40 tabs 11/09/22 [Rx Last Taken Unknown] acyclovir 800 mg tablet 800 mg PO TID 1 week #21 tabs 02/07/23 [Rx Last Taken Unknown] cephalexin 500 mg capsule 500 mg PO Q6 #40 CAPSULES 02/07/23 [Rx Last Taken Unknown] hydrocodone-acetaminophen 5-325mg 5mg-325mg 1 tab PO Q6H PRN PRN Pain 3 days #10TABLETS 04/14/23 [Rx Last Taken Unknown] Allergy/AdvReac Type Severity Reaction Status Date / Time ibuprofen Allergy Intermediate Swelling Verified 04/14/23 20:41 tramadol Allergy Intermediate Swelling Verified 04/14/23 20:41 Family History Mother Asthma Aunt Colon cancer Father Asthma Sister Asthma Surgical History History of laparoscopic cholecystectomy Social History Smoking Status: Former smoker second hand exposure: No alcohol intake: never substance use type: does not use caffeine: Yes what type of physical activity do you participate in: none frequency: does not exercise ROS ROS ED Constitutional Constitutional ED: Denies chills, fever(s), subjective, sweats or weight loss Eyes Eyes: Denies blurry vision, change in vision or other ENT ENT ED: Denies ear pain, rhinorrhea or sore throat Hematologic/Lymphatic Hematologic/Lymphatic: Denies easy bleeding or easy bruising Allergic/Immunologic Allergic/Immunologic ED: Denies mouth swelling, tongue swelling or urticaria EXAM Physical Exam Const Vital Signs: 04/14/23 20:41 Temperature 97.9 F Temperature Source Temporal Pulse Rate 102 H Respiratory Rate 18 Blood Pressure 129/89 H Blood Pressure Mean 102 Pulse Ox 98 Oxygen Delivery Method Room Air Positive well nourished, well developed and obese Constitutional Narrative: Patient appears uncomfortable. General Appearance ED: well developed Nutritional Appearance: obese HEENT Reports TM's clear HEENT Narrative: Is no trismus. There is no area of swelling or fluctuance. Face and Sinus: Negative for sinuses nontender Tympanic Membrane ED: Yes TM's clear Mouth ED: Yes oral and palatal mucosa normal, Yes lips normal, Yes tongue normal, Yes salivary gland normal, No mouth trauma and No oral and palatal mucosa abnormal Mouth: oral and palatal mucosa normal, lips normal, tongue normal, salivary gland normal, No mouth trauma and No oral and palatal mucosa abnormal Teeth and Gingiva: abnormal tooth and associated gingiva, caries, gingiva abnormal, poor dentition and teeth discoloration Throat: posterior oropharynx normal Eyes PERRL and EOMs intact bilaterally General Eye ED: Negative for pale conjunctiva or scleral icterus Neck no lymphadenopathy, supple and no JVD Neck Narrative: Trachea is midline. There is no firmness to the submental area. There is no inspiratory expiratory stridor. General: normal visual inspection; Negative for tenderness or submandibular swelling Lymph Lymphatic: no lymphadenopathy noted Resp normal respiratory effort and clear to auscultation bilaterally Cardio regular rate, regular rhythm, S1 normal heart sound, S2 normal heart sound and no murmurs Cardio Narrative: There is no history rheumatic fever or heart murmur. Patient is on no immunosuppressive meds. Extremity normal to inspection and no joint enlargement Neuro oriented x3, CN's II-XII intact bilaterally and moves all extremities Psych Mood & Affect: anxious Skin no rashes or lesions noted and no wounds MDM MDM MDM Narrative Medical decision making narrative: Patient has irreversible pulpitis. Treatment is opiate analgesics especially since patient has significant reaction to ibuprofen. She has schedule appointment with her dentist. As previously noted 9 of the 12 teeth have undergone root canal. There are 3 teeth remaining that need to be done. Discharge Plan Triage Chief Complaint: Dental ED Provider: Jorge Eldridge Dx/Rx/DC Orders Clinical Impression: Dental caries extending into pulp, Dental caries extending into dentine, Symptomatic irreversible pulpitis Instructions: ED Dental Pain Prescriptions: New hydrocodone-acetaminophen [hydrocodone-acetaminophen] 5-325 mg tablet 1 tab PO Q6H PRN PRN (Reason: Pain) 3 Days Qty: 10 0RF No Action albuterol sulfate 1 PUFF inhaler 1 - 2 puff inhalation Q6H PRN PRN (Reason: Sob &/Or Wheezing) lisinopril [Zestril] 20 mg tablet 20 mg PO QHS PRN (Reason: bloodpressure) metformin 500 mg tablet 500 mg PO BID atorvastatin 20 mg tablet 20 mg PO QHS alprazolam 1 mg tablet 0.5 mg PO TID PRN (Reason: Anxiety) sertraline [Zoloft] 100 mg tablet 200 mg PO DAILY insulin lispro [Humalog KwikPen Insulin] 100 unit/mL insulin pen 10 unit SUBCUT TID insulin glargine [Lantus Solostar U-100 Insulin] 100 unit/mL (3 mL) insulin pen 20 unit SUBCUT BREAKFAST penicillin V potassium 500 mg tablet 500 mg PO 4X/DAY Qty: 40 0RF cephalexin [cephalexin] 500 mg capsule 500 mg PO Q6 Qty: 40 0RF acyclovir 800 mg tablet 800 mg PO TID 7 Days Qty: 21 0RF Primary Care Provider: Radha Gao Referrals: Radha Gao MD [Primary Care Provider] - Disposition Disposition: Home, Self Care What to do if you have Problems For any increased pain, shortness of breath, bleeding, nausea or vomiting, chestpain, or any unexpected problems, contact your Primary Care Provider. Call [facility] ([phone]) or report to the closest Emergency Room. Call 911 if necessary. 04/14/232199 <Electronically signed by Joreg Eldridge MD> Cosigner Signature (if applicable): CC: Dr. Radha Gao MD ~ Signed [facility] Work Phone: 1(568) 931-988102-25-[address] Flores [facility] November 09, 2022 2:56am Note Date/Time November 08, 2022 10:51pm [facility] Medical Records Department [address] [place] [id number] Emergency Department Summary 11/08/22 MR#: [id number] Acct: [id number] Name: REKHA LEWIS Rep #:[id number] : 1980 42 From: Ac Flores MD PCP: Dr. Radha Gao MD Status:R EG ER Location: ED HPI HPI - GI History of Present Illness Chief Complaint: Abd Pain Informant: patient Abdominal Pain/Flank Pain Onset: Days Context: Gradual Onset Timing: Intermittent Location: RUQ Current Severity: Mild Maximum Severity: Mild Worsened by: Nothing Relieved by: Nothing Nausea/Vomiting/Emesis GI Symptom: Positive for Nausea Severity: Mild Associated Symptoms Associated Symptoms: Negative for Dysuria, Frequency, Hematuria or Urgency Narrative Narrative: 42-year-old female history of insulin-dependent diabetes, hypertension, anxiety,prior hernia repairs and prior cholecystectomy. States the last several days her blood sugars have been elevating and running around 280. She is also had diarrhea. Said initially it was watery and very loose and now she is having a small amount of bright red blood with her stool. No melena. No hematemesis. No fever. No dysuria. States that she has anxiety and that she believes that is playing a part in this. Prior similar symptoms: Yes Recent Illness/Hospitalization: No PFSH PFSH Medical History Abdominal pain Anxiety Back problem Dental caries Depression Diabetes Fatigue Hemorrhoids Hyperlipidemia Hypertension Recurrent hernia RUQ abdominal pain SOB (shortness of breath) Home Medications albuterol sulfate 90 mcg/actuation aerosol inhaler 1 - 2 puff inhalation Q6H PRNPRN Sob &/Or Wheezing 08/26/19 [History Last Taken Unknown] lisinopril 20 mg tablet (Zestril) 20 mg PO QHS PRN bloodpressure 01/30/21 [History Last Taken Unknown] alprazolam 1 mg tablet 0.5 mg PO TID PRN Anxiety 11/08/22 [History Last Taken Unknown] atorvastatin 20 mg tablet 20 mg PO QHS 11/08/22 [History Last Taken Unknown] insulin glargine 100 unit/mL (3 mL) subcutaneous pen (Lantus Solostar U-100 Insulin) 20 unit subcut BREAKFAST 11/08/22 [History Last Taken Unknown] insulin lispro 100 unit/mL subcutaneous pen (Humalog KwikPen (U-100) Insulin) 10unit subcut TID 11/08/22 [History Last Taken Unknown] metformin 500 mg tablet 500 mg PO BID 11/08/22 [History Last Taken Unknown] sertraline 100 mg tablet (Zoloft) 200 mg PO DAILY 11/08/22 [History Last Taken Unknown] penicillin V potassium 500 mg tablet 500 mg PO 4X/DAY #40 tabs 11/09/22 [Rx Last Taken Unknown] Allergy/AdvReac Type Severity Reaction Status Date / Time No Known Allergies Allergy Verified 11/08/22 22:16 Family History Mother Asthma Aunt Colon cancer Father Asthma Sister Asthma Surgical History History of laparoscopic cholecystectomy Social History Smoking Status: Former smoker second hand exposure: No alcohol intake: never substance use type: does not use caffeine: Yes what type of physical activity do you participate in: none frequency: does not exercise ROS ROS ED ROS Narrative Nausea, diarrhea bright red blood with stool. Mild right upper quadrant abdominal discomfort. Review of Systems ROS Unobtainable: Denies due to encephalopathy Constitutional Constitutional ED: Reports chills; Denies fever(s) ENT ENT ED: Denies ear pain Cardiovascular Cardiovascular: Denies chest pain Respiratory/Chest Respiratory/Chest: Denies cough or dyspnea Gastrointestinal Gastrointestinal: Reports abdominal pain, diarrhea and nausea; Denies melena Genitourinary Genitourinary ED: Denies dysuria Musculoskeletal Musculoskeletal: Denies arthralgias Integumentary Denies abscess Neurologic Neurologic: Denies headache(s) Psychiatric Psychiatric: Reports anxiety Endocrine Endocrinology: Denies polydipsia Hematologic/Lymphatic Hematologic/Lymphatic: Denies easy bleeding Allergic/Immunologic Allergic/Immunologic ED: Denies mouth swelling or tongue swelling EXAM Physical Exam Narrative Exam Narrative: 42-year-old female no acute distress. Vital signs stable afebrile. She does not look septic or toxic. Does not look significantly dehydrated. H EENT exam unremarkable. Moist mucous membranes. Neck nontender. Lungs clear to auscultation bilaterally. Heart regular rhythm rate about 95 no murmur. Chest wall nontender. Abdomen soft, nondistended normal bowel sounds. No peritoneal signs. Very minimal right upper quadrant tenderness. No Aponte sign. Right lower quadrant unremarkable. No signs of obstruction. Moving all 4 extremities. Calves are nontender without edema. Back nontender. Neurologically she is awake and alert with no focal motor deficits Const Vital Signs: 11/08/22 22:16 11/09/22 02:20 Temperature 97.4 F L Temperature Source Temporal Pulse Rate 98 78 Respiratory Rate 16 18 Blood Pressure 155/91 H 145/78 H Blood Pressure Mean 112 100 Pulse Ox 99 97 Oxygen Delivery Method Room Air Room Air Positive well nourished, well developed and obese; Negative for cachectic, contractures or unkempt General Appearance ED: well developed; Negative for unkempt, cachectic, contractures or pallor Nutritional Appearance: obese; Negative for cachectic HEENT Reports moist mucous membranes normocephalic and atraumatic; Negative for trauma or tenderness Eyes PERRL and EOMs intact bilaterally General Eye ED: Negative for pale conjunctiva, scleral icterus or other Neck no lymphadenopathy, supple and no JVD General: Negative for tenderness Carotids: Negative for other Resp normal respiratory effort and clear to auscultation bilaterally Effort and Inspection: Negative for respiratory distress Auscultation: Negative for rales, rhonchi or wheezes Cardio regular rate, regular rhythm, S1 normal heart sound, S2 normal heart sound and no murmurs Rhythm: Negative for abnormal rhythm GI non-distended and no masses; Negative for non-tender Inspection: Negative for abdominal distention Auscultation: normoactive bowel sounds Palpation: soft and tender; Negative for guarding, rigid, mass, pulsatile mass or rebound tenderness present Back/Spine no CVA tenderness General Back: Negative for CVA tenderness Cervical Spine: Negative for cervical spine tenderness Thoracic Spine / Upper Back: Negative for thoracic spinal tenderness Lumbar Spine / Lower Back: Negative for lumbar spinal tenderness Extremity full ROM General Extremety ED: Negative for edema or tenderness General Extremity: Negative for edema Neuro CN's II-XII intact bilaterally and moves all extremities Sensorium / Orientation: alert, oriented to person, oriented to place and oriented to time; Negative for orientation impaired, confused, lethargic or stuporous Sensory Exam: No sensory level loss detected Motor Exam: strength 5/5 throughout; Negative for general weakness Psych mental status grossly normal and thought process normal Appearance: Negative for unkempt Attitude: No agitated Mood & Affect: Negative for depressed Skin General Skin Exam: Negative for jaundice or pallor Lesions: no lesions Rashes: no rashes Trauma: Negative for abrasion Nails: Negative for discolored MDM MDM MDM Narrative Medical decision making narrative: 42-year-old female anxious with nausea and diarrhea. I suspect the bright red blood is either from hemorrhoids or irritation to her rectum or colon. Does notsound like a significant mount of blood. She will be treated with IV fluids andIV Zofran. Screening labs are being obtained. Her exam is benign. At this time I do not think she needs any imaging. Differential would include viral syndrome versus colitis versus other etiologies. Also there is definitely a component of anxiety. She also has an elevated blood sugar which will be checked with the labs. Repeat exam patient is doing well. Abdomen is benign. At 2:40 AM. She has noperitoneal signs. No localizing tenderness. She and I went over her test results. She has had multiple recent CAT scans all of which were unremarkable of her abdomen. I do not think she needs further imaging. She will be discharged to home. She did have me evaluate her teeth her upper tooth is eroded into the gum there is gingivitis. She will be started on Pen-Vee K and aprescription to be sent to her pharmacy 4 times a day for 10 days. She has a follow-up appointment to see a dentist. She has a follow-up appointment to see a primary care physician at the local [facility]. Lab Data Attestation: I reviewed the patient's lab results. Lab results narrative: CBC shows a white count of 15.3. H&H of 14.1 and 43. Platelet count 305. Electrolytes show a gap of 9 normal BUN of 13 creatinine 0.79. Liver enzymes are normal. Lipase is 63. Glucose is 159. Labs: Laboratory Results - last 24 hr 11/08/22 11/08/22 23:40 23:40 WBC 15.3 H RBC 5.02 Hgb 14.1 Hct 43.1 MCV 85.9 MCH 28.1 MCHC 32.7 RDW Std Deviation 40.3 RDW Coeff of Michelle 13.1 Plt Count 305 MPV 9.3 Immature Gran % (Auto) 2.100 H Neut % (Auto) 81.4 H Lymph % (Auto) 10.3 L [place] % (Auto) 5.6 Eos % (Auto) 0.3 Baso % (Auto) 0.3 Absolute Neuts (auto) 12.5 H Absolute Lymphs (auto) 1.57 Nucleated RBC % 0 Sodium 140 Potassium 3.8 Chloride 107 Carbon Dioxide 24.0 Anion Gap 9 BUN 13 Creatinine 0.79 Estim Creat Clear Calc 81.77 Est GFR (MDRD) Af Amer 101 Est GFR (MDRD) Non-Af 84 BUN/Creatinine Ratio 16.4 Glucose 159 H Calcium 9.2 Total Bilirubin 0.50 AST 13 L ALT 31 Alkaline Phosphatase 97 Total Protein 7.6 Albumin 3.6 Globulin 4.0 Albumin/Globulin Ratio 0.9 Lipase 63 L Discharge Plan Triage Chief Complaint: Abd Pain Other Complaint: Nausea/Vomiting/Diarrhea ED Provider: Ac Flores Dx/Rx/DC Orders Clinical Impression: Abdominal pain, Diarrhea Instructions: Abdominal Pain Prescriptions: New penicillin V potassium 500 mg tablet 500 mg PO 4X/DAY Qty: 40 0RF No Action albuterol sulfate 1 PUFF inhaler 1 - 2 puff inhalation Q6H PRN PRN (Reason: Sob &/Or Wheezing) lisinopril [Zestril] 20 mg tablet 20 mg PO QHS PRN (Reason: bloodpressure) metformin 500 mg tablet 500 mg PO BID atorvastatin 20 mg tablet 20 mg PO QHS alprazolam 1 mg tablet 0.5 mg PO TID PRN (Reason: Anxiety) sertraline [Zoloft] 100 mg tablet 200 mg PO DAILY insulin lispro [Humalog KwikPen Insulin] 100 unit/mL insulin pen 10 unit SUBCUT TID insulin glargine [Lantus Solostar U-100 Insulin] 100 unit/mL (3 mL) insulin pen 20 unit SUBCUT BREAKFAST Primary Care Provider: Radha Gao Referrals: Radha Gao MD [Primary Care Provider] - Activity Restrictions/Additional Instructions: Follow-up with your doctor Disposition Disposition: Home, Self Care What to do if you have Problems For any increased pain, shortness of breath, bleeding, nausea or vomiting, chestpain, or any unexpected problems, contact your Primary Care Provider. Call [facility] ([phone]) or report to the closest Emergency Room. Call 911 if necessary. 11/09/22255 <Electronically signed by Ac Flores MD> Cosigner Signature (if applicable): CC: Dr. Radha Gao MD ~ Signed [facility] Work Phone: Discharge summary Author Andrews Scruggs [facility] June 06, 2023 4:43am Note Date/Time June 06, 2023 4:19am [facility] Medical Records Department [address] [place] [address] Emergency Department Summary 06/06/23 MR#: [id number] Acct: [id number] Name: REKHA LEWIS Rep #:[id number] : 1980 43 From: Andrews Scruggs MD PCP: Dr. Radha Gao MD Status:R EG ER Location: ED HPI History of Present Illness Chief Complaint: Dental Narrative Narrative: 43-year-old female presents with dental pain that began acutely this morning that woke her from sleep. She had multiple problems including symptomatic irreversible pulpitis. She has had multiple root canals by Dr. Irvin, her dentist. She states that she had teeth in her right upper jaw worked on previously with root canals, [facility] Medical History Abdominal pain Anxiety Back problem Dental caries Depression Diabetes Fatigue Hemorrhoids Hyperlipidemia Hypertension Recurrent hernia RUQ abdominal pain SOB (shortness of breath) Home Medications albuterol sulfate 90 mcg/actuation aerosol inhaler 1 - 2 puff inhalation Q6H PRNPRN Sob &/Or Wheezing 08/26/19 [History Last Taken Unknown] lisinopril 20 mg tablet (Zestril) 20 mg PO QHS PRN bloodpressure 01/30/21 [History Last Taken Unknown] alprazolam 1 mg tablet 0.5 mg PO TID PRN Anxiety 11/08/22 [History Last Taken Unknown] atorvastatin 20 mg tablet 20 mg PO QHS 11/08/22 [History Last Taken Unknown] insulin glargine 100 unit/mL (3 mL) subcutaneous pen (Lantus Solostar U-100 Insulin) 20 unit subcut BREAKFAST 11/08/22 [History Last Taken Unknown] insulin lispro 100 unit/mL subcutaneous pen (Humalog KwikPen (U-100) Insulin) 10unit subcut TID 11/08/22 [History Last Taken Unknown] metformin 500 mg tablet 500 mg PO BID 11/08/22 [History Last Taken Unknown] sertraline 100 mg tablet (Zoloft) 200 mg PO DAILY 11/08/22 [History Last Taken Unknown] amoxicillin 875 mg tablet 875 mg PO Q12H 06/06/23 [History Last Taken Unknown] hydrocodone-acetaminophen 5-325mg 5mg-325mg 1 tab PO Q6H PRN PRN Pain 3 days #12TABLETS 06/06/23 [Rx Last Taken Unknown] Allergy/AdvReac Type Severity Reaction Status Date / Time ibuprofen Allergy Intermediate Swelling Verified 06/06/23 04:02 tramadol Allergy Intermediate Swelling Verified 06/06/23 04:02 Family History Mother Asthma Aunt Colon cancer Father Asthma Sister Asthma Surgical History History of laparoscopic cholecystectomy Social History Smoking Status: Former smoker second hand exposure: No alcohol intake: never substance use type: does not use caffeine: Yes what type of physical activity do you participate in: none frequency: does not exercise ROS ROS ED ROS Narrative Constitutional: No fever, no chills. HEENT: No sore throat. No neck pain. No loss of vision. No rhinorrhea. Positive dental pain mainly in teeth and right upper jaw towards front teeth. Cardiovascular: No chest pain. No palpitations. No pedal edema. Respiratory: No cough, no shortness of breath. Abdominal: No abdominal pain. No nausea. No vomiting. Genitourinary: No dysuria. No hematuria. Musculoskeletal: No myalgias. No arthralgias. Neurologic: No headaches. No dizziness. No lightheadedness. Skin: No rash. No change in color. Psychiatric: No depression. No anxiety. EXAM Physical Exam Narrative Exam Narrative: Afebrile. Vital signs noted. HEENT: Normocephalic. Atraumatic. PERRL, EOMI. Neck soft and supple. No pointtenderness or step off. Positive dental tenderness right to front upper teeth, airway patent. No drooling or trismus. No fluctuant abscess of the gums, but mild gingival inflammation. Cardiovascular: Regular rate and rhythm. No murmurs, rubs, or gallops appreciated. Respiratory: No tachypnea. Lungs clear to auscultation bilaterally. Gastrointestinal: Abdomen soft, nontender, with normoactive bowel sounds. No rebound or guarding. Neurological: Awake. Alert. Nonfocal, nonlateralizing. Skin: No rash. Normal color. No pallor. Musculoskeletal: No pedal edema. Full range of motion extremities. Const Vital Signs: 06/06/23 04:04 Temperature 97.7 F L Temperature Source Temporal Pulse Rate 97 Respiratory Rate 16 Blood Pressure 146/92 H Blood Pressure Mean 110 Pulse Ox 98 Oxygen Delivery Method Room Air MDM MDM MDM Narrative Medical decision making narrative: I reviewed the patient's prior records. She was treated with opiates in the past because of her fear of washable pulpitis. She states she already has prescriptions that she can fill for antibiotics which would treat any gingivitis, but I do not feel that she has acute necrotizing gingivitis. This may be her irreversible pulpitis, but she states she has had root canal on some of these teeth before. As she drove here, I cannot give her any analgesics because she has strong allergies to ibuprofen and tramadol. She was written a prescription for 12 tablets of [place] which she has been prescribed in the past. She will follow-up with her dentist, Dr. Soto, on Friday as she states they are closed today. I feel she can be discharged safely home with follow-up on her antibiotics and a short course of therapy of narcotics. I did review her prescription monitoring program. Disposition is discharged in stable condition. Discharge Plan Triage Chief Complaint: Dental ED Provider: Andrews Scruggs Dx/Rx/DC Orders Clinical Impression: Pain, dental, Symptomatic irreversible pulpitis Instructions: ED Dental Pain Prescriptions: New hydrocodone-acetaminophen 5-325 mg tablet 1 tab PO Q6H PRN PRN (Reason: Pain) 3 Days Qty: 12 0RF No Action albuterol sulfate 1 PUFF inhaler 1 - 2 puff inhalation Q6H PRN PRN (Reason: Sob &/Or Wheezing) lisinopril [Zestril] 20 mg tablet 20 mg PO QHS PRN (Reason: bloodpressure) metformin 500 mg tablet 500 mg PO BID atorvastatin 20 mg tablet 20 mg PO QHS alprazolam 1 mg tablet 0.5 mg PO TID PRN (Reason: Anxiety) sertraline [Zoloft] 100 mg tablet 200 mg PO DAILY insulin lispro [Humalog KwikPen Insulin] 100 unit/mL insulin pen 10 unit SUBCUT TID insulin glargine [Lantus Solostar U-100 Insulin] 100 unit/mL (3 mL) insulin pen 20 unit SUBCUT BREAKFAST amoxicillin 875 mg tablet 875 mg PO Q12H Patient Comments: TAKE 1 TABLET BY MOUTH TWICE A DAY FOR 10 DAYS Primary Care Provider: Radha Gao Referrals: Radha Gao MD [Primary Care Provider] - Activity Restrictions/Additional Instructions: Follow-up with your dentist, Dr. Irvin on Friday. Disposition Disposition: Home, Self Care What to do if you have Problems For any increased pain, shortness of breath, bleeding, nausea or vomiting, chestpain, or any unexpected problems, contact your Primary Care Provider. Call [facility] ([phone]) or report to the closest Emergency Room. Call 911 if necessary. 06/06/23 0443 <Electronically signed by Andrews Scruggs MD> Cosigner Signature (if applicable): CC: Dr. Radha Gao MD ~ Signed [facility] Work Phone: Discharge summary Author Diallo Harley [facility] July 15, 2023 2:27am Note Date/Time July 15, 2023 2 :26am [facility] Medical Records Department [address] [place] [address] Emergency Department Summary 07/15/23 MR#: [id number] Acct: [id number] Name: REKHA LEWIS Rep #:[id number] 4 : 1980 43 From: Diallo Harley MD PCP: Dr. Radha Gao MD Status:R EG ER Location: ED HPI History of Present Illness Chief Complaint: Dental Narrative Narrative: Dental pain. She tells me she has widespread dental decay she has had multiple dental visits in the past few years she just had a dental visit and asked the dentist for pain medications and antibiotics but apparently they were not prescribed. She has no fever or chills. She tells me her pain is throughout her mouth and she points to 5 or 6 different teeth that are hurting. [facility] Medical History Abdominal pain Anxiety Back problem Dental caries Depression Diabetes Fatigue Hemorrhoids Hyperlipidemia Hypertension Recurrent hernia RUQ abdominal pain SOB (shortness of breath) Home Medications albuterol sulfate 90 mcg/actuation aerosol inhaler 1 - 2 puff inhalation Q6H PRNPRN Sob &/Or Wheezing 08/26/19 [History Last Taken Unknown] lisinopril 20 mg tablet (Zestril) 20 mg PO QHS PRN bloodpressure 01/30/21 [History Last Taken Unknown] atorvastatin 20 mg tablet 20 mg PO QHS 11/08/22 [History Last Taken Unknown] metformin 500 mg tablet 500 mg PO BID 11/08/22 [History Last Taken Unknown] sertraline 100 mg tablet (Zoloft) 200 mg PO DAILY 11/08/22 [History Last Taken Unknown] clindamycin HCl 150 mg capsule 150 mg PO TID #15 caps 07/15/23 [Rx Last Taken Unknown] dulaglutide 0.75 mg/0.5 mL subcutaneous pen injector (Trulicity) mg subcut .qwed1 [History Last Taken Unknown] Allergy/AdvReac Type Severity Reaction Status Date / Time ibuprofen Allergy Intermediate Swelling Verified 07/15/23 02:18 tramadol Allergy Intermediate Swelling Verified 07/15/23 02:18 Family History Mother Asthma Aunt Colon cancer Father Asthma Sister Asthma Surgical History History of laparoscopic cholecystectomy Social History Smoking Status: Former smoker second hand exposure: No alcohol intake: never substance use type: does not use caffeine: Yes what type of physical activity do you participate in: none frequency: does not exercise ROS ROS ED ROS Narrative Review of systems: All systems negative except as indicated General: No fever ENT: Dental pain as in HPI Neck: No neck pain Cardiovascular: No chest pain Respiratory: No shortness of breath or cough EXAM Physical Exam Narrative Exam Narrative: Physical exam General: There is relatively comfortable as I walk into the Head: Normocephalic, Atraumatic Eyes: Conjunctiva not pale ENT: Some dental decay, she does not have any Alberto apical abscesses or any abscesses throughout her mouth. She is painful throughout but not 1 specific spot. There is no facial swelling. Neck: Supple, Nontender, No lymphadenopathy Const Vital Signs: 07/15/23 02:13 Temperature 96.4 F L Temperature Source Temporal Pulse Rate 95 Respiratory Rate 18 Blood Pressure 138/87 H Blood Pressure Mean 104 Pulse Ox 99 Oxygen Delivery Method Room Air MDM MDM MDM Narrative Medical decision making narrative: Patient had may have an infection especially she had recent dental work. I willput her on antibiotics. She tells me she can only take small amounts of ibuprofen she cannot take Naprosyn, she has been taking Tylenol at home. She requested opiate analgesics on multiple occasions, I told her I can give her a Percocet in the ED but she was driving if she can get a ride home I would give her Percocet. I do not feel comfortable prescribing opiate analgesics for home,as far as I am concerned this is relatively not verifiable pain she had a recentprescription about a month ago of Percocet, and I am worried about addiction therefore I will not prescribe opiates for home. She can follow-up with her dentist who can also prescribe opiates. Otherwise I will discharge her. I did give her clindamycin in the ED and a prescription for home Discharge Plan Triage Chief Complaint: Dental ED Provider: Diallo Harley Dx/Rx/DC Orders Clinical Impression: Dental caries, Odontalgia Instructions: ED Dental Pain Prescriptions: New clindamycin HCl 150 mg capsule 150 mg PO TID Qty: 15 0RF No Action albuterol sulfate 1 PUFF inhaler 1 - 2 puff inhalation Q6H PRN PRN (Reason: Sob &/Or Wheezing) lisinopril [Zestril] 20 mg tablet 20 mg PO QHS PRN (Reason: bloodpressure) metformin 500 mg tablet 500 mg PO BID atorvastatin 20 mg tablet 20 mg PO QHS sertraline [Zoloft] 100 mg tablet 200 mg PO DAILY Trulicity 0.75 mg/0.5 mL pen injector SUBCUT .qwed Patient Comments: INJECT 0.5 ML SUBCUTANEOUSLY EVERY WEEK Primary Care Provider: Radha Gao Referrals: Radha Gao MD [Primary Care Provider] - Activity Restrictions/Additional Instructions: Follow-up with your dentist who can prescribe pain medications and can reevaluate you. Disposition Disposition: Home, Self Care What to do if you have Problems For any increased pain, shortness of breath, bleeding, nausea or vomiting, chestpain, or any unexpected problems, contact your Primary Care Provider. Call [facility] ([phone]) or report to the closest Emergency Room. Call 911 if necessary. 07/15/23226 <Electronically signed by Diallo Harley MD> Cosigner Signature (if applicable): CC: Dr. Radha Gao MD ~ Signed [facility] Work Phone: Evaluation noteNo assessment information available [facility] Work Phone: Hospital Discharge instructions Additional Instructions CAT scan labs are unremarkable. No specific cause for your right flank pain. Follow-up with your surgeon for your umbilical hernia.[facility] Work Phone: [facility]: [facility] Discharge instructions Additional Instructions [facility] Work Phone: Hospital Discharge instructions Additional Instructions Follow-up with your dentist, Dr. Irvin on Friday.[facility] Work Phone: Hospital Discharge instructions Additional Instructions Follow-up with your dentist who can prescribe pain medications and can reevaluate you.[facility] Work Phone: Hospital Discharge instructions Additional Instructions Please follow-up with your dentist.[facility] Work Phone: Summary Purpose Family History No Family History Records Found Relationship Condition Age at Onset Recorded Date/T jeremie mother Asthma Unknown aunt Malignant neoplasm of colon Unknown father Asthma Unknown sister Asthma Unknown Advance Directives No Advanced Directives Records Found Advance Directive Response Recorded Date/ Time Living Will No January 13, 2022 6: 27pm Power of Crimp Setter No January 13, 2022 6:27pm Advance Directive Response Recorded Date/ Time Living Will No January 21, 2022 9: 50pm Power of Crimp Setter No January 21, 2022 9:50pm Advance Directive Response Recorded Date/ Time Living Will No November 08 11:41pm Power of Crimp Setter No November 08, 2022 11:41pm Advance Directive Response Recorded Date/ Time Living Will No April 14, 2023 9:52pm Power of Crimp Setter No April 14 9:52pm Advance Directive Response Recorded Date/ Time Living Will No June 06, 2023 4:05am Power of Crimp Setter No May 4:05am Advance Directive Response Recorded Date/ Time Living Will No July 15 2:17am Power of Crimp Setter No July 15, 2023 2:17am Advance Directive Response Recorded Date/ Time Living Will No July 15 6:21pm Power of Crimp Setter No July 15, 2023 6:21pm Advance Directive Response Recorded Date/ Time Living Will No September 03, 023 2:31am Power of Crimp Setter No September 03, 2023 2:31am Advance Directive Response Recorded Date/ Time Living Will No December 27, 2023 9:43pm Power of Crimp Setter No December 26 9:43pm Chief Complaint and Reason for Visit Chief Complaint ABD PAIN Chief Complaint ABD PAIN PALPITATIONS Chief Complaint NVD Chief Complaint ARM PAIN Mouth pain Chief Complaint ARM PAIN Mouth pain dental pain Chief Complaint Mouth pain dental pain teeth Chief Complaint Mouth pain dental pain teeth dental Chief Complaint dental pain teeth dental ABD & FLANK PAIN Chief Complaint ABD & FLANK PAIN post op pain Additional Source Comments INFORMATION SOURCE (unrecogn ized section and content) DATE CREATED AUTHOR 06/02/2021 [facility] DATE CREATED AUTHOR AUTHOR'S ORGANIZ ATION 06/30/2023 [facility] ([place]) DATE CREATED AUTHOR AUTHOR'S ORGANIZ ATION 10/13/2024 [facility] DATE CREATED AUTHOR AUTHOR'S ORGANIZ ATION 01/11/2025 [facility] Goals (unrecognized section and content) Goals may be documented in a n alternate sectionGoals may be documented in an alternate sectionGoals may be documented in an alternate sectionGoals may be documented in an alternate sectionGoals may be documented in an alternate sectionGoals may be documented in an alternate sectionGoals may be documented in an alternate sectionGoals may be documented in an alternate sectionGoals may be documented in an alternate section Care Teams (unrecognized sec tion and content) Team Status: Active Member Role Status Dates Dr. Radha Gao MD Family Provider Active Dr. Radha Gao MD Primary Care Provider Active Team Status: Inactive Member Role Status Dates Dr. Radha Gao MD Primary Care Provider Active Dr. Ac Flores MD Emergency Provider Active Team Status: Inactive Member Role Status Dates Dr. Radha Gao MD Primary Care Provider Active Dr. Hugo Nick MD Attending Provider, Emergency Provider Active Team Status: Inactive Member Role Status Dates Dr. Radha Gao MD Primary Care Provider Active Dr. Jorge Eldridge MD Emergency Provider Active Team Status: Inactive Member Role Status Dates Dr. Radha Gao MD Primary Care Provider Active Dr. Jorge Eldridge MD Attending Provider, Emergency Provi mansoor Active Team Status: Inactive Member Role Status Dates Dr. Radha Gao MD Primary Care Provider Active Andrews Scruggs MD Emergency Provider Active Team Status: Inactive Member Role Status Dates Dr. Radha Gao MD Primary Care Provider Active Andrews Scruggs MD Attending Provider, Emergency Provid er Active Team Status: Inactive Member Role Status Dates Dr. Radha Gao MD Primary Care Provider Active Dr. Diallo Harley MD Emergency Provider Active Team Status: Inactive Member Role Status Dates Dr. Radha Gao MD Primary Care Provider Active Dr. Andrea Luna DO Emergency Provider Active Team Status: Inactive Member Role Status Dates Dr. Radha Gao MD Primary Care Provider Active Dr. Andrea Luna DO Attending Provider, Emergency Provider Active Team Status: Inactive Member Role Status Dates Dr. Radha Gao MD Primary Care Provider Active Dr. Jesús Khan MD Emergency Provider Active Team Status: Inactive Member Role Status Dates Dr. Radha Gao MD Primary Care Provider Active Dr. Diallo Harley MD Attending Provider, Emergency Pr ovider Active Team Status: Active Member Role Status Dates Dr. Radha Gao MD Family Provider Active No Primary Care Physician Primary Care Provider Active Team Status: Inactive Member Role Status Dates Dr. Radha Gao MD Primary Care Provider Active Dr. Jesús Khan MD Attending Provider, Emergency Provider Active Team Status: Inactive Member Role Status Dates Andrews Scruggs MD Emergency Provider Active No Primary Care Physician Primary Care Provider Active FOR RECORDS PERTAINING TO PATIENTS WHO ARE OR HAVE BEEN ENROLLED IN A CHEMICAL DEPENDENCY/SUBSTANCEABUSE PROGRAM, SOME INFORMATION MAY BE OMITTED. This clinical summary was aggregated from multiple sources. Caution should be exercised in using it in the provision of clinical care. This summary normalizes information from multiple sources, and as a consequence, information in this document may materially change the coding, format and clinical context of patient data. In addition, data may be omitted in some cases. CLINICAL DECISIONS SHOULD BE BASED ON THE PRIMARY CLINICAL RECORDS. [facility]. provides no warranty or guarantee of the accuracy or completeness of information in this document.
--- NOTE | 2025-05-16 16:03 | EDS_ITS ---
HPI History of Present Illness HPI Narrative: 45-year-old female past medical history of hypertension diabetes. She has had chronic left shoulder pain for years. Is progressively gotten worse over the last week. Denies any fall injury or trauma. She has never had surgery of her left shoulder and denies ever having an MRI. She was told by her primary care physician in [place] that she might have a rotator cuff tear years ago but they never did imaging to confirm that. She denies any fever redness or swelling her shoulder just hurts with movement. Repeat exam patient is doing well at 4:50 PM. She however x-ray shows no acute abnormality. I explained that we do not see cartilage or tendon or ligaments. Do not see the rotator cuff or the labrum on x-ray. She needs a follow-up MRI. She is referred to local orthopedics. She has appointment to see her primary care physician this week. She be written for limited [place] for pain and then she needs further evaluation. We discussed but she did not want a shoulder joint injection at this time but will discuss that with the orthopedic phys ician. She knows to return if she develops a fever or redness or swelling of the shoulder but clinically this is not infected at this time and her exam is unchanged from the initial exam today. Chief Complaint: Upper Extremity Injury Informant: patient Occured/Mechanism Mechanism/Context: No injury and No blunt trauma Onset/Context/Timing Onset: Month(s) Context: Gradual Onset Timing: Continuous Quality of Pain: Sharp Current Severity: Moderate Maximum Severity: Severe Associated Symptoms Associated Symptoms: Negative for Parasthesia, Weakness or Loss of Funtion Narrative Narrative: 45-year-old female [id number] acute on chronic worsening left shoulder pain. No fall injury or trauma. No fever or redness nor swelling. No prior surgery. Much worse with movement. Prior similar symptoms: Yes Recent Illness/Hospitalization: No PFSH PFSH Medical History Hyperlipidemia Diabetes Dental caries Recurrent hernia Hemorrhoids RUQ abdominal pain Abdominal pain SOB (shortness of breath) Anxiety Depression Hypertension Back problem Fatigue Home Medications ?Medication ?Instructions ?Recorded ?Last Taken ?Type albuterol sulfate 90 mcg/actuation 1 - 2 puff inhalati on Q6H PRN PRN 08/26/19 Unknown History aerosol inhaler Sob &/Or Wheezing lisinopril 20 mg tablet (Zestril) 20 mg PO QHS bloodpr essure 01/30/21 Unknown History atorvastatin 20 mg tablet 20 mg PO QHS 11/08/22 Unknow n History metformin 500 mg tablet 500 mg PO DAILY 11/08/22 Unk nown History sertraline 100 mg tablet (Zoloft) 200 mg PO DAILY 10/17 01/05 Unknown History dulaglutide 0.75 mg/0.5 mL 0.75 mg subcut .COMPLEX Unknown History subcutaneous pen injector (Trulicity) alprazolam 1 mg tablet 1 mg PO BID PRN anxiety 08/16 Unknown History hydrocodone-acetaminophen 5-325mg 1 tab PO Q6H PRN PRN Pain 3 days 09/03/23 Unknown Rx 5mg-325mg #10 TABLETS insulin glargine 100 unit/mL (3 20 unit subcut DAILY h yperglycemia 09/03/23 Unknown History mL) subcutaneous pen (Lantus Solostar U-100 Insulin) insulin lispro 100 unit/mL 8 unit subcut Q8H hyperglyc emia 09/03/23 Unknown History subcutaneous pen (Humalog KwikPen (U-100) Insulin) tizanidine 2 mg tablet 2 mg PO .COMPLEX PRN pulled muscles 09/03/23 Unknown History amoxicillin 875 mg tablet 875 mg PO BID 12/27/23 Unkno wn History amoxicillin 875 mg-potassium 1 tab PO BID 12/27/23 Unk nown History clavulanate 125 mg tablet blood sugar diagnostic (True 12/27/23 Unknown History Metrix Glucose Test Strip) oxycodone-acetaminophen 5 mg-325 1 tab PO Q8H PRN pain 3 days #10 12/27/23 Unknown Rx mg tablet (Percocet) tabs oxycodone-acetaminophen 5 mg-325 1 tab PO Q6H PRN PRN Pain 3 days 04/23/24 Unknown Rx mg tablet #12 TABLETS penicillin V potassium 500 mg 500 mg PO 4X/DAY #28 tab s 04/23/24 Unknown Rx tablet hydrocodone-acetaminophen 5-325mg 1 tab PO Q6H PRN PRN Pain 1 day #4 09/11/24 Unknown Rx 5mg-325mg TABLETS nitrofurantoin 100 mg PO Q12 #10 CAPSULES 1 11/12/23 Unknown Rx monohydrate/macrocrystals 100 mg capsule hydrocodone-acetaminophen 5-325mg 1 tab PO Q6H PRN PRN Pain 4 days 05/16/25 Unknown Rx 5mg-325mg #12 TABLETS Allergy/AdvReac Type Severity Reaction Status Date / Time diphenhydramine Allergy Severe Angioedema Verified 05/16/25 15:28 ibuprofen Allergy Intermediate Swelling Verified 05/16/25 15:28 tramadol Allergy Intermediate Swelling Verified 05/16/25 15:28 Family History Mother Asthma Aunt Colon cancer Father Asthma Sister Asthma Surgical History History of laparoscopic cholecystectomy Social History Smoking Status: Former smoker second hand exposure: No alcohol intake: never substance use type: does not use caffeine: Yes what type of physical activity do you participate in: none frequency: does not exercise ROS ROS ED ROS Narrative Denies recent illness. Constitutional Constitutional ED: Denies fever(s) Eyes Eyes: Denies blurry vision ENT ENT ED: Denies ear pain Cardiovascular Cardiovascular: Denies chest pain Respiratory/Chest Respiratory/Chest: Denies cough or dyspnea Gastrointestinal Gastrointestinal: Denies abdominal pain Genitourinary Genitourinary ED: Denies dysuria or hematuria Musculoskeletal Musculoskeletal: Denies back pain or myalgias Integumentary Denies abscess Neurologic Neurologic: Denies headache(s) Psychiatric Psychiatric: Denies anxiety or depression Endocrine Endocrinology: Denies cold intolerance Hematologic/Lymphatic Hematologic/Lymphatic: Denies easy bleeding, easy bruising or lymphadenopathy Allergic/Immunologic Allergic/Immunologic ED: Denies mouth swelling, tongue swelling or urticaria EXAM Physical Exam Narrative Exam Narrative: 45-year-old male vital signs stable afebrile no acute distress. Sitting upright in bed. H EENT exam normal. Pupils round react light. Moist mucous membranes. Lungs clear to auscultation bilateral. Heart regular rhythm no murmur. Chest wall ribs nontender. Abdomen soft nontender. Moving all 4 extremities. Left shoulder is not specifically tender. No swelling or redness. No warmth. No deformity exquisite pain with range of motion. No signs of septic joint. Normal flexion extension of the elbow and wrist. Normal temporary receptionist strength. Normal radial pulse intact sensation. Shoulder is normal in appearance there is no axillary lymphadenopathy. This does not appear to be a septic joint. Other extremities are unremarkable. If I lift the shoulder she can hold it up and just hurts to move it. Neurologically she is awake and alert. Answer question following commands. Const Vital Signs: 05/16/25 15:28 Temperature 96.1 F L Temperature Source Temporal Pulse Rate 93 Respiratory Rate 18 Blood Pressure 151/100 H Blood Pressure Mean 117 Pulse Ox 97 Oxygen Delivery Method Room Air Positive well nourished, well developed, cachectic, contractures and unkempt General Appearance ED: unkempt, well developed, cachectic, contractures, diaphoretic and NAD Nutritional Appearance: cachectic HEENT Reports moist mucous membranes normocephalic and atraumatic Eyes PERRL and EOMs intact bilaterally Neck full ROM and supple Chest Wall inspection of chest normal and palpation of chest normal Resp normal respiratory effort and clear to auscultation bilaterally Cardio regular rate, regular rhythm, S1 normal heart sound, S2 normal heart sound and no murmurs GI non-tender, non-distended and no masses Auscultation: normoactive bowel sounds Palpation: soft; Negative for tender, guarding or rebound tenderness present Back/Spine no CVA tenderness General Back: Negative for CVA tenderness Cervical Spine: Negative for cervical spine tenderness Thoracic Spine / Upper Back: Negative for thoracic spinal tenderness Lumbar Spine / Lower Back: Negative for lumbar spinal tenderness Extremity normal to inspection and full ROM Extremity Narrative: Except left shoulder. Pain with range of motion. No redness. No warmth. No effusion or swelling. No deformity. She can hold the arm up above her shoulder if I lifted for she does has pain with range of motion. I do not think this is a torn rotator cuff. I think it is more likely a labral issue. There is no signs this being of infection. Neuro oriented x3, CN's II-XII intact bilaterally, moves all extremities, no focal motor deficits and no sensory deficits noted Sensorium / Orientation: alert, oriented to person, oriented to place and oriented to time Motor Exam: strength 5/5 throughout Psych mental status grossly normal Appearance: unkempt Skin Lesions: no lesions Rashes: no rashes MDM MDM MDM Narrative Medical decision making narrative: 45-year-old with acute on chronic left shoulder pain. X-rays being obtained. She understands I cannot get an acute MRI today. She was given [place] for pain. History & Record Review Discussion w/independent historian: Patient Additional record(s) reviewed:: Prior inpatient record, Prior outpatient record, Prior ED visit and Prior labs Lab Data Attestation: I reviewed the patient's lab results. Radiography Diagnostic Testing: Left shoulder x-ray 4 views interpreted myself shows no acute abnormality. No fracture. No dislocation. No significant arthritis. Discharge Plan Triage Chief Complaint: Upper Extremity Injury ED Provider: Ac Flores Dx/Rx/DC Orders Clinical Impression: Acute shoulder pain Prescriptions: New hydrocodone-acetaminophen 5-325 mg tablet 1 tab PO Q6H PRN PRN (Reason: Pain) 4 Days Qty: 12 0RF No Action albuterol sulfate 1 PUFF inhaler 1 - 2 puff inhalation Q6H PRN PRN (Reason: Sob &/Or Wheezing) lisinopril [Zestril] 20 mg tablet 20 mg PO QHS metformin 500 mg tablet 500 mg PO DAILY Patient Comments: once daily due to undesirable side effects atorvastatin 20 mg tablet 20 mg PO QHS sertraline [Zoloft] 100 mg tablet 200 mg PO DAILY alprazolam 1 mg tablet 1 mg PO BID PRN (Reason: anxiety) Patient Comments: TAKE 1 TABLET BY MOUTH TWICE DAILY NEEDED FOR ANXIETY tizanidine 2 mg tablet 2 mg PO .COMPLEX PRN (Reason: pulled muscles) Patient Comments: TAKE 1 TABLET BY MOUTH ONCE DAILY in the IN THE MORNING, 1 (ONE) TABLET at noon, 2 (TWO) TABLETS at bedtime NEEDED (don't drive if you take medication) Rx Instructions: 2 mg orally ONCE DAILY in the IN THE MORNING, 1 (ONE) TABLET at noon, 2 (TWO) TABLETS at bedtime NEEDED; PRN; insulin glargine [Lantus Solostar U-100 Insulin] 100 unit/mL (3 mL) insulin pen 20 unit SUBCUT DAILY Patient Comments: INJECT 20 Units subcutaneously once daily In a.m insulin lispro [Humalog KwikPen Insulin] 100 unit/mL insulin pen 8 unit SUBCUT Q8H Patient Comments: INJECT 8 UNITS SUBCUTANEOUSLY THREE TIMES DAILY WITH MEALS; rarely takes d/t more controlled blood sugar Rx Instructions: 8 units subcutaneously; hydrocodone-acetaminophen [hydrocodone-acetaminophen] 5-325 mg tablet 1 tab PO Q6H PRN PRN (Reason: Pain) 3 Days Qty: 10 0RF Trulicity 0.75 mg/0.5 mL pen injector 0.75 mg SUBCUT .COMPLEX Patient Comments: INJECT 0.5 ML SUBCUTANEOUSLY EVERY WEEK Rx Instructions: 0.75 mg subcutaneously every week on Wednesdays; nitrofurantoin monohyd/m-cryst 100 mg capsule 100 mg PO Q12 Qty: 10 0RF hydrocodone-acetaminophen 5-325 mg tablet 1 tab PO Q6H PRN PRN (Reason: Pain) 1 Days Qty: 4 0RF oxycodone-acetaminophen [Percocet] 5-325 mg tablet 1 tab PO Q8H PRN (Reason: pain) 3 Days Qty: 10 0RF (DME) True Metrix Glucose Test Strip Strip MISCELLANEOUS 4X/DAY amoxicillin 875 mg tablet 875 mg PO BID amoxicillin-pot clavulanate 875-125 mg tablet 1 tab PO BID penicillin V potassium 500 mg tablet 500 mg PO 4X/DAY Qty: 28 0RF oxycodone-acetaminophen 5-325 mg tablet 1 tab PO Q6H PRN PRN (Reason: Pain) 3 Days Qty: 12 0RF Primary Care Provider: Juliet Gao Referrals: Kevin Malik DO [Med Staff - Active Staff] - As soon as possible Juliet Gao MD [Primary Care Provider] - Keep Deepa appointment Activity Restrictions/Additional Instructions: Call and follow-up with an orthopedic physician. I gave you Dr. Kevin Malik for referral. Ice to your shoulder. Motrin for pain and inflammation. [place] for more severe pain. Return if fever, redness or swelling to your shoulder. But at this time there is no signs of infection. Print Language: Bahraini Disposition Disposition: Home, Self Care
[2025-05-16] MEDS: HYDROcodone Bitartrate/Apap 5/325 Tablet PO (16:09)
--- NOTE | 2025-05-16 16:15 | RAD_ITS ---
PROCEDURE: SHOULDER MIN 2 VIEWS 05/16/2025 REASON FOR EXAM: ATRAUMATIC PAIN TECHNIQUE: Procedure Code: RADSH Modality: DX Procedure: SHOULDER MIN 2 VIEWS Laterality: Left COMPARISON: None FINDINGS: Fracture/dislocation: None visible. Joint space(s): Glenohumeral joint space relatively preserved. Moderate loss of AC joint space without bony hypertrophic changes. Soft tissues: Questioned joint effusion as below. Foreign bodies: None visible. Bone mineralization: Unremarkable. Other: Slight inferior subluxation of the humeral head with respect of the glenoid questioned on some images with slight soft tissue prominence, as can be seen in a joint effusion. RAD/Shoulder min 2 Views IMPRESSION: 1. No visible acute displaced fracture. 2. Question a nonspecific glenohumeral joint effusion. Reading Location: [id number]
[2025-05-16 17:01] VITALS: BP 150/80; PULSE 93; RESP 18; TEMP 35.6; O2SAT 97
== END 2025-05-16 17:01 | disposition home or self-care (01) ==
PROVIDERS: Emergency Provider Emergency Medicine; PCP Student in an Organized Health Care Education/Training Program; Visit Provider Emergency Medicine
DX: M25.512 Pain in left shoulder (principal); E11.9 Type 2 diabetes mellitus without complications; Z87.891 Personal history of nicotine dependence
CPT/HCPCS: 73030; 99282

== ENCOUNTER 2025-06-17 18:12 | Emergency (ER) | payer MEDICAID, SELFPAY ==
[2025-06-17 18:14] VITALS: BP 162/108; PULSE 100; RESP 18; TEMP 36.6; O2SAT 99; BMI 52.9
--- NOTE | 2025-06-17 20:11 | CM.ED ---
Social Work Patient requesting information regarding PCP. [facility] provider list given. No further needs at this time. Natasha Richard, GED TEACHER, PROPOSAL LEAD WRITER
[2025-06-17 20:13] VITALS: BP 132/70; PULSE 80; RESP 16; O2SAT 98
--- OUTSIDE RECORDS SUMMARY | 2025-06-17 20:31 | XMS RPT_ITS | CCD ---
Author Organization [facility] Care Team Providers Care Building Inspection Engineer Name Role Phone [place], DR ROHAN [place] Attending Unavailabl e PHYSICIAN, NONE Primary Care Unavailable Sima [place], Dr. hCung Primary Care Provider Mark [place], Dr. Shen Emergency Provider [phone] Radha Gao Primary Care Unavailable Ac Flores Attending Unavailable Mathew Gonsales Attending Unavailable Care Physician, No Primary Primary Care Unava ilable Radha Gao Primary Care Unavailable Oswaldo Sawyer Attending Unavailable Radha Gao Referring Unavailable Martin Reese Attending Unavailable Virginia Sanchez Referring Unavailable Radha Gao Primary Care Unavailable Radha Gao Primary Care Unavailable Astrrashmi Vera Referring Unavailable Bang Sancheza Attending Unavailable RADHA GAO MD Primary Care Unavailable RADHA GAO MD Consulting Unavailable RADHA GAO MD Attending Unavailable RADHA GAO MD Admitting Unavailable PROVIDER, UNKNOWN Consulting Unavailable PROVIDER, UNKNOWN Consulting Unavailable RADHA GAO MD Consulting Unavailable RADHA GAO MD Attending Unavailable RADHA GAO MD Admitting Unavailable RADHA GAO MD Primary Care Unavailable PROVIDER, UNKNOWN Consulting Unavailable PROVIDER, UNKNOWN Consulting Unavailable RADHA GAO MD Consulting Unavailable RADHA GAO MD Primary Care Unavailable RADHA GAO MD Attending Unavailable RADHA GAO MD Admitting Unavailable PROVIDER, UNKNOWN Consulting Unavailable PROVIDER, UNKNOWN Consulting Unavailable RADHA GAO MD Consulting Unavailable RADHA GAO MD Attending Unavailable RADHA GAO MD Admitting Unavailable RADHA GAO MD Primary Care Unavailable PROVIDER, UNKNOWN Consulting Unavailable PROVIDER, UNKNOWN Consulting Unavailable RADHA GAO MD Consulting Unavailable RADHA GAO MD Attending Unavailable RADHA GAO MD Admitting Unavailable RADHA GAO MD Primary Care Unavailable PROVIDER, UNKNOWN Consulting Unavailable PROVIDER, UNKNOWN Consulting Unavailable Allergies Allergy Classification Reported Allergen(s) Allergy Type Date of Onset Reaction(s) Facility (7 sources) Ibuprofen Drug Allergy 3 Swelling [facility] (7 sources) traMADol Drug Allergy 3 Swelling [facility] (3 sources) diphenhydrAMINE Drug Allergy 3 Angioedema [facility] Comment on above: high doses (1 source) diphenhydrAMINE Drug Allergy 5 [facility] Repository (1 source) Ibuprofen Drug Allergy 5 [facility] Repository (1 source) traMADol Drug Allergy 5 [facility] Repository Medications Current Medications Medication Drug Class(es) Dates Sig (Normalized) Sig (Original) acetaminophen 325 mg / HYDROcodone bitartrate 5 mg oral tablet (14 sources) Opioid Agonist Start: 09-03-2023 take 1 tablet by mouth every six hours as needed for pain Hydrocodone-Acetam inophen 5-325 mg tablet Active 1 {tbl} PO EVERY 6 HOURS NEEDED as needed for Pain 12 4 0 May 16, 2025 Acute shoulder pain Pain in unspecified shoulder Start: 09-03-2023 take 1 tablet by patricia th every six hours as needed Hydrocodone-Acetaminophen Active 1 TABLE T PO EVERY 6 HOURS NEEDED 10 3 September 03, 2023 Start: 04-14-2023 End: 06-06-2023 Hydrocodone-Acetaminophen 5- 325 mg tablet Discontinued 1 {tbl} PO EVERY 6 HOURS NEEDED as needed for Pain 10 3 0 April 14, 2023 June 06, 2023 4:03am Symptomatic irreversible pulpitis Dental caries extending into dentin Dental caries extending into pulp Irreversible pulpitis Dental caries on smooth surface penetrating into dentin Dental caries, unspecified Start: 04-14-2023 End: 06-06-2023 take 1 tablet by mouth every six hours as needed Hydrocodone-Acetaminophen Discontinued 1 TABLET PO EVERY 6 HOURS NEEDED 10 3 April 14, 2023 June 06, 2023 4:03am Start: 02-21-2021 take 1 tablet by ptaricia th every six hours as needed Hydrocodone-Acetaminophen Active 1 TABLE T PO EVERY 6 HOURS NEEDED 10 3 February 21, 2021 9:27pm acetaminophen 325 mg / oxyCODONE hydrochloride 5 mg oral tablet (19 sources) Opioid Agonist Start: 04-23-2024 take 1 tablet by mouth every six hours as needed for pain Oxycodone-Acetaminophen 5-325 mg tablet Active 1 {tbl} PO EVERY 6 HOURS NEEDED as needed for Pain 12 3 0 April 23, 2024 Abscess of apex of dental root complicating chronic inflammation Postoperative pain Periapical abscess without sinus Other acute postprocedural pain Start: 12-27-2023 take 1 tablet by patricia th every eight hours as needed for pain Oxycodone-Acetaminophen (Percocet) 5-325 mg tablet Active 1 {tbl} PO Q8H as needed for pain 10 3 0 December 27, 2023 Dental caries extending into pulp Dental caries, unspecified Start: 06-06-2023 End: 07-15-2023 Oxycodone-Acetaminophen (Per cocet) 5-325 mg tablet Discontinued 1 {tbl} PO EVERY 6 HOURS as needed for pain 10 3 0 June 06, 2023 July 15, 2023 2:20am Symptomatic irreversible pulpitis Irreversible pulpitis Start: 08-27-2019 End: 09-03-2019 Oxycodone-Acetaminophen 1 TA BLET tablet Discontinued 1 - 2 {tbl} PO EVERY 4 HOURS NEEDED as needed for Pain 40 7 0 August 27, 2019 September 02, 2019 1:00am September 03, 2019 1:10am Cholelithiasis Calculus of gallbladder without cholecystitis without obstruction Start: 08-27-2019 End: 09-03-2019 take 1 tablet by mouth every four hours as needed Oxycodone-Acetaminophen Discontinued 1 - 2 TABLET PO EVERY 4 HOURS NEEDED 40 7 August 27, 2019 September 03, 2019 1:10am [id number] 200 actuat albuterol 0.09 mg/actuat metered dose inhaler (10 sources) beta2-Adrenergic Agonist Start: 08-26-2019 Albut negin Sulfate 1 PUFF inhaler Active 1 - 2 NMA INHALATION EVERY 6 HOURS NEEDED as needed for Sob &/Or Wheezing August 26, 2019 1:00am Start: 08-26-2019 take 1 puff(s) by in halation every six hours as needed Albuterol Sulfate Active 1 - 2 PUFF INHALATION EVERY 6 HOURS NEEDED August 26, 2019 1:00am ALPRAZolam 1 mg oral tablet (20 sources) Benzodiazepine Start: 09-03-2023 take 1 tablet by mouth twice daily as needed for anxiety Alprazolam 1 mg tablet Active 1 mg PO TWICE A DAY as needed for anxiety September 03, 2023 1:00am Start: 11-08-2022 End: 07-15-2023 take 0.5 mg by mouth three times daily as needed for anxiety Alprazolam 1 mg tablet Discontinued 0.5 mg PO THREE TIMES A DAY as needed for Anxiety November 08, 2022 1:00am July 15, 2023 2:21am Start: 11-08-2022 End: 07-15-2023 take 0.5 mg by mouth three times daily Alprazolam Discontinued 0.5 MG PO THREE TIMES A DAY November 08, 2022 1:00am July 15, 2023 2:21am Start: 08-07-2019 End: 01-30-2021 Alprazolam 0.5 MG tablet Discontinued 0.2 mg PO NEEDED as needed for Anxiety August 07, 2019 1:00am January 30, 2021 2:23pm Start: 08-07-2019 End: 01-30-2021 Alprazolam Discontinued 0.2 MG PO NEEDED August 07, 2019 1:00am January 30, 2021 2:23pm Start: 05-07-2019 End: 05-15-2019 take 1 tablet by mouth twice daily as needed for anxiety Alprazolam 1 MG tablet Discontinued 1 mg PO TWICE DAILY NEEDED as needed for Anxiety 10 5 May 07, 2019 12:00am May 11, 2019 12:00am May 15, 2019 12:08am amoxicillin 875 mg oral tablet (8 sources) Penicillin-class Antibacterial Start: 12-27-2023 take 1 tablet by mouth twice daily Amoxicillin 875 mg tablet Active 875 mg PO TWICE A DAY December 27, 2023 12:00am Start: 06-06-2023 End: 07-15-2023 take 1 tablet by mouth every twelve hours Amoxicillin 875 mg tablet Discontinued 875 mg PO Q12H June 06, 2023 12:00am July 15, 2023 2:21am amoxicillin 875 mg / clavulanate 125 mg oral tablet (2 sources) Penicillin-class Antibacterial Start: 12-27-2023 Amoxicillin-Pot Clavulanate 875-125 mg tablet Active 1 {tbl} PO TWICE A DAY December 27, 2023 12:00am Start: 12-27-2023 take 1 tablet by patricia th twice daily Amoxicillin-Pot Clavulanate Active 1 TABLET PO TWICE A DAY December 27, 2023 12:00am atorvastatin 20 mg oral tablet (8 sources) HMG-CoA Reductase Inhibitor Start: 11-08-2022 take 1 tablet by mouth at bedtime Atorvastatin 20 mg tablet Active 20 mg PO AT BEDTIME November 08, 2022 1:00am Blood Sugar Diagnostic (1 source) Start: 12-27-2023 Blood Sugar Diagnostic Active STRIP MC 4 TIMES DAILY December 27, 2023 12:00am 0.5 ml dulaglutide 1.5 mg/ml auto-injector (5 sources) GLP-1 Receptor Agonist Start: 07-15-2023 Dulaglutide (Dulaglutide 0.75 Mg/0.5 Ml Subcutaneous Pen Injector) 0.75 mg/0.5 mL pen injector Active 0.75 mg SC .COMPLEX July 15, 2023 12:00am 0.75 mg subcutaneously every week on Wednesdays; 3 ml insulin glargine 100 unt/ml pen injector (11 sources) Insulin Analog Start: 09-03-2023 Insulin Glargi ne (Insulin Glargine 100 Unit/Ml (3 Ml) Subcutaneous Pen) 100 unit/mL (3 mL) insulin pen Active 20 U SC DAILY September 03, 2023 1:00am hyperglycemia Start: 11-08-2022 End: 07-15-2023 Insulin Glargine (Lantus Shelli ostar U-100 Insulin) 100 unit/mL (3 mL) insulin pen Discontinued 20 U SC WITH BREAKFAST November 08, 2022 1:00am July 15, 2023 2:21am 3 ml insulin lispro 100 unt/ml pen injector (11 sources) Insulin Analog Start: 09-03-2023 inject 8 [IU] by subcutaneous injection every eight hours Insulin Lispro (Insulin Lispro 100 Unit/Ml Subcutaneous Pen) 100 unit/mL insulin pen Active 8 U SC Q8H September 03, 2023 1:00am hyperglycemia 8 units subcutaneously; Start: 11-08-2022 End: 07-15-2023 Insulin Lispro (Humalog Kwik pen Insulin) 100 unit/mL insulin pen Discontinued 10 U SC THREE TIMES A DAY November 08, 2022 1:00am July 15, 2023 2:21am metFORMIN hydrochloride 500 mg oral tablet (8 sources) Biguanide Start: 11-08-2022 take 1 tablet by mouth once daily Metformin 500 mg tablet Active 500 mg PO DAILY November 08, 2022 1:00am Start: 11-08-2022 take 500 mg by mouth twice igor ly Metformin Active 500 MG PO TWICE A DAY November 08, 2022 12:00am naproxen 500 mg oral tablet (2 sources) Nonsteroidal Anti-inflammatory Drug Start: 02-21-2021 take 500 mg by mouth twice daily Naproxen Active 500 MG PO TWICE A DAY February 21, 2021 9:27pm nitrofurantoin, macrocrystals 25 mg / nitrofurantoin, monohydrate 75 mg oral capsule (1 source) Nitrofuran Antibacterial Start: 09-11-2024 take 1 capsule by mouth every twelve hours Nitrofurantoin Monohyd/M-Cryst 100 mg capsule Active 100 mg PO EVERY 12 HOURS 10 0 September 11, 2024 1:00am penicillin v potassium 500 mg oral tablet (9 sources) Start: 04-23-2024 take 1 tablet by mouth four times daily Penicillin V Potassium 500 mg tablet Active 500 mg PO 4 TIMES DAILY 28 0 April 23, 2024 12:00am Start: 11-09-2022 End: 06-06-2023 take 1 tablet by mouth four times daily Penicillin V Potassium 500 mg tablet Discontinued 500 mg PO 4 TIMES DAILY 40 0 November 09, 2022 1:00am June 06, 2023 4:03am sertraline 100 mg oral tablet (18 sources) Serotonin Reuptake Inhibitor Start: 11-08-2022 take 2 tablets by mouth once daily Sertraline (Zoloft) 100 mg tablet Active 200 mg PO DAILY November 08, 2022 1:00am Start: 08-13-2019 End: 01-30-2021 take 1 tablet by mouth at bedtime Sertraline 100 MG tablet Discontinued 100 mg PO AT BEDTIME August 13, 2019 1:00am January 30, 2021 2:23pm depression tiZANidine 2 mg oral tablet (3 sources) Central alpha-2 Adrenergic Agonist Start: 09-03-2023 take 2 tablets by mouth once daily at bedtime as needed Tizanidine 2 mg tablet Active 2 mg PO .COMPLEX as needed for pulled muscles September 03, 2023 1:00am 2 mg orally ONCE DAILY in the IN THE MORNING, 1 (ONE) TABLET at noon, 2 (TWO) TABLETS at bedtime NEEDED; PRN; Completed/Discontinued Medications Medication Drug Class(es) Dates Sig (Normalized) Sig (Original) acyclovir 800 mg oral tablet (7 sources) Herpesvirus Nucleoside Analog DNA Polymerase Inhibitor, Herpes Simplex Virus Nucleoside Analog DNA Polymerase Inhibitor, Herpes Zoster Virus Nucleoside Analog DNA Polymerase Inhibitor Start: 02-07-2023 End: 06-06-2023 take 1 tablet by mouth three times daily Acyclovir 800 mg tablet Discontinued 800 mg PO THREE TIMES A DAY 21 7 0 February 07, 2023 12:00am June 06, 2023 4:02am cephalexin 500 mg oral capsule (17 sources) Cephalosporin Antibacterial Start: 02-07-2023 End: 06-06-2023 take 1 capsule by mouth every six hours Cephalexin 500 mg capsule Discontinued 500 mg PO EVERY 6 HOURS 40 0 February 07, 2023 12:00am June 06, 2023 4:03am Start: 08-07-2019 End: 08-25-2019 take 1 capsule by mouth every six hours Cephalexin 500 MG capsule Discontinued 500 mg PO EVERY 6 HOURS 28 0 August 07, 2019 1:00am August 25, 2019 10:30am clindamycin 150 mg oral capsule (15 sources) Lincosamide Antibacterial Start: 07-15-2023 End: 09-03-2023 take 1 capsule by mouth three times daily Clindamycin Hcl 150 mg capsule Discontinued 150 mg PO THREE TIMES A DAY 15 0 July 15, 2023 12:00am September 03, 2023 2:01am Start: 07-09-2020 End: 01-30-2021 take 1 capsule by mouth four times daily Clindamycin Hcl 150 MG capsule Discontinued 150 mg PO 4 TIMES DAILY 40 0 July 09, 2020 12:00am January 30, 2021 2:23pm Lidocaine (4 sources) Antiarrhythmic, Amide Local Anesthetic Start: 07-15-2023 End: 09-03-2023 Lidocaine Hcl (Lidocaine Viscous) 2 % solution Discontinued 1 NMA MUCOUS MEM THREE TIMES A DAY as needed for pain 100 0 July 15, 2023 12:00am September 03, 2023 2:01am Start: 07-15-2023 End: 09-03-2023 Lidocaine Hcl (Lidocaine Vis cous) 2 % solution Discontinued 1 APPLIC MUCOUS MEM THREE TIMES A DAY 100 July 15, 2023 12:00am September 03, 2023 [...] Enzyme Inhibitor Start: 08-13-2019 End: 01-30-2021 take 1 tablet by mouth at bedtime Lisinopril 20 MG tablet Discontinued 20 mg PO AT BEDTIME August 26, 2019 2:34pm January 30, 2021 2:24pm bloodpressure ondansetron 4 mg disintegrating oral tablet (10 sources) Serotonin-3 Receptor Antagonist Start: 08-13-2019 End: 08-25-2019 take 1 tablet by mouth every eight hours as needed for nausea Ondansetron 4 MG tablet Discontinued 4 mg PO EVERY 8 HOURS NEEDED as needed for Nausea August 13, 2019 1:00am August 25, 2019 10:30am sulfamethoxazole 800 mg / trimethoprim 160 mg oral tablet (10 sources) Dihydrofolate Reductase Inhibitor Antibacterial, Sulfonamide Antimicrobial Start: 08-07-2019 End: 08-25-2019 Sulfamethoxazole-T rimethoprim 1 TABLET tablet Discontinued 1 {tbl} PO TWICE A DAY 14 0 August 07, 2019 1:00am August 25, 2019 10:30am Start: 08-07-2019 End: 08-25-2019 take 1 tablet by mouth twice daily Sulfamethoxazole-Trimethoprim Discontinu ed 1 TABLET PO TWICE A DAY August [...] disorder, unspecified] 01-21-2022 Chronic Biliary tract disease (10 sources) Biliary calculus; Translations: [Calculus of gallbladder without cholecystitis without obstruction] 08-29-2019 Episodic Cardiac dysrhythmias (9 sources) Palpitations; Translations: [Palpitations] 01-29-2022 Episodic Diabetes mellitus without complication (2 sources) Type 2 diabetes mellitus without complications; Translations: [Type 2 diabetes mellitus without complications] Onset: 08-11-2024 Chronic Disorders of teeth and jaw (20 sources) Dental caries; Translations: [Dental caries, unspecified] 02-15-2021 Episodic Essential hypertension (20 sources) Hypertensive disorder; Translations: [Essential (primary) hypertension] 08-27-2019 Chronic Hemorrhoids (10 sources) Hemorrhoids; Translations: [Unspecified hemorrhoids] 08-27-2019 Episodic Malaise and fatigue (10 sources) Fatigue; Translations: [Other fatigue] 08-27-2019 Episodic Mood disorders (10 sources) Depressive disorder; Translations: [Depression] 08-27-2019 Chronic Nutritional deficiencies (1 source) Vitamin D deficiency, unspecified; Translations: [Vitamin D deficiency, unspecified] Onset: 05-23-2025 Chronic Other gastrointestinal disorders (8 sources) Diarrhea; Translations: [Diarrhea, unspecified] 11-09-2022 Episodic Other lower respiratory disease (10 sources) Dyspnea; Translations: [Shortness of breath] 08-27-2019 Episodic Other nervous system disorders (1 source) Postoperative pain ; Translations: [Other acute postprocedural pain] 05-01-2024 Episodic Other non-traumatic joint disorders (1 source) Shoulder pain; Translations: [Pain in unspecified shoulder] 05-16-2025 Episodic Other non-traumatic joint disorders (1 source) Pain in left shoulder; Translations: [Pain in left shoulder] Onset: 05-19-2025 Episodic Other nutritional; endocrine; and metabolic disorders (1 source) Body mass index 40+ - severely obese; Translations: [Body mass index (BMI) 50.0-59.9, adult] 05-01-2024 Chronic Other nutritional; endocrine; and metabolic disorders (10 sources) H/O: diabetes mellitus; Translations: [Personal history of other endocrine, nutritional and metabolic disease] 01-21-2022 Episodic Residual codes; unclassified (10 sources) History finding; Translations: [Other specified health status] 01-30-2021 Episodic Residual codes; unclassified (10 sources) Flushing; Translations: [Flushing] 03-18-2020 Episodic Skin and subcutaneous tissue infections (20 sources) Infected face; Translations: [Local infection of the skin and subcutaneous tissue, unspecified] 08-08-2019 Episodic Spondylosis; intervertebral disc disorders; other back problems (13 sources) Back problem; Translations: [Dorsopathy, unspecified] 08-27-2019 Episodic Urinary tract infections (11 sources) Urinary tract infectious disease; Translations: [Urinary tract infection, site not specified] 08-08-2019 Episodic Viral infection (7 sources) Herpetic megan; Translations: [Other herpesviral infection] 02-15-2023 Episodic Past or Other Problems Problem Classification Problem Date Documented Da te Episodic/Chronic Other aftercare (1 source) Other assisted (current) drug therapy; Translations: [Other intermodal customer service (current) drug therapy] Onset: 01-10-2025 Episodic Other female genital disorders (1 source) Unspecified condition associated with female genital organs and menstrual cycle; Translations: [Unspecified condition associated with female genital organs and menstrual cycle] Onset: 10-07-2024 Episodic Results Test Name Value Interpretation Reference Range Facility CBC (NO DIFF)on 05-23-2025 CBC panel Auto (Bld) Normal [facility] Comment on above: Result Comment: CBC( WITHOUT DIFFERENTIAL) Performed By: #### 2 [id number] #### [facility],[address] [place] [address] Erythrocyte distribution width (RBC) [Ratio] 13.8 % Normal 12.0 - 15.6 [facility] Comment on above: Performed By: #### 2 [id number] #### [facility],[address] [place] [address] Hematocrit (Bld) [Volume fraction] 45.7 % Normal 34.0 - 46.0 [facility] Comment on above: Performed By: #### 2 [id number] #### [facility],[address] [place] [address] Hemoglobin (Bld) [Mass/Vol] 15.2 g/dL Normal 12.0 - 16.0 [facility] Comment on above: Performed By: #### 2 [id number] #### [facility],[address] [place] [address] MCH (RBC) [Entitic mass] 28 pg Normal 27 - 33 [facility] Comment on above: Performed By: #### 2 [id number] #### [facility],[address] [place] [address] MCHC 33 X10 3 Normal 32 - 36 [facility] Comment on above: Performed By: #### 2 [id number] #### [facility],[address] [place] [address] MCV (RBC) [Entitic vol] 83 fL Normal 80 - 99 [facility] Comment on above: Performed By: #### 2 [id number] #### [facility],[address] [place] [address] PLATELET 271 x10EE3/UL Normal 150 - 450 [facility] Comment on above: Performed By: #### 2 [id number] #### [facility],[address] [place], [place] [id number] Platelet mean volume (Bld) [Entitic vol] 7.7 fL Normal 6.6 - 10.5 [facility] Comment on above: Performed By: #### 2 [id number] #### [facility],[address] [place], [place] [id number] RBC 5.49 x 10EE6/UL High 4.10 - 5.[address] [facility] Comment on above: Performed By: #### 2 [id number] #### [facility],[address],[place] [address] WBC 9.2 x 10EE3/UL Normal 4.5 - 10.8 [facility] Comment on above: Performed By: #### 2 [id number] #### [facility],[address] [place] [address]07 CMP with eGFRon 05-23-2025 AGE 45 years Normal [facility] Comment on above: Performed By: #### 2 [id number] #### [facility],[address] [place] [address] 61385 Albumin [Mass/Vol] 4.4 g/dL Normal 3.4 - 5.0 [facility] Comment on above: Performed By: #### 2 [id number] #### [facility],[address] [place] [address] 95058 Albumin/Globulin [Mass ratio] 1.4 {ratio} Normal 0.9 - 1.6 [facility] Comment on above: Performed By: #### 2 [id number] #### [facility],[address] [place] [address] 49133 ALK PHOS 101 U/L Normal 46 - 116 [facility] Comment on above: Performed By: #### 2 [id number] #### [facility],[address] [place] [address] 66715 ALT [Catalytic activity/Vol] 41 U/L Normal 16 - 63 [facility] Comment on above: Performed By: #### 2 [id number] #### [facility],[address] [place] [address] 93959 Anion gap [Moles/Vol] 13 mmol/L Normal 10 - 20 [facility] Comment on above: Performed By: #### 2 [id number] #### [facility],[address] [place] [address] 47313 AST [Catalytic activity/Vol] 18 U/L Normal 13 - 39 [facility] Comment on above: Performed By: #### 2 [id number] #### [facility],[address] [place] [address] 37695 B/C RATIO 21 ratio Normal 0 - 30 [facility] Comment on above: Performed By: #### 2 [id number] #### [facility],[address] [place] [address] 11935 Bilirubin [Mass/Vol] 0.6 mg/dL Normal 0.2 - 1.0 [facility] Comment on above: Performed By: #### 2 [id number] #### [facility],[address] [place] [address] 69288 Calcium [Mass/Vol] 9.2 mg/dL Normal 8.5 - 10.1 [facility] Comment on above: Performed By: #### 2 10947 #### [facility],[address] [place] [address] 13519 Chloride [Moles/Vol] 105 mmol/L Normal 98 - 107 [facility] Comment on above: Performed By: #### 2 [id number] #### [facility],[address] [place] [address] 36017 CMP with eGFR Normal [facility] Comment on above: Result Comment: COMP REHENSIVE METABOLIC PANEL Performed By: #### 2 [id number] #### [facility],[address] [place] [address] 64710 CO2 [Moles/Vol] 27.9 mmol/L Normal 21.0 - 32.0 [facility] Comment on above: Performed By: #### 2 83923 #### [facility],[address] [place] [address] 70020 Creatinine [Mass/Vol] 0.72 mg/dL Normal 0.55 - 1.02 [facility] Comment on above: Performed By: #### 2 [id number] #### [facility],[address] [place] [address] 16624 GFR/1.73 sq M.predicted among non-blacks MDRD (S/P/Bld) [Vol rate/Area] mL/min/{1.73_m2} Normal 60 - 999 [facility] Comment on above: Performed By: #### 2 63921 #### [facility],[address] [place] [address] 18081 Result Comment: ACCO RDING TO THE NATIONAL KIDNEY DISEASE EDUCATION PROGRAM(NKDE), A NORMAL eGFR IS A VALUE GREATER THAN OR EQUAL TO 60 ML/MIN/1.73 SQ METERS. CHRONIC KIDNEY DISEASE: <60mL/MIN/1.73 SQ METERS KIDNEY FAILURE: <15mL/MIN/1.73 SQ METERS THIS TEST SHOULD ONLY BE USED FOR PATIENTS 18 YEARS OF AGE AND OLDER. Globulin (S) [Mass/Vol] 3.1 g/dL Normal 1.5 - 3.8 [facility] Comment on above: Performed By: #### 2 [id number] #### [facility],[address] [place] [address] 04066 Glucose [Mass/Vol] 111 mg/dL High 74 - 106 [facility] Comment on above: Performed By: #### 2 [id number] #### [facility],[address] [place] [address] 56808 Potassium [Moles/Vol] 4.2 mmol/L Normal 3.5 - 5.1 [facility] Comment on above: Performed By: #### 2 [id number] #### [facility],[address] [place] [address] 24772 Protein [Mass/Vol] 7.5 g/dL Normal 6.4 - 8.2 [facility] Comment on above: Performed By: #### 2 [id number] #### [facility],[address] [place] [address] 49164 Sodium [Moles/Vol] 142 mmol/L Normal 136 - 145 [facility] Comment on above: Performed By: #### 2 [id number] #### [facility],[address] [place] [address] Urea nitrogen [Mass/Vol] 15 mg/dL Normal 7 - 18 [facility] Comment on above: Performed By: #### 2 83714 #### [facility],[address] [place] [address] 67[address] HEMOGLOBIN A1C (POM)on 05-23 Glucose [Mass/Vol] 125.5 mg/dL High 0.0 - 0.0 [facility] Comment on above: Result Comment: BLDo HEMOGLOBIN A1C REFERENCE RANGESBLDo Suggested Diagnosis HbA1c(%) HbA1C (mmol/mol Diabetic >/=6.5 >/=48 Prediabetes 5.7 - 6.4 39 - 47 Normal <5.7 <39 Performed By: #### 2 03118 #### [facility],[address] [place] [address] 96888 HbA1c (Bld) [Mass fraction] 6.0 % Normal 0.0 - 6.5 [facility] Comment on above: Performed By: #### 2 75320 #### [facility],[address] [place] [address] 30779 LIPID PROFILEon 05-23-2025 Cholesterol [Mass/Vol] 136 mg/dL Normal 0 - 240 [facility] Comment on above: Performed By: #### 2 58462 #### [facility],[address] [place] [address]86 Cholesterol in HDL [Mass/Vol] 55 mg/dL Normal 40 - 60 [facility] Comment on above: Performed By: #### 2 38057 #### [facility],[address] [place] [address] 38744 Cholesterol in LDL [Mass/Vol] 64 mg/dL Normal 0 - 129 [facility] Comment on above: Performed By: #### 2 90439 #### [facility],[address] [place] [address] 93572 Cholesterol.total/Cholest negin in HDL [Mass ratio] 2.5 {ratio} Normal 0.0 - 5.0 [facility] Comment on above: Performed By: #### 2 77576 #### [facility],[address] [place] [address] 71401 Lipid 1996 panel Normal [facility] Comment on above: Result Comment: LIPI D PROFILE Performed By: #### 2 26894 #### [facility],[address] [place] [address] 07048 Triglyceride [Mass/Vol] 84 mg/dL Normal 0 - 150 [facility] Comment on above: Performed By: #### 2 34555 #### [facility],[address] [place] [address] 44305 VITAMIN D, 25 HYDROXYon VitD 23.20 ng/mL Low 30.00 - 100 [facility] Comment on above: Result Comment: 25-O HD3 [...] D2 Not Established Performed By: #### 2 26691 #### [facility],[address] [place] [address] 26500 Emergency Department Summary on 05-16-2025 Emergency Department Summary [facility] Medical Records Department [address] [place] [address] Emergency Department Summary 05/16/25 MR#: [id number] Acct: [id number] Name: REKHA LEWIS Rep #: [id number] : 1980 45 From: Ac Flores MD PCP: Dr. Radha Gao MD Status:REG ER Location: ED HPI History of Present Illness HPI Narrative: 45-year-old female past medical history of hypertension diabetes. She has had chronic left shoulder pain for years. Is progressively gotten worse over the last week. Denies any fall injury or trauma. She has never had surgery of her left shoulder and denies ever having an MRI. She was told by her primary care physician in [place] that she might have a rotator cuff tear years ago but they never did imaging to confirm that. She denies any fever redness or swelling her shoulder just hurts with movement. Repeat exam patient is doing well at 4:50 PM. She however x-ray shows no acute abnormality. I explained that we do not see cartilage or tendon or ligaments. Do not see the rotator cuff or the labrum on x-ray. She needs a follow-up MRI. She is referred to local orthopedics. She has appointment to see her primary care physician this week. She be written for limited Raysal for pain and then she needs further evaluation. We discussed but she did not want a shoulder joint injection at this time but will discuss that with the orthopedic physician. She knows to return if she develops a fever or redness or swelling of the shoulder but clinically this is not infected at this time and her exam is unchanged from the initial exam today. Chief Complaint: Upper Extremity Injury Informant: patient Occured/Mechanism Mechanism/Context: No injury and No blunt trauma Onset/Context/Timin g Onset: Month(s) Context: Gradual Onset Timing: Continuous Quality of Pain: Sharp Current Severity: Moderate Maximum Severity: Severe Associated Symptoms Associated Symptoms: Negative for Parasthesia, Weakness or Loss of Funtion Narrative Narrative: 45-year-old female [id number] acute on chronic worsening left shoulder pain. No fall injury or trauma. No fever or redness nor swelling. No prior surgery. Much worse with movement. Prior similar symptoms: Yes Recent Illness/Hospitaliza tion: No PFSH [facility] Medical History Hyperlipidemia Diabetes Dental caries Recurrent hernia Hemorrhoids RUQ abdominal pain Abdominal pain SOB (shortness of breath) Anxiety Depression Hypertension Back problem Fatigue Home Medications ???Medication ???Instructions ???Recorded ???Last Taken ???Type albuterol sulfate 90 mcg/actuation 1 - 2 puff inhalation Q6H PRN NE N 08/26/19 Unknown History aerosol inhaler Sob /Or Wheezing lisinopril 20 mg tablet (Zestril) 20 mg PO QHS bloodpressure Unknown History atorvastatin 20 mg tablet 20 mg PO QHS 11/08/22 Unknown Hist ory metformin 500 mg tablet 500 mg PO DAILY 11/08/22 Unknown H istory sertraline 100 mg tablet (Zoloft) 200 mg PO DAILY 11/08/22 Unknown History dulaglutide 0.75 mg/0.5 mL 0.75 mg subcut .COMPLEX 07/15/23 U nknown History subcutaneous pen injector (Trulicity) alprazolam 1 mg tablet 1 mg PO BID PRN anxiety 09/03/23 U nknown History hydrocodone-acetami nophen 5-325mg 1 tab PO Q6H PRN PRN Pain 3 days 09/03/23 Unknown Rx 5mg-325mg #10 TABLETS insulin glargine 100 unit/mL (3 20 unit subcut DAILY hyperglycemia 09/03/23 Unknown History mL) subcutaneous pen (Lantus Solostar U-100 Insulin) insulin lispro 100 unit/mL 8 unit subcut Q8H hyperglycemia Unknown History subcutaneous pen (Humalog KwikPen (U-100) Insulin) tizanidine 2 mg tablet 2 mg PO .COMPLEX PRN pulled muscle s 09/03/23 Unknown History amoxicillin 875 mg tablet 875 mg PO BID 12/27/23 Unknown His tory amoxicillin 875 mg-potassium 1 tab PO BID 12/27/23 Unknown Hist ory clavulanate 125 mg tablet blood sugar diagnostic (True 12/27/23 Unknown History Metrix Glucose Test Strip) oxycodone-acetamino phen 5 mg-325 1 tab PO Q8H PRN pain 3 days #10 0 12/27/23 Unknown Rx mg tablet (Percocet) tabs oxycodone-acetamino phen 5 mg-325 1 tab PO Q6H PRN PRN Pain 3 days 0 04/23/24 Unknown Rx mg tablet #12 TABLETS penicillin V potassium 500 mg 500 mg PO 4X/DAY #28 tabs 04/23/24 Unknown Rx tablet hydrocodone-acetami nophen 5-325mg 1 tab PO Q6H PRN PRN Pain 1 day # 4 09/11/24 Unknown Rx 5mg-325mg TABLETS nitrofurantoin 100 mg PO Q12 #10 CAPSULES 4 Unknown Rx monohydrate/macrocr ystals 100 mg capsule hydrocodone-acetami nophen 5-325mg 1 tab PO Q6H PRN PRN Pain 4 days 05/16/25 Unknown Rx 5mg-325mg #12 TABLETS Allergy/AdvReac Type Severity Reaction Status Date / Time diphenhydramine Allergy Severe Angioe (more content not included)... Normal [facility] Shoulder min 2 Viewson 05-16 Shoulder min 2 Views [facility] Imaging Services [address] [place], [place] [id number] Shoulder min 2 Views MR#: [id number] Acct: [id number] Name: REKHA LEWIS Rep #: [id number] : 1980 F 45 From: Mani Johansen MD PCP: Dr. Radha Gao MD Status: REG ER Study: Shoulder min 2 Views Date of Exam: 05/16/25 Exam# [id number] Ordering Dr: Ac Flores MD PROCEDURE: SHOULDER MIN 2 VIEWS 05/16/2025 REASON FOR EXAM: ATRAUMATIC PAIN TECHNIQUE: Procedure Code: RADSH Modality: DX Procedure: SHOULDER MIN 2 VIEWS Laterality: Left COMPARISON: None FINDINGS: Fracture/dislocatio n: None visible. Joint space(s): Glenohumeral joint space relatively preserved. Moderate loss of AC joint space without bony hypertrophic changes. Soft tissues: Questioned joint effusion as below. Foreign bodies: None visible. Bone mineralization: Unremarkable. Other: Slight inferior subluxation of the humeral head with respect of the glenoid questioned on some images with slight soft tissue prominence, as can be seen in a joint effusion. RAD/Shoulder min 2 Views IMPRESSION: 1. No visible acute displaced fracture. 2. Question a nonspecific glenohumeral joint effusion. Reading Location: [facility] CC: Dr. Ac Flores MD; Dr. Radha Gao MD Practice Clinician: Signed Normal [facility] 12 Lead EKGon 12-31-2024 12 Lead EKG [facility] Cardiovascular Services [address] [place] [address] 12 Lead EKG 12/31/24 0909 MR#: [id number] Acct: [id number] Name: REKHA LEWIS Rep #: [id number] : 1980 44 From: Martin Reese MD Attending Dr: Dr. Virginia Sanchez MD Status: REG CLI Ordering Dr: Virginia Sanchez MD Date: 12/31/24 Location: [facility] Sex: F C Admitted: Test Reason : AWAKE [employer]SEL[employer] USE Blood Pressure : */* mmHG Vent. Rate : 88 BPM Atrial Rate : 88 BPM P-R Int : 152 ms QRS Dur : 88 ms QT Int : 374 ms P-R-T Axes : 65 59 53 degrees QTcB Int : 452 ms Normal sinus rhythm Normal ECG Confirmed by Martin Reese ([id number]), metropolitan editor VONDA CASH ([id number]) on 01/03/2025 8:50:46 AM Referred By: Virginia Sanchez Confirmed By: Martin Reese 01/03/25 0850 Date Martin Reese MD CC: Dr. Radha Gao MD; Dr. Virginia Sanchez MD Signed Normal [facility] Urine Cultureon 09-13-2024 URC Presumptive E. coli [place] Count 80,000-100,000 Presumptive E. coli: REACTION Ampicillin [...] TMP SMX Islt MARY <=20 S Normal [facility] Comment on above: Performed By: #### M 100.3083 #### [facility] Laboratory [address] [place], [address] Abdomen/Pelvis without Conto n 09-11-2024 Abdomen/Pelvis without Cont [facility] Imaging Services [address] [place] [address] Abdomen/Pelvis without Cont MR#: [id number] Acct: [id number] Name: REKHA LEWIS Rep #: [id number] : 1980 F 44 From: Hai Patel PCP: Care Physician,No Primary Status: REG ER Study: Abdomen/Pelvis without Cont Date of Exam: 08/16 05/08 Exam# [id number] Ordering Dr: Mathew Gonsales DO -[id number] STUDY: CT ABDOMEN AND PELVIS WITHOUT [...] Signed: Hai Villegas MD at 20:39 EST Reading Location ID and State: [facility] / [place] Tel , Service support , CC: Dr. Mathew Gonsales, DO; No Primary Care Physician Practice Clinician: Signed Normal [facility] Basic Metabolic Profile (BMP )on 09-11-2024 BUN/CRE 16.6 RATIO Normal 10-20 [facility] Comment on above: Performed By: #### L 500.2500, L100.0100 #### [facility] Laboratory [address] [place], [address] CA,Total 8.9 mg/dL Normal 8.5-10.1 [facility] Comment on above: Performed By: #### L 500.2500, L100.0100 #### [facility] Laboratory [address] [place], [address] Chloride [Moles/Vol] 105 mmol/L Normal 98-107 [facility] Comment on above: Performed By: #### L 500.2500, L100.0100 #### [facility] [address] [place], [address] CO2 [Moles/Vol] 28.0 mmol/L Normal 21.0-32.0 [facility] Comment on above: Performed By: #### L 500.2500, L100.0100 #### [facility] [address] [place], [address] Creatinine [Mass/Vol] 0.72 mg/dL Normal 0.55-1.02 [facility] Comment on above: Result Comment: The validity of the calculated GFR GFRAA in patients over 70 years has not been determined. Clinical correlation is essential. Performed By: #### L 500.2500, L100.0100 #### [facility] [address] [place], [address] ECRCL 141.19 ml/min Normal [facility] Comment on above: Performed By: #### L 500.2500, L100.0100 #### [facility] [address] [place], [address] EST GFR - AA 111 mL/min Normal >60 [facility] Comment on above: Result Comment: Afri can Congolese GFR Calc Performed By: #### L 500.2500, L100.0100 #### [facility] [address] [place], [address] GAP 6 Normal 5-15 [facility] Comment on above: Performed By: #### L 500.2500, L100.0100 #### [facility] [address] [place], [address] GFR/1.73 sq M.predicted among non-blacks MDRD (S/P/Bld) [Vol rate/Area] 92 mL/min/{1.73_m2} Normal >60 [facility] Comment on above: Result Comment: Non- GFR Calc Performed By: #### L 500.2500, L100.0100 #### [facility] [address] [place], [address] Glucose [Mass/Vol] 120 mg/dL High 74-106 [facility] Comment on above: Result Comment: Fast ing Glucose result from 100 to 125 mg/dL suggests IMPAIRED HOMEOSTASIS per A.D.A. criteria. Performed By: #### L 500.2500, L100.0100 #### [facility] [address] [place], [address] Potassium [Moles/Vol] 4.2 mmol/L Normal 3.5-5.1 [facility] Comment on above: Performed By: #### L 500.2500, L100.0100 #### [facility] Laboratory [address] [place], [address] Sodium [Moles/Vol] 139 mmol/L Normal 136-145 [facility] Comment on above: Performed By: #### L 500.2500, L100.0100 #### [facility] Laboratory [address] [place], [address] Urea nitrogen [Mass/Vol] 12 mg/dL Normal 7-18 [facility] Comment on above: Performed By: #### L 500.2500, L100.0100 #### [facility] [address] [place], [address] CBC W/Diff, Automatedon 12-2 -2023 Absolute Lymph 1.85 X10 3/uL Normal 0.83-4.51 [facility] Comment on above: Performed By: #### L 500.2500, L100.0100 #### [facility] [address] [place], [address] Absolute Neut 8.2 X10 3/uL High 2.0-7.7 [facility] Comment on above: Performed By: #### L 500.2500, L100.0100 #### [facility] [address] [place], [address] Basophils/100 WBC (Bld) 0.5 % Normal 0-1 [facility] Comment on above: Performed By: #### L 500.2500, L100.0100 #### [facility] [address] [place], [address] Eosinophils/100 WBC (Bld) 3.3 % Normal 0-5 [facility] Comment on above: Performed By: #### L 500.2500, L100.0100 #### [facility] [address] [place], [address] Erythrocyte distribution width (RBC) [Ratio] 13.0 % Normal 11.6-14.6 [facility] Comment on above: Performed By: #### L 500.2500, L100.0100 #### [facility] [address] [place], [address] Hematocrit (Bld) [Volume fraction] 40.4 % Normal 37-47 [facility] Comment on above: Performed By: #### L 500.2500, L100.0100 #### [facility] [address] [place], [address] Hemoglobin (Bld) [Mass/Vol] 12.9 g/dL Normal 12.0-15.0 [facility] Comment on above: Performed By: #### L 500.2500, L100.0100 #### [facility] [address] [place], [address] IG% 0.500 Normal 0.0-0.9 [facility] Comment on above: Result Comment: IG% - Immature Granulocytes (promyelocytes, myelocytes and metamyelocytes) > 1% indicates that a LEFT SHIFT is Present. Performed By: #### L 500.2500, L100.0100 #### [facility] [address] [place], [address] Lymphocytes/100 WBC (Bld) 16.7 % Low 19-41 [facility] Comment on above: Performed By: #### L 500.2500, L100.0100 #### [facility] [address] [place], [address] MCH (RBC) [Entitic mass] 27.9 pg Normal 27.0-32.0 [facility] Comment on above: Performed By: #### L 500.2500, L100.0100 #### [facility] [address] [place], [address] MCHC (RBC) [Mass/Vol] 31.9 g/dL Low 32-36 [facility] Comment on above: Performed By: #### L 500.2500, L100.0100 #### [facility] [address] [place], [address] MCV (RBC) [Entitic vol] 87.4 fL Normal 81-99 [facility] Comment on above: Performed By: #### L 500.2500, L100.0100 #### [facility] [address] [place], [address] Monocytes/100 WBC (Bld) 4.9 % Normal 0-10 [facility] Comment on above: Performed By: #### L 500.2500, L100.0100 #### [facility] [address] [place], [address] Neutrophils/100 WBC (Bld) 74.1 % High 47-70 [facility] Comment on above: Performed By: #### L 500.2500, L100.0100 #### [facility] [address] [place], [address] Nucleated RBC (Bld) [#/Vol] 0 10*3/uL Normal 0-5 [facility] Comment on above: Performed By: #### L 500.2500, L100.0100 #### [facility] [address] [place], [address] Platelet mean volume (Bld) [Entitic vol] 8.9 fL Normal 6.2-12.0 [facility] Comment on above: Performed By: #### L 500.2500, L100.0100 #### [facility] [address] [place], [address] Platelets (Bld) [#/Vol] 275 10*3/uL Normal 150-450 [facility] Comment on above: Performed By: #### L 500.2500, L100.0100 #### [facility] [address] [place], [address] RBC (Bld) [#/Vol] 4.62 10*6/uL Normal 4.2-5.4 [facility] Comment on above: Performed By: #### L 500.2500, L100.0100 #### [facility] [address] [place], [address] RDW SD 41.8 fl Normal 35.1-43.9 [facility] Comment on above: Performed By: #### L 500.2500, L100.0100 #### [facility] [address] [place], [address] WBC (Bld) [#/Vol] 11.1 10*3/uL High 4.4-11.0 [facility] Comment on above: Performed By: #### L 500.2500, L100.0100 #### [facility] Laboratory [address] [place], [address] Emergency Department Summary on 09-11-2024 Emergency Department Summary [facility] Medical Records Department [address] [place] [address] Emergency Department Summary 09/11/24 MR#: [id number] Acct: [id number] Name: REKHA LEWIS Rep #: [id number] : 1980 44 From: Mathew Gonsales DO [...] and chills. Prior similar symptoms: Yes PFSH PFSH Medical History Hyperlipidemia Diabetes [...] Reports ab (more content not included)... Normal [facility] Urinalysis, Completeon 09-11 BACTERIA 1+ /hpf Normal None Seen [facility] Comment on above: Order Comment: COLOR OF URINE MAY AFFECT DIPSTICK RESULTS. Microscopic field is filled. Other elements may be obscured. CLEAN CATCH Performed By: #### L 400.0001 #### [facility] Laboratory [address] [place], [address] EPI,SQUAMOUS 0-5 SEEN Normal 5-10 [facility] Comment on above: Order Comment: COLOR OF URINE MAY AFFECT DIPSTICK RESULTS. Microscopic field is filled. Other elements may be obscured. CLEAN CATCH Performed By: #### L 400.0001 #### [facility] Laboratory [address] [place], [address] RBC > 100 SEEN Normal 0-5 [facility] Comment on above: Order Comment: COLOR OF URINE MAY AFFECT DIPSTICK RESULTS. Microscopic field is filled. Other elements may be obscured. CLEAN CATCH Performed By: #### L 400.0001 #### [facility] [address] [place], [address] WBC >100 SEEN Normal 0-5 [facility] Comment on above: Order Comment: COLOR OF URINE MAY AFFECT DIPSTICK RESULTS. Microscopic field is filled. Other elements may be obscured. CLEAN CATCH Performed By: #### L 400.0001 #### [facility] [address] [place], [address] Mucus Ql (Urine sed) 0 SEEN Normal [facility] Comment on above: Order Comment: COLOR OF URINE MAY AFFECT DIPSTICK RESULTS. Microscopic field is filled. Other elements may be obscured. CLEAN CATCH Performed By: #### L 400.0001 #### [facility] [address] [place], [address] HEMOGLOBIN A1C (POM)on 08-11 Glucose [Mass/Vol] 111.2 mg/dL High 0.0 - 0.0 [facility] Comment on above: Result Comment: Do HEMOGLOBIN A1C REFERENCE RANGESBLDo Suggested Diagnosis HbA1c(%) HbA1C (mmol/mol Diabetic >/=6.5 >/=48 Prediabetes 5.7 - 6.4 39 - 47 Normal <5.7 <39 Performed By: #### 2 41460 #### [facility],[address] [place] [address] HbA1c (Bld) [Mass fraction] 5.5 % Normal 0.0 - 6.5 [facility] Comment on above: Performed By: #### 2 04391 #### [facility],[address] [place] [address] VITAMIN D, 25 HYDROXYon 11-2 VitD 21.60 ng/mL Low 30.00 - 100 [facility] Comment on above: Result Comment: 25-O HD3 [...] D2 Not Established Performed By: #### 2 66079 #### [facility],[address] [place] [address] Absolute lymphocyte countOrd ered By: Jesús Khan on 09-03-2023 Lymphocytes Auto (Unsp spec) [#/Vol] 2.28 10*3/uL 0.83-4.51 [facility] Basophil percentageOrdered B y: Jesús Khan on 09-03-2023 Basophils/100 WBC (Bld) 0.5 % 0-1 [facility] Bilirubin [Mass/Vol] 0.20 mg/dL 0.20-1.00 [facility] Comment on above: For patients on eltr ombopag therapy, use of Dimension Kelley TBIL is not recommended. Chloride [Moles/Vol] 108 mmol/L 98-107 [facility] Eosinophils/100 WBC (Bld) 5.5 % 0-5 [facility] Glucose [Mass/Vol] 117 mg/dL 74-106 [facility] Comment on above: Fasting Glucose resu lt from 100 to 125 mg/dL suggests IMPAIRED HOMEOSTASIS per A.D.A. criteria. Neutrophils (Bld) [#/Vol] 5.7 10*3/uL 2.0-7.7 [facility] Neutrophils/100 WBC (Bld) 62.6 % 47-70 [facility] Potassium [Moles/Vol] 3.9 mmol/L 3.5-5.1 [facility] Protein [Mass/Vol] 7.3 g/dL 6.4-8.2 [facility] Sodium [Moles/Vol] 140 mmol/L 136-145 [facility] WBC (Bld) [#/Vol] 9.1 10*3/uL 4.4-11.0 [facility] Basophil percentage 5-10 SEEN /hpf 0-5 [facility] Beta hCG serum qualOrdered B y: Jesús Khan on 09-03-2023 Beta HCG ( test) Ql Negative [facility] Bilirubin Test strip Ql (U)O rdered By: Jesús Khan on 09-03-2023 Bilirubin Ql (U) Negative Negative [facility] Blood erythrocytes count (nu mber/volume)Ordered By: Jesús Khan on 09-03-2023 RBC (Bld) [#/Vol] 4.51 10*6/uL 4.2-5.4 [facility] Blood hemoglobin measurement (mass/volume)Ordered By: Jesús Khan on 09-03-2023 Hemoglobin (Bld) [Mass/Vol] 12.7 g/dL 12.0-15.0 [facility] Blood lymphocytes/100 leukoc ytesOrdered By: Jesús Khan on 09-03-2023 Lymphocytes/100 WBC (Bld) 25.1 % 19-41 [facility] Blood monocytes/100 leukocyt esOrdered By: Jesús Khan on 09-03-2023 Monocytes/100 WBC (Bld) 5.5 % 0-10 [facility] Blood platelet mean volumeOr dered By: Jesús Khan on 09-03-2023 Platelet mean volume (Bld) [Entitic vol] 9.3 fL 6.2-12.0 [facility] Determination of erythrocyte mean corpuscular volume (MCV)Ordered By: Jesús Khan on 09-03-2023 MCV (RBC) [Entitic vol] 88.0 fL 81-99 [facility] Hematocrit Auto (Bld) [Volum e fraction]Ordered By: Jesús Khan on 09-03-2023 Hematocrit (Bld) [Volume fraction] 39.7 % 37-47 [facility] Ketones Test strip Ql (U)Ord ered By: Jesús Khan on 09-03-2023 Ketones Ql (U) 5 mg/dl Negative [facility] Laboratory - Chemistry and C hemistry - challengeOrdered By: Jesús Khan on 09-03-2023 ALP [Catalytic activity/Vol] 120 U/L 45-117 [facility] ALT [Catalytic activity/Vol] 49 U/L 13-56 [facility] CO2 [Moles/Vol] 28.0 mmol/L 21.0-32.0 [facility] Globulin (S) [Mass/Vol] 3.7 g/dL 2.2-4.2 [facility] Lipase [Catalytic activity/Vol] 29 U/L -75 [facility] Comment on above: Please note:LIPASE r evised reference range effective 22. New Lipase methodology. Expected to produce lower values than the previous assay method. NEW Reference Range: 13 - 75 U/L Urea nitrogen/Creatinine [Mass ratio] 19.2 mg/mg -20 [facility] Laboratory - Hematology and Cell countsOrdered By: Jesús Khan on 09-03-2023 Erythrocyte distribution width (RBC) [Entitic vol] 42.3 fL 35.1-43.9 [facility] Erythrocyte distribution width (RBC) [Ratio] 13.1 % 11.6-14.6 [facility] Immature granulocytes/100 WBC (Bld) 0.800 % 0.0-0.9 [facility] Comment on above: IG% - Immature Granu locytes (promyelocytes, myelocytes and metamyelocytes) > 1% indicates that a LEFT SHIFT is Present. MCH (RBC) [Entitic mass] 28.2 pg 27.0-32.0 [facility] Nucleated RBC/100 WBC (Bld) [Ratio] 0 % 0-5 [facility] MCHC Auto (RBC) [Mass/Vol]Or dered By: Jesús Khan on 09-03-2023 MCHC (RBC) [Mass/Vol] 32.0 g/dL 32-36 [facility] Mucus LM Ql (Urine sed)Order ed By: Jesús Khan on 09-03-2023 Mucus Ql (Urine sed) 0 SEEN /hpf [facility] Nitrite Test strip Ql (U)Ord ered By: Jesús Khan on 09-03-2023 Nitrite Ql (U) Negative Negative [facility] No Panel InformationOrdered By: Jesús Khan on 09-03-2023 Estimated GFR (MDRD) Amer 111 mL/min >60 [facility] Comment on above: GFR Calc Estimated GFR (MDRD) Non-Af Amer 92 mL/min >60 [facility] Comment on above: Non- GFR Calc Platelets bldOrdered By: Santy taisha Erin on 09-03-2023 Platelets (Bld) [#/Vol] 266 10*3/uL 150-450 [facility] Protein Test strip Ql (U)Ord ered By: Jesús Khan on 09-03-2023 Protein Ql (U) 15 mg/dl Negative [facility] Serum or plasma albumin regulo urement (mass/volume)Ordered By: Jesús Khan on 09-03-2023 Albumin [Mass/Vol] 3.6 g/dL 3.2-5.0 [facility] Serum or plasma albumin/glob ulin mass ratioOrdered By: Jesús Khan on 09-03-2023 Albumin/Globulin [Mass ratio] 1.0 {ratio} 0.9-2.4 [facility] Serum or plasma calcium regulo urement (mass/volume)Ordered By: Jesús Khan on 09-03-2023 Calcium [Mass/Vol] 9.2 mg/dL 8.5-10.1 [facility] Serum or plasma creatinine m easurement (mass/volume)Ordered By: Jesús Khan on 09-03-2023 Creatinine [Mass/Vol] 0.73 mg/dL 0.55-1.02 [facility] Comment on above: The validity of the calculated GFR & GFRAA in patients over 70 years has not been determined. Clinical correlation is essential. Serum or plasma urea nitroge n measurement (mass/volume)Ordered By: Jesús Khan on 09-03-2023 Urea nitrogen [Mass/Vol] 14 mg/dL 7-18 [facility] Squamous epithelial cells de tection in urine sediment by light microscopyOrdered By: Jesús Khan on 09-03-2023 Epithelial cells.squamous LM Ql (Urine sed) 5-10 SEEN /hpf 5-10 [facility] Thin prep Papanicolaou smear with manual screeningOrdered By: Jesús Khan on 09-03-2023 Thin prep Papanicolaou smear with manual screening 22 U/L 15-37 [facility] Thin prep Papanicolaou smear with manual screening 4 5-15 [facility] Urine blood detectionOrdered By: Jesús Khan on 09-03-2023 RBC Ql (U) 25 /ul Negative [facility] RBC Ql (U) 5-10 SEEN /hpf 0-5 [facility] Urine clarityOrdered By: Santy Khan on 09-03-2023 Clarity (U) Clear Clear [facility] Urine color determinationOrd ered By: Jesús Khan on 09-03-2023 Color (U) Yellow Yellow [facility] Urine glucose detectionOrder ed By: Jesús Khan on 09-03-2023 Glucose Ql (U) Normal mg/dl Normal [facility] Urine leukocyte esterase det ection by dipstickOrdered By: Jesús Khan on 09-03-2023 Leukocyte esterase Test strip Ql (U) 25 /ul Negative [facility] Urine pHOrdered By: Jesús tafoya on 09-03-2023 pH (U) 5.0 [pH] 5.0 - 8.0 [facility] Urine sediment bacteria coun t by microscopy (number/high power field)Ordered By: Jesús Khan on 09-03-2023 Bacteria LM.HPF (Urine sed) [#/Area] RARE /hpf None Seen [facility] Urine specific gravity measu rementOrdered By: Jesús Khan on 09-03-2023 Specific gravity (U) [Rel density] 1.025 1.002-1.030 [facility] Urobilinogen Auto test strip Ql (U)Ordered By: Jesús Khan on 09-03-2023 Urobilinogen Ql (U) 1 mg/dl Normal [facility] Basophil percentageOrdered B y: Hugo Nick on 02-07-2023 Basophil percentage 0-5 SEEN /hpf 0-5 [facility] Bilirubin Test strip Ql (U)O rdered By: Hugo Nick on 02-07-2023 Bilirubin Ql (U) Negative Negative [facility] Culture, urineOrdered By: Taiwo Nick on 02-07-2023 Bacteria identified Cx Nom (U) Positive [facility] Ketones Test strip Ql (U)Ord ered By: Hugo Nick on 02-07-2023 Ketones Ql (U) 5 mg/dl Negative [facility] Mucus LM Ql (Urine sed)Order ed By: Hugo Nick on 02-07-2023 Mucus Ql (Urine sed) 0 SEEN /hpf [facility] Nitrite Test strip Ql (U)Ord ered By: Hugo Nick on 02-07-2023 Nitrite Ql (U) Negative Negative [facility] Protein Test strip Ql (U)Ord ered By: Hugo Nick on 02-07-2023 Protein Ql (U) 30 mg/dl Negative [facility] Squamous epithelial cells de tection in urine sediment by light microscopyOrdered By: Hugo Nick on 02-07-2023 Epithelial cells.squamous LM Ql (Urine sed) 0-5 SEEN /hpf 5-10 [facility] Urine blood detectionOrdered By: Hugo Nick on 02-07-2023 RBC Ql (U) 150 /ul Negative [facility] RBC Ql (U) 0-5 SEEN /hpf 0-5 [facility] Urine clarityOrdered By: Brenda Nick on 02-07-2023 Clarity (U) Clear Clear [facility] Urine color determinationOrd ered By: Hugo Nick on 02-07-2023 Color (U) Yellow Yellow [facility] Urine glucose detectionOrder ed By: Hugo Nick on 02-07-2023 Glucose Ql (U) Normal mg/dl Normal [facility] Urine leukocyte esterase det ection by dipstickOrdered By: Hugo Nick on 02-07-2023 Leukocyte esterase Test strip Ql (U) 100 /ul Negative [facility] Urine pHOrdered By: Hugo Nick on 02-07-2023 pH (U) 5.0 [pH] 5.0 - 8.0 [facility] Urine sediment bacteria coun t by microscopy (number/high power field)Ordered By: Hugo Nick on 02-07-2023 Bacteria LM.HPF (Urine sed) [#/Area] 3 /[HPF] None Seen [facility] Urine specific gravity measu rementOrdered By: Hugo Nick on 02-07-2023 Specific gravity (U) [Rel density] 1.020 1.002-1.030 [facility] Urobilinogen Auto test strip Ql (U)Ordered By: Hugo Nick on 02-07-2023 Urobilinogen Ql (U) Normal mg/dl Normal [facility] Absolute lymphocyte countOrd ered By: ED PROVIDER on 11-08-2022 Lymphocytes Auto (Unsp spec) [#/Vol] 1.57 10*3/uL 0.83-4.51 [facility] Basophil percentageOrdered B y: ED PROVIDER on 11-08-2022 Basophils/100 WBC (Bld) 0.3 % 0-1 [facility] Eosinophils/100 WBC (Bld) 0.3 % 0-5 [facility] Neutrophils (Bld) [#/Vol] 12.5 10*3/uL 2.0-7.7 [facility] Neutrophils/100 WBC (Bld) 81.4 % 47-70 [facility] WBC (Bld) [#/Vol] 15.3 10*3/uL 4.4-11.0 [facility] Basophil percentageOrdered B y: Dr. Flores on 11-08-2022 Bilirubin [Mass/Vol] 0.50 mg/dL 0.20-1.00 [facility] Comment on above: For patients on eltr ombopag therapy, use of Dimension Kelley TBIL is not recommended. Chloride [Moles/Vol] 107 mmol/L 98-107 [facility] Glucose [Mass/Vol] 159 mg/dL 74-106 [facility] Comment on above: Fasting Glucose resu lt greater than or equal to 126 mg/dL suggests DIABETES MELLITUS per A.D.A. criteria. Potassium [Moles/Vol] 3.8 mmol/L 3.5-5.1 [facility] Protein [Mass/Vol] 7.6 g/dL 6.4-8.2 [facility] Sodium [Moles/Vol] 140 mmol/L 136-145 [facility] Blood erythrocytes count (nu mber/volume)Ordered By: ED PROVIDER on 11-08-2022 RBC (Bld) [#/Vol] 5.02 10*6/uL 4.2-5.4 [facility] Blood hemoglobin measurement (mass/volume)Ordered By: ED PROVIDER on 11-08-2022 Hemoglobin (Bld) [Mass/Vol] 14.1 g/dL 12.0-15.0 [facility] Blood lymphocytes/100 leukoc ytesOrdered By: ED PROVIDER on 11-08-2022 Lymphocytes/100 WBC (Bld) 10.3 % 19-41 [facility] Blood monocytes/100 leukocyt esOrdered By: ED PROVIDER on 11-08-2022 Monocytes/100 WBC (Bld) 5.6 % 0-10 [facility] Blood platelet mean volumeOr dered By: ED PROVIDER on 11-08-2022 Platelet mean volume (Bld) [Entitic vol] 9.3 fL 6.2-12.0 [facility] Determination of erythrocyte mean corpuscular volume (MCV)Ordered By: ED PROVIDER on 11-08-2022 MCV (RBC) [Entitic vol] 85.9 fL 81-99 [facility] Hematocrit Auto (Bld) [Volum e fraction]Ordered By: ED PROVIDER on 11-08-2022 Hematocrit (Bld) [Volume fraction] 43.1 % 37-47 [facility] Laboratory - Chemistry and C hemistry - challengeOrdered By: Dr. Flores on 11-08-2022 ALP [Catalytic activity/Vol] 97 U/L 45-117 [facility] ALT [Catalytic activity/Vol] 31 U/L 13-56 [facility] CO2 [Moles/Vol] 24.0 mmol/L 21.0-32.0 [facility] Globulin (S) [Mass/Vol] 4.0 g/dL 2.2-4.2 [facility] Lipase [Catalytic activity/Vol] 63 U/L 73-393 [facility] Urea nitrogen/Creatinine [Mass ratio] 16.4 mg/mg 10-20 [facility] Laboratory - Hematology and Cell countsOrdered By: ED PROVIDER on 11-08-2022 Erythrocyte distribution width (RBC) [Entitic vol] 40.3 fL 35.1-43.9 [facility] Erythrocyte distribution width (RBC) [Ratio] 13.1 % 11.6-14.6 [facility] Immature granulocytes/100 WBC (Bld) 2.100 % 0.0-0.9 [facility] Comment on above: IG% - Immature Granu locytes (promyelocytes, myelocytes and metamyelocytes) > 1% indicates that a LEFT SHIFT is Present. MCH (RBC) [Entitic mass] 28.1 pg 27.0-32.0 [facility] Nucleated RBC/100 WBC (Bld) [Ratio] 0 % 0-5 [facility] MCHC Auto (RBC) [Mass/Vol]Or dered By: ED PROVIDER on 11-08-2022 MCHC (RBC) [Mass/Vol] 32.7 g/dL 32-36 [facility] No Panel InformationOrdered By: Dr. Flores on 11-08-2022 Estimated Creatinine Clearance Calc 81.77 ml/min [facility] Estimated GFR (MDRD) Amer 101 mL/min >60 [facility] Comment on above: GFR Calc Estimated GFR (MDRD) Non-Af Amer 84 mL/min >60 [facility] Comment on above: Non- GFR Calc Platelets bldOrdered By: ED PROVIDER on 11-08-2022 Platelets (Bld) [#/Vol] 305 10*3/uL 150-450 [facility] Serum or plasma albumin regulo urement (mass/volume)Ordered By: Dr. Flores on 11-08-2022 Albumin [Mass/Vol] 3.6 g/dL 3.2-5.0 [facility] Serum or plasma albumin/glob ulin mass ratioOrdered By: Dr. Flores on 11-08-2022 Albumin/Globulin [Mass ratio] 0.9 {ratio} 0.9-2.4 [facility] Serum or plasma calcium regulo urement (mass/volume)Ordered By: Dr. Flores on 11-08-2022 Calcium [Mass/Vol] 9.2 mg/dL 8.5-10.1 [facility] Serum or plasma creatinine m easurement (mass/volume)Ordered By: Dr. Flores on 11-08-2022 Creatinine [Mass/Vol] 0.79 mg/dL 0.55-1.02 [facility] Comment on above: The validity of the calculated GFR & GFRAA in patients over 70 years has not been determined. Clinical correlation is essential. Serum or plasma urea nitroge n measurement (mass/volume)Ordered By: Dr. Flores on 11-08-2022 Urea nitrogen [Mass/Vol] 13 mg/dL 7-18 [facility] Thin prep Papanicolaou smear with manual screeningOrdered By: Dr. Flores on 11-08-2022 Thin prep Papanicolaou smear with manual screening 13 U/L 15-37 [facility] Thin prep Papanicolaou smear with manual screening 9 5-15 [facility] Absolute lymphocyte counton 01-21-2022 Lymphocytes Auto (Unsp spec) [#/Vol] 2.28 10*3/uL 0.83-4.51 [facility] Work Phone: Basophil percentageon 2021 Basophils/100 WBC (Bld) 0.3 % 0-1 [facility] Work Phone: Chloride [Moles/Vol] 108 mmol/L 98-107 [facility] Work Phone: [phone] Eosinophils/100 WBC (Bld) 2.3 % 0-5 [facility] Work Phone: Glucose [Mass/Vol] 119 mg/dL 74-106 [facility] Work Phone: Comment on above: Fasting Glucose resu lt from 100 to 125 mg/dL suggests IMPAIRED HOMEOSTASIS per A.D.A. criteria. Neutrophils (Bld) [#/Vol] 7.2 10*3/uL 2.0-7.7 [facility] Work Phone: Neutrophils/100 WBC (Bld) 69.2 % 47-70 [facility] Work Phone: [phone] Potassium [Moles/Vol] 4.2 mmol/L 3.5-5.1 [facility] Work Phone: Sodium [Moles/Vol] 141 mmol/L 136-145 [facility] Work Phone: [phone] WBC (Bld) [#/Vol] 10.4 10*3/uL 4.4-11.0 [facility] Work Phone: Blood erythrocytes count (nu mber/volume)on 01-21-2022 RBC (Bld) [#/Vol] 4.78 10*6/uL 4.2-5.4 [facility] Work Phone: Blood hemoglobin measurement (mass/volume)on 01-21-2022 Hemoglobin (Bld) [Mass/Vol] 13.8 g/dL 12.0-15.0 [facility] Work Phone: Blood lymphocytes/100 leukoc yteson 01-21-2022 Lymphocytes/100 WBC (Bld) 22.0 % 19-41 [facility] Work Phone: Blood monocytes/100 leukocyt eson 01-21-2022 Monocytes/100 WBC (Bld) 5.8 % 0-10 [facility] Work Phone: Blood platelet mean volumeon 01-21-2022 Platelet mean volume (Bld) [Entitic vol] 9.4 fL 6.2-12.0 [facility] Work Phone: Determination of erythrocyte mean corpuscular volume (MCV)on 01-21-2022 MCV (RBC) [Entitic vol] 87.2 fL 81-99 [facility] Work Phone: Hematocrit Auto (Bld) [Volum e fraction]on 01-21-2022 Hematocrit (Bld) [Volume fraction] 41.7 % 37-47 [facility] Work Phone: Laboratory - Chemistry and C hemistry - challengeon 01-21-2022 CO2 [Moles/Vol] 25.0 mmol/L 21.0-32.0 [facility] Work Phone: Urea nitrogen/Creatinine [Mass ratio] 17.3 mg/mg 10-20 [facility] Work Phone: Laboratory - Hematology and Cell countson 01-21-2022 Erythrocyte distribution width (RBC) [Entitic vol] 40.9 fL 35.1-43.9 [facility] Work Phone: Erythrocyte distribution width (RBC) [Ratio] 12.9 % 11.6-14.6 [facility] Work Phone: Immature granulocytes/100 WBC (Bld) 0.400 % 0.0-0.9 [facility] Work Phone: Comment on above: IG% - Immature Granu locytes (promyelocytes, myelocytes and metamyelocytes) > 1% indicates that a LEFT SHIFT is Present. MCH (RBC) [Entitic mass] 28.9 pg 27.0-32.0 [facility] Work Phone: Nucleated RBC/100 WBC (Bld) [Ratio] 0 % 0-5 [facility] Work Phone: MCHC Auto (RBC) [Mass/Vol]on 01-21-2022 MCHC (RBC) [Mass/Vol] 33.1 g/dL 32-36 [facility] Work Phone: No Panel Informationon 01-21 Estimated Creatinine Clearance Calc 75.03 ml/min [facility] Work Phone: Estimated GFR (MDRD) Amer 92 mL/min >60 [facility] Work Phone: Comment on above: GFR Calc Estimated GFR (MDRD) Non-Af Amer 76 mL/min >60 [facility] Work Phone: Comment on above: Non- GFR Calc Troponin I High Sensitivity < 3 pg/mL 3.0-54.0 [facility] Work Phone: Comment on above: Please Note: New Theodora t Units and Gender Specific Reference Ranges. For more information see Policy Stat Procedure Kelley High Sensitivity Troponin (TNIH) and attachments. Platelets bldon 01-21-2022 Platelets (Bld) [#/Vol] 314 10*3/uL 150-450 [facility] Work Phone: Serum or plasma calcium regulo urement (mass/volume)on 01-21-2022 Calcium [Mass/Vol] 9.4 mg/dL 8.5-10.1 [facility] Work Phone: Serum or plasma creatinine m easurement (mass/volume)on 01-21-2022 Creatinine [Mass/Vol] 0.87 mg/dL 0.55-1.02 [facility] Work Phone: Comment on above: The validity of the calculated GFR & GFRAA in patients over 70 years has not been determined. Clinical correlation is essential. Serum or plasma urea nitroge n measurement (mass/volume)on 01-21-2022 Urea nitrogen [Mass/Vol] 15 mg/dL 7-18 [facility] Work Phone: Thin prep Papanicolaou smear with manual screeningon 01-21-2022 Thin prep Papanicolaou smear with manual screening 8 5-15 [facility] Work Phone: Absolute lymphocyte counton 01-13-2022 Lymphocytes Auto (Unsp spec) [#/Vol] 2.37 10*3/uL 0.83-4.51 [facility] Work Phone: Basophil percentageon 2021 Basophil percentage 0 SEEN /hpf [facility] Work Phone: Basophils/100 WBC (Bld) 0.4 % 0-1 [facility] Work Phone: Bilirubin [Mass/Vol] 0.40 mg/dL 0.20-1.00 [facility] Work Phone: Comment on above: For patients on eltr ombopag therapy, use of Dimension Kelley TBIL is not recommended. Chloride [Moles/Vol] 107 mmol/L 98-107 [facility] Work Phone: Eosinophils/100 WBC (Bld) 2.6 % 0-5 [facility] Work Phone: Glucose [Mass/Vol] 113 mg/dL 74-106 [facility] Work Phone: Comment on above: Fasting Glucose resu lt from 100 to 125 mg/dL suggests IMPAIRED HOMEOSTASIS per A.D.A. criteria. Neutrophils (Bld) [#/Vol] 7.9 10*3/uL 2.0-7.7 [facility] Work Phone: Neutrophils/100 WBC (Bld) 69.8 % 47-70 [facility] Work Phone: Potassium [Moles/Vol] 4.1 mmol/L 3.5-5.1 [facility] Work Phone: Protein [Mass/Vol] 8.1 g/dL 6.4-8.2 [facility] Work Phone: Sodium [Moles/Vol] 138 mmol/L 136-[facility]: WBC (Bld) [#/Vol] 11.3 10*3/uL 4.4-11.0 [facility] Work Phone: Bilirubin Test strip Ql (U)o n 01-13-2022 Bilirubin Ql (U) Negative Negative [facility] Work Phone: Blood erythrocytes count (nu mber/volume)on 01-13-2022 RBC (Bld) [#/Vol] 5.03 10*6/uL 4.2-5.4 [facility] Work Phone: Blood hemoglobin measurement (mass/volume)on 01-13-2022 Hemoglobin (Bld) [Mass/Vol] 14.6 g/dL 12.0-15.0 [facility] Work Phone: Blood lymphocytes/100 leukoc yteson 01-13-2022 Lymphocytes/100 WBC (Bld) 20.9 % 19-41 [facility] Work Phone: Blood monocytes/100 leukocyt eson 01-13-2022 Monocytes/100 WBC (Bld) 5.6 % 0-10 [facility] Work Phone: Blood platelet mean volumeon 01-13-2022 Platelet mean volume (Bld) [Entitic vol] 9.4 fL 6.2-12.0 [facility] Work Phone: Determination of erythrocyte mean corpuscular volume (MCV)on 01-13-2022 MCV (RBC) [Entitic vol] 87.7 fL 81-99 [facility] Work Phone: Hematocrit Auto (Bld) [Volum e fraction]on 01-13-2022 Hematocrit (Bld) [Volume fraction] 44.1 % 37-47 [facility] Work Phone: Ketones Test strip Ql (U)on 01-13-2022 Ketones Ql (U) Negative Negative [facility] Work Phone: Laboratory - Chemistry and C hemistry - challengeon 01-13-2022 ALP [Catalytic activity/Vol] 106 U/L 45-117 [facility] Work Phone: ALT [Catalytic activity/Vol] 28 U/L 13-56 [facility] Work Phone: CO2 [Moles/Vol] 26.0 mmol/L 21.0-32.0 [facility] Work Phone: Globulin (S) [Mass/Vol] 4.2 g/dL 2.2-4.2 [facility] Work Phone: Urea nitrogen/Creatinine [Mass ratio] 18.5 mg/mg 10-20 [facility] Work Phone: Laboratory - Hematology and Cell countson 01-13-2022 Erythrocyte distribution width (RBC) [Entitic vol] 41.4 fL 35.1-43.9 [facility] Work Phone: Erythrocyte distribution width (RBC) [Ratio] 12.9 % 11.6-14.6 [facility] Work Phone: [phone] Immature granulocytes/100 WBC (Bld) 0.700 % 0.0-0.9 [facility] Work Phone: Comment on above: IG% - Immature Granu locytes (promyelocytes, myelocytes and metamyelocytes) > 1% indicates that a LEFT SHIFT is Present. MCH (RBC) [Entitic mass] 29.0 pg 27.0-32.0 [facility] Work Phone: Nucleated RBC/100 WBC (Bld) [Ratio] 0 % 0-5 [facility] Work Phone: MCHC Auto (RBC) [Mass/Vol]on 01-13-2022 MCHC (RBC) [Mass/Vol] 33.1 g/dL 32-36 [facility] Work Phone: Mucus LM Ql (Urine sed)on Mucus Ql (Urine sed) 0 SEEN /hpf [facility] Work Phone: Nitrite Test strip Ql (U)on 01-13-2022 Nitrite Ql (U) Negative Negative [facility] Work Phone: No Panel Informationon 01-13 Estimated Creatinine Clearance Calc 85.89 ml/min [facility] Work Phone: Estimated GFR (MDRD) Amer 107 mL/min >60 [facility] Work Phone: Comment on above: GFR Calc Estimated GFR (MDRD) Non-Af Amer 89 mL/min >60 [facility] Work Phone: Comment on above: Non- GFR Calc Platelets bldon 01-13-2022 Platelets (Bld) [#/Vol] 319 10*3/uL 150-450 [facility] Work Phone: Protein Test strip Ql (U)on 01-13-2022 Protein Ql (U) Negative Negative [facility] Work Phone: Serum or plasma albumin regulo urement (mass/volume)on 01-13-2022 Albumin [Mass/Vol] 3.9 g/dL 3.2-5.0 [facility] Work Phone: Serum or plasma albumin/glob ulin mass ratioon 01-13-2022 Albumin/Globulin [Mass ratio] 0.9 {ratio} 0.9-2.4 [facility] Work Phone: Serum or plasma calcium regulo urement (mass/volume)on 01-13-2022 Calcium [Mass/Vol] 9.8 mg/dL 8.5-10.1 [facility] Work Phone: Serum or plasma creatinine m easurement (mass/volume)on 01-13-2022 Creatinine [Mass/Vol] 0.76 mg/dL 0.55-1.02 [facility] Work Phone: Comment on above: The validity of the calculated GFR & GFRAA in patients over 70 years has not been determined. Clinical correlation is essential. Serum or plasma urea nitroge n measurement (mass/volume)on 01-13-2022 Urea nitrogen [Mass/Vol] 14 mg/dL 7-18 [facility] Work Phone: Squamous epithelial cells de tection in urine sediment by light microscopyon 01-13-2022 Epithelial cells.squamous LM Ql (Urine sed) 0-5 SEEN /hpf [facility] Work Phone: Thin prep Papanicolaou smear with manual screeningon 01-13-2022 Thin prep Papanicolaou smear with manual screening 10 U/L 15-37 [facility] Work Phone: Thin prep Papanicolaou smear with manual screening 5 5-15 [facility] Work Phone: Urine blood detectionon 05-0 RBC Ql (U) 50 /ul Negative [facility] Work Phone: RBC Ql (U) 0 SEEN /hpf [facility] Work Phone: Urine clarityon 01-13-2022 Clarity (U) Clear Clear [facility] Work Phone: Urine color determinationon 01-13-2022 Color (U) Yellow Yellow [facility] Work Phone: Urine glucose detectionon Glucose Ql (U) Normal mg/dl Normal [facility] Work Phone: Urine leukocyte esterase det ection by dipstickon 01-13-2022 Leukocyte esterase Test strip Ql (U) 25 /ul Negative [facility] Work Phone: Urine pHon 01-13-2022 pH (U) 6.0 [pH] [facility] Work Phone: Urine sediment bacteria coun t by microscopy (number/high power field)on 01-13-2022 Bacteria LM.HPF (Urine sed) [#/Area] 0 /[HPF] None Seen [facility] Work Phone: Urine specific gravity measu rementon 01-13-2022 Specific gravity (U) [Rel density] 1.020 [facility] Work Phone: Urobilinogen Auto test strip Ql (U)on 01-13-2022 Urobilinogen Ql (U) Normal mg/dl Normal [facility] Work Phone: Hemoglobin A1con 05-31-2021 Glucose [Mass/Vol] 252 mg/dL Normal [facility] Comment on above: Performed By: #### H BA1C #### [facility] Routine Lab [address], [place] [address] HbA1c (Bld) [Mass fraction] 10.4 % High 4.3-5.6 [facility] Comment on above: Performed By: #### H BA1C #### [facility] Routine Lab [address], [place] [address] Vital Signs Date Time Vital Sign Value Performing Clinician Danieli jayy 05-16-2025 17:01-0400 Body temperature 96.1 [degF] Dr. Radha Gao MD Work Phone: [facility] 05-16-2025 17:01-0400 Diastolic blood pressure 80 mm[Hg] Dr. Radha Gao MD Work Phone: [facility] 05-16-2025 17:01-0400 Heart rate 93 /min Dr. Radha Gao MD Work Phone: [facility] 05-16-2025 17:01-0400 Respiratory rate 18 /min Dr. Radha Gao MD Work Phone: [facility] 05-16-2025 17:01-0400 SaO2% (BldA) [Mass fraction] 97 % Dr. Radha Gao MD Work Phone: [facility] 05-16-2025 17:01-0400 Systolic blood pressure 150 mm[Hg] Dr. Radha Gao MD Work Phone: [facility] 05-16-2025 15:28-0400 Body height 162.[address] Radha Gao MD Work Phone: [facility] 05-16-2025 15:28-0400 Body mass index (BMI) [Ratio] 53.2 kg/m2 Dr. Radha Gao MD Work Phone: [facility] 05-16-2025 15:28-0400 Body weight 140.[address] Radha Gao MD Work Phone: [facility] 12-27-2023 22:03-0400 Body temperature 98.4 [degF] [facility] 12-27-2023 22:03-0400 Diastolic blood pressure 97 mm[Hg] [facility] 12-27-2023 22:03-0400 Heart rate 100 /min [facility] 12-27-2023 22:03-0400 Respiratory rate 19 /min [facility] 12-27-2023 22:03-0400 SaO2% (BldA) [Mass fraction] 99 % [facility] 12-27-2023 22:03-0400 Systolic blood pressure 140 mm[Hg] [facility] 12-27-2023 21:33-0400 Body height 162.[address] [facility] 09-03-2023 03:43-0500 Diastolic blood pressure 89 mm[Hg] [facility] 09-03-2023 03:43-0500 Heart rate 74 /min [facility] 09-03-2023 03:43-0500 Respiratory rate 16 /min [facility] 09-03-2023 03:43-0500 SaO2% (BldA) [Mass fraction] 97 % [facility] 09-03-2023 03:43-0500 Systolic blood pressure 140 mm[Hg] [facility] 09-03-2023 00:03-0500 Body height 162.[address] [facility] 09-03-2023 00:03-0500 Body temperature 97.5 [degF] [facility] 07-15-2023 18:05-0400 Body height 162.[address] [facility] 07-15-2023 18:05-0400 Body mass index (BMI) [Ratio] 51.7 kg/m2 [facility] 07-15-2023 18:05-0400 Body temperature 98 [degF] [facility] 07-15-2023 18:05-0400 Body weight 136.[address] [facility] 07-15-2023 18:05-0400 Diastolic blood pressure 102 mm[Hg] [facility] 07-15-2023 18:05-0400 Heart rate 96 /min [facility] 07-15-2023 18:05-0400 Respiratory rate 18 /min [facility] 07-15-2023 18:05-0400 SaO2% (BldA) [Mass fraction] 97 % [facility] 07-15-2023 18:05-0400 Systolic blood pressure 139 mm[Hg] [facility] 07-15-2023 02:13-0400 Body height 162.[address] [facility] 07-15-2023 02:13-0400 Body mass index (BMI) [Ratio] 23.8 kg/m2 [facility] 07-15-2023 02:13-0400 Body temperature 96.4 [degF] [facility] 07-15-2023 02:13-0400 Body weight 63.[address] [facility] 07-15-2023 02:13-0400 Diastolic blood pressure 87 mm[Hg] [facility] 07-15-2023 02:13-0400 Heart rate 95 /min [facility] 07-15-2023 02:13-0400 Respiratory rate 18 /min [facility] 07-15-2023 02:13-0400 SaO2% (BldA) [Mass fraction] 99 % [facility] 07-15-2023 02:13-0400 Systolic blood pressure 138 mm[Hg] [facility] 06-06-2023 04:18-0400 Heart rate 95 /min [facility] 06-06-2023 04:18-0400 Respiratory rate 17 /min [facility] 06-06-2023 04:18-0400 SaO2% (BldA) [Mass fraction] 99 % [facility] 06-06-2023 04:04-0400 Body height 162.[address] [facility] 06-06-2023 04:04-0400 Body mass index (BMI) [Ratio] 51 kg/m2 [facility] 06-06-2023 04:04-0400 Body temperature 97.7 [degF] [facility] 06-06-2023 04:04-0400 Body weight 134.[address] [facility] 06-06-2023 04:04-0400 Diastolic blood pressure 92 mm[Hg] [facility] 06-06-2023 04:04-0400 Systolic blood pressure 146 mm[Hg] [facility] 04-14-2023 20:41-0400 Body height 165.[address] [facility] 04-14-2023 20:41-0400 Body mass index (BMI) [Ratio] 51.2 kg/m2 [facility] 04-14-2023 20:41-0400 Body temperature 97.9 [degF] [facility] 04-14-2023 20:41-0400 Body weight 139.[address] [facility] 04-14-2023 20:41-0400 Diastolic blood pressure 89 mm[Hg] [facility] 04-14-2023 20:41-0400 Heart rate 102 /min [facility] 04-14-2023 20:41-0400 Respiratory rate 18 /min [facility] 04-14-2023 20:41-0400 SaO2% (BldA) [Mass fraction] 98 % [facility] 04-14-2023 20:41-0400 Systolic blood pressure 129 mm[Hg] [facility] 02-07-2023 23:51-0400 Diastolic blood pressure 96 mm[Hg] [facility] 02-07-2023 23:51-0400 Heart rate 94 /min [facility] 02-07-2023 23:51-0400 Respiratory rate 18 /min [facility] 02-07-2023 23:51-0400 SaO2% (BldA) [Mass fraction] 95 % [facility] 02-07-2023 23:51-0400 Systolic blood pressure 153 mm[Hg] [facility] 02-07-2023 21:29-0400 Body mass index (BMI) [Ratio] 52.7 kg/m2 [facility] 02-07-2023 21:29-0400 Body temperature 98.4 [degF] [facility] 02-07-2023 21:29-0400 Body weight 139.[address] [facility] 11-09-2022 03:11-0500 Diastolic blood pressure 76 mm[Hg] [facility] 11-09-2022 03:11-0500 Heart rate 69 /min [facility] 11-09-2022 03:11-0500 Respiratory rate 18 /min [facility] 11-09-2022 03:11-0500 SaO2% (BldA) [Mass fraction] 97 % [facility] 11-09-2022 03:11-0500 Systolic blood pressure 138 mm[Hg] [facility] 11-08-2022 22:16-0500 Body height 165.[address] [facility] 11-08-2022 22:16-0500 Body mass index (BMI) [Ratio] 53.2 kg/m2 [facility] 11-08-2022 22:16-0500 Body temperature 97.4 [degF] [facility] 11-08-2022 22:16-0500 Body weight 145.[address] [facility] 01-21-2022 22:23-0400 Diastolic blood pressure 84 mm[Hg] [facility] Work Phone: 01-21-2022 22:23-0400 Heart rate 93 /min [facility] Work Phone: 01-21-2022 22:23-0400 Respiratory rate 21 /min [facility] Work Phone: 01-21-2022 22:23-0400 Systolic blood pressure 131 mm[Hg] [facility] Work Phone: 01-21-2022 21:19-0400 Body temperature 97.2 [degF] [facility] Work Phone: 01-21-2022 21:19-0400 SaO2% (BldA) [Mass fraction] 97 % [facility] Work Phone: 01-21-2022 21:17-0400 Body height 165.[address] [facility] Work Phone: 01-21-2022 21:17-0400 Body mass index (BMI) [Ratio] 49.4 kg/m2 [facility] Work Phone: 01-21-2022 21:17-0400 Body weight 134.[address] [facility] Work Phone: 01-13-2022 20:37-0400 Diastolic blood pressure 99 mm[Hg] [facility] Work Phone: 01-13-2022 20:37-0400 Heart rate 76 /min [facility] Work Phone: 01-13-2022 20:37-0400 Respiratory rate 18 /min [facility] Work Phone: 01-13-2022 20:37-0400 SaO2% (BldA) [Mass fraction] 93 % [facility] Work Phone: 01-13-2022 20:37-0400 Systolic blood pressure 159 mm[Hg] [facility] Work Phone: 01-13-2022 18:03-0400 Body height 165.[address] [facility] Work Phone: 01-13-2022 18:03-0400 Body mass index (BMI) [Ratio] 50.6 kg/m2 [facility] Work Phone: 01-13-2022 18:03-0400 Body temperature 98.6 [degF] [facility] Work Phone: 01-13-2022 18:03-0400 Body weight 138.[address] [facility] Work Phone: Encounters Encounter Date Encounter Type Care Provider Facility Start: [facility]03[facility] Start: 05-30-2025 ambulatory Radha Gao [facility] ty:[facility] Start: 05-23-2025 End: 05-23-2025 [facility] Start: 05-16-2025 End: 05-16-2025 Emergency department patient visit Dr. Radha Gao MD Work Phone: -Emergency Department Work Phone: Start: 12-31-2024 End: 12-31-2024 ambulatory Martin Reese Facility:[facility] Start: 12-31-2024 End: 12-31-2024 ambulatory Radha Gao Facility:[facility] Start: 10-12-2024 ambulatory RADHA [facility] Start: 09-11-2024 End: 09-11-2024 Emergency department patient visit Mathew Gonsales Facility:[facility] Start: 08-11-2024 End: 08-11-2024 [facility] Start: 12-27-2023 End: 12-27-2023 Emergency department patient visit [facility] Work Phone: Start: 09-03-2023 End: 09-03-2023 Emergency department patient visit [facility] Work Phone: Start: 07-15-2023 End: 07-15-2023 Emergency department patient visit [facility] Work Phone: Start: 07-15-2023 End: 07-15-2023 Emergency department patient visit [facility] Work Phone: Start: 06-20-2023 End: 06-20-2023 Emergency department patient visit DR ROHAN MEDRANO MD Facility:[facility] Start: 06-06-2023 End: 06-06-2023 Emergency department patient visit [facility] Work Phone: Start: 04-14-2023 End: 04-14-2023 Emergency department patient visit [facility] Work Phone: Start: 02-07-2023 End: 02-07-2023 Emergency department patient visit [facility] Work Phone: Start: 11-08-2022 End: 11-09-2022 Emergency department patient visit [facility] Start: 01-21-2022 End: 01-21-2022 Emergency department patient visit [facility] Start: 01-13-2022 End: 01-13-2022 Emergency department patient visit [facility]Emer[facility] Department Procedures Date Procedure Procedure Detail Performing Clinician Start: 05-16-2025 Plain X-ray of shoulder Dr. Radha Gao MD Work Phone: Start: 09-03-2023 Computed tomography of abdomen and pelvis with intravenous contrast Start: 02-07-2023 Urine culture Start: 01-13-2022 Computed tomography of abdomen and pelvis with intravenous contrast Plan of Treatment Date Care Activity Detail Author Start: 05-16-2025 [facility] Start: 12-27-2023 [facility] Start: 09-03-2023 [facility] Start: 09-03-2023 Computed tomography of abdomen and pelvis with intravenous contrast Abdomen/Pelvis W IV Cont ONLY [facility] Start: 09-03-2023 CT Abdomen and Pelvi s W contrast IV [facility] Start: 07-15-2023 [facility] Start: 07-15-2023 [facility] Patient Education [facility] Work Phone: Patient referral [facility] Work Phone: Immunizations Immunization Date Immunization Notes Care Provider Fa cility 09-15-2016 tetanus toxoid, redu roxana diphtheria toxoid, and acellular pertussis vaccine, adsorbed [facility] Payers Date Payer Category Payer Self-pay [id number] 2023 Unknown [id number] 1980 Unknown [id number] 2.16.8 [id number] 1980 Unknown [id number] 2.16.8 [id number] 1980 Unknown [id number] 2.16.8 [id number] 1980 Unknown [id number] 2.16.8 [id number] Unknown [id number] Unknown [id number] 2.16.8 [id number] Unknown [id number] 2.16.8 [id number] Unknown [id number] 2.16.8 [id number] Unknown [id number] 2.16.8 [id number] Unknown [id number] 2.16.8 [id number] Social History Date Type Detail Facility [facility] Work Phone: Start: 01-13-2022 End: 12-27-2023 Tobacco smoking status NHIS Unknown if ever smoked [facility] Start: 03-17-2020 None [facility] Start: 08-26-2019 Non-smoker [facility] Start: 1980 Sex Assigned At Female [facility] Start: 05-16-2025 Tobacco smoking status NHIS Ex-smoker (finding) [facility] NEGATED: Highlighted row [facility] Medical Equipment Procedure Code Equipment Code Equipment Origin al Text Equipment Identifier Dates Total cholecystectomy with [...] with exploration of common bile duct CLIP,LATESHA GREENJHONNY FDA Start: 08-27-2019 Total cholecystectomy with exploration [...] with exploration of common bile duct CLIP,LATESHA GREENJHONNY FDA Start: 08-27-2019 Total cholecystectomy with exploration of common bile duct CLIP,LATESHA GREENJHONNY FDA Start: 08-27-2019 Total cholecystectomy with exploration of common bile duct CLIP,LATESHA GREENJHONNY FDA Start: 08-27-2019 Total cholecystectomy with exploration [...] duct SURGICEL, POWDER 3GR FDA Start: 08-27-2019 Blood Sugar Diagnostic strip Start: 12-27-2023 Mental Status Date Assessment Result Facility 01-21-2022 Cognitive function Level Of Cons ciousness Awake;Alert;Appropriate;Follow s Commands [facility] Work Phone: Clinical Notes 11-09-2022 to 05-16-2025 Note Date & Type Note Facility 05-16-2025 Discharge summary [facility] 05-16-2025 Radiology Diagnostic study note [facility] Imaging Services [address] [place] [address] Shoulder min 2 Views MR#: [id number] Acct: [id number] Name: REKHA LEWIS Rep #: [id number] : 1980 F 45 From: Cecilia Johansen MD PCP: Dr. Radha Gao MD Status: R EG ER Study:Shoulder min 2 Views Date of Exam: 05/16/25 Exam# [id number] Ordering Dr: Yoselyn Flores MD PROCEDURE: SHOULDER MIN 2 VIEWS 05/16/2025 REASON FOR EXAM: ATRAUMATIC PAIN TECHNIQUE: Procedure Code: [facility] Modality: DX Procedure: SHOULDER MIN 2 VIEWS Laterality: Left COMPARISON: None FINDINGS: Fracture/dislocation: None visible. Joint space(s): Glenohumeral joint space relatively preserved. Moderate loss ofAC joint space without bony hypertrophic changes. Soft tissues: Questioned joint effusion as below. Foreign bodies: None visible. Bone mineralization: Unremarkable. Other: Slight inferior subluxation of the humeral head with respect of the glenoid questioned on some images with slight soft tissue prominence, as can be seen in a joint effusion. RAD/Shoulder min 2 Views IMPRESSION: 1. No visible acute displaced fracture. 2. Question a nonspecific glenohumeral joint effusion. Reading Location: [facility] CC: Dr. Ac Flores MD; Dr. Radha Gao MD ~ Practice Clinician: Signed [facility] 05-16-2025 Discharge summary Note Date/Time May 16, 2025 5:00pm [facility] Medical Records Department [address] [place] [address] Emergency Department Summary 05/16/25 MR#: [id number] Acct: [id number] Name: REKHA LEWIS Rep #:[id number] : 1980 45 From: Ac Flores MD PCP: Dr. Radha Gao MD Status:R EG ER Location: ED HPI History of Present Illness HPI Narrative: 45-year-old female past medical history of hypertension diabetes. She has had chronic left shoulder pain for years. Is progressively gotten worse over the last week. Denies any fall injury or trauma. She has never had surgery of her left shoulder and denies ever having an MRI. She was told by her primary care physician in [place] that she might have a rotator cuff tear years ago butthey never did imaging to confirm that. She denies any fever redness or swelling her shoulder just hurts with movement. Repeat exam patient is doing well at 4:50 PM. She however x-ray shows no acute abnormality. I explained that we do not see cartilage or tendon or ligaments. Do not see the rotator cuff or the labrum on x-ray. She needs a follow-up MRI. She is referred to local orthopedics. She has appointment to see her primary care physician this week. She be written for [facility] for pain and then she needs further evaluation. We discussed but she did not want a shoulder joint injection at this time but will discuss that with the orthopedic physician. She knows to return if she develops a fever or redness or swelling of the shoulder but clinically this is not infected at this time and her exam isunchanged from the initial exam today. Chief Complaint: Upper Extremity Injury Informant: patient Occured/Mechanism Mechanism/Context: No injury and No blunt trauma Onset/Context/Timing Onset: Month(s) Context: Gradual Onset Timing: Continuous Quality of Pain: Sharp Current Severity: Moderate Maximum Severity: Severe Associated Symptoms Associated Symptoms: Negative for Parasthesia, Weakness or Loss of Funtion Narrative Narrative: 45-year-old female [id number] acute on chronic worsening left shoulder pain. No fall injury or trauma. No fever or redness nor swelling. No prior surgery. Much worse with movement. Prior similar symptoms: Yes Recent Illness/Hospitalization: No PFSH PFS Medical History Hyperlipidemia Diabetes Dental caries Recurrent hernia Hemorrhoids RUQ abdominal pain Abdominal pain SOB (shortness of breath) Anxiety Depression Hypertension Back problem Fatigue Home Medications ?Medication ?Instructions ?Recorded ?Last Taken ?Type albuterol sulfate 90 mcg/actuation 1 - 2 puff inhalati on Q6H PRN PRN 08/26/19 Unknown History aerosol inhaler Sob &/Or Wheezing lisinopril 20 mg tablet (Zestril) 20 mg PO QHS bloodpr essure 01/30/21 Unknown History atorvastatin 20 mg tablet 20 mg PO QHS 11/08/22 Unknow n History metformin 500 mg tablet 500 mg PO DAILY 11/08/22 Unk nown History sertraline 100 mg tablet (Zoloft) 200 mg PO DAILY 10/17 01/05 Unknown History dulaglutide 0.75 mg/0.5 mL 0.75 mg subcut .COMPLEX Unknown History subcutaneous pen injector (Trulicity) alprazolam 1 mg tablet 1 mg PO BID PRN anxiety 08/16 Unknown History hydrocodone-acetaminophen 5-325mg 1 tab PO Q6H PRN PRN Pain 3 days 09/03/23 Unknown Rx 5mg-325mg #10 TABLETS insulin glargine 100 unit/mL (3 20 unit subcut DAILY h yperglycemia 09/03/23 Unknown History mL) subcutaneous pen (Lantus Solostar U-100 Insulin) insulin lispro 100 unit/mL 8 unit subcut Q8H hyperglyc emia 09/03/23 Unknown History subcutaneous pen (Humalog KwikPen (U-100) Insulin) tizanidine 2 mg tablet 2 mg PO .COMPLEX PRN pulled muscles 09/03/23 Unknown History amoxicillin 875 mg tablet 875 mg PO BID 12/27/23 Unkno wn History amoxicillin 875 mg-potassium 1 tab PO BID 12/27/23 Unk nown History clavulanate 125 mg tablet blood sugar diagnostic (True 12/27/23 Unknown History Metrix Glucose Test Strip) oxycodone-acetaminophen 5 mg-325 1 tab PO Q8H PRN pain 3 days #10 12/27/23 Unknown Rx mg tablet (Percocet) tabs oxycodone-acetaminophen 5 mg-325 1 tab PO Q6H PRN PRN Pain 3 days 04/23/24 Unknown Rx mg tablet #12 TABLETS penicillin V potassium 500 mg 500 mg PO 4X/DAY #28 tab s 04/23/24 Unknown Rx tablet hydrocodone-acetaminophen 5-325mg 1 tab PO Q6H PRN PRN Pain 1 day #4 09/11/24 Unknown Rx 5mg-325mg TABLETS nitrofurantoin 100 mg PO Q12 #10 CAPSULES 1 11/12/23 Unknown Rx monohydrate/macrocrystals 100 mg capsule hydrocodone-acetaminophen 5-325mg 1 tab PO Q6H PRN PRN Pain 4 days 05/16/25 Unkn own Rx 5mg-325mg #12 TABLETS Allergy/AdvReac Type Severity Reaction Status Date / Time diphenhydramine Allergy Severe Angioedema Verified 05/16/25 15:28 ibuprofen Allergy Intermediate Swelling Verified 05/16/25 15:28 tramadol Allergy Intermediate Swelling Verified 05/16/25 15:28 Family History Mother Asthma Aunt Colon cancer Father Asthma Sister Asthma Surgical History History of laparoscopic cholecystectomy Social History Smoking Status: Former smoker second hand exposure: No alcohol intake: never substance use type: does not use caffeine: Yes what type of physical activity do you participate in: none frequency: does not exercise ROS ROS ED ROS Narrative Denies recent illness. Constitutional Constitutional ED: Denies fever(s) Eyes Eyes: Denies blurry vision ENT ENT ED: Denies ear pain Cardiovascular Cardiovascular: Denies chest pain Respiratory/Chest Respiratory/Chest: Denies cough or dyspnea Gastrointestinal Gastrointestinal: Denies abdominal pain Genitourinary Genitourinary ED: Denies dysuria or hematuria Musculoskeletal Musculoskeletal: Denies back pain or myalgias Integumentary Denies abscess Neurologic Neurologic: Denies headache(s) Psychiatric Psychiatric: Denies anxiety or depression Endocrine Endocrinology: Denies cold intolerance Hematologic/Lymphatic Hematologic/Lymphatic: Denies easy bleeding, easy bruising or lymphadenopathy Allergic/Immunologic Allergic/Immunologic ED: Denies mouth swelling, tongue swelling or urticaria EXAM Physical Exam Narrative Exam Narrative: 45-year-old male vital signs stable afebrile no acute distress. Sitting uprightin bed. H EENT exam normal. Pupils round react light. Moist mucous membranes. Lungs clear to auscultation bilateral. Heart regular rhythm no murmur. Chest wall ribs nontender. Abdomen soft nontender. Moving all 4 extremities. Left shoulder is not specifically tender. No swelling or redness. No warmth. No deformity exquisite pain with range of motion. No signs of septic joint. Normal flexion extension of the elbow and wrist. Normal referral clerk strength. Normal radial pulse intact sensation. Shoulder is normal in appearance there is no axillary lymphadenopathy. This does not appear to be a septic joint. Other extremities are unremarkable. If I lift the shoulder she can hold it up and just hurts to move it. Neurologically she is awake and alert. Answer question following commands. Const Vital Signs: 05/16/25 15:28 Temperature 96.1 F L Temperature Source Temporal Pulse Rate 93 Respiratory Rate 18 Blood Pressure 151/100 H Blood Pressure Mean 117 Pulse Ox 97 Oxygen Delivery Method Room Air Positive well nourished, well developed, cachectic, contractures and unkempt General Appearance ED: unkempt, well developed, cachectic, contractures, diaphoretic and NAD Nutritional Appearance: cachectic HEENT Reports moist mucous membranes normocephalic and atraumatic Eyes PERRL and EOMs intact bilaterally Neck full ROM and supple Chest Wall inspection of chest normal and palpation of chest normal Resp normal respiratory effort and clear to auscultation bilaterally Cardio regular rate, regular rhythm, S1 normal heart sound, S2 normal heart sound and no murmurs GI non-tender, non-distended and no masses Auscultation: normoactive bowel sounds Palpation: soft; Negative for tender, guarding or rebound tenderness present Back/Spine no CVA tenderness General Back: Negative for CVA tenderness Cervical Spine: Negative for cervical spine tenderness Thoracic Spine / Upper Back: Negative for thoracic spinal tenderness Lumbar Spine / Lower Back: Negative for lumbar spinal tenderness Extremity normal to inspection and full ROM Extremity Narrative: Except left shoulder. Pain with range of motion. No redness. No warmth. No effusion or swelling. No deformity. She can hold the arm up above her shoulderif I lifted for she does has pain with range of motion. I do not think this is a torn rotator cuff. I think it is more likely a labral issue. There is no signs this being of infection. Neuro oriented x3, CN's II-XII intact bilaterally, moves all extremities, no focal motor deficits and no sensory deficits noted Sensorium / Orientation: alert, oriented to person, oriented to place and oriented to time Motor Exam: strength 5/5 throughout Psych mental status grossly normal Appearance: unkempt Skin Lesions: no lesions Rashes: no rashes MDM MDM MDM Narrative Medical decision making narrative: 45-year-old with acute on chronic left shoulder pain. X-rays being obtained. She understands I cannot get an acute MRI today. She was given Raysal for pain. History & Record Review Discussion w/independent historian: Patient Additional record(s) reviewed:: Prior inpatient record, Prior outpatient record,Prior ED visit and Prior labs Lab Data Attestation: I reviewed the patient's lab results. Radiography Diagnostic Testing: Left shoulder x-ray 4 views interpreted myself shows no acute abnormality. No fracture. No dislocation. No significant arthritis. Discharge Plan Triage Chief Complaint: Upper Extremity Injury ED Provider: Ac Flores Dx/Rx/DC Orders Clinical Impression: Acute shoulder pain Prescriptions: New hydrocodone-acetaminophen 5-325 mg tablet 1 tab PO Q6H PRN PRN (Reason: Pain) 4 Days Qty: 12 0RF No Action albuterol [...] 0.75 mg subcutaneously every week on Wednesdays; nitrofurantoin monohyd/m-cryst 100 mg capsule 100 mg PO Q12 Qty: 10 0RF hydrocodone-acetaminophen 5-325 mg tablet 1 tab PO Q6H PRN PRN (Reason: Pain) 1 Days Qty: 4 0RF oxycodone-acetaminophen [Percocet] 5-325 mg tablet 1 tab PO Q8H PRN (Reason: pain) 3 Days Qty: 10 0RF (DME) True Metrix Glucose Test Strip Strip MISCELLANEOUS 4X/DAY amoxicillin 875 mg tablet 875 mg PO BID amoxicillin-pot clavulanate 875-125 mg tablet 1 tab PO BID penicillin V potassium 500 mg tablet 500 mg PO 4X/DAY Qty: 28 0RF oxycodone-acetaminophen 5-325 mg tablet 1 tab PO Q6H PRN PRN (Reason: Pain) 3 Days Qty: 12 0RF Primary Care Provider: Radha Gao Referrals: Kevin Malik DO [Med Staff - Active Staff] - As soon as possible Radha Gao MD [Primary Care Provider] - Keep Deepa appointment Activity Restrictions/Additional Instructions: Call and follow-up with an orthopedic physician. I gave you Dr. Kevin Malik for referral. Ice to your shoulder. Motrin for pain and inflammation. Raysal for more severe pain. Return if fever, redness or swelling to your shoulder. But at this time there is no signs of infection. Print Language: Greenlandic Disposition Disposition: Home, Self Care What to do if you have Problems For any increased pain, shortness of breath, bleeding, nausea or vomiting, chestpain, or any unexpected problems, contact your Primary Care Provider. Call [facility] ([phone]) or report to the closest Emergency Room. Call 911 if necessary. 05/16/25 1700 <Electronically signed by Ac Flores MD> Cosigner Signature (if applicable): CC: Dr. Radha Gao MD ~ Signed [facility] Work Phone: 1(938) 859-538204-13-2024 Discharge summary Author Andrews Scruggs [facility] December 27, 2023 9:54pm Note Date/Time December 27, 2023 9:4 8pm [facility] Medical Records Department [address] [place] [address] Emergency Department Summary 12/27/23 MR#: [id number] Acct: [id number] Name: REKHA LEWIS Rep #:[id number] : 1980 43 From: Andrews Scruggs [...] surgery 4 days ago, she was given Raysal for 3 days, however she states the pain is getting significantly worse. She is currently on amoxicillin. She called the dentist however they were unable to see her. She is here for evaluation for her pain. She did drivehere, she was hoping to get a prescription for Percocet. She states Raysal does not help her PFSH <ROWAN Lewis [...] Ox 96 Oxygen Delivery Method Room Air MDM <ROWAN Lewis - Last Filed: 12/27/23 21:50> [facility] Treatment and Re-Evaluation :: Differential diagnosis includes however is not limited to: Dental abscess, reversible pulpitis, gum abscess, postsurgery pain Patient appears to be in mild discomfort secondary to pain to her mouth. Patient is present to the emergency department for pain control following a recent gum flap surgery 4 days ago. Patient was given Raysal, and she states Raysal does not help, she also used all [...] Scruggs MD - Last Filed: 12/27/23 21:54> [facility] Narrative Medical decision making narrative: [...] She was written for 10 tablets of Raysal which she states does not really work [...] your Primary Care Provider. Call [facility] ([phone]) or report to the closest Emergency Room. Call 911 if necessary. 12/27/232153 <Electronically signed by Andrews Scruggs MD> Cosigner Signature (if applicable): 12/27/232149 <Electronically signed by Diallo DONAHUE> CC: Dr. Radha Gao MD ~ Signed [facility] Work Phone: 1(980) 595-497112-20-2023 Discharge summary Author Jesús Khan [facility] September 03, 2023 3:32am Note Date/Time September 03, 2023 12:24am [facility] Medical Records Department [address] [place] [address] Emergency Department Summary 09/03/23 MR#: [id number] Acct: [id number] Name: REKHA LEWIS JULIAN Rep #:[id number] : 1980 43 From: Jesús Khan [...] the abdomen was cholecystectomy several years ago [facility] Medical History Abdominal pain Anxiety Back problem [...] 97 Oxygen Delivery Method Room Air MDM MDM MDM Narrative Medical decision making narrative: Pain [...] % (Auto) 62.6 Lymph % (Auto) 25.1 [place] % (Auto) 5.5 Eos % (Auto) 5.5 [...] Clarity Clear Urine pH 5.0 Ur Specific [place] 1.025 Urine Protein 15 H Urine Glucose [...] your Primary Care Provider. Call [facility] ([phone]) or report to the closest Emergency Room. Call 911 if necessary. 09/03/23 0332 <Electronically signed by Jesús Khan MD> Cosigner Signature (if applicable): CC: Dr. Radha Gao MD ~ Signed [facility] Work Phone: 1(131) 273-261310-31-2023 Discharge summary Author Andrea Luna [facility] July 15, 2023 8:47pm Note Date/Time July 15, 2023 7 :05pm [facility] Medical Records Department [address] [place] [address] Emergency Department Summary 07/15/23 MR#: [id number] Acct: [id number] Name: REKHA LEWIS Rep #:[id number] : 1980 43 From: Andrea Luna [...] to the emergency room for pain managementconsult. [facility] Medical History Abdominal pain Anxiety Back problem [...] narcotics for this either. I did further work counselor her that I cannot provide her with [...] your Primary Care Provider. Call [facility] ([phone]) or report to the closest Emergency Room. Call 911 if necessary. 07/15/232046 <Electronically signed by Andrea Luna DO> Cosigner Signature (if applicable): CC: Dr. Radha Gao MD ~ Signed [facility] Work Phone: 1(889) 226-153207-31-2023 Discharge summary Author Jorge Eldridge [facility] April 14, 2023 10:00pm Note Date/Time April 14, 2023 9:58 pm [facility] Medical Records Department [address] [place] [address] Emergency Department Summary 04/14/23 MR#: [id number] Acct: [id number] Name: REKHA LEWIS Rep #:[id number] : 1980 42 From: Jorge Eldridge [...] your Primary Care Provider. Call [facility] ([phone]) or report to the closest Emergency Room. Call 911 if necessary. 04/14/232199 <Electronically signed by Jorge Eldridge MD> Cosigner Signature (if applicable): CC: Dr. Radha Gao MD ~ Signed [facility] Work Phone: 1(421) 214-534202-25-[address] Flroes [facility] November 09, 2022 2:56am Note Date/Time November 08, 2022 10:51pm [facility] Medical Records Department [address] [place] [address] Emergency Department Summary 11/08/22 MR#: [id number] Acct: [id number] Name: REKHA LEWIS Rep #:[id number] : 1980 42 From: Ac Flores [...] a primary care physician at the local [facility]. Lab Data Attestation: I reviewed the [...] 81.4 H Lymph % (Auto) 10.3 L [place] % (Auto) 5.6 Eos % (Auto) 0.3 [...] your Primary Care Provider. Call [facility] ([phone]) or report to the closest Emergency Room. Call 911 if necessary. 11/09/226 <Electronically signed by Ac Flores MD> Cosigner Signature (if applicable): CC: Dr. Radha Gao MD ~ Signed [facility] Work Phone: Discharge summary Author Andrews Scruggs [facility] June 06, 2023 4:43am Note Date/Time June 06, 2023 4:19am [facility] Medical Records Department [address] [place] [address] [place] [address] Emergency Department Summary 06/06/23 MR#: [id number] Acct: [id number] Name: REKHA LEWIS Rep #:[id number] : 1980 43 From: Andrews Scruggs MD PCP: Dr. Radha Gao MD Status:R EG ER Location: ED HPI History of Present Illness Chief Complaint: Dental Narrative Narrative: 43-year-old female presents with dental pain that began acutely this morning that woke her from sleep. She had multiple problems including symptomatic irreversible pulpitis. She has had multiple root canals by Dr. rIvin, her dentist. She states that she had teeth in her right upper jaw worked on previously with root canals, [facility] Medical History Abdominal pain Anxiety Back problem [...] written a prescription for 12 tablets of Raysal which she has been prescribed in the [...] your Primary Care Provider. Call [facility] ([phone]) or report to the closest Emergency Room. Call 911 if necessary. 06/06/23 0443 <Electronically signed by Andrews Scruggs MD> Cosigner Signature (if applicable): CC: Dr. Radha Gao MD ~ Signed [facility] Work Phone: Discharge summary Author Diallo Harley [facility] July 15, 2023 2:27am Note Date/Time July 15, 2023 2 :26am [facility] Medical Records Department [address] [place] [address] Emergency Department Summary 07/15/23 MR#: [id number] Acct: [id number] Name: REKHA LEWIS Rep #:[id number] : 1980 43 From: Diallo Harley MD PCP: Dr. Radha Gao MD Status:R ER Location: ED HPI History of Present [...] or 6 different teeth that are hurting. [facility] Medical History Abdominal pain Anxiety Back problem [...] problems, contact your Primary Care Provider. Call [place] [facility] ([phone]) or report to the closest Emergency Room. Call 911 if necessary. 07/15/23 0227 <Electronically signed by Diallo Harley MD> Cosigner Signature (if applicable): CC: Dr. Radha Gao MD ~ Signed [facility] Work Phone: Evaluation noteNo assessment information available [facility] Work Phone: Hospital Discharge instructions Additional Instructions CAT scan labs are unremarkable. No specific cause for your right flank pain. Follow-up with your surgeon for your umbilical hernia.[facility] Work Phone: [facility]: [facility] Discharge instructions Additional Instructions [facility] with your [facility]WS[facility] Work Phone: Hospital Discharge instructions Additional Instructions Follow-up with your dentist, Dr. Irvin on Friday.[facility] Work Phone: Hospital Discharge instructions Additional Instructions Follow-up with your dentist who can prescribe pain medications and can reevaluate you.[facility] Work Phone: Hospital Discharge instructions Additional Instructions Please follow-up with your dentist.[facility] Work Phone: Hospital Discharge instructionsAdditional Instructions Call and follow-up with an orthopedic physician. I gave you Dr. Kevin Malik for referral. Ice to your shoulder. Motrin for pain and inflammation. Raysal for more severe pain. Return if fever, redness or swelling to your shoulder. But at this time there is no signs of infection.[facility] Work Phone: Reason for referral (narrative)No reason for referral information availableWSumma Health [facility] Work Phone: Summary Purpose Family History No Family History Records Found Relationship Condition Age at Onset Recorded Date/T jeremie mother Asthma Unknown aunt Malignant neoplasm of colon Unknown father Asthma Unknown sister Asthma Unknown Advance Directives No Advanced Directives Records Found Advance Directive Response Recorded Date/ Time Living Will No January 13, 2022 6: 27pm Power of [employer] Technician No May 1st, 2022 6:27pm Advance Directive Response Recorded Date/ Time Living Will No January 21, 2022 9: 50pm Power of [employer] Technician No January 21, 2022 9:50pm Advance Directive Response Recorded Date/ Time Living Will No November 08, 2 023 11:41pm Power of [employer] Technician No November 08, 2022 11:41pm Advance Directive Response Recorded Date/ Time Living Will No April 14, 2023 9:52pm Power of [employer] Technician No April 14 9:52pm Advance Directive Response Recorded Date/ Time Living Will No June 06, 2023 4:05am Power of [employer] Technician No May 4:05am Advance Directive Response Recorded Date/ Time Living Will No July 15 2:17am Power of [employer] Technician No July 15, 2023 2:17am Advance Directive Response Recorded Date/ Time Living Will No July 15 6:21pm Power of [employer] Technician No July 15, 2023 6:21pm Advance Directive Response Recorded Date/ Time Living Will No September 03, 2 023 2:31am Power of [employer] Technician No September 03, 2023 2:31am Advance Directive Response Recorded Date/ Time Living Will No December 27, 2023 9:43pm Power of [employer] Technician No December 26 9:43pm Advance Directive Response Recorded Date/ Time Do you have a Healthcare Power of Central [employer]ile Supply Technician? No May 16, 2025 4:07pm Chief Complaint and Reason for Visit Chief [...] ABD & FLANK PAIN post op pain Chief Complaint Admit Date upper extremity May 16, 2025 3:27pm Additional Source Comments INFORMATION SOURCE (unrecogn ized section and content) DATE CREATED AUTHOR 06/02/2021 [facility] DATE CREATED AUTHOR AUTHOR'S ORGANIZ ATION 06/30/2023 [facility] ([place] DATE CREATED AUTHOR AUTHOR'S ORGANIZ ATION 05/31/2025 [facility] DATE CREATED AUTHOR AUTHOR'S ORGANIZ ATION 06/05/2025 [facility] Goals (unrecognized section and content) [...] MD Primary Care Provider Active Dr. Hugo Ncik MD Attending Provider, Emergency Provider Active Team [...] Physician Primary Care Provider Active Team Status: Active Member Role/Relationship Status Dates Dr. Radha Gao MD Primary Care Provider Active Team Status: Inactive Member Role/Relationship Status Dates Dr. Radha Gao MD Primary Care Provider Active Start: May 16, 2025 End: May 16, 2025 Dr. Ac Flores MD Emergency Provider Active S tart: May 16, 2025 End: May 16, 2025 FOR RECORDS PERTAINING TO PATIENTS WHO ARE [...] BE BASED ON THE PRIMARY CLINICAL RECORDS. [employer] provides no warranty or guarantee of the accuracy or completeness of information in this document.
--- NOTE | 2025-06-17 21:34 | EX.ED.UPPERE ---
HPI History of Present Illness Chief Complaint: Upper Extremity Injury Informant: patient Narrative Narrative: Patient is a 45-year-old female with history of anxiety, depression, hypertension, cholecystectomy and ongoing left shoulder pain with recent MRI that did show some rotator cuff tears and a small effusion (this was performed a [facility] but she showed me her results on her phone). She is presenting with worsening pain to her left shoulder. She states that she is also felt that her left hand has been weaker. Pain was worse with range of motion. She denies any fever or chills. Is following with Dr. Sawyer but has not seen him yet because she needs to get her MRI first. Does voice dissatisfaction with her current primary care doctor she does not feel that she has been taking her pain seriously. Denies any new trauma or injury. States that she has had prior relief with Percocet but does not have any currently. States Tylenol's not been helping and she has been taking much Aleve that she can with no relief today. Ice does help as well. No other complaints or concerns reported at this time. [facility] Medical History Hyperlipidemia Diabetes Dental caries Recurrent hernia Hemorrhoids RUQ abdominal pain Abdominal pain SOB (shortness of breath) Anxiety Depression Hypertension Back problem Fatigue Home Medications ?Medication ?Instructions ?Recorded ?Last Taken ?Type albuterol sulfate 90 mcg/actuation 1 - 2 puff inhalation Q6H PRN PRN 08/26/19 Unknown History aerosol inhaler Sob &/Or Wheezing lisinopril 20 mg tablet (Zestril) 20 mg PO QHS bloodpressure 01/30/21 Unknown History atorvastatin 20 mg tablet 20 mg PO QHS 11/08/22 Unknown History metformin 500 mg tablet 500 mg PO DAILY 11/08/22 Unknown History sertraline 100 mg tablet (Zoloft) 200 mg PO DAILY 11/08/22 Unknown History dulaglutide 0.75 mg/0.5 mL 0.75 mg subcut .COMPLEX 07/15/23 Unknown History subcutaneous pen injector (Trulicity) alprazolam 1 mg tablet 1 mg PO BID PRN anxiety 09/03/23 Unknown History hydrocodone-acetaminophen 5-325mg 1 tab PO Q6H PRN PRN Pain 3 days 12/20/23 Unknown Rx 5mg-325mg #10 TABLETS insulin glargine 100 unit/mL (3 20 unit subcut DAILY hyperglycemia 09/03/23 Unknown History mL) subcutaneous pen (Lantus Solostar U-100 Insulin) insulin lispro 100 unit/mL 8 unit subcut Q8H hyperglycemia 09/03/23 Unknown History subcutaneous pen (Humalog KwikPen (U-100) Insulin) tizanidine 2 mg tablet 2 mg PO .COMPLEX PRN pulled muscles 09/03/23 Unknown History amoxicillin 875 mg tablet 875 mg PO BID 12/27/23 Unknown History amoxicillin 875 mg-potassium 1 tab PO BID 12/27/23 Unknown History clavulanate 125 mg tablet blood sugar diagnostic (True 12/27/23 Unknown History Metrix Glucose Test Strip) oxycodone-acetaminophen 5 mg-325 1 tab PO Q8H PRN pain 3 days #10 12/27/23 Unknown Rx mg tablet (Percocet) tabs oxycodone-acetaminophen 5 mg-325 1 tab PO Q6H PRN PRN Pain 3 days 04/23/24 Unknown Rx mg tablet #12 TABLETS penicillin V potassium 500 mg 500 mg PO 4X/DAY #28 tabs 04/23/24 Unknown Rx tablet hydrocodone-acetaminophen 5-325mg 1 tab PO Q6H PRN PRN Pain 1 day #4 09/11/24 Unknown Rx 5mg-325mg TABLETS nitrofurantoin 100 mg PO Q12 #10 CAPSULES 09/11/24 Unknown Rx monohydrate/macrocrystals 100 mg capsule hydrocodone-acetaminophen 5-325mg 1 tab PO Q6H PRN PRN Pain 4 days 05/16/25 Unknown Rx 5mg-325mg #12 TABLETS oxycodone 5 mg tablet 5 mg PO Q6H PRN pain 3 days #12 06/17/25 Unknown Rx tabs Allergy/AdvReac Type Severity Reaction Status Date / Time diphenhydramine Allergy Severe Angioedema Verified 06/17/25 18:13 ibuprofen Allergy Intermediate Swelling Verified 06/17/25 18:13 tramadol Allergy Intermediate Swelling Verified 06/17/25 18:13 meloxicam AdvReac Intermediate irritable Verified 06/17/25 18:14 Family History Mother Asthma Aunt Colon cancer Father Asthma Sister Asthma Surgical History History of laparoscopic cholecystectomy Social History housing: house Smoking Status: Former smoker second hand exposure: No alcohol intake: never substance use type: does not use caffeine: Yes what type of physical activity do you participate in: none frequency: does not exercise ROS ROS ED Constitutional Constitutional ED: Denies chills or fever(s) Cardiovascular Cardiovascular: Denies chest pain Respiratory/Chest Respiratory/Chest: Denies cough or dyspnea Gastrointestinal Gastrointestinal: Denies nausea or vomiting Musculoskeletal Musculoskeletal: Reports back pain, neck pain and other Details: left shoulder pain Integumentary Denies Abrasions or rash Neurologic Neurologic: Reports weakness; Denies paresthesias Psychiatric Psychiatric: Reports anxiety; Denies suicidal ideation or suicidal thoughts EXAM Physical Exam Const Vital Signs: 06/17/25 18:14 06/17/25 20:13 Temperature 97.8 F Temperature Source Temporal Pulse Rate 100 80 Respiratory Rate 18 16 Blood Pressure 162/108 H 132/70 H Blood Pressure Mean 126 90 Pulse Ox 99 98 Oxygen Delivery Method Room Air Positive well nourished and well developed Constitutional Narrative: Sitting in the chair in the room with her arm folded next to her, mildly uncomfortable appearing but in no acute distress General Appearance ED: well developed and NAD HEENT Reports moist mucous membranes normocephalic and atraumatic Eyes PERRL Neck full ROM and supple Neck Narrative: Left paraspinal tenderness present Chest Wall inspection of chest normal and palpation of chest normal Resp normal respiratory effort and clear to auscultation bilaterally Back/Spine Back/Spine Narrative: Left trapezius spasm and tenderness to palpation Cervical Spine: Negative for cervical spine tenderness Thoracic Spine / Upper Back: Negative for thoracic spinal tenderness Extremity Extremity Narrative: No obvious deformity. Decreased range of motion of the shoulder but seems to be limited to pain. Had no short arc range of motion pain but patient does have pain with passive range of motion however worse with active range of motion she will not attempt movement at this time. No deformity present. No effusion of the shoulder present. No bony tenderness of the elbow or distal arm. 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 Neuro oriented x3, moves all extremities, no focal motor deficits and no sensory deficits noted Sensorium / Orientation: alert Psych Mood & Affect: anxious and tearful Skin Lesions: no lesions Rashes: no rashes MDM MDM MDM Narrative Medical decision making narrative: Patient evaluated for a worsening of left shoulder pain. Sounds like his been worsening over the past month but is been especially bad the past few days. Had an outpatient MRI which she recently see the results for that does show rotator cuff and labral tears. Low suspicion for septic joints based on HPI and physical exam. I suspect she also has associated trapezius spasm possibly from trying to shield her shoulder which is exacerbating her pain. Patient is a diabetic and has not to take steroids. She did wait till she is seen by orthopedics before considering steroids which seems reasonable. She has good distal pulses on the suspicion for an acute vascular abnormality. Patient is given a shot of morphine in the emergency room and be discharged with a short course of oxycodone for further pain control. Is given information for pain management in addition to having her follow-up with orthopedics. She verbalizes given her to the spine. Is given a sling for comfort. Counseled on the importance of range of motion exercises with her shoulder (small circles/big circles) to help event frozen shoulder. Discharged home in stable condition. Does have a ride home Discharge Plan Triage Chief Complaint: Upper Extremity Injury ED Provider: Anni Gomez Dx/Rx/DC Orders Clinical Impression: Left shoulder pain, Injury of tendon of left rotator cuff Instructions: ED Rotator Cuff Tear Prescriptions: New oxycodone 5 mg tablet 5 mg PO Q6H PRN (Reason: pain) 3 Days Qty: 12 0RF No Action albuterol sulfate 1 PUFF inhaler 1 - 2 puff inhalation Q6H PRN PRN (Reason: Sob &/Or Wheezing) lisinopril [Zestril] 20 mg tablet 20 mg PO QHS metformin 500 mg tablet 500 mg PO DAILY Patient Comments: once daily due to undesirable side effects atorvastatin 20 mg tablet 20 mg PO QHS sertraline [Zoloft] 100 mg tablet 200 mg PO DAILY alprazolam 1 mg tablet 1 mg PO BID PRN (Reason: anxiety) Patient Comments: TAKE 1 TABLET BY MOUTH TWICE DAILY NEEDED FOR ANXIETY tizanidine 2 mg tablet 2 mg PO .COMPLEX PRN (Reason: pulled muscles) Patient Comments: TAKE 1 TABLET BY MOUTH ONCE DAILY in the IN THE MORNING, 1 (ONE) TABLET at noon, 2 (TWO) TABLETS at bedtime NEEDED (don't drive if you take medication) Rx Instructions: 2 mg orally ONCE DAILY in the IN THE MORNING, 1 (ONE) TABLET at noon, 2 (TWO) TABLETS at bedtime NEEDED; PRN; insulin glargine [Lantus Solostar U-100 Insulin] 100 unit/mL (3 mL) insulin pen 20 unit SUBCUT DAILY Patient Comments: INJECT 20 Units subcutaneously once daily In a.m insulin lispro [Humalog KwikPen Insulin] 100 unit/mL insulin pen 8 unit SUBCUT Q8H Patient Comments: INJECT 8 UNITS SUBCUTANEOUSLY THREE TIMES DAILY WITH MEALS; rarely takes d/t more controlled blood sugar Rx Instructions: 8 units subcutaneously; hydrocodone-acetaminophen [hydrocodone-acetaminophen] 5-325 mg tablet 1 tab PO Q6H PRN PRN (Reason: Pain) 3 Days Qty: 10 0RF Trulicity 0.75 mg/0.5 mL pen injector 0.75 mg SUBCUT .COMPLEX Patient Comments: INJECT 0.5 ML SUBCUTANEOUSLY EVERY WEEK Rx Instructions: 0.75 mg subcutaneously every week on Wednesdays; nitrofurantoin monohyd/m-cryst 100 mg capsule 100 mg PO Q12 Qty: 10 0RF hydrocodone-acetaminophen 5-325 mg tablet 1 tab PO Q6H PRN PRN (Reason: Pain) 1 Days Qty: 4 0RF hydrocodone-acetaminophen 5-325 mg tablet 1 tab PO Q6H PRN PRN (Reason: Pain) 4 Days Qty: 12 0RF oxycodone-acetaminophen [Percocet] 5-325 mg tablet 1 tab PO Q8H PRN (Reason: pain) 3 Days Qty: 10 0RF (DME) True Metrix Glucose Test Strip Strip MISCELLANEOUS 4X/DAY amoxicillin 875 mg tablet 875 mg PO BID amoxicillin-pot clavulanate 875-125 mg tablet 1 tab PO BID penicillin V potassium 500 mg tablet 500 mg PO 4X/DAY Qty: 28 0RF oxycodone-acetaminophen 5-325 mg tablet 1 tab PO Q6H PRN PRN (Reason: Pain) 3 Days Qty: 12 0RF Primary Care Provider: Juliet Gao Referrals: Torrie Delgado MD [Med Staff - Active Staff, Pain Management] Juliet Gao MD [Primary Care Provider, Internal Medicine] Oswaldo Sawyer MD [Med Staff - Active Staff, Orthopedics] Activity Restrictions/Additional Instructions: Please make sure you are doing the range of motion exercises for your shoulder as we discussed while wearing the sling to prevent frozen shoulder. Please follow-up with orthopedics as we discussed. Have also given you information for pain management to hopefully help you achieve better pain control while you try to figure out a plan for your shoulder. Please return if you have any progression or worsen your symptoms. Is okay for you to also continue taking your tizanidine as needed for muscle tightness. Print Language: Emirati Disposition Disposition: Home, Self Care Discharge Date/Time: 06/17/25 22:22
[2025-06-17 22:00] VITALS: BP 132/78; PULSE 70; RESP 16; O2SAT 99
[2025-06-17 22:22] VITALS: BP 132/78; PULSE 70; RESP 16; TEMP 36.8; O2SAT 99
== END 2025-06-17 22:22 | disposition home or self-care (01) ==
PROVIDERS: Emergency Provider Emergency Medicine; PCP Student in an Organized Health Care Education/Training Program; Visit Provider Emergency Medicine
DX: M25.512 Pain in left shoulder (principal); E11.9 Type 2 diabetes mellitus without complications; S46.002A Unspecified injury of muscle(s) and tendon(s) of the rotator cuff of left shoulder, initial encounter; Z87.891 Personal history of nicotine dependence; I10 Essential (primary) hypertension; E78.5 Hyperlipidemia, unspecified; X58.XXXA Exposure to other specified factors, initial encounter
CPT/HCPCS: 96372; 99283

== ENCOUNTER 2025-06-24 21:50 | Emergency (ER) | payer MEDICAID, SELFPAY ==
[2025-06-24 21:51] VITALS: BP 163/98; PULSE 110; RESP 16; TEMP 36.1; O2SAT 99; BMI 52.5
--- NOTE | 2025-06-24 22:15 | EDS_ITS ---
HPI History of Present Illness Chief Complaint: Upper Extremity Injury Informant: patient Narrative Narrative: Patient is a 45-year-old female with past medical history of hypertension depression and insulin-dependent diabetes. She states she has been struggling with left shoulder pain for the past few months. She underwent MRI which showed rotator cuff and labrum injuries. She followed up with orthopedic surgeon Dr. Sawyer today. He provided a steroid injection to the left shoulder to see if this would help reduce pain. She states she initially felt relief but a few hours after the injection has noticed return of the pain. She states [id number] medication does not help control the symptoms. She reports her has been no fever. She states other than the injection there has been no trauma. She states she has a appointment with pain management on Friday. However based on the persistent pain she presents for evaluation. [facility] Medical History (Updated 06/24/25 @ 22:[address] Jt Ibarra, DO) Impingement of left shoulder Hyperlipidemia Diabetes Dental caries Recurrent hernia Hemorrhoids RUQ abdominal pain Abdominal pain SOB (shortness of breath) Anxiety Depression Hypertension Back problem Fatigue Home Medications ?Medication ?Instructions ?Recorded ?Last Taken ?Type albuterol sulfate 90 mcg/actuation 1 - 2 puff inhalati on Q6H PRN PRN 08/26/19 Unknown History aerosol inhaler Sob &/Or Wheezing lisinopril 20 mg tablet (Zestril) 20 mg PO QHS bloodpr essure 01/30/21 Unknown History atorvastatin 20 mg tablet 20 mg PO QHS 11/08/22 Unknow n History metformin 500 mg tablet 500 mg PO DAILY 11/08/22 Unk nown History sertraline 100 mg tablet (Zoloft) 200 mg PO DAILY 10/17 01/05 Unknown History alprazolam 1 mg tablet 1 mg PO BID PRN anxiety 08/16 Unknown History insulin glargine 100 unit/mL (3 20 unit subcut DAILY h yperglycemia 09/03/23 Unknown History mL) subcutaneous pen (Lantus Solostar U-100 Insulin) insulin lispro 100 unit/mL 8 unit subcut Q8H hyperglyc emia 09/03/23 Unknown History subcutaneous pen (Humalog KwikPen (U-100) Insulin) blood sugar diagnostic (True 12/27/23 Unknown History Metrix Glucose Test Strip) ondansetron 4 mg disintegrating 4 mg PO TID PRN nausea and 06/24/25 Unknown Rx tablet vomiting #21 tabs oxycodone-acetaminophen 5 mg-325 1 tab PO Q6H PRN pain 3 days #12 06/24/25 Unknown Rx mg tablet (Percocet) tabs Allergy/AdvReac Type Severity Reaction Status Date / Time diphenhydramine Allergy Severe Angioedema Verified 06/24/25 21:51 ibuprofen Allergy Intermediate Swelling Verified 06/24/25 21:51 tramadol Allergy Intermediate Swelling Verified 06/24/25 21:51 meloxicam AdvReac Intermediate irritable Verified 06/24/25 21:51 Family History Mother Asthma Aunt Colon cancer Father Asthma Sister Asthma Surgical History History of laparoscopic cholecystectomy Social History housing: house Smoking Status: Former smoker second hand exposure: No alcohol intake: never substance use type: does not use caffeine: Yes what type of physical activity do you participate in: none frequency: does not exercise ROS ROS ED Constitutional Constitutional ED: Denies chills or fever(s) ENT ENT ED: Denies sore throat Cardiovascular Cardiovascular: Denies chest pain Respiratory/Chest Respiratory/Chest: Denies cough or dyspnea Gastrointestinal Gastrointestinal: Denies abdominal pain, diarrhea, nausea or vomiting Musculoskeletal Musculoskeletal: Reports other Details: Positive left shoulder pain ; Denies neck pain Integumentary Denies rash Neurologic Neurologic: Denies headache(s) or paresthesias Hematologic/Lymphatic Hematologic/Lymphatic: Denies easy bleeding or easy bruising EXAM Physical Exam Const Vital Signs: 06/24/25 21:51 Temperature 97 F L Temperature Source Temporal Pulse Rate 110 H Respiratory Rate 16 Blood Pressure 163/98 H Blood Pressure Mean 119 Pulse Ox 99 Oxygen Delivery Method Room Air Positive well nourished, well developed and obese General Appearance ED: well developed Nutritional Appearance: obese HEENT HEENT Narrative: Normocephalic atraumatic Eyes PERRL and EOMs intact bilaterally Neck full ROM and supple Resp normal respiratory effort and clear to auscultation bilaterally Cardio regular rate and regular rhythm Extremity Extremity Narrative: Left upper extremity is neurovascularly intact; AIN/PIN are intact with normal. Active and passive range of motion is decreased secondary to pain. There is a pinpoint injection within the left posterior aspect of the left shoulder consistent with recent shoulder injection however it is clean dry and intact without secondary findings to suggest infection. No crepitance noted. All c ompartments are soft and compressible going against compartment syndrome Neuro oriented x3 and CN's II-XII intact bilaterally Sensorium / Orientation: alert Psych mental status grossly normal Skin no rashes or lesions noted Skin Narrative: Small injection to the left posterior shoulder as documented above without secondary findings of infection MDM MDM MDM Narrative Medical decision making narrative: Patient arrived to the ER hypertensive but has a past medical history of this. She has had persistent shoulder pain for the past few months. She has had an outpatient MRI diagnosing rotator cuff and labrum abnormalities and she is also already seeing orthopedic surgery. At this time she denies any recent trauma or excessive activity and therefore I do not feel the need for x-ray as I have low concern for underlying bony abnormality or dislocation. Physical exam does not suggest any findings of secondary infection such as cellulitis or abscess. There is no findings of compartment syndrome. Therefore this time I feel no need for workup and patient will be given symptomatic care for her pain and is otherwise safe for discharge. 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, Hypertension, Insulin dependent diabetes mellitus Instructions: ED Shoulder Impingement Syndrome Prescriptions: New ondansetron 4 mg tablet,disintegrating 4 mg PO TID PRN (Reason: nausea and vomiting) Qty: 21 0RF oxycodone-acetaminophen [Percocet] 5-325 mg tablet 1 tab PO Q6H PRN (Reason: pain) 3 Days Qty: 12 0RF No Action albuterol sulfate 1 PUFF inhaler 1 - 2 puff inhalation Q6H PRN PRN (Reason: Sob &/Or Wheezing) lisinopril [Zestril] 20 mg tablet 20 mg PO QHS metformin 500 mg tablet 500 mg PO DAILY Patient Comments: once daily due to undesirable side effects atorvastatin 20 mg tablet 20 mg PO QHS sertraline [Zoloft] 100 mg tablet 200 mg PO DAILY alprazolam 1 mg tablet 1 mg PO BID PRN (Reason: anxiety) Patient Comments: TAKE 1 TABLET BY MOUTH TWICE DAILY NEEDED FOR ANXIETY insulin glargine [Lantus Solostar U-100 Insulin] 100 unit/mL (3 mL) insulin pen 20 unit SUBCUT DAILY Patient Comments: INJECT 20 Units subcutaneously once daily In a.m insulin lispro [Humalog KwikPen Insulin] 100 unit/mL insulin pen 8 unit SUBCUT Q8H Patient Comments: INJECT 8 UNITS SUBCUTANEOUSLY THREE TIMES DAILY WITH MEALS; rarely takes d/t more controlled blood sugar Rx Instructions: 8 units subcutaneously; (DME) True Metrix Glucose Test Strip Strip MISCELLANEOUS 4X/DAY Primary Care Provider: Care Physician,No Primary Referrals: Oswaldo Sawyer MD [Med Staff - Active Staff, Orthopedics] Care Physician,No Primary [Primary Care Provider, Medical] Activity Restrictions/Additional Instructions: Please follow-up with the orthopedic surgeon to discuss need for surgical intervention as the steroid injection is not controlling your pain. Use the prescribed medication as directed for pain relief and return to the ER should you have any further concerns Print Language: Guamanian Disposition Disposition: Home, Self Care Discharge Date/Time: 06/24/25 22:39
[2025-06-24 22:28] VITALS: BP 162/80; PULSE 90; RESP 18; TEMP 36.8; O2SAT 97
== END 2025-06-24 22:39 | disposition home or self-care (01) ==
PROVIDERS: Emergency Provider Emergency Medicine; Visit Provider Emergency Medicine
DX: M25.812 Other specified joint disorders, left shoulder (principal); E11.9 Type 2 diabetes mellitus without complications; Z79.4 Long term (current) use of insulin; E78.5 Hyperlipidemia, unspecified; I10 Essential (primary) hypertension; Z87.891 Personal history of nicotine dependence; E66.9 Obesity, unspecified; S43.432D Superior glenoid labrum lesion of left shoulder, subsequent encounter; S46.012D Strain of muscle(s) and tendon(s) of the rotator cuff of left shoulder, subsequent encounter; X58.XXXD Exposure to other specified factors, subsequent encounter
CPT/HCPCS: 96372; 99282

== ENCOUNTER 2025-08-14 18:34 | Emergency (ER) | payer MEDICAID, SELFPAY ==
[2025-08-14 18:35] VITALS: BP 155/95; PULSE 103; RESP 18; TEMP 36.6; O2SAT 97; BMI 52.6
--- OUTSIDE RECORDS SUMMARY | 2025-08-14 18:57 | XMS RPT_ITS | CCD ---
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 Juliet Gao MD Primary Care Provider [place], Dr. Shen Emergency Provider [phone] JULIET GAO MD Consulting Unavailable JULIET GAO MD Attending Unavailable JULIET GAO MD Admitting Unavailable JULIET GAO MD Primary Care Unavailable PROVIDER, UNKNOWN Consulting Unavailable PROVIDER, UNKNOWN Consulting Unavailable JULIET GAO MD Attending Unavailable JULIET GAO MD Consulting Unavailable JULEIT GAO MD Admitting Unavailable JULIET GAO MD Primary Care Unavailable PROVIDER, UNKNOWN Consulting Unavailable PROVIDER, UNKNOWN Consulting Unavailable KENNEDY MA Attending Unavailable JULIET GAO MD Consulting Unavailable JULIET GAO MD Referring Unavailable KENNEDY MA Admitting Unavailable KENNEDY MA Primary Care Unavailable PROVIDER, UNKNOWN Consulting Unavailable PROVIDER, UNKNOWN Consulting Unavailable JULIET GAO MD Attending Unavailable JULIET GAO MD Consulting Unavailable JULIET GAO MD Admitting Unavailable JULIET GAO MD Primary Care Unavailable PROVIDER, UNKNOWN Consulting Unavailable PROVIDER, UNKNOWN Consulting Unavailable JULIET GAO MD Consulting Unavailable JULIET GAO MD Attending Unavailable JULIET GAO MD Admitting Unavailable JULIET GAO MD Primary Care Unavailable PROVIDER, UNKNOWN Consulting Unavailable PROVIDER, UNKNOWN Consulting Unavailable JULIET GAO MD Consulting Unavailable JULIET GAO MD Attending Unavailable JULIET GAO MD Admitting Unavailable JULIET GAO MD Primary Care Unavailable PROVIDER, UNKNOWN Consulting Unavailable PROVIDER, UNKNOWN Consulting Unavailable [place]a [place], Dr. Chung Primary Care Physician Dr. Ac Flores MD Attending Physician Dr. Ac Flores MD Emergency Department Physici an Dr. Anni Gomez DO Emergency Department Physi ajit Jt Ibarra Attending Unavailable Care Physician, No Primary Primary Care Unava ilable Anni Gomez Attending Unavailable Sima, Juliet Primary Care Unavailable Oswaldo Sawyer Attending Unavailable Kalisetti, Juliet Primary Care Unavailable Kalisetti, Juliet Referring Unavailable Astreika, Vera Referring Unavailable Martin Reese Attending Unavailable Kaldionetti, Juliet Primary Care Unavailable Kalisetti, Juliet Primary Care Unavailable Kaldionetti, Juliet Referring Unavailable Oswaldo Sawyer Attending Unavailable Ac Flores Attending Unavailable Kalisetti, Juliet Primary Care Unavailable Care Physician, No Primary Primary Care Unava ilable Mathew Gonsales Attending Unavailable Oswaldo Sawyer Referring Unavailable Care Physician, No Primary Primary Care Unava ilable Oswaldo Sawyer Attending Unavailable Daniel, Banga Attending Unavailable Astreika, Vera Referring Unavailable Kalisetti, Juliet Primary Care Unavailable Dr. Anni Gomez DO Attending Physician Dr. Juleit Gao MD Referring Provider Oswaldo Sawyer MD Attending Physician Care Physician, No Primary Primary Care Physicia n Unavailable Dr. Jt Ibarra DO Attending Physician [phone]. Jt Ibarra DO Emergency Department Physic constance Allergies Allergy Classification Reported Allergen(s) Allergy Type Date of Onset Reaction(s) Facility (10 sources) Ibuprofen Drug Allergy 3 Swelling [facility] (10 sources) traMADol Drug Allergy 3 Swelling [facility] (6 sources) diphenhydrAMINE Drug Allergy 3 Angioedema [facility] Comment on above: high doses (3 sources) meloxicam Drug Allergy 5 irritable [facility] (1 source) diphenhydrAMINE Drug Allergy 5 [facility] (1 source) Ibuprofen Drug Allergy 5 [facility] (1 source) meloxicam Drug Allergy 5 [facility] (1 source) traMADol Drug Allergy 5 [facility] Medications Current Medications Medication Drug Class(es) Dates Sig (Normalized) Sig (Original) acetaminophen 325 mg / oxyCODONE hydrochloride 5 mg oral tablet (20 sources) Opioid Agonist Start: 04-23-2024 End: 06-24-2025 take 1 tablet by mouth every six hours as needed for pain Start: 12-27-2023 End: 06-24-2025 Oxycodone-Acetaminophen (Per cocet) 5-325 mg tablet Discontinued 1 {tbl} PO Q8H as needed for pain 10 3 0 December 27, 2023 June 24, 2025 1:31pm Dental caries extending into pulp Dental caries, [...] August 27, 2019 September 03, 2019 1:10am [id number] 200 actuat albuter ol 0.09 mg/actuat metered dose inhaler (13 sources) beta2-Adrenergic Agonist Start: 08-26-2019 Start: 08-26-2019 take 1 puff(s) by in halation every six hours as needed Albuterol Sulfate Active 1 - 2 PUFF INHALATION EVERY 6 HOURS NEEDED August 26, 2019 1:00am ALPRAZolam 1 mg oral tablet (20 sources) Benzodiazepine Start: 09-03-2023 take 1 tablet by patricia twice daily as needed for anxiety Start: 11-08-2022 End: 07-15-2023 take 0.5 mg [...] 11, 2019 12:00am May 15, 2019 12:08am atorvastatin 20 mg oral tablet (11 sources) HMG-CoA Reductase Inhibitor Start: 11-08-2022 take 1 tablet by mouth at bedtime Blood Sugar Diagnostic (1 source) Start: 12-27-2023 Blood Sugar Diagnostic Active STRIP MC 4 TIMES DAILY December 27, 2023 12:00am 3 ml insulin glargine 100 unt/ml pen injector (17 sources) Insulin Analog Start: 09-03-2023 Start: 11-08-2022 End: 07-15-2023 Insulin Glargine (Lantus Shelli ostar U-100 Insulin) 100 unit/mL (3 mL) insulin pen Discontinued 20 U SC WITH BREAKFAST November 08, 2022 1:00am July 15, 2023 2:21am 3 ml insulin lispro 100 unt/ml pen injector (17 sources) Insulin Analog Start: 09-03-2023 inject 8 [IU] by subcutaneous injection every eight hours Start: 11-08-2022 End: 07-15-2023 Insulin Lispro (Humalog Kwik pen Insulin) 100 unit/mL insulin pen Discontinued 10 U SC THREE TIMES A DAY November 08, 2022 1:00am July 15, 2023 2:21am metFORMIN hydrochloride 500 mg oral tablet (11 sources) Biguanide Start: 11-08-2022 take 1 tablet by patricia th once daily Start: 11-08-2022 take 500 mg by mouth twice igor ly Metformin Active 500 MG PO TWICE A DAY November 08, 2022 12:00am naproxen 500 mg oral tablet (2 sources) Nonsteroidal Anti-inflammatory Drug Start: 02-21-2021 take 500 mg by mouth twice daily Naproxen Active 500 MG PO TWICE A DAY February 21, 2021 9:27pm ondansetron 4 mg disintegrating oral tablet (15 sources) Serotonin-3 Receptor Antagonist Start: 06-24-2025 take 1 tablet by mouth three times daily as needed for nausea and vomiting Start: 08-13-2019 End: 08-25-2019 take 1 tablet by mouth every eight hours as needed for nausea Ondansetron 4 MG tablet Discontinued 4 mg PO EVERY 8 HOURS NEEDED as needed for Nausea August 13, 2019 1:00am August 25, 2019 10:30am sertraline 100 mg oral tablet (20 sources) Serotonin Reuptake Inhibitor Start: 11-08-2022 take 2 tablets by mouth once daily Start: 08-13-2019 End: 01-30-2021 take 1 tablet by mouth at bedtime Sertraline 100 MG tablet Discontinued 100 mg PO AT BEDTIME August 13, 2019 1:00am January 30, 2021 2:23pm depression Completed/Discontinued Medications Medication Drug Class(es) Dates Sig (Normalized) Sig (Original) acetaminophen 325 mg / HYDROcodone bitartrate 5 mg oral tablet (20 sources) Opioid Agonist Start: 09-03-2023 End: 06-24-2025 Hydrocodone-Acetami nophen 5-325 mg tablet Discontinued 1 {tbl} PO EVERY 6 HOURS NEEDED as needed for Pain 12 4 0 May 16, 2025 June 24, 2025 1:31pm Acute shoulder pain Pain in unspecified shoulder [...] NEEDED 10 3 February 21, 2021 9:27pm acyclovir 800 mg oral tablet (10 sources) Herpesvirus Nucleoside Analog DNA Polymerase Inhibitor, Herpes Simplex Virus Nucleoside Analog DNA Polymerase Inhibitor, Herpes Zoster Virus Nucleoside Analog DNA Polymerase Inhibitor Start: 02-07-2023 End: 06-06-2023 take 1 tablet by mouth three times daily Acyclovir 800 mg tablet Discontinued 800 mg PO THREE TIMES A DAY 21 7 0 February 07, 2023 12:00am June 06, 2023 4:02am amoxicillin 875 mg oral tablet (14 sources) Penicillin-class Antibacterial Start: 12-27-2023 End: 06-24-2025 take 1 tablet by mouth twice daily Amoxicillin 875 mg tablet Discontinued 875 mg PO TWICE A DAY December 27, 2023 12:00am June 24, 2025 1:31pm Start: 06-06-2023 End: 07-15-2023 take 1 tablet by mouth every twelve hours Amoxicillin 875 mg tablet Discontinued 875 mg PO Q12H June 06, 2023 12:00am July 15, 2023 2:21am amoxicillin 875 mg / clavulanate 125 mg oral tablet (5 sources) Penicillin-class Antibacterial Start: 12-27-2023 End: 06-24-2025 Amoxicillin-Pot Clavulanate 875-125 mg tablet Discontinued 1 {tbl} PO TWICE A DAY December 27, 2023 12:00am June 24, 2025 1:31pm Start: 12-27-2023 take 1 tablet by patricia twice daily Amoxicillin-Pot Clavulanate Active 1 TABLET PO TWICE A DAY December 27, 2023 12:00am cephalexin 500 mg oral capsule (20 sources) Cephalosporin Antibacterial Start: 02-07-2023 End: 06-06-2023 [...] 2019 10:30am clindamycin 150 mg oral capsule (20 sources) Lincosamide Antibacterial Start: 07-15-2023 End: 09-03-2023 [...] 09, 2020 12:00am January 30, 2021 2:23pm 0.5 ml dulaglutide 1.5 mg/ml auto-injector (8 sources) GLP-1 Receptor Agonist Start: 07-15-2023 End: 06-24-2025 Dulaglutide (Dulaglutide 0.75 Mg/0.5 Ml Subcutaneous Pen Injector) 0.75 mg/0.5 mL pen injector Discontinued 0.75 mg SC .COMPLEX July 15, 2023 12:00am June 24, 2025 1:31pm 0.75 mg subcutaneously every week on Wednesdays; lidocaine hydrochloride 20 mg/ml mucous membrane topical solution (7 sources) Antiarrhythmic, Amide Local Anesthetic Start: 07-15-2023 End: 09-03-2023 Lidocaine Hcl (Lidocaine Viscous) 2 % solution Discontinued 1 NMA MUCOUS MEM THREE TIMES A DAY as needed for pain 100 0 July 15, 2023 12:00am September 03, 2023 2:01am Start: 07-15-2023 End: 09-03-2023 Lidocaine Hcl (Lidocaine Vis cous) 2 % solution Discontinued 1 NMA MUCOUS MEM THREE TIMES A DAY as needed for pain 100 July 15, 2023 12:00am September 03, [...] 2019 2:34pm January 30, 2021 2:24pm bloodpressure nitrofurantoin, macrocrystals 25 mg / nitrofurantoin, monohydrate 75 mg oral capsule (4 sources) Nitrofuran Antibacterial Start: 09-11-2024 End: 06-24-2025 take 1 capsule by mouth every twelve hours Nitrofurantoin Monohyd/M-Cryst 100 mg capsule Discontinued 100 mg PO EVERY 12 HOURS 10 September 11, 2024 1:00am June 24, 2025 1:31pm oxyCODONE hydrochloride 5 mg oral tablet (3 sources) Opioid Agonist Start: 06-17-2025 End: 06-24-2025 take 1 tablet by mouth every six hours as needed for pain Oxycodone 5 mg tablet Discontinued 5 mg PO EVERY 6 HOURS as needed for pain 12 3 0 June 17, 2025 June 24, 2025 1:31pm Injury of tendon of left rotator cuff Left shoulder pain Pain in left shoulder penicillin v potassium 500 mg oral tablet (15 sources) Start: 04-23-2024 End: 06-24-2025 take 1 tablet by mouth four times daily Penicillin V Potassium 500 mg tablet Discontinued 500 mg PO 4 TIMES DAILY 28 0 April 23, 2024 12:00am June 24, 2025 1:32pm Start: 11-09-2022 End: 06-06-2023 take 1 tablet by mouth four times daily Penicillin V Potassium 500 mg tablet Discontinued 500 mg PO 4 TIMES DAILY 40 0 November 09, 2022 1:00am June 06, 2023 4:03am sulfamethoxazole 800 mg / trimethoprim 160 mg oral tablet (13 sources) Dihydrofolate Reductase Inhibitor Antibacterial, Sulfonamide Antimicrobial Start: 08-07-2019 End: 08-25-2019 Sulfamethoxazole-Trimethopri m 1 TABLET tablet Discontinued 1 {tbl} PO TWICE A DAY 14 0 August 07, 2019 1:00am August 25, 2019 10:30am Start: 08-07-2019 End: 08-25-2019 take 1 tablet by mouth twice daily Sulfamethoxazole-Trimethoprim Discontinu ed 1 TABLET PO TWICE A DAY 14 August 07, 2019 1:00am August 25, 2019 10:30am tiZANidine 2 mg oral tablet (6 sources) Central alpha-2 Adrenergic Agonist Start: 09-03-2023 End: 06-24-2025 take 2 tablets by mouth once daily at bedtime as needed Tizanidine 2 mg tablet Discontinued 2 mg PO .COMPLEX as needed for pulled muscles September 03, 2023 1:00am June 24, 2025 1:32pm 2 mg orally ONCE DAILY in the IN THE MORNING, 1 (ONE) TABLET at noon, 2 (TWO) TABLETS at bedtime NEEDED; PRN; Problems Active Problems Problem Classification Problem Date Documented Da te Episodic/Chronic Abdominal hernia (20 sources) Umbilical hernia; Translations: [Umbilical hernia without obstruction or gangrene] 01-21-2022 Episodic Abdominal pain (20 sources) Right upper quadrant pain; Translations: [Right upper quadrant pain] 08-27-2019 Episodic Anxiety disorders (20 sources) Anxiety; Translations: [Anxiety disorder, unspecified] 01-21-2022 Chronic Biliary tract disease (13 sources) Biliary calculus; Translations: [Calculus of gallbladder without cholecystitis without obstruction] 08-29-2019 Episodic Cardiac dysrhythmias (12 sources) Palpitations; Translations: [Palpitations] 01-29-2022 Episodic Diabetes mellitus without complication (4 sources) Type 2 diabetes mellitus without complications; Translations: [Diabetes mellitus] Onset: 05-23-2025 07-02-2025 Chronic Disorders of teeth and jaw (20 sources) Dental caries; Translations: [Dental caries, unspecified] 02-15-2021 Episodic Essential hypertension (20 sources) Hypertensive disorder; Translations: [Essential (primary) hypertension] 08-27-2019 Chronic Hemorrhoids (13 sources) Hemorrhoids; Translations: [Unspecified hemorrhoids] 08-27-2019 Episodic Joint disorders and dislocations; trauma-related (2 sources) Glenoid labrum tear; Translations: [Other articular cartilage disorders, left shoulder] 07-02-2025 Chronic Malaise and fatigue (13 sources) Fatigue; Translations: [Other fatigue] 08-27-2019 Episodic Mood disorders (13 sources) Depressive disorder; Translations: [Depression] 08-27-2019 Chronic Nutritional deficiencies (3 sources) Vitamin D deficiency, unspecified; Translations: [Vitamin D deficiency, unspecified] Onset: 05-23-2025 Chronic Other gastrointestinal disorders (11 sources) Diarrhea; Translations: [Diarrhea, unspecified] 11-09-2022 Episodic Other injuries and conditions due to external causes (9 sources) Injury of tendon of the rotator cuff of shoulder; Translations: [Unspecified injury of muscle(s) and tendon(s) of the rotator cuff of left shoulder, initial encounter] 06-17-2025 Episodic Other injuries and conditions due to external causes (2 sources) Unspecified injury of muscle(s) and tendon(s) of the rotator cuff of left shoulder, initial encounter; Translations: [Unspecified injury of muscle(s) and tendon(s) of the rotator cuff of left shoulder, initial encounter] Onset: 06-24-2025 Episodic Other lower respiratory disease (13 sources) Dyspnea; Translations: [Shortness of breath] 08-27-2019 Episodic Other nervous system disorders (4 sources) Postoperative pain ; Translations: [Other acute postprocedural pain] 05-01-2024 Episodic Other non-traumatic joint disorders (4 sources) Shoulder pain; Translations: [Pain in unspecified shoulder] 05-16-2025 Episodic Other non-traumatic joint disorders (7 sources) Pain in left shoulder; Translations: [Left shoulder pain] Onset: 07-01-2025 06-17-2025 Episodic Other non-traumatic joint disorders (2 sources) Other specified joint disorders, left shoulder; Translations: [Other specified joint disorders, left shoulder] Onset: 06-24-2025 Episodic Other non-traumatic joint disorders (6 sources) Disorder of shoulder; Translations: [Other specified joint disorders, left shoulder] Episodic Other nutritional; endocrine; and metabolic disorders (4 sources) Body mass index 40+ - severely obese; Translations: [Body mass index (BMI) 50.0-59.9, adult] 05-01-2024 Chronic Other nutritional; endocrine; and metabolic disorders (13 sources) H/O: diabetes mellitus; Translations: [Personal history of other endocrine, nutritional and metabolic disease] 01-21-2022 Episodic Residual codes; unclassified (13 sources) History finding; Translations: [Other specified health status] 01-30-2021 Episodic Residual codes; unclassified (13 sources) Flushing; Translations: [Flushing] 03-18-2020 Episodic Skin and subcutaneous tissue infections (20 sources) Infected face; Translations: [Local infection of the skin and subcutaneous tissue, unspecified] 08-08-2019 Episodic Spondylosis; intervertebral disc disorders; other back problems (19 sources) Back problem; Translations: [Dorsopathy, unspecified] 08-27-2019 Episodic Unclassified (4 sources) Left shoulder pain Unclassified (2 sources) S46.002A - Unspecified injury of muscle(s) and tendon(s) of the rotator cuff of left shoulder, initial encounter,M25.512 - Pain in left shoulder Unclassified (2 sources) M25.512 - Pain in left shoulder,S46.002A - Unspecified injury of muscle(s) and tendon(s) of the rotator cuff of left shoulder, initial encounter,M25.812 - Other specified joint disorders, left shoulder Urinary tract infections (17 sources) Urinary tract infectious disease; Translations: [Urinary tract infection, site not specified] 08-08-2019 Episodic Viral infection (10 sources) Herpetic megan; Translations: [Other herpesviral infection] 02-15-2023 Episodic Past or Other Problems Problem Classification Problem Date Documented Da te Episodic/Chronic Other aftercare (1 source) 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 therapy; Translations: [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 therapy] Onset: 01-10-2025 Episodic Other female genital disorders (1 source) Unspecified condition associated with female genital organs and menstrual cycle; Translations: [Unspecified condition associated with female genital organs and menstrual cycle] Onset: 10-07-2024 Episodic Results Test Name Value Interpretation Reference Range Facility Emergency Department Summary on 06-24-2025 Emergency Department Summary [facility] Medical Records Department [address] [place] [address] Emergency Department Summary 06/24/25 MR#: [id number] Acct: [id number] Name: REKHA LEWIS Rep #: [id number] : 1980 45 From: Jt Ibarra DO PCP: Care Physician,No Primary Status:DEP ER Location: ED HPI History of Present Illness Chief Complaint: Upper Extremity Injury Informant: patient Narrative Narrative: Patient is a 45-year-old female with past medical history of hypertension depression and insulin- dependent diabetes. She states she has been struggling with left shoulder pain for the past few months. She underwent MRI which showed rotator cuff and labrum injuries. She followed up with orthopedic surgeon Dr. Sawyer today. He provided a steroid injection to the left shoulder to see if this would help reduce pain. She states she initially felt relief but a few hours after the injection has noticed return of the pain. She states [id number] medication does not help control the symptoms. She reports her has been no fever. She states other than the injection there has been no trauma. She states she has a appointment with pain management on Friday. However based on the persistent pain she presents for evaluation. [facility] Medical History (Updated 06/24/25 @ 22:[address] Jt Ibarra DO) Impingement of left shoulder Hyperlipidemia Diabetes Dental caries Recurrent hernia Hemorrhoids RUQ abdominal pain Abdominal pain SOB (shortness of breath) Anxiety Depression Hypertension Back problem Fatigue Home Medications ???Medication ???Instructions ???Recorded ???Last Taken ???Type albuterol sulfate 90 mcg/actuation 1 - 2 puff inhalation Q6H PRN SC N 08/26/19 Unknown History aerosol inhaler Sob /Or Wheezing lisinopril 20 mg tablet (Zestril) 20 mg PO QHS bloodpressure Unknown History atorvastatin 20 mg tablet 20 mg PO QHS 11/08/22 Unknown Hist ory metformin 500 mg tablet 500 mg PO DAILY 11/08/22 Unknown H istory sertraline 100 mg tablet (Zoloft) 200 mg PO DAILY 11/08/22 Unknown History alprazolam 1 mg tablet 1 mg PO BID PRN anxiety 09/03/23 U nknown History insulin glargine 100 unit/mL (3 20 unit subcut DAILY hyperglycemia 09/03/23 Unknown History mL) subcutaneous pen (Lantus Solostar U-100 Insulin) insulin lispro 100 unit/mL 8 unit subcut Q8H hyperglycemia Unknown History subcutaneous pen (Humalog KwikPen (U-100) Insulin) blood sugar diagnostic (True 12/27/23 Unknown History Metrix Glucose Test Strip) ondansetron 4 mg disintegrating 4 mg PO TID PRN nausea and 5 Unknown Rx tablet vomiting #21 tabs oxycodone-acetaminoph en 5 mg-325 1 tab PO Q6H PRN pain 3 days #12 1 Unknown Rx mg tablet (Percocet) tabs Allergy/AdvReac Type Severity Reaction Status Date / Time diphenhydramine Allergy Severe Angioedema Verified 06/24/25 21:51 ibuprofen Allergy Intermediate Swelling Verified 06/24/25 21:51 tramadol Allergy Intermediate Swelling Verified 06/24/25 21:51 meloxicam AdvReac Intermediate irritable Verified 06/24/25 21:51 Family History Mother Asthma Aunt Colon cancer Father Asthma Sister Asthma Surgical History History of laparoscopic cholecystectomy Social History housing: house Smoking Status: Former smoker second hand exposure: No alcohol intake: never substance use type: does not use caffeine: Yes what type of physical activity do you participate in: none frequency: does not exercise ROS ROS ED Constitutional Constitutional ED: Denies chills or fever(s) ENT ENT ED: Denies sore throat Cardiovascular Cardiovascular: Denies chest pain Respiratory/Chest Respiratory/Chest: Denies cough or dyspnea Gastrointestinal Gastrointestinal: Denies abdominal pain, diarrhea, nausea or vomiting Musculoskeletal Musculoskeletal: Reports other Details: Positive left shoulder pain ; Denies neck pain Integumentary Denies rash Neurologic Neurologic: Denies headache(s) or paresthesias Hematologic/Lymphatic Hematologic/Lymphatic : Denies easy bleeding or easy bruising EXAM Physical Exam Const Vital Signs: 06/24/25 21:51 Temperature 97 F L Temperature Source Temporal Pulse Rate 110 H Respiratory Rate 16 Blood Pressure 163/98 H Blood Pressure Mean 119 Pulse Ox 99 Oxygen Delivery Method Room Air Positive well nourished, well developed and obese General Appearance ED: well developed Nutritional Appearance: obese HEENT HEENT Narrative: Normocephalic atraumatic Eyes PERRL and EOMs intact bilaterally Neck full ROM and supple Resp (more content not included)... [facility] Orthopedic Visit Reporton Orthopedic Visit Report [facility] [address] [place] [address] OFFICE VISIT Date of Service: 06/24/25 MR#: [id number] Acct: [id number] Name: REKAH LEWIS Rep #: [id number] : 1980 Provider: Dr. Oswaldo haynes MD Age/Sex: 45/F Location: [email or web address] Status: Signed with Addenda ADDENDUM by Evelyn Centeno on 06/24/25 at 1411 Office Procedure Documentation entered by Evelyn Centeno 06/24/25 14:11: Ortho Injections Injections Yes Subacromial Injection Left Is this a patient provided medication?: No Details: Obtained consent for injection. Under sterile conditions, injected the patients left subacromial with 2cc kenalog 4cc Bupivacaine. The patient tolerated the injection well without any noted complication. Patient should call our office if redness develops, pain worsens or if they have any concerns. Office Meds Kenalog 40 mg/mL suspension for injection Performing Provider: Oswaldo Sawyer MD Performing Location: [facility] Administered by: Oswaldo Sawyer MD on 06/24/25 14:09 Dose Route Admin Location Dispensed Lot Number Expiration Date Package NDC NDC [employer] 80 mg intra-articular left subacromial 2 mL [id number] 09/15/26 [id number] [employer]CHA TEE Date cc: * Signed Intake Vital Signs 06/17/25 18:14 06/24/25 13:28 Height 5 ft 4 in 5 ft 4 in Weight: 275 lb BMI 47.2 Intake Visit Reasons: LEFT SHOULDER Chief Complaint: Left shoulder pain Accompanied by: Self Is patient in pain?: Yes Pain scale (1-10): 10 Allergies diphenhydramine Allergy (Severe, Verified 06/24/25 13:30) Angioedema ibuprofen Allergy (Intermediate, Verified 06/24/25 13:30) Swelling tramadol Allergy (Intermediate, Verified 06/24/25 13:30) Swelling meloxicam Adverse Reaction (Intermediate, Verified 06/24/25 13:30) irritable Medications ???Medication ???Instructions ???Recorded ???Confirmed ???Type albuterol sulfate 90 mcg/actuation 1 - 2 puff inhalation Q6H PRN SC N 08/26/19 06/24/25 History aerosol inhaler Sob /Or Wheezing lisinopril 20 mg tablet (Zestril) 20 mg PO QHS bloodpressure 06/24/25 History atorvastatin 20 mg tablet 20 mg PO QHS 11/08/22 06/24/25 His tory metformin 500 mg tablet 500 mg PO DAILY 11/08/22 06/24/25 History sertraline 100 mg tablet (Zoloft) 200 mg PO DAILY 11/08/22 06/24/25 History alprazolam 1 mg tablet 1 mg PO BID PRN anxiety 09/03/23 1 History insulin glargine 100 unit/mL (3 20 unit subcut DAILY hyperglycemia 09/03/23 06/24/25 History mL) subcutaneous pen (Lantus Solostar U-100 Insulin) insulin lispro 100 unit/mL 8 unit subcut Q8H hyperglycemia 06/24/25 History subcutaneous pen (Humalog KwikPen (U-100) Insulin) blood sugar diagnostic (True 12/27/23 06/24/25 History Metrix Glucose Test Strip) Have you fallen in the past year?: No PFSH Medical History (Updated 06/24/25 @ 13:53 by Oswaldo Sawyer MD) Impingement of left shoulder Hyperlipidemia Diabetes Dental caries Recurrent hernia Hemorrhoids RUQ abdominal pain Abdominal pain SOB (shortness of breath) Anxiety Depression Hypertension Back problem Fatigue Surgical History History of laparoscopic cholecystectomy Family History Mother Asthma Aunt Colon cancer Father Asthma Sister Asthma Social History housing: house Smoking Status: Former smoker second hand exposure: No alcohol intake: never substance use type: does not use caffeine: Yes what type of physical activity do you participate in: none frequency: does not exercise HPI LEFT SHOULDER Details: This documentation accurately reflects the service provided and the decisions made by me, Dr. Oswaldo Sawyer MD 06/24/25 2569. Part of today???s visit was documented by [ ], acting as scribe. REKHA LEWIS is a 45 year old F here today for L shoulder pain. 6 yrs hx. did some PT back in the day. has a 200 lb dog, pulled on her arm. it hurts. lateral pain, going down the arm, hurts to reach behind the back. RHD. 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 worse at night, can't sleep. tx - medication. meloxicam. can't take it incr. blood pressure. no injections or surgery. no PT formally, did some pendulums. per ED a week ago 45-year-old female with history of anxiety, depression, hypertension, cholecystectomy and ongoing left shoulder pain with recent MRI that did show some rotator cuff tears and a small effusion (this was performed a [facility] but she showed me her results on her p (more content not included)... [facility] Emergency Department Summary on 06-17-2025 Emergency Department Summary [facility] Medical Records Department [address] [place] [address] Emergency Department Summary 06/17/25 MR#: [id number] Acct: [id number] Name: REKHA LEWIS Rep #: [id number] : 1980 45 From: Anni Gomez DO PCP: Dr. Juliet Gao MD Status:DEP ER Location: ED HPI History of Present Illness Chief Complaint: Upper Extremity Injury Informant: patient Narrative Narrative: Patient is a 45-year-old female with history of anxiety, depression, hypertension, cholecystectomy and ongoing left shoulder pain with recent MRI that did show some rotator cuff tears and a small effusion (this was performed a [facility] but she showed me her results on her phone). She is presenting with worsening pain to her left shoulder. She states that she is also felt that her left hand has been weaker. Pain was worse with range of motion. She denies any fever or chills. Is following with Dr. Sawyer but has not seen him yet because she needs to get her MRI first. Does voice dissatisfaction with her current primary care doctor she does not feel that she has been taking her pain seriously. Denies any new trauma or injury. States that she has had prior relief with Percocet but does not have any currently. States Tylenol's not been helping and she has been taking much Aleve that she can with no relief today. Ice does help as well. No other complaints or concerns reported at this time. [facility] Medical History Hyperlipidemia Diabetes Dental caries Recurrent hernia Hemorrhoids RUQ abdominal pain Abdominal pain SOB (shortness of breath) Anxiety Depression Hypertension Back problem Fatigue Home Medications ???Medication ???Instructions ???Recorded ???Last Taken ???Type albuterol sulfate 90 mcg/actuation 1 - 2 puff inhalation Q6H PRN SC N 08/26/19 Unknown History aerosol inhaler Sob [...] BID PRN anxiety 09/03/23 U nknown History hydrocodone-acetamino phen 5-325mg 1 tab PO Q6H PRN PRN [...] 12/27/23 Unknown History Metrix Glucose Test Strip) oxycodone-acetaminoph en 5 mg-325 1 tab PO Q8H PRN pain 3 days #10 0 12/27/23 Unknown Rx mg tablet (Percocet) tabs oxycodone-acetaminoph en 5 mg-325 1 tab PO Q6H PRN PRN Pain 3 days 0 04/23/24 Unknown Rx mg tablet #12 TABLETS penicillin V potassium 500 mg 500 mg PO 4X/DAY #28 tabs 04/23/24 Unknown Rx tablet hydrocodone-acetamino phen 5-325mg 1 tab PO Q6H PRN PRN Pain 1 day # 4 09/11/24 Unknown Rx 5mg-325mg TABLETS nitrofurantoin 100 mg PO Q12 #10 CAPSULES 4 Unknown Rx monohydrate/macrocrys tals 100 mg capsule hydrocodone-acetamino phen 5-325mg 1 tab PO Q6H PRN PRN Pain 4 days 05/16/25 Unknown Rx 5mg-325mg #12 TABLETS oxycodone 5 mg tablet 5 mg PO Q6H PRN pain 3 days #12 Unknown Rx tabs Allergy/AdvReac Type Severity Reaction Status Date / Time diphenhydramine Allergy Severe Angioedema Verified 06/17/25 18:13 ibuprofen Allergy Intermediate Swelling Verified 06/17/25 18:13 tramadol Allergy Intermediate Swelling Verified 06/17/25 18:13 meloxicam AdvReac Intermediate irritable Verified 06/17/25 18:14 Family History Mother Asthma Aunt Colon cancer Father Asthma Sister Asthma Surgical History History of laparoscopic cholecystectomy Social History housing: house Smoking Status: Former smoker second hand exposure: No alcohol intake: never substance use type: does not use caffeine: Yes what type of physical activity do yo (more content not included)... 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 Allergies verified and confirmed 5 rights. 13:11 06/14/2025 (Percocet) PO 1 Information reviewed with patient including reason for haley Smith (NOW x1, taking this medication, signs of allergic reaction, R.N. HIGH ALERT precautions and sedative warning. Verbalizes Scanned MEDICATION) understanding. (06/24 shoulder pain). - 13:12 Saniya Rodríguez R.N. 1 of 1 [facility] ED NURSES CLINICAL NOTEon ED NURSES CLINICAL NOTE Nurse Narrative - REKHA LEWIS, : 1980, , Nurse Clinical Narrative [address] [place] [address] [id number] 06/14/2025 12:33:00 Patient: REKHA LEWIS Sex: Female : 1980 Age: 45y Disposition: Discharge to Home Disposition Decision Time: 13:18 06/14/2025 Departure Time: 13:30 06/14/2025 TRIAGE Arrived by private vehicle. Historian: (patient). Patient has a primary care physician. Primary physician (Harriet). Triage time: 12:46 06/14/2025. Acuity: LEVEL 4. Chief Complaint: LEFT UPPER EXTREMITY PAIN. Location of symptoms- left shoulder, left arm and left elbow. No injury occurred. Onset. (over a month). ( Pt has an outpatient MRI today at 1400). SEPSIS SCREEN: NEGATIVE. SIRS criteria negative. No possible sources of infection. -- 12:55 06/14/25 EDT Marlee Todd R.N. 12:54 06/14/25. BP: 129/67 MAP: 88. HR: 90. RR: 16. O2 saturation: 98% Temperature: 97.8 F. Pain level now 9/10. -- 12:54 06/14/25 EDT Marlee Todd R.N. Measurements: 12:54 06/14/25 Wt: 135.2 kg, Ht/Dillon: 64.0 in, BMI: 51.15 -- 12:54 06/14/25 EDT Marlee Todd R.N. Medications: HumaLOG U-100 Insulin 100 unit/mL subcutaneous cartridge: 5 units three times a day . -- 12:50 06/14/25 EDT Marlee Todd R.N. 1 of 4 Nurse Narrative - REKHA LEWIS, : 1980, , Lantus Solostar U-100 Insulin subcutaneous -- 12:51 06/14/25 EDT Marlee Todd R.N. atorvastatin 20 mg tablet: 20 mg once a day . -- 12:51 06/14/25 EDT Marlee Todd R.N. 12:46 06/14/25. [facility] -- 12:55 06/14/25 EDT Marlee Todd R.N. Allergies: meloxicam -- 12:48 06/14/25 EDT Marlee Todd R.N. tramadol -- 12:48 06/14/25 EDT Marlee Todd R.N. Problems: Diabetes Mellitus -- 12:49 06/14/25 EDT Marlee Todd R.N. Hypertension -- 12:50 06/14/25 EDT Marlee Todd R.N. Surgeries: Cholecystectomy -- 12:52 06/14/25 EDT Marlee Todd R.N. History 12:46 06/14/25. PAST MEDICAL HX: LNMP: (May 20). Denies current . SOCIAL HX: Never smoker. No alcohol use or drug use. The patient has not traveled outside the [place] Infectious disease exposure: No infectious disease exposure. ABUSE ASSESSMENT: The patient answered yes to the question(s) Do you feel safe in your home? and no to the question(s) Are you afraid to go home?. SELF HARM ASSESSMENT: Self harm assessment was performed. The patient answered no to the question(s) Have you recently felt down, depressed, or hopeless? and Do you have thoughts of harming or killing yourself?. FALL RISK ASSESSMENT: Fall risk assessment completed. No risk factors identified. -- 12:55 06/14/25 EDT Marlee Todd R.N. 2 of 4 Nurse Narrative - REKHA LEWIS, : 1980, , Interventions 12:46 06/14/25. Advanced care plan discussed with patient. Patient does not have advanced directive. -- 12:55 06/14/25 EDT Marlee Todd R.N. PHYSICAL ASSESSMENT 12:56 06/14/25. Ambulatory to room. Patient gowned. GENERAL / NEURO / PSYCH: Oriented X 4. Alert. Appears in no acute distress. ( Patient presents to ER with c/o left shoulder pain X1 month. Patient is scheduled for an MRI of her shoulder today at 1400. Patient also reports she bit down on her teeth really hard d/t pain and is now having dental pain). No numbness. EXTREMITIES: Extremities do not exhibit normal ROM. Limited ROM present in the left shoulder. Skin tenderness is present on the extremities. Neuro-vascular status intact to the extremity. No upper extremity edema. No upper extremity edema. No extremity erythema. Left shoulder: tenderness. Limited ROM due to pain (diminished external rotation). No laceration, abrasion, puncture wound, foreign body or deformity. No localization. SKIN: No extremity wound. Skin intact. Skin is warm and dry. -- 13:21 06/14/25 EDT Saniya Rodríguez R.N. NURSING PROGRESS NOTES 12:54 06/14/25. Patient identifiers checked. Call light placed in reach. Side rails up x 2. Bed placed in lowest position. Brakes of bed on. -- 13:06/14/25 MCKENNAT Saniya Rodríguez R.N. 13:11 06/14/25. OxyCODONE-APAP 5-325 (Percocet) PO 1 tab given. Allergies verified and confirmed 5 rights. Information reviewed with patient including reason for taking this medication, signs of allergic reaction, precautions and sedative warning. Verbalizes understanding. (06/24 shoulder pain). -- 13:12 06/14/25 MCKENNAT Saniya Rodríguez R.N. DISPOSITION / DISCHARGE 13:22 06/14/25. RR: 18. Pain level now 5/10. -- 13:32 06/14/25 MCKENNAT Saniya Rodríguez R.N. 13:06/14/25. HR: 98 bpm. O2 saturation: 92%. -- 13:06/14/25 MCKENNAT Saniya Rodríguez R.N. 13:06/14/25. BP: 134/81 MAP: 98 mmHg. HR: 91 bpm. -- 13:06/14/25 MCKENNAT Saniya Rodríguez R.N. Depa (more content not included)... [facility] ED ORDER SHEET (CPOE ONLY)on 06-14-2025 ED ORDER SHEET (CPOE ONLY) Order Sheet - REKHA LEWIS, : 1980, , Order Sheet [address] [address] [id number] 06/14/2025 Patient: REKHA LEWIS Sex: Female : 1980 Age: 45y MEASUREMENTS: Wt: 135.2 kg, Ht/Dillon: 64.0 in, BMI: 51.15 ALLERGIES: meloxicam, tramadol MEDICATION/IV/DRIP/FL UID ORDERS Acknowledge Order Description Priority Entered d Completed OxyCODONE-APAP 5-325 13:07 06/14/2025 (Percocet) PO1 tab (NOW [facility], x1, HIGH ALERT MEDICATION) D.O. Reason for ordering with Benefits outweigh risks --13:07 06/14/2025 Kennedy alerts: Glendy Ma LAB ORDERS Acknowledge Order Description Priority Entered d Collected Completed DIAGNOSTIC STUDY ORDERS Acknowledge Order Description Priority Entered d Completed CT Chest PE Study Stat Stat 17:45 06/14/2025 Cancelled: patient d/c at [facility], 1332 prior to order placed D.O. 22:03 EDT Saniya Rodríguez R.N. 1 of 2 Order Sheet - REKHA LEWIS, : 1980, , Reason for Study: Chest Pain CT ABD/PEL w Cont Stat Stat 17:45 06/14/2025 Cancelled: patient d/c at [facility], 1332 prior to order placed D.O. 22:04 EDT Saniya Rodríguez R.N. Reason for Study: Abdominal Pain STAFF ORDERS Acknowledge Order Description Priority Entered d Collected Completed [Electronically signed by Kennedy Ma D.O. (06/14/2025 17:47 EDT)] 2 of 2 [facility] ED PHYSICIAN CLINICAL REPORT on 06-14-2025 ED PHYSICIAN CLINICAL REPORT Narrative - REKHA LEWIS, : 1980, , Physician Clinical Narrative [address] [address] [id number] 06/14/2025 12:33:00 Patient: REKHA LEWIS Sex: Female : 1980 Age: 45y Disposition: Discharge to Home Disposition Decision Time: 13:18 06/14/2025 Departure Time: 13:30 06/14/2025 Measurements Wt: 135.2 kg, Ht/Dillon: 64.0 in, BMI: 51.15 Initial Vital Sign Measured Zee Time BP MAP HR RR O2Sat ETCO2 Temp n GCS RTS 12:41 129/67 85 89 06/14/2025 Time Seen: 12:51 06/14/2025. Arrived- By private vehicle. Historian- patient. HISTORY OF PRESENT ILLNESS Chief Complaint: UPPER EXTREMITY PAIN. Is still present (patient has been having pain for over a month. Saw Dr. Larios on the she did give her a small quantity of pain medication she says he is having so much pain she is scratching her teeth and she has pain on her right upper lateral incisor. She says her pain in her shoulder is a 10/10 it is worse when she moves it better with rest. And she says her pain in her tooth is a 5/10 tried calling her dentist but her dentist is out of town at a wedding. She has an MRI scheduled for 2:00 pm. today. But she can not tolerate the pain and presents to the emergency department.). Patient denies an injury. REVIEW OF SYSTEMS 1 of 4 Narrative - REKHA LEWIS, : 1980, , NEUROLOGICAL: No headache. THROAT: No sore throat. GI: No abdominal pain or nausea. : No difficulty with urination or urinary frequency. CONSTITUTIONAL: No fever or chills. PAST HISTORY See nurses notes. Diabetes Mellitus Hypertension Surgeries: Cholecystectomy Medications: atorvastatin 20 mg tablet: 20 mg once a day . HumaLOG U-100 Insulin 100 unit/mL subcutaneous cartridge: 5 units three times a day . Lantus Solostar U-100 Insulin subcutaneous Allergies: meloxicam tramadol SOCIAL HISTORY Never smoker. No alcohol use. ADDITIONAL NOTES The nursing notes have been reviewed. PHYSICAL EXAM Appearance: Alert. Oriented X3. No acute distress. Eyes: Pupils equal, round and reactive to light. Eyes normal inspection. ENT: Ears normal. Nose normal. Pharynx normal. (tenderness to the right upper lateral incisor. See no obvious swelling ecchymosis or bruising). Neck: Normal inspection. Neck supple. CVS: Normal heart rate. Heart sounds normal. 2 of 4 Narrative - REKHA LEWIS, : 1980, , Respiratory: No respiratory distress. Painless inspiration. Abdomen: Soft and nontender. Back: Normal inspection. No tenderness. Skin: Normal skin color. Normal skin turgor. Extremities: No signs of infection present in the upper extremities. (decreased range of motion to her left shoulder. And generalized tenderness. There is no swelling ecchymosis or bruising). Extremities otherwise negative. Neuro: Oriented X 3. No motor deficit. PROGRESS AND PROCEDURES MEDICAL DECISION MAKING: (patient has been having pain for over a month. Saw Dr. Larios on the she did give her a small quantity of pain medication she says he is having so much pain she is scratching her teeth and she has pain on her right upper lateral incisor. She says her pain in her shoulder is a 10/10 it is worse when she moves it better with rest. And she says her pain in her tooth is a 5/10 tried calling her dentist but her dentist is out of town at a wedding. She has an MRI scheduled for 2:00 pm. today. But she can not tolerate the pain and presents to the emergency department. patient has a MRI scheduled for 2:00 a.m.. She has needed time for the pain it is giving her increasing pain should still use her sling. And [id number] exercises and write her for Percocet and gave her Percocet here I did review her OARRS which was unremarkable for large quantity of narcotics. Initially discharged to home. Was told not to drive while taking Percocet.). Disposition: Condition: stable. Discharged in fair condition. Discharge decision based on the following: patient's condition is stable; patient's exam is stable. CLINICAL IMPRESSION Acute nontraumatic pain in the left upper extremity (shoulder). Acute upper extremity pain involving the left shoulder. Moderate dental pain. DISCHARGE INSTRUCTIONS Apply ice. Wear sling. Prescription monitor program consulted by me. 3 of 4 Narrative - REKHA LEWIS, : 1980, , Prescription Medications: oxycodone-acetaminoph en 5 mg-325 mg tablet: Take 1 tablet by mouth every six hours as needed for pain for 3 days, dispense 7 tablet. Refills 0. Pharmacy: [facility]/pharmacy #[id number] - [address], [place] [id number]. Follow-up with: Juliet Gao MD, [facility] [place] (more content not included)... [facility] ED SUPER BILLon 06-14-2025 ED SUPER BILL REKHA Escudero, : 1980, , [address] [address] [id number] 06/14/2025 Patient: REKHA LEWIS Sex: Female : 1980 Age: 45y Item Facility Profession Category Description Code al Code Quantity Fee Total Nurse/E/M EMERGENCY 549644 1 $0.00 $0.00 DEPARTMEN T VISIT MODERATE SEVERITY (95032) Grand Total $0.00 Providers Kennedy Ma D.O. Chief Complaint UPPER EXTREMITY PAIN. Principal Diagnosis Acute nontraumatic pain in the left upper extremity (shoulder). Acute upper extremity pain involving the left shoulder. Moderate dental pain. 1 of 2 REKHA Escudero, : 1980, , ICD-10 Codes M25.512: Pain in left shoulder M25.512: Pain in left shoulder K08.89: Other specified disorders of teeth and supporting structures 2 of 2 [facility] ED VISIT SUMMARYon ED VISIT SUMMARY Visit Overview - REKHA LEWIS, : 1980, , Visit [address] [address] [id number] 06/14/2025 Patient: REKHA LEWIS Sex: Female : 1980 Age: 45y 06/14/2025 10:04 PM EDT ED Arrival:12:33 06/14/2025 Status:not Recent Travel:no EDT Language:eng Adv Directive:No Isolation Status: Infectious Disease Ethnicity:N Fall Risk:no risk Exposure:no Measurements:5'4 / 162.6 Self-Harm Status:risk Sepsis Screen:negative cm 298.0 lb / 135.2 kg Chief Complaint:left shoulder, left arm, and left elbow; LEFT UPPER EXTREMITY PAIN; ([place] ); (over a month); (Pt has an outpatient MRI today at 1400) ALLERGIES meloxicam tramadol 1 of 3 Visit Overview - REKHA LEWIS, : 1980, , HOME MEDICATIONS atorvastatin 20 mg tablet: 20 mg once a day . HumaLOG U-100 Insulin 100 unit/mL subcutaneous cartridge: 5 units three times a day . Lantus Solostar U-100 Insulin subcutaneous PAST MEDICAL HISTORY / PROBLEMS Diabetes Mellitus Hypertension LNMP: (May 20) See nurses notes PAST SURGICAL HISTORY Cholecystectomy SOCIAL HISTORY Smoking status: No Alcohol use: No Drug use: No ED COURSE MEDICATIONS GIVEN IN EMERGENCY DEPARTMENT 13:11 06/14/25 OxyCODONE-APAP 5-325 (Percocet) PO 1 tab IV SITE INFORMATION INTAKE OUTPUT REASSESMENT (most recent) 2 of 3 Visit Overview - REKHA LEWIS, : 1980, , 12:56 06/14/25. Ambulatory to room. Patient gowned. GENERAL / NEURO / PSYCH: Oriented X 4. Alert. Appears in no acute distress. ( Patient presents to ER with c/o left shoulder pain X1 month. Patient is scheduled for an MRI of her shoulder today at 1400. Patient also reports she bit down on her teeth really hard d/t pain and is now having dental pain). No numbness. EXTREMITIES: Extremities do not exhibit normal ROM. Limited ROM present in the left shoulder. Skin tenderness is present on the extremities. Neuro- vascular status intact to the extremity. No upper extremity edema. No upper extremity edema. No extremity erythema. Left shoulder: tenderness. Limited ROM due to pain (diminished external rotation). No laceration, abrasion, puncture wound, foreign body or deformity. No localization. SKIN: No extremity wound. Skin intact. Skin is warm and dry. VITAL SIGNS First Vitals Last Vitals Temp 12:06/14/25 Temp 13:06/14/25 BP 12:06/14/25 129/67 BP 13:06/14/25 134/81 HR 12:06/14/25 89 HR 13:06/14/25 91 RR 12:06/14/25 RR 13:06/14/25 O2 Sat 12:06/14/25 O2 Sat 13:06/14/25 Pain 12:06/14/25 Pain 13:06/14/25 ETCO2 12:06/14/25 ETCO2 13:06/14/25 GCS 12:06/14/25 GCS 13:06/14/25 RTS 12:06/14/25 RTS 13:06/14/25 PROCEDURES NURSING INTERVENTIONS LABS / STUDIES CLINICAL IMPRESSION ACUTE NONTRAUMATIC PAIN IN THE LEFT UPPER EXTREMITY (SHOULDER) ACUTE UPPER EXTREMITY PAIN INVOLVING THE LEFT SHOULDER MODERATE DENTAL PAIN 3 of 3 [facility] ED VITALS FLOW SHEETon 06-14 ED VITALS FLOW SHEET Vitals - REKHA LEWIS, : 1980, , Vital Sign Flow Sheet [address] [address] [id number] 06/14/2025 Patient: REKHA LEWIS Sex: Female : 1980 Age: 45y Measurements Wt: 135.2 kg, Ht/Dillon: 64.0 in, BMI: 51.15 Measured Zee Time BP MAP HR RR O2Sat ETCO2 Temp n GCS RTS 13:29 134/81 98 91 06/14/2025 13:29 98 92% 06/14/2025 13:22 18 5 06/14/2025 13:04 92 96% 06/14/2025 12:59 91 95% 06/14/2025 12:54 129/67 88 90 16 98% 97.8 F 9 06/14/2025 12:54 90 97% 06/14/2025 12:49 91 95% 06/14/2025 1 of 2 Vitals - REKHA LEWIS, : 1980, , 12:44 88 94% 06/14/2025 12:41 129/67 85 89 06/14/2025 2 of 2 [facility] MR SHOULDER W/O LTon 025 MR SHOULDER W/O LT [address] ? [place] [address] ? Patient: REKHA LEWIS Phone#: : 1980 Age: 45 Gender: F Pt. Type: Out Account: [id number] Location: [facility] Ordering: JULIET GAO Exam Date: 06/14/2025/13:46 Family Phys: Charge Code: 086066 Physician: Perry Order #: [id number] Dose#: PROCEDURE: MRI SHOULDER LT WITHOUT CONTRAST COMPARISON: None. INDICATIONS: Left shoulder sprain TECHNIQUE: A variety of imaging planes and parameters were utilized for visualization of suspected pathology. Images were performed without contrast. FINDINGS: ROTATOR CUFF REGION CUFF TENDONS: Interstitial an articular surface tear of the supraspinatus tendon. Fluid is present in the subscapularis recess. CUFF MUSCLES: There is atrophy the supraspinatus and deltoid muscle. DELTOID: Fatty infiltration of the deltoid muscle. LONG BICEPS TENDON: Normal. No abnormal signal, attrition, or tear. LABRUM/BICEPS ANCHOR SUPERIOR: There is marked degeneration of the superior labrum. Superior labral tear is present. ANTERIOR/INFERIOR: There is degeneration of the anterior labrum. POSTERIOR: There is degeneration of the posterior labrum. CAPSULE ANTERIOR/INFERIOR: There is tear of the middle glenohumeral ligament at the glenoid. POSTERIOR: Normal. No visible capsular laxity or thickening. AC JOINT REGION AC JOINT: Normal acromioclavicular joint. AC LIGAMENTS: Normal acromioclavicular ligament. CC LIGAMENTS: Normal coracoclavicular ligaments. ACROMION: Normal horizontal (Type I) configuration. SUBACROMIAL BURSA: Normal. No significant effusion. HYALINE CARTILAGE: Normal. No visible cartilage narrowing or focal defect. OTHER BONES: Normal proximal humerus, glenoid, and coracoid. OTHER OBSERVATIONS: Small joint effusion is present. CONCLUSION: 1. There is degeneration of the labrum. Continued Report - Page 2 of 2 Patient: REKHA LEWIS Phone#: : 1980 Age: 45 Gender: F Pt. Type: Out Account: [id number] Location: 052 Ordering: JULIET GAO Exam Date: 06/14/2025/13:46 Family Phys: Charge Code: [id number] Physician: Perry Order #: [id number] Dose#: 2. Interstitial and articular surface tear of the supraspinatus tendon. Dictated by: Amelia Persaud MD on 06/15/2025 at 10:57 Approved by: Amelia Persaud MD on 06/15/2025 at 11:03 [facility] CBC (NO DIFF)on 05-23-2025 CBC panel Auto (Bld) [facility] Comment on above: Result Comment: CBC( WITHOUT DIFFERENTIAL) Performed By: #### 2 [id number] #### [facility],[address] Des [place], [place] [id number] Erythrocyte distribution width (RBC) [Ratio] 13.8 % Normal 12.0 - 15.6 [facility] Comment on above: Performed By: #### 2 04229 #### [facility],[address] [place], [place] [id number] Hematocrit (Bld) [Volume fraction] 45.7 % Normal 34.0 - 46.0 [facility] Comment on above: Performed By: #### 2 76092 #### [facility],[address] [place], [place] [address] Hemoglobin (Bld) [Mass/Vol] 15.2 g/dL Normal 12.0 - 16.0 [facility] Comment on above: Performed By: #### 2 72097 #### [facility],[address] [place] [address] MCH (RBC) [Entitic mass] 28 pg Normal 27 - 33 [facility] Comment on above: Performed By: #### 2 73502 #### [facility],[address] [place] [address] MCHC 33 X10 3 Normal 32 - 36 [facility] Comment on above: Performed By: #### 2 14080 #### [facility],[address] [place] [address] MCV (RBC) [Entitic vol] 83 fL Normal 80 - 99 [facility] Comment on above: Performed By: #### 2 12519 #### [facility],[address] [place] [address] PLATELET 271 x10EE3/UL Normal 150 - 450 [facility] Comment on above: Performed By: #### 2 72588 #### [facility],[address] [place] [address] Platelet mean volume (Bld) [Entitic vol] 7.7 fL Normal 6.6 - 10.5 [facility] Comment on above: Performed By: #### 2 18759 #### [facility],[address] [place] [address] RBC 5.49 x 10EE6/UL High 4.10 - 5.30 [facility] Comment on above: Performed By: #### 2 75803 #### [facility],[address] [place] [address] WBC 9.2 x 10EE3/UL Normal 4.5 - 10.8 [facility] Comment on above: Performed By: #### 2 68936 #### [facility],[address] [place], [place] [id number] CMP with eGFRon 05-23-2025 AGE 45 years Normal [facility] Comment on above: Performed By: #### 2 62300 ####[facility],[address] [place] [address]60 Albumin [Mass/Vol] 4.4 g/dL Normal 3.4 - 5.0 [facility] Comment on above: Performed By: #### 2 25161 ####[facility],[address] [place] [address] Albumin/Globulin [Mass ratio] 1.4 {ratio} Normal 0.9 - 1.6 [facility] Comment on above: Performed By: #### 2 92914 ####[facility],[address] [place] [address] 92528 ALK PHOS 101 U/L Normal 46 - 116 [facility] Comment on above: Performed By: #### 2 37646 ####[facility],[address] [place] [address] 23632 ALT [Catalytic activity/Vol] 41 U/L Normal 16 - 63 [facility] Comment on above: Performed By: #### 2 63453 ####[facility],[address] [place] [address] 70506 Anion gap [Moles/Vol] 13 mmol/L Normal 10 - 20 [facility] Comment on above: Performed By: #### 2 72060 ####[facility],[address] [place] [address] 99899 AST [Catalytic activity/Vol] 18 U/L Normal 13 - 39 [facility] Comment on above: Performed By: #### 2 19229 ####[facility],[address] [place] [address] 94390 B/C RATIO 21 ratio Normal 0 - 30 [facility] Comment on above: Performed By: #### 2 24378 ####[facility],[address] [place] [address] 72556 Bilirubin [Mass/Vol] 0.6 mg/dL Normal 0.2 - 1.0 [facility] Comment on above: Performed By: #### 2 41652 ####[facility],[address] [place] [address] 53765 Calcium [Mass/Vol] 9.2 mg/dL Normal 8.5 - 10.1 [facility] Comment on above: Performed By: #### 2 35781 ####[facility],[address] [place], [place] [address] Chloride [Moles/Vol] 105 mmol/L Normal 98 - 107 [facility] Comment on above: Performed By: #### 2 89485 ####[facility],[address] [place], [place] [address] CMP with eGFR Normal [facility] Comment on above: Result Comment: COMP REHENSIVE METABOLIC PANEL Performed By: #### 2 14537 ####[facility],[address] [place] [address] 25620 CO2 [Moles/Vol] 27.9 mmol/L Normal 21.0 - 32.0 [facility] Comment on above: Performed By: #### 2 14710 ####[facility],[address] [place] [address] 12090 Creatinine [Mass/Vol] 0.72 mg/dL Normal 0.55 - 1.02 [facility] Comment on above: Performed By: #### 2 30619 ####[facility],[address] [place] [address] 28852 GFR/1.73 sq M.predicted among non-blacks MDRD (S/P/Bld) [Vol rate/Area] mL/min/{1.73_m2} Normal 60 - 999 [facility] Comment on above: Performed By: #### 2 11372 ####[facility],[address] [place] [address] Result Comment: ACCO RDING TO THE NATIONAL KIDNEY DISEASE EDUCATION PROGRAM(NKDE), A NORMAL eGFR IS A VALUE GREATER THAN OR EQUAL TO 60 ML/MIN/1.73 SQ METERS. CHRONIC KIDNEY DISEASE: <60mL/MIN/1.73 SQ METERS KIDNEY FAILURE: <15mL/MIN/1.73 SQ METERS THIS TEST SHOULD ONLY BE USED FOR PATIENTS 18 YEARS OF AGE AND OLDER. Globulin (S) [Mass/Vol] 3.1 g/dL Normal 1.5 - 3.8 [facility] Comment on above: Performed By: #### 2 00224 ####[facility],[address] [place] [address] 81762 Glucose [Mass/Vol] 111 mg/dL High 74 - 106 [facility] Comment on above: Performed By: #### 2 92164 ####[facility],[address] [place] [address] 78132 Potassium [Moles/Vol] 4.2 mmol/L Normal 3.5 - 5.1 [facility] Comment on above: Performed By: #### 2 93447 ####[facility],[address] [place] [address] 62783 Protein [Mass/Vol] 7.5 g/dL Normal 6.4 - 8.2 [facility] Comment on above: Performed By: #### 2 06681 ####[facility],[address] [place] [address] 75165 Sodium [Moles/Vol] 142 mmol/L Normal 136 - 145 [facility] Comment on above: Performed By: #### 2 55117 ####[facility],[address] [place] [address] 97877 Urea nitrogen [Mass/Vol] 15 mg/dL Normal 7 - 18 [facility] Comment on above: Performed By: #### 2 44591 ####[facility],[address] [place] [address] 37214 HEMOGLOBIN A1C (POM)on 05-23 Glucose [Mass/Vol] 125.5 mg/dL High 0.0 - 0.0 [facility] Comment on above: Result Comment: BLDo HEMOGLOBIN A1C REFERENCE RANGESBLDo Suggested Diagnosis HbA1c(%) HbA1C (mmol/mol Diabetic >/=6.5 >/=48 Prediabetes 5.7 - 6.4 39 - 47 Normal <5.7 <39 Performed By: #### 2 43377 #### [facility],[address] [place] [address] 51906 HbA1c (Bld) [Mass fraction] 6.0 % Normal 0.0 - 6.5 [facility] Comment on above: Performed By: #### 2 09265 #### [facility],[address] [place] [address] 08011 LIPID PROFILEon 05-23-2025 Cholesterol [Mass/Vol] 136 mg/dL Normal 0 - 240 [facility] Comment on above: Performed By: #### 2 88244 ####[facility],[address] [place] [address] 20385 Cholesterol in HDL [Mass/Vol] 55 mg/dL Normal 40 - 60 [facility] Comment on above: Performed By: #### 2 37116 ####[facility],[address] [place] [address] 59879 Cholesterol in LDL [Mass/Vol] 64 mg/dL Normal 0 - 129 [facility] Comment on above: Performed By: #### 2 11470 ####[facility],[address] [place] [address] 79383 Cholesterol.total/Choles terol in HDL [Mass ratio] 2.5 {ratio} Normal 0.0 - 5.0 [facility] Comment on above: Performed By: #### 2 93051 ####[facility],[address] [place] [address] 97042 Lipid 1996 panel Normal [facility] Comment on above: Result Comment: LIPI D PROFILE Performed By: #### 2 92507 ####[facility],[address] [place] [address] 10219 Triglyceride [Mass/Vol] 84 mg/dL Normal 0 - 150 J l [facility] Comment on above: Performed By: #### 2 96061 ####[facility],[address] [place], [place] [address] VITAMIN D, 25 HYDROXYon VitD 23.20 ng/mL Low 30.00 - 100 [facility] Comment on above: Result Comment: 25-O HD3 [...] D2 Not Established Performed By: #### 2 31046 #### [facility],[address] [place] [address] 37992 Emergency Department Summary on 05-16-2025 Emergency Department Summary [facility] Medical Records Department [address] [place], [place] [id number] Emergency Department Summary 05/16/25 MR#: [id number] Acct: [id number] Name: REKHA LEWIS Rep #: [id number] : 1980 45 From: Ac Flores MD PCP: Dr. Juliet Gao MD Status:REG ER Location: ED HPI [...] told by her primary care physician in [place] that she might have a rotator cuff [...] this week. She be written for limited [place] for pain and then she needs further [...] Loss of Funtion Narrative Narrative: 45-year-old female trizw-irfy-oyuupauv acute on chronic worsening left shoulder pain. No fall injury or trauma. No fever or redness nor swelling. No prior surgery. Much worse with movement. Prior similar symptoms: Yes Recent Illness/Hospitalizati on: No PFSH PFS Medical History Hyperlipidemia Diabetes Dental caries Recurrent hernia Hemorrhoids RUQ abdominal pain Abdominal pain SOB (shortness of breath) Anxiety Depression Hypertension Back problem Fatigue Home Medications ???Medication ???Instructions ???Recorded ???Last Taken ???Type albuterol sulfate 90 mcg/actuation 1 - 2 puff inhalation Q6H PRN SC N 08/26/19 Unknown History aerosol inhaler Sob [...] BID PRN anxiety 09/03/23 U nknown History hydrocodone-acetamino phen 5-325mg 1 tab PO Q6H PRN PRN [...] 12/27/23 Unknown History Metrix Glucose Test Strip) oxycodone-acetaminoph en 5 mg-325 1 tab PO Q8H PRN pain 3 days #10 0 12/27/23 Unknown Rx mg tablet (Percocet) tabs oxycodone-acetaminoph en 5 mg-325 1 tab PO Q6H PRN PRN Pain 3 days 0 04/23/24 Unknown Rx mg tablet #12 TABLETS penicillin V potassium 500 mg 500 mg PO 4X/DAY #28 tabs 04/23/24 Unknown Rx tablet hydrocodone-acetamino phen 5-325mg 1 tab PO Q6H PRN PRN Pain 1 day # 4 09/11/24 Unknown Rx 5mg-325mg TABLETS nitrofurantoin 100 mg PO Q12 #10 CAPSULES 4 Unknown Rx monohydrate/macrocrys tals 100 mg capsule hydrocodone-acetamino phen 5-325mg 1 tab PO Q6H PRN PRN Pain 4 days 05/16/25 Unknown Rx 5mg-325mg #12 TABLETS Allergy/AdvReac Type Severity Reaction Status Date / Time diphenhydramine Allergy Severe Angioe (more content not included)... Normal [facility] Shoulder min 2 Viewson 05-16 Shoulder min 2 Views [facility] Imaging Services [address] [place] [address] Shoulder min 2 Views MR#: [id number] Acct: [id number] Name: REKHA LEWIS Rep #: [id number] : 1980 F 45 From: Mani Johansen MD PCP: Dr. Juliet Gao MD Status: REG ER Study: Shoulder min 2 Views Date of Exam: 05/16/25 Exam# [id number] Ordering Dr: Ac Flores MD PROCEDURE: SHOULDER MIN 2 VIEWS 05/16/2025 REASON FOR EXAM: ATRAUMATIC PAIN TECHNIQUE: Procedure Code: RAD Modality: DX Procedure: SHOULDER MIN 2 VIEWS [...] a nonspecific glenohumeral joint effusion. Reading Location: [facility] CC: Dr. Ac Flores MD; Dr. Juliet Gao MD Loader Engineer: Signed Normal [facility] 12 Lead EKGon 12-31-2024 12 Lead EKG [facility] Cardiovascular Services [address] [place] [address] 12 Lead EKG 12/31/24 0909 MR#: [id number] Acct: [id number] Name: REKHA LEWIS Rep #: [id number] : 1980 44 From: Martin Reese MD Attending Dr: Dr. Virginia Sanchez MD Status: REG CLI Ordering Dr: Virginia Sanchez MD Date: 12/31/24 Location: [facility] Sex: F C Admitted: Test Reason : CERAMIST DRUG USE Blood Pressure : */* mmHG Vent. Rate : 88 BPM Atrial Rate : 88 BPM P-R Int : 152 ms QRS Dur : 88 ms QT Int : 374 ms P-R-T Axes : 65 59 53 degrees QTcB Int : 452 ms Normal sinus rhythm Normal ECG Confirmed by Martin Reese ([id number]), film and video editor VONDA CASH ([id number]) on 01/03/2025 8:50:46 AM Referred By: Virginia Sanchez Confirmed By: Martin Reese 01/03/25 0850 Date Martin Reese MD CC: Dr. Juliet Gao MD; Dr. Virginia Sanchez MD Signed Normal [facility] Urine Cultureon 09-13-2024 URC Presumptive E. coli [place] Count 80,000-100,000 Presumptive E. coli: REACTION Ampicillin [...] TMP SMX Islt MARY <=20 S Normal [facility] Comment on above: Performed By: #### M 100.2200 ####[facility] [id number] [facility]. [place], [place], [address] Abdomen/Pelvis without Conto n 09-11-2024 Abdomen/Pelvis without Cont [facility] Imaging Services [address] [place], [place] [address] Abdomen/Pelvis without Cont MR#: [id number] Acct: [id number] Name: REKHA LEWIS Rep #: [id number] : 1980 F 44 From: Hai Patel PCP: Care Physician,No Primary Status: REG ER Study: Abdomen/Pelvis without Cont Date of Exam: 08/16 05/08 Exam# [id number] Ordering Dr: Mathew Gonsales DO [id number] STUDY: CT ABDOMEN AND PELVIS WITHOUT CONTRAST [...] at 20:39 EST , CC: Dr. Mathew Schwiger, DO; No Primary Care Physician Loader Engineer: Signed Normal [facility] Basic Metabolic Profile (BMP )on 09-11-2024 BUN/CRE 16.6 RATIO Normal 10-20 [facility] Comment on above: Performed By: #### L 500.2500, L100.0100 #### [facility] [address] [place], [address] CA,Total 8.9 mg/dL Normal 8.5-10.1 [facility] Comment on above: Performed By: #### L 500.2500, L100.0100 #### [facility] [address] [place], [address] Chloride [Moles/Vol] 105 mmol/L Normal 98-107 [facility] Comment on above: Performed By: #### L 500.2500, L100.0100 #### [facility] [address] [place], [address] CO2 [Moles/Vol] 28.0 mmol/L Normal 21.0-32.0 [facility] Comment on above: Performed By: #### L 500.2500, L100.0100 #### [facility] [address] [place], [address] Creatinine [Mass/Vol] 0.72 mg/dL Normal 0.55-1.02 [facility] Comment on above: Result Comment: The validity of the calculated GFR GFRAA in patients over 70 years has not been determined. Clinical correlation is essential. Performed By: #### L 500.2500, L100.0100 #### [facility] [address] [place], [address] ECRCL 141.19 ml/min Normal [facility] Comment on above: Performed By: #### L 500.2500, L100.0100 #### [facility] [address] [place], [address] EST GFR - AA 111 mL/min Normal >60 [facility] Comment on above: Result Comment: Afri can [place] GFR Calc Performed By: #### L 500.2500, L100.0100 #### [facility] [address] [place], [address] GAP 6 Normal 5-15 [facility] Comment on above: Performed By: #### L 500.2500, L100.0100 #### [facility] [address] [place], [address] GFR/1.73 sq M.predicted among non-blacks MDRD (S/P/Bld) [Vol rate/Area] 92 mL/min/{1.73_m2} Normal >60 [facility] Comment on above: Result Comment: Non- GFR Calc Performed By: #### L 500.2500, L100.0100 #### [facility] [address] [place], [address] Glucose [Mass/Vol] 120 mg/dL High 74-106 [facility] Comment on above: Result Comment: Fast ing Glucose result from 100 to 125 mg/dL suggests IMPAIRED HOMEOSTASIS per A.D.A. criteria. Performed By: #### L 500.2500, L100.0100 #### [facility] [address] [place], [address] Potassium [Moles/Vol] 4.2 mmol/L Normal 3.5-5.1 [facility] Comment on above: Performed By: #### L 500.2500, L100.0100 #### [facility] [address] [place], [address] Sodium [Moles/Vol] 139 mmol/L Normal 136-145 [facility] Comment on above: Performed By: #### L 500.2500, L100.0100 #### [facility] [address] [place], [address] Urea nitrogen [Mass/Vol] 12 mg/dL Normal 7-18 [facility] Comment on above: Performed By: #### L 500.2500, L100.0100 #### [facility] [address] [place], [address] CBC W/Diff, Automatedon 12- Absolute Lymph 1.85 X10 3/uL Normal 0.83-4.51 [facility] Comment on above: Performed By: #### L 500.2500, L100.0100 #### [facility] [address] [place], [address] Absolute Neut 8.2 X10 3/uL High 2.0-7.7 [facility] Comment on above: Performed By: #### L 500.2500, L100.0100 #### [facility] [address] [place], [address] Basophils/100 WBC (Bld) 0.5 % Normal 0-1 [facility] Comment on above: Performed By: #### L 500.2500, L100.0100 #### [facility] [address] [place], [address] Eosinophils/100 WBC (Bld) 3.3 % Normal 0-5 [facility] Comment on above: Performed By: #### L 500.2500, L100.0100 #### [facility] [address] [place], [address] Erythrocyte distribution width (RBC) [Ratio] 13.0 % Normal 11.6-14.6 [facility] Comment on above: Performed By: #### L 500.2500, L100.0100 #### [facility] [address] [place], [address] Hematocrit (Bld) [Volume fraction] 40.4 % Normal 37-47 [facility] Comment on above: Performed By: #### L 500.2500, L100.0100 #### [facility] [address] [place], [address] Hemoglobin (Bld) [Mass/Vol] 12.9 g/dL Normal 12.0-15.0 [facility] Comment on above: Performed By: #### L 500.2500, L100.0100 #### [facility] [address] [place], [id number] IG% 0.500 Normal 0.0-0.9 [facility] Comment on above: Result Comment: IG% - Immature Granulocytes (promyelocytes, myelocytes and metamyelocytes) > 1% indicates that a LEFT SHIFT is Present. Performed By: #### L 500.2500, L100.0100 #### [facility] [address] [place], [address] Lymphocytes/100 WBC (Bld) 16.7 % Low 19-41 [facility] Comment on above: Performed By: #### L 500.2500, L100.0100 #### [facility] [address] [place], [address] MCH (RBC) [Entitic mass] 27.9 pg Normal 27.0-32.0 [facility] Comment on above: Performed By: #### L 500.2500, L100.0100 #### [facility] [address] [place], [address] MCHC (RBC) [Mass/Vol] 31.9 g/dL Low 32-36 [facility] Comment on above: Performed By: #### L 500.2500, L100.0100 #### [facility] [address] [place], [address] MCV (RBC) [Entitic vol] 87.4 fL Normal 81-99 [facility] Comment on above: Performed By: #### L 500.2500, L100.0100 #### [facility] [address] [place], [address] Monocytes/100 WBC (Bld) 4.9 % Normal 0-10 [facility] Comment on above: Performed By: #### L 500.2500, L100.0100 #### [facility] [address] [place], [address] Neutrophils/100 WBC (Bld) 74.1 % High 47-70 [facility] Comment on above: Performed By: #### L 500.2500, L100.0100 #### [facility] [address] [place], [address] Nucleated RBC (Bld) [#/Vol] 0 10*3/uL Normal 0-5 [facility] Comment on above: Performed By: #### L 500.2500, L100.0100 #### [facility] [address] [place], [id number] Platelet mean volume (Bld) [Entitic vol] 8.9 fL Normal 6.2-12.0 [facility] Comment on above: Performed By: #### L 500.2500, L100.0100 #### [facility] [address] [place], [address] Platelets (Bld) [#/Vol] 275 10*3/uL Normal 150-450 [facility] Comment on above: Performed By: #### L 500.2500, L100.0100 #### [facility] [address] [place], [address] RBC (Bld) [#/Vol] 4.62 10*6/uL Normal 4.2-5.4 [facility] Comment on above: Performed By: #### L 500.2500, L100.0100 #### [facility] [address] [place], [address] RDW SD 41.8 fl Normal 35.1-43.9 [facility] Comment on above: Performed By: #### L 500.2500, L100.0100 #### [facility] [address] [place], [address] WBC (Bld) [#/Vol] 11.1 10*3/uL High 4.4-11.0 [facility] Comment on above: Performed By: #### L 500.2500, L100.0100 #### [facility] [address] [place], [address] Emergency Department Summary on 09-11-2024 Emergency Department Summary [facility] Medical Records Department [address] [place] [address] Emergency Department Summary 09/11/24 MR#: [id number] Acct: [id number] Name: REKHA LEWIS Rep #: [id number] : 1980 44 From: Mathew Gonsales DO PCP: Care Physician,No Primary Status:DEP ER Location: ED HPI History of Present Illness Chief Complaint: Complaint Informant: patient Onset/Context/Timing Onset: Days (3) Context: Gradual Onset Timing: [...] .COMPLEX 07/15/23 Unknown [facility] alprazolam 1 mg tablet 1 mg PO BID PRN anxiety 09/03/23 Unknown History hydrocodone-acetamino phen 5-325mg 1 tab PO Q6H PRN PRN [...] 12/27/23 Unknown History Metrix Glucose Test Strip) oxycodone-acetaminoph en 5 mg-325 1 tab PO Q8H PRN pain 3 days #10 12/27/23 Unknown Rx mg tablet (Percocet) tabs oxycodone-acetaminoph en 5 mg-325 1 tab PO Q6H PRN PRN Pain 3 days 04/23/24 Unknown Rx mg tablet #12 TABLETS penicillin V potassium 500 mg 500 mg PO 4X/DAY #28 tabs 04/23/24 Unknown Rx tablet hydrocodone-acetamino phen 5-325mg 1 tab PO Q6H PRN PRN Pain 1 day #4 09/11/24 Unknown Rx 5mg-325mg TABLETS nitrofurantoin 100 mg PO Q12 #10 CAPSULES 09/11/24 Unknown Rx monohydrate/macrocrys tals 100 mg capsule Allergy/AdvReac Type Severity Reaction [...] Reports ab (more content not included)... Normal [facility] Urinalysis, Completeon 09-11 BACTERIA 1+ /hpf Normal None Seen [facility] Comment on above: Order Comment: COLOR OF URINE MAY AFFECT DIPSTICK RESULTS. Microscopic field is filled. Other elements may be obscured. CLEAN CATCH Performed By: #### L 400.0001 #### [facility] [address] [place], [address] EPI,SQUAMOUS 0-5 SEEN Normal 5-10 [facility] Comment on above: Order Comment: COLOR OF URINE MAY AFFECT DIPSTICK RESULTS. Microscopic field is filled. Other elements may be obscured. CLEAN CATCH Performed By: #### L 400.0001 #### [facility] [address] [place], [address] RBC > 100 SEEN Normal 0-5 [facility] Comment on above: Order Comment: COLOR OF URINE MAY AFFECT DIPSTICK RESULTS. Microscopic field is filled. Other elements may be obscured. CLEAN CATCH Performed By: #### L 400.0001 #### [facility] [address] [place], [id number] WBC >100 SEEN Normal 0-5 [facility] Comment on above: Order Comment: COLOR OF URINE MAY AFFECT DIPSTICK RESULTS. Microscopic field is filled. Other elements may be obscured. CLEAN CATCH Performed By: #### L 400.0001 #### [facility] [address] [place], [address] Mucus Ql (Urine sed) 0 SEEN Normal [facility] Comment on above: Order Comment: COLOR OF URINE MAY AFFECT DIPSTICK RESULTS. Microscopic field is filled. Other elements may be obscured. CLEAN CATCH Performed By: #### L 400.0001 #### [facility] [address] [place], [address] HEMOGLOBIN A1C (POM)on 08-11 Glucose [Mass/Vol] 111.2 mg/dL High 0.0 - 0.0 [facility] Comment on above: Result Comment: Do HEMOGLOBIN A1C REFERENCE RANGESBLDo Suggested Diagnosis HbA1c(%) HbA1C (mmol/mol Diabetic >/=6.5 >/=48 Prediabetes 5.7 - 6.4 39 - 47 Normal <5.7 <39 Performed By: #### 2 71668 #### [facility],[address] [place] [address] HbA1c (Bld) [Mass fraction] 5.5 % Normal 0.0 - 6.5 [facility] Comment on above: Performed By: #### [id number] #### [address] [address] VITAMIN D, 25 HYDROXYon 11-2 VitD 21.60 ng/mL Low 30.00 - 100 [facility] Comment on above: Result Comment: 25-O HD3 [...] D2 Not Established Performed By: #### [id number] #### [facility],1 [facility] [address] Absolute lymphocyte countOrd ered By: Jesús Khan on 09-03-2023 Lymphocytes Auto (Unsp spec) [#/Vol] 2.28 10*3/uL 0.83-4.51 [facility] Basophil percentageOrdered B y: Jesús Khan on 09-03-2023 Basophils/100 WBC (Bld) 0.5 % 0-1 [facility] Bilirubin [Mass/Vol] 0.20 mg/dL 0.20-1.00 [facility] Comment on above: For patients on eltr ombopag therapy, use of Dimension [place] TBIL is not recommended. Chloride [Moles/Vol] 108 mmol/L 98-107 [facility] Eosinophils/100 WBC (Bld) 5.5 % 0-5 [facility] Glucose [Mass/Vol] 117 mg/dL 74-106 [facility] Comment on above: Fasting Glucose resu lt from 100 to 125 mg/dL suggests IMPAIRED HOMEOSTASIS per A.D.A. criteria. Neutrophils (Bld) [#/Vol] 5.7 10*3/uL 2.0-7.7 [facility] Neutrophils/100 WBC (Bld) 62.6 % 47-70 [facility] Potassium [Moles/Vol] 3.9 mmol/L 3.5-5.1 [facility] Protein [Mass/Vol] 7.3 g/dL 6.4-8.2 [facility] Sodium [Moles/Vol] 140 mmol/L 136-145 [facility] WBC (Bld) [#/Vol] 9.1 10*3/uL 4.4-11.0 [facility] Basophil percentage 5-10 SEEN /hpf 0-5 [facility] Beta hCG serum qualOrdered B y: Jesús Khan on 09-03-2023 Beta HCG ( test) Ql Negative [facility] Bilirubin Test strip Ql (U)O rdered By: Jseús Khan on 09-03-2023 Bilirubin Ql (U) Negative Negative [facility] Blood erythrocytes count (nu mber/volume)Ordered By: Jesús Khan on 09-03-2023 RBC (Bld) [#/Vol] 4.51 10*6/uL 4.2-5.4 [facility] Blood hemoglobin measurement (mass/volume)Ordered By: Jesús Khan on 09-03-2023 Hemoglobin (Bld) [Mass/Vol] 12.7 g/dL 12.0-15.0 [facility] Blood lymphocytes/100 leukoc ytesOrdered By: Jesús Khan on 09-03-2023 Lymphocytes/100 WBC (Bld) 25.1 % 19-41 [facility] Blood monocytes/100 leukocyt esOrdered By: Jesús Khan on 09-03-2023 Monocytes/100 WBC (Bld) 5.5 % 0-10 [facility] Blood platelet mean volumeOr dered By: Jesús Khan on 09-03-2023 Platelet mean volume (Bld) [Entitic vol] 9.3 fL 6.2-12.0 [facility] Determination of erythrocyte mean corpuscular volume (MCV)Ordered By: Jesús Khan on 09-03-2023 MCV (RBC) [Entitic vol] 88.0 fL 81-99 [facility] Hematocrit Auto (Bld) [Volum e fraction]Ordered By: Jesús Khan on 09-03-2023 Hematocrit (Bld) [Volume fraction] 39.7 % 37-47 [facility] Ketones Test strip Ql (U)Ord ered By: Jesús Khan on 09-03-2023 Ketones Ql (U) 5 mg/dl Negative [facility] Laboratory - Chemistry and C hemistry - challengeOrdered By: Jesús Khan on 09-03-2023 ALP [Catalytic activity/Vol] 120 U/L 45-117 [facility] ALT [Catalytic activity/Vol] 49 U/L 13-56 [facility] CO2 [Moles/Vol] 28.0 mmol/L 21.0-32.0 [facility] Globulin (S) [Mass/Vol] 3.7 g/dL 2.2-4.2 [facility] Lipase [Catalytic activity/Vol] 29 U/L 13-75 [facility] Comment on above: Please note:LIPASE r evised reference range effective 22. New Lipase methodology. Expected to produce lower values than the previous assay method. NEW Reference Range: 13 - 75 U/L Urea nitrogen/Creatinine [Mass ratio] 19.2 mg/mg 10-20 [facility] Laboratory - Hematology and Cell countsOrdered By: Jesús Khan on 09-03-2023 Erythrocyte distribution width (RBC) [Entitic vol] 42.3 fL 35.1-43.9 [facility] Erythrocyte distribution width (RBC) [Ratio] 13.1 % 11.6-14.6 [facility] Immature granulocytes/100 WBC (Bld) 0.800 % 0.0-0.9 [facility] Comment on above: IG% - Immature Granu locytes (promyelocytes, myelocytes and metamyelocytes) > 1% indicates that a LEFT SHIFT is Present. MCH (RBC) [Entitic mass] 28.2 pg 27.0-32.0 [facility] Nucleated RBC/100 WBC (Bld) [Ratio] 0 % 0-5 [facility] MCHC Auto (RBC) [Mass/Vol]Or dered By: Jesús Khan on 09-03-2023 MCHC (RBC) [Mass/Vol] 32.0 g/dL 32-36 [facility] Mucus LM Ql (Urine sed)Order ed By: Jesús Khan on 09-03-2023 Mucus Ql (Urine sed) 0 SEEN /hpf [facility] Nitrite Test strip Ql (U)Ord ered By: Jesús Khan on 09-03-2023 Nitrite Ql (U) Negative Negative [facility] No Panel InformationOrdered By: Jesús Khan on 09-03-2023 Estimated GFR (MDRD) Amer 111 mL/min >60 [facility] Comment on above: GFR Calc Estimated GFR (MDRD) Non-Af Amer 92 mL/min >60 [facility] Comment on above: Non- GFR Calc Platelets bldOrdered By: Santy Khan on 09-03-2023 Platelets (Bld) [#/Vol] 266 10*3/uL 150-450 [facility] Protein Test strip Ql (U)Ord ered By: Jesús Khan on 09-03-2023 Protein Ql (U) 15 mg/dl Negative [facility] Serum or plasma albumin regulo urement (mass/volume)Ordered By: Jesús Khan on 09-03-2023 Albumin [Mass/Vol] 3.6 g/dL 3.2-5.0 [facility] Serum or plasma albumin/glob ulin mass ratioOrdered By: Jesús Khan on 09-03-2023 Albumin/Globulin [Mass ratio] 1.0 {ratio} 0.9-2.4 [facility] Serum or plasma calcium regulo urement (mass/volume)Ordered By: Jesús Khan on 09-03-2023 Calcium [Mass/Vol] 9.2 mg/dL 8.5-10.1 [facility] Serum or plasma creatinine m easurement (mass/volume)Ordered By: Jesús Khan on 09-03-2023 Creatinine [Mass/Vol] 0.73 mg/dL 0.55-1.02 [facility] Comment on above: The validity of the calculated GFR & GFRAA in patients over 70 years has not been determined. Clinical correlation is essential. Serum or plasma urea nitroge n measurement (mass/volume)Ordered By: Jesús Khan on 09-03-2023 Urea nitrogen [Mass/Vol] 14 mg/dL 7-18 [facility] Squamous epithelial cells de tection in urine sediment by light microscopyOrdered By: Jesús Khan on 09-03-2023 Epithelial cells.squamous LM Ql (Urine sed) 5-10 SEEN /hpf 5-10 [facility] Thin prep Papanicolaou smear with manual screeningOrdered By: Jesús Khan on 09-03-2023 Thin prep Papanicolaou smear with manual screening 22 U/L 15-37 [facility] Thin prep Papanicolaou smear with manual screening 4 5-15 [facility] Urine blood detectionOrdered By: Jesús Khan on 09-03-2023 RBC Ql (U) 25 /ul Negative [facility] RBC Ql (U) 5-10 SEEN /hpf 0-5 [facility] Urine clarityOrdered By: Santy Khan on 09-03-2023 Clarity (U) Clear Clear [facility] Urine color determinationOrd ered By: Jesús Khan on 09-03-2023 Color (U) Yellow Yellow [facility] Urine glucose detectionOrder ed By: Jesús Khan on 09-03-2023 Glucose Ql (U) Normal mg/dl Normal [facility] Urine leukocyte esterase det ection by dipstickOrdered By: Jesús Khan on 09-03-2023 Leukocyte esterase Test strip Ql (U) 25 /ul Negative [facility] Urine pHOrdered By: Jesús tafoya on 09-03-2023 pH (U) 5.0 [pH] 5.0 - 8.0 [facility] Urine sediment bacteria coun t by microscopy (number/high power field)Ordered By: Jesús Khan on 09-03-2023 Bacteria LM.HPF (Urine sed) [#/Area] RARE /hpf None Seen [facility] Urine specific gravity measu rementOrdered By: Jesús Khan on 09-03-2023 Specific gravity (U) [Rel density] 1.025 1.002-1.030 [facility] Urobilinogen Auto test strip Ql (U)Ordered By: Jesús Khan on 09-03-2023 Urobilinogen Ql (U) 1 mg/dl Normal [facility] Basophil percentageOrdered B y: Hugo Nick on 02-07-2023 Basophil percentage 0-5 SEEN /hpf 0-5 [facility] Bilirubin Test strip Ql (U)O rdered By: Hugo Nick on 02-07-2023 Bilirubin Ql (U) Negative Negative [facility] Culture, urineOrdered By: Taiwo Nick on 02-07-2023 Bacteria identified Cx Nom (U) Positive [facility] Ketones Test strip Ql (U)Ord ered By: Hugo Nick on 02-07-2023 Ketones Ql (U) 5 mg/dl Negative [facility] Mucus LM Ql (Urine sed)Order ed By: Hugo Nick on 02-07-2023 Mucus Ql (Urine sed) 0 SEEN /hpf [facility] Nitrite Test strip Ql (U)Ord ered By: Hugo Nick on 02-07-2023 Nitrite Ql (U) Negative Negative [facility] Protein Test strip Ql (U)Ord ered By: Hugo Nick on 02-07-2023 Protein Ql (U) 30 mg/dl Negative [facility] Squamous epithelial cells de tection in urine sediment by light microscopyOrdered By: Hugo Nick on 02-07-2023 Epithelial cells.squamous LM Ql (Urine sed) 0-5 SEEN /hpf 5-10 [facility] Urine blood detectionOrdered By: Hugo Nick on 02-07-2023 RBC Ql (U) 150 /ul Negative [facility] RBC Ql (U) 0-5 SEEN /hpf 0-5 [facility] Urine clarityOrdered By: Brenda Nick on 02-07-2023 Clarity (U) Clear Clear [facility] Urine color determinationOrd ered By: Hugo Nick on 02-07-2023 Color (U) Yellow Yellow [facility] Urine glucose detectionOrder ed By: Hugo Nick on 02-07-2023 Glucose Ql (U) Normal mg/dl Normal [facility] Urine leukocyte esterase det ection by dipstickOrdered By: Hugo Nick on 02-07-2023 Leukocyte esterase Test strip Ql (U) 100 /ul Negative [facility] Urine pHOrdered By: Hugo Nick on 02-07-2023 pH (U) 5.0 [pH] 5.0 - 8.0 [facility] Urine sediment bacteria coun t by microscopy (number/high power field)Ordered By: Hugo Nick on 02-07-2023 Bacteria LM.HPF (Urine sed) [#/Area] 3 /[HPF] None Seen [facility] Urine specific gravity measu rementOrdered By: Hugo Nick on 02-07-2023 Specific gravity (U) [Rel density] 1.020 1.002-1.030 [facility] Urobilinogen Auto test strip Ql (U)Ordered By: Hugo Nick on 02-07-2023 Urobilinogen Ql (U) Normal mg/dl Normal [facility] Absolute lymphocyte countOrd ered By: ED PROVIDER on 11-08-2022 Lymphocytes Auto (Unsp spec) [#/Vol] 1.57 10*3/uL 0.83-4.51 [facility] Basophil percentageOrdered B y: ED PROVIDER on 11-08-2022 Basophils/100 WBC (Bld) 0.3 % 0-1 [facility] Eosinophils/100 WBC (Bld) 0.3 % 0-5 [facility] Neutrophils (Bld) [#/Vol] 12.5 10*3/uL 2.0-7.7 [facility] Neutrophils/100 WBC (Bld) 81.4 % 47-70 [facility] WBC (Bld) [#/Vol] 15.3 10*3/uL 4.4-11.0 [facility] Basophil percentageOrdered B y: Dr. Flores on 11-08-2022 Bilirubin [Mass/Vol] 0.50 mg/dL 0.20-1.00 [facility] Comment on above: For patients on eltr ombopag therapy, use of Dimension [place] TBIL is not recommended. Chloride [Moles/Vol] 107 mmol/L 98-107 [facility] Glucose [Mass/Vol] 159 mg/dL 74-106 [facility] Comment on above: Fasting Glucose resu lt greater than or equal to 126 mg/dL suggests DIABETES MELLITUS per A.D.A. criteria. Potassium [Moles/Vol] 3.8 mmol/L 3.5-5.1 [facility] Protein [Mass/Vol] 7.6 g/dL 6.4-8.2 [facility] Sodium [Moles/Vol] 140 mmol/L 136-145 [facility] Blood erythrocytes count (nu mber/volume)Ordered By: ED PROVIDER on 11-08-2022 RBC (Bld) [#/Vol] 5.02 10*6/uL 4.2-5.4 [facility] Blood hemoglobin measurement (mass/volume)Ordered By: ED PROVIDER on 11-08-2022 Hemoglobin (Bld) [Mass/Vol] 14.1 g/dL 12.0-15.0 [facility] Blood lymphocytes/100 leukoc ytesOrdered By: ED PROVIDER on 11-08-2022 Lymphocytes/100 WBC (Bld) 10.3 % 19-41 [facility] Blood monocytes/100 leukocyt esOrdered By: ED PROVIDER on 11-08-2022 Monocytes/100 WBC (Bld) 5.6 % 0-10 [facility] Blood platelet mean volumeOr dered By: ED PROVIDER on 11-08-2022 Platelet mean volume (Bld) [Entitic vol] 9.3 fL 6.2-12.0 [facility] Determination of erythrocyte mean corpuscular volume (MCV)Ordered By: ED PROVIDER on 11-08-2022 MCV (RBC) [Entitic vol] 85.9 fL 81-99 [facility] Hematocrit Auto (Bld) [Volum e fraction]Ordered By: ED PROVIDER on 11-08-2022 Hematocrit (Bld) [Volume fraction] 43.1 % 37-47 [facility] Laboratory - Chemistry and C hemistry - challengeOrdered By: Dr. Flores on 11-08-2022 ALP [Catalytic activity/Vol] 97 U/L 45-117 [facility] ALT [Catalytic activity/Vol] 31 U/L 13-56 [facility] CO2 [Moles/Vol] 24.0 mmol/L 21.0-32.0 [facility] Globulin (S) [Mass/Vol] 4.0 g/dL 2.2-4.2 [facility] Lipase [Catalytic activity/Vol] 63 U/L 73-393 [facility] Urea nitrogen/Creatinine [Mass ratio] 16.4 mg/mg 10-20 [facility] Laboratory - Hematology and Cell countsOrdered By: ED PROVIDER on 11-08-2022 Erythrocyte distribution width (RBC) [Entitic vol] 40.3 fL 35.1-43.9 [facility] Erythrocyte distribution width (RBC) [Ratio] 13.1 % 11.6-14.6 [facility] Immature granulocytes/100 WBC (Bld) 2.100 % 0.0-0.9 [facility] Comment on above: IG% - Immature Granu locytes (promyelocytes, myelocytes and metamyelocytes) > 1% indicates that a LEFT SHIFT is Present. MCH (RBC) [Entitic mass] 28.1 pg 27.0-32.0 [facility] Nucleated RBC/100 WBC (Bld) [Ratio] 0 % 0-5 [facility] MCHC Auto (RBC) [Mass/Vol]Or dered By: ED PROVIDER on 11-08-2022 MCHC (RBC) [Mass/Vol] 32.7 g/dL 32-36 [facility] No Panel InformationOrdered By: Dr. Flores on 11-08-2022 Estimated Creatinine Clearance Calc 81.77 ml/min [facility] Estimated GFR (MDRD) Amer 101 mL/min >60 [facility] Comment on above: GFR Calc Estimated GFR (MDRD) Non-Af Amer 84 mL/min >60 [facility] Comment on above: Non- GFR Calc Platelets bldOrdered By: ED PROVIDER on 11-08-2022 Platelets (Bld) [#/Vol] 305 10*3/uL 150-450 [facility] Serum or plasma albumin regulo urement (mass/volume)Ordered By: Dr. Flores on 11-08-2022 Albumin [Mass/Vol] 3.6 g/dL 3.2-5.0 [facility] Serum or plasma albumin/glob ulin mass ratioOrdered By: Dr. Flores on 11-08-2022 Albumin/Globulin [Mass ratio] 0.9 {ratio} 0.9-2.4 [facility] Serum or plasma calcium regulo urement (mass/volume)Ordered By: Dr. Flores on 11-08-2022 Calcium [Mass/Vol] 9.2 mg/dL 8.5-10.1 [facility] Serum or plasma creatinine m easurement (mass/volume)Ordered By: Dr. Flores on 11-08-2022 Creatinine [Mass/Vol] 0.79 mg/dL 0.55-1.02 [facility] Comment on above: The validity of the calculated GFR & GFRAA in patients over 70 years has not been determined. Clinical correlation is essential. Serum or plasma urea nitroge n measurement (mass/volume)Ordered By: Dr. Flores on 11-08-2022 Urea nitrogen [Mass/Vol] 13 mg/dL 7-18 [facility] Thin prep Papanicolaou smear with manual screeningOrdered By: Dr. Flores on 11-08-2022 Thin prep Papanicolaou smear with manual screening 13 U/L 15-37 [facility] Thin prep Papanicolaou smear with manual screening 9 5-15 [facility] Absolute lymphocyte counton 01-21-2022 Lymphocytes Auto (Unsp spec) [#/Vol] 2.28 10*3/uL 0.83-4.51 [facility] Work Phone: Basophil percentageon 2021 Basophils/100 WBC (Bld) 0.3 % 0-1 [facility] Work Phone: Chloride [Moles/Vol] 108 mmol/L 98-107 [facility] Work Phone: Eosinophils/100 WBC (Bld) 2.3 % 0-5 [facility] Work Phone: Glucose [Mass/Vol] 119 mg/dL 74-106 [facility] Work Phone: Comment on above: Fasting Glucose resu lt from 100 to 125 mg/dL suggests IMPAIRED HOMEOSTASIS per A.D.A. criteria. Neutrophils (Bld) [#/Vol] 7.2 10*3/uL 2.0-7.7 [facility] Work Phone: Neutrophils/100 WBC (Bld) 69.2 % 47-70 [facility] Work Phone: Potassium [Moles/Vol] 4.2 mmol/L 3.5-5.1 [facility] Work Phone: Sodium [Moles/Vol] 141 mmol/L 136-145 [facility] Work Phone: WBC (Bld) [#/Vol] 10.4 10*3/uL 4.4-11.0 [facility] Work Phone: Blood erythrocytes count (nu mber/volume)on 01-21-2022 RBC (Bld) [#/Vol] 4.78 10*6/uL 4.2-5.4 [facility] Work Phone: Blood hemoglobin measurement (mass/volume)on 01-21-2022 Hemoglobin (Bld) [Mass/Vol] 13.8 g/dL 12.0-15.0 [facility] Work Phone: Blood lymphocytes/100 leukoc yteson 01-21-2022 Lymphocytes/100 WBC (Bld) 22.0 % 19-41 [facility] Work Phone: Blood monocytes/100 leukocyt eson 01-21-2022 Monocytes/100 WBC (Bld) 5.8 % 0-10 [facility] Work Phone: [phone] Blood platelet mean volumeon 01-21-2022 Platelet mean volume (Bld) [Entitic vol] 9.4 fL 6.2-12.0 [facility] Work Phone: [phone] Determination of erythrocyte mean corpuscular volume (MCV)on 01-21-2022 MCV (RBC) [Entitic vol] 87.2 fL 81-99 [facility] Work Phone: [phone] Hematocrit Auto (Bld) [Volum e fraction]on 01-21-2022 Hematocrit (Bld) [Volume fraction] 41.7 % 37-47 [facility] Work Phone: [phone] Laboratory - Chemistry and C hemistry - challengeon 01-21-2022 CO2 [Moles/Vol] 25.0 mmol/L 21.0-32.0 [facility] Work Phone: [phone] Urea nitrogen/Creatinine [Mass ratio] 17.3 mg/mg 10-20 [facility] Work Phone: [phone] Laboratory - Hematology and Cell countson 01-21-2022 Erythrocyte distribution width (RBC) [Entitic vol] 40.9 fL 35.1-43.9 [facility] Work Phone: [phone] Erythrocyte distribution width (RBC) [Ratio] 12.9 % 11.6-14.6 [facility] Work Phone: [phone] Immature granulocytes/100 WBC (Bld) 0.400 % 0.0-0.9 [facility] Work Phone: [phone] Comment on above: IG% - Immature Granu locytes (promyelocytes, myelocytes and metamyelocytes) > 1% indicates that a LEFT SHIFT is Present. MCH (RBC) [Entitic mass] 28.9 pg 27.0-32.0 [facility] Work Phone: [phone] Nucleated RBC/100 WBC (Bld) [Ratio] 0 % 0-5 [facility] Work Phone: MCHC Auto (RBC) [Mass/Vol]on 01-21-2022 MCHC (RBC) [Mass/Vol] 33.1 g/dL 32-36 [facility] Work Phone: No Panel Informationon 01-21 Estimated Creatinine Clearance Calc 75.03 ml/min [facility] Work Phone: Estimated GFR (MDRD) Amer 92 mL/min >60 [facility] Work Phone: Comment on above: GFR Calc Estimated GFR (MDRD) Non-Af Amer 76 mL/min >60 [facility] Work Phone: Comment on above: Non- GFR Calc Troponin I High Sensitivity < 3 pg/mL 3.0-54.0 [facility] Work Phone: Comment on above: Please Note: New Theodora t Units and Gender Specific Reference Ranges. For more information see Policy Stat Procedure [place] High Sensitivity Troponin (TNIH) and attachments. Platelets bldon 01-21-2022 Platelets (Bld) [#/Vol] 314 10*3/uL 150-450 [facility] Work Phone: Serum or plasma calcium regulo urement (mass/volume)on 01-21-2022 Calcium [Mass/Vol] 9.4 mg/dL 8.5-10.1 [facility] Work Phone: Serum or plasma creatinine m easurement (mass/volume)on 01-21-2022 Creatinine [Mass/Vol] 0.87 mg/dL 0.55-1.02 [facility] Work Phone: Comment on above: The validity of the calculated GFR & GFRAA in patients over 70 years has not been determined. Clinical correlation is essential. Serum or plasma urea nitroge n measurement (mass/volume)on 01-21-2022 Urea nitrogen [Mass/Vol] 15 mg/dL 7-18 [facility] Work Phone: Thin prep Papanicolaou smear with manual screeningon 01-21-2022 Thin prep Papanicolaou smear with manual screening 8 5-15 [facility] Work Phone: Absolute lymphocyte counton 01-13-2022 Lymphocytes Auto (Unsp spec) [#/Vol] 2.37 10*3/uL 0.83-4.51 [facility] Work Phone: Basophil percentageon 2021 Basophil percentage 0 SEEN /hpf [facility] Work Phone: Basophils/100 WBC (Bld) 0.4 % 0-1 [facility] Work Phone: Bilirubin [Mass/Vol] 0.40 mg/dL 0.20-1.00 [facility] Work Phone: Comment on above: For patients on eltr ombopag therapy, use of Dimension [place] TBIL is not recommended. Chloride [Moles/Vol] 107 mmol/L 98-107 [facility] Work Phone: Eosinophils/100 WBC (Bld) 2.6 % 0-5 [facility] Work Phone: Glucose [Mass/Vol] 113 mg/dL 74-106 [facility] Work Phone: Comment on above: Fasting Glucose resu lt from 100 to 125 mg/dL suggests IMPAIRED HOMEOSTASIS per A.D.A. criteria. Neutrophils (Bld) [#/Vol] 7.9 10*3/uL 2.0-7.7 [facility] Work Phone: Neutrophils/100 WBC (Bld) 69.8 % 47-70 [facility] Work Phone: Potassium [Moles/Vol] 4.1 mmol/L 3.5-5.1 [facility] Work [facility]: Protein [Mass/Vol] 8.1 g/dL 6.4-8.2 [facility] Work Phone: Sodium [Moles/Vol] 138 mmol/L 136-145 [facility] Work Phone: WBC (Bld) [#/Vol] 11.3 10*3/uL 4.4-11.0 [facility] Work Phone: Bilirubin Test strip Ql (U)o n 01-13-2022 Bilirubin Ql (U) Negative Negative [facility] Work Phone: Blood erythrocytes count (nu mber/volume)on 01-13-2022 RBC (Bld) [#/Vol] 5.03 10*6/uL 4.2-5.4 [facility] Work Phone: Blood hemoglobin measurement (mass/volume)on 01-13-2022 Hemoglobin (Bld) [Mass/Vol] 14.6 g/dL 12.0-15.0 [facility] Work Phone: Blood lymphocytes/100 leukoc yteson 01-13-2022 Lymphocytes/100 WBC (Bld) 20.9 % 19-41 [facility] Work Phone: Blood monocytes/100 leukocyt eson 01-13-2022 Monocytes/100 WBC (Bld) 5.6 % 0-10 [facility] Work Phone: Blood platelet mean volumeon 01-13-2022 Platelet mean volume (Bld) [Entitic vol] 9.4 fL 6.2-12.0 [facility] Work Phone: Determination of erythrocyte mean corpuscular volume (MCV)on 01-13-2022 MCV (RBC) [Entitic vol] 87.7 fL 81-99 [facility] Work Phone: Hematocrit Auto (Bld) [Volum e fraction]on 01-13-2022 Hematocrit (Bld) [Volume fraction] 44.1 % 37-47 [facility] Work Phone: Ketones Test strip Ql (U)on 01-13-2022 Ketones Ql (U) Negative Negative [facility] Work Phone: Laboratory - Chemistry and C hemistry - challengeon 01-13-2022 ALP [Catalytic activity/Vol] 106 U/L 45-117 [facility] Work Phone: ALT [Catalytic activity/Vol] 28 U/L 13-56 [facility] Work Phone: [phone] CO2 [Moles/Vol] 26.0 mmol/L 21.0-32.0 [facility] Work Phone: [phone] Globulin (S) [Mass/Vol] 4.2 g/dL 2.2-4.2 [facility] Work Phone: [phone] Urea nitrogen/Creatinine [Mass ratio] 18.5 mg/mg 10-20 [facility] Work Phone: [phone] Laboratory - Hematology and Cell countson 01-13-2022 Erythrocyte distribution width (RBC) [Entitic vol] 41.4 fL 35.1-43.9 [facility] Work Phone: [phone] Erythrocyte distribution width (RBC) [Ratio] 12.9 % 11.6-14.6 [facility] Work Phone: [phone] Immature granulocytes/100 WBC (Bld) 0.700 % 0.0-0.9 [facility] Work Phone: [phone] Comment on above: IG% - Immature Granu locytes (promyelocytes, myelocytes and metamyelocytes) > 1% indicates that a LEFT SHIFT is Present. MCH (RBC) [Entitic mass] 29.0 pg 27.0-32.0 [facility] Work Phone: [phone] Nucleated RBC/100 WBC (Bld) [Ratio] 0 % 0-5 [facility] Work Phone: [phone] MCHC Auto (RBC) [Mass/Vol]on 01-13-2022 MCHC (RBC) [Mass/Vol] 33.1 g/dL 32-36 [facility] Work Phone: Mucus LM Ql (Urine sed)on Mucus Ql (Urine sed) 0 SEEN /hpf [facility] Work Phone: [phone] Nitrite Test strip Ql (U)on 01-13-2022 Nitrite Ql (U) Negative Negative [facility] Work Phone: [phone] No Panel Informationon 01-13 Estimated Creatinine Clearance Calc 85.89 ml/min [facility] Work Phone: Estimated GFR (MDRD) Amer 107 mL/min >60 [facility] Work Phone: Comment on above: GFR Calc Estimated GFR (MDRD) Non-Af Amer 89 mL/min >60 [facility] Work Phone: Comment on above: Non- GFR Calc Platelets bldon 01-13-2022 Platelets (Bld) [#/Vol] 319 10*3/uL 150-450 [facility] Work Phone: [phone] Protein Test strip Ql (U)on 01-13-2022 Protein Ql (U) Negative Negative [facility] Work Phone: [phone] Serum or plasma albumin regulo urement (mass/volume)on 01-13-2022 Albumin [Mass/Vol] 3.9 g/dL 3.2-5.0 [facility] Work Phone: [phone] Serum or plasma albumin/glob ulin mass ratioon 01-13-2022 Albumin/Globulin [Mass ratio] 0.9 {ratio} 0.9-2.4 [facility] Work Phone: [phone] Serum or plasma calcium regulo urement (mass/volume)on 01-13-2022 Calcium [Mass/Vol] 9.8 mg/dL 8.5-10.1 [facility] Work Phone: [phone] Serum or plasma creatinine m easurement (mass/volume)on 01-13-2022 Creatinine [Mass/Vol] 0.76 mg/dL 0.55-1.02 [facility] Work Phone: Comment on above: The validity of the calculated GFR & GFRAA in patients over 70 years has not been determined. Clinical correlation is essential. Serum or plasma urea nitroge n measurement (mass/volume)on 01-13-2022 Urea nitrogen [Mass/Vol] 14 mg/dL 7-18 [facility] Work Phone: Squamous epithelial cells de tection in urine sediment by light microscopyon 01-13-2022 Epithelial cells.squamous LM Ql (Urine sed) 0-5 SEEN /hpf [facility] Work Phone: Thin prep Papanicolaou smear with manual screeningon 01-13-2022 Thin prep Papanicolaou smear with manual screening 10 U/L 15-37 [facility] Work Phone: Thin prep Papanicolaou smear with manual screening 5 5-15 [facility] Work Phone: Urine blood detectionon 05-0 RBC Ql (U) 50 /ul Negative [facility] Work Phone: RBC Ql (U) 0 SEEN /hpf [facility] Work Phone: Urine clarityon 01-13-2022 Clarity (U) Clear Clear [facility] Work Phone: Urine color determinationon 01-13-2022 Color (U) Yellow Yellow [facility] Work Phone: Urine glucose detectionon Glucose Ql (U) Normal mg/dl Normal [facility] Work Phone: Urine leukocyte esterase det ection by dipstickon 01-13-2022 Leukocyte esterase Test strip Ql (U) 25 /ul Negative [facility] Work Phone: Urine pHon 01-13-2022 pH (U) 6.0 [pH] [facility] Work Phone: Urine sediment bacteria coun t by microscopy (number/high power field)on 01-13-2022 Bacteria LM.HPF (Urine sed) [#/Area] 0 /[HPF] None Seen [facility] Work Phone: Urine specific gravity measu rementon 01-13-2022 Specific gravity (U) [Rel density] 1.020 [facility] Work Phone: Urobilinogen Auto test strip Ql (U)on 01-13-2022 Urobilinogen Ql (U) Normal mg/dl Normal [facility] Work Phone: Hemoglobin A1con 05-31-2021 Glucose [Mass/Vol] 252 mg/dL Normal [facility] Comment on above: Performed By: #### H BA1C #### [facility] Routine Lab [address] [place], [place] [address] HbA1c (Bld) [Mass fraction] 10.4 % High 4.3-5.6 [facility] Comment on above: Performed By: #### H BA1C #### [facility] Routine Lab [address] [place], [place] [address] Vital Signs Date Time Vital Sign Value Performing Clinician Faci lity 06-24-2025 22:28-0400 Body temperature 98.3 [degF] Dr. Juliet Gao MD Work Phone: [phone] [place] [address] 06-24-2025 22:28-0400 Diastolic blood pressure 80 mm[Hg] Dr. Juliet Gao MD Work Phone: 2(214)160-733337 [place] [address] 06-24-2025 22:28-0400 Heart rate 90 /min Dr. Juliet Gao MD Work Phone: [facility] 06-24-2025 22:28-0400 Respiratory rate 18 /min Dr. Juliet Gao MD Work Phone: [facility] 06-24-2025 22:28-0400 SaO2% (BldA) [Mass fraction] 97 % Dr. Juliet Gao MD Work Phone: [facility] 06-24-2025 22:28-0400 Systolic blood pressure 162 mm[Hg] Dr. Juliet Gao MD Work Phone: [facility] 06-24-2025 21:51-0400 Body height 162.[address] Juliet Gao MD Work Phone: [facility] 06-24-2025 21:51-0400 Body mass index (BMI) [Ratio] 52.5 kg/m2 Dr. Juliet Gao MD Work Phone: [phone])401-525037 [place] [address] 06-24-2025 21:51-0400 Body weight 138.[address] Juliet Gao MD Work Phone: [facility] 06-24-2025 13:28-0400 Body mass index (BMI) [Ratio] 47.2 kg/m2 Dr. Juliet Gao MD Work Phone: [facility] 06-24-2025 13:28-0400 Body weight 124.[address] Juliet Gao MD Work Phone: 2(331)198-046037 [place] [address] 06-17-2025 22:22-0400 Body temperature 98.3 [degF] Dr. Juliet Gao MD Work Phone: [phone])603-193737 [place] [address] 06-17-2025 22:22-0400 Diastolic blood pressure 78 mm[Hg] Dr. Juliet Gao MD Work Phone: 2(459)427-576937 [place] [address] 06-17-2025 22:22-0400 Heart rate 70 /min Dr. Juliet Gao MD Work Phone: [facility] 06-17-2025 22:22-0400 Respiratory rate 16 /min Dr. Juliet Gao MD Work Phone: [facility] 06-17-2025 22:22-0400 SaO2% (BldA) [Mass fraction] 99 % Dr. Juliet Gao MD Work Phone: [facility] 06-17-2025 22:22-0400 Systolic blood pressure 132 mm[Hg] Dr. Juliet Gao MD Work Phone: 2(240)374-754537 [place] [address] 06-17-2025 18:14-0400 Body height 162.[address] Juliet Gao MD Work Phone: 7(728)738-139137 [place] [address] 06-17-2025 18:14-0400 Body mass index (BMI) [Ratio] 52.9 kg/m2 Dr. Juliet Gao MD Work Phone: 1(162)623-587837 [place] [address] 06-17-2025 18:14-0400 Body weight 140.[address] Juliet Gao MD Work Phone: [facility] 05-16-2025 17:01-0400 Body temperature 96.1 [degF] Dr. Juliet Gao MD Work Phone: [facility] 05-16-2025 17:01-0400 Diastolic blood pressure 80 mm[Hg] Dr. Juliet Gao MD Work Phone: [facility] 05-16-2025 17:01-0400 Heart rate 93 /min Dr. Juliet Gao MD Work Phone: [phone])[phone] [place] [address] 05-16-2025 17:01-0400 Respiratory rate 18 /min Dr. Juliet Gao MD Work Phone: [facility] 05-16-2025 17:01-0400 SaO2% (BldA) [Mass fraction] 97 % Dr. Juliet Gao MD Work Phone: [facility] 05-16-2025 17:01-0400 Systolic blood pressure 150 mm[Hg] Dr. Juliet Gao MD Work Phone: [facility] 05-16-2025 15:28-0400 Body height 162.[address] Juliet Gao MD Work Phone: [facility] 05-16-2025 15:28-0400 Body mass index (BMI) [Ratio] 53.2 kg/m2 Dr. Juliet Gao MD Work Phone: [facility] 05-16-2025 15:28-0400 Body weight 140.[address] Juliet Gao MD Work Phone: [facility] 12-27-2023 22:03-0400 Body temperature 98.4 [degF] [facility] 12-27-2023 22:03-0400 Diastolic blood pressure 97 mm[Hg] [facility] 12-27-2023 22:03-0400 Heart rate 100 /min [facility] 12-27-2023 22:03-0400 Respiratory rate 19 /min [facility] 12-27-2023 22:03-0400 SaO2% (BldA) [Mass fraction] 99 % [facility] 12-27-2023 22:03-0400 Systolic blood pressure 140 mm[Hg] [facility] 12-27-2023 21:33-0400 Body height 162.56 cm [facility] 09-03-2023 03:43-0500 Diastolic blood pressure 89 mm[Hg] [facility] 09-03-2023 03:43-0500 Heart rate 74 /min [facility] 09-03-2023 03:43-0500 Respiratory rate 16 /min [facility] 09-03-2023 03:43-0500 SaO2% (BldA) [Mass fraction] 97 % [facility] 09-03-2023 03:43-0500 Systolic blood pressure 140 mm[Hg] [facility] 09-03-2023 00:03-0500 Body height 162.56 cm [facility] 09-03-2023 00:03-0500 Body temperature 97.5 [degF] [facility] 07-15-2023 18:05-0400 Body height 162.56 cm [facility] 07-15-2023 18:05-0400 Body mass index (BMI) [Ratio] 51.7 kg/m2 [facility] 07-15-2023 18:05-0400 Body temperature 98 [degF] [facility] 07-15-2023 18:05-0400 Body weight 136.8 kg [facility] 07-15-2023 18:05-0400 Diastolic blood pressure 102 mm[Hg] [facility] 07-15-2023 18:05-0400 Heart rate 96 /min [facility] 07-15-2023 18:05-0400 Respiratory rate 18 /min [facility] 07-15-2023 18:05-0400 SaO2% (BldA) [Mass fraction] 97 % [facility] 07-15-2023 18:05-0400 Systolic blood pressure 139 mm[Hg] [facility] 07-15-2023 02:13-0400 Body height 162.56 cm [facility] 07-15-2023 02:13-0400 Body mass index (BMI) [Ratio] 23.8 kg/m2 [facility] 07-15-2023 02:13-0400 Body temperature 96.4 [degF] [facility] 07-15-2023 02:13-0400 Body weight 63.04 kg [facility] 07-15-2023 02:13-0400 Diastolic blood pressure 87 mm[Hg] [facility] 07-15-2023 02:13-0400 Heart rate 95 /min [facility] 07-15-2023 02:13-0400 Respiratory rate 18 /min [facility] 07-15-2023 02:13-0400 SaO2% (BldA) [Mass fraction] 99 % [facility] 07-15-2023 02:13-0400 Systolic blood pressure 138 mm[Hg] [facility] 06-06-2023 04:18-0400 Heart rate 95 /min [facility] 06-06-2023 04:18-0400 Respiratory rate 17 /min [facility] 06-06-2023 04:18-0400 SaO2% (BldA) [Mass fraction] 99 % [facility] 06-06-2023 04:04-0400 Body height 162.56 cm [facility] 06-06-2023 04:04-0400 Body mass index (BMI) [Ratio] 51 kg/m2 [facility] 06-06-2023 04:04-0400 Body temperature 97.7 [degF] [facility] 06-06-2023 04:04-0400 Body weight 134.71 kg [facility] 06-06-2023 04:04-0400 Diastolic blood pressure 92 mm[Hg] [facility] 06-06-2023 04:04-0400 Systolic blood pressure 146 mm[Hg] [facility] 04-14-2023 20:41-0400 Body height 165.1 cm [facility] 04-14-2023 20:41-0400 Body mass index (BMI) [Ratio] 51.2 kg/m2 [facility] 04-14-2023 20:41-0400 Body temperature 97.9 [degF] [facility] 04-14-2023 20:41-0400 Body weight 139.75 kg [facility] 04-14-2023 20:41-0400 Diastolic blood pressure 89 mm[Hg] [facility] 04-14-2023 20:41-0400 Heart rate 102 /min [facility] 04-14-2023 20:41-0400 Respiratory rate 18 /min [facility] 04-14-2023 20:41-0400 SaO2% (BldA) [Mass fraction] 98 % [facility] 04-14-2023 20:41-0400 Systolic blood pressure 129 mm[Hg] [facility] 02-07-2023 23:51-0400 Diastolic blood pressure 96 mm[Hg] [facility] 02-07-2023 23:51-0400 Heart rate 94 /min [facility] 02-07-2023 23:51-0400 Respiratory rate 18 /min [facility] 02-07-2023 23:51-0400 SaO2% (BldA) [Mass fraction] 95 % [facility] 02-07-2023 23:51-0400 Systolic blood pressure 153 mm[Hg] [facility] 02-07-2023 21:29-0400 Body mass index (BMI) [Ratio] 52.7 kg/m2 [facility] 02-07-2023 21:29-0400 Body temperature 98.4 [degF] [facility] 02-07-2023 21:29-0400 Body weight 139.3 kg [facility] 11-09-2022 03:11-0500 Diastolic blood pressure 76 mm[Hg] [facility] 11-09-2022 03:11-0500 Heart rate 69 /min [facility] 11-09-2022 03:11-0500 Respiratory rate 18 /min [facility] 11-09-2022 03:11-0500 SaO2% (BldA) [Mass fraction] 97 % [facility] 11-09-2022 03:11-0500 Systolic blood pressure 138 mm[Hg] [facility] 11-08-2022 22:16-0500 Body height 165.1 cm [facility] 11-08-2022 22:16-0500 Body mass index (BMI) [Ratio] 53.2 kg/m2 [facility] 11-08-2022 22:16-0500 Body temperature 97.4 [degF] [facility] 11-08-2022 22:16-0500 Body weight 145.14 kg [facility] 01-21-2022 22:23-0400 Diastolic blood pressure 84 mm[Hg] [facility] Work Phone: 01-21-2022 22:23-0400 Heart rate 93 /min [facility] Work Phone: 01-21-2022 22:23-0400 Respiratory rate 21 /min [facility] Work Phone: 01-21-2022 22:23-0400 Systolic blood pressure 131 mm[Hg] [facility] Work Phone: 01-21-2022 21:19-0400 Body temperature 97.2 [degF] [facility] Work Phone: 01-21-2022 21:19-0400 SaO2% (BldA) [Mass fraction] 97 % [facility] Work Phone: 01-21-2022 21:17-0400 Body height 165.1 cm [facility] Work Phone: 01-21-2022 21:17-0400 Body mass index (BMI) [Ratio] 49.4 kg/m2 [facility] Work Phone: 01-21-2022 21:17-0400 Body weight 134.71 kg [facility] Work Phone: 01-13-2022 20:37-0400 Diastolic blood pressure 99 mm[Hg] [facility] Work Phone: 01-13-2022 20:37-0400 Heart rate 76 /min [facility] Work Phone: 01-13-2022 20:37-0400 Respiratory rate 18 /min [facility] Work Phone: 01-13-2022 20:37-0400 SaO2% (BldA) [Mass fraction] 93 % [facility] Work Phone: 01-13-2022 20:37-0400 Systolic blood pressure 159 mm[Hg] [facility] Work Phone: 01-13-2022 18:03-0400 Body height 165.1 cm [facility] Work Phone: 01-13-2022 18:03-0400 Body mass index (BMI) [Ratio] 50.6 kg/m2 [facility] Work Phone: 01-13-2022 18:03-0400 Body temperature 98.6 [degF] [facility] Work Phone: 01-13-2022 18:03-0400 Body weight 138.1 kg [facility] Work Phone: Encounters Encounter Date Encounter Type Care Provider Facility Start: 07-04-2025 ambulatory Oswaldo Sawyer Facility :[facility] Start: 06-24-2025 End: 06-24-2025 Emergency department patient visit [facility] Facility:[facility] Start: 06-24-2025 End: 06-24-[address] [facility] Work Phone: Start: 06-24-2025 End: 06-24-2025 ambulatory Juliet Gao Facility:[facility] Start: 06-17-2025 End: 06-17-2025 Emergency department patient visit Dr. Juliet Gao MD Work Phone: -Emergency Department Work Phone: Start: 06-14-2025 End: 06-14-2025 ambulatory JULIET GAO [facility] Start: 06-14-2025 End: 06-14-2025 Emergency department patient visit KENNEDY MA [facility] Start: 05-30-2025 ambulatory Oswaldo Sawyer Facility :[facility] Start: 05-23-2025 End: 05-23-2025 [facility] Start: 05-16-2025 End: 05-16-2025 Emergency department patient visit Dr. Juliet Gao MD Work Phone: -Emergency Department Work Phone: Start: 12-31-2024 End: 12-31-2024 ambulatory [facility] Facility:[facility] Start: 12-31-2024 End: 12-31-2024 ambulatory [facility] Facility:[facility] Start: 10-12-2024 ambulatory [facility] Start: 09-11-2024 End: 09-11-2024 Emergency department patient visit No Primary Care Physician Facility:[facility] Start: 08-11-2024 End: 08-11-2024 [facility] Start: 12-27-2023 End: 12-27-2023 Emergency department patient visit [facility] Work Phone: Start: 09-03-2023 End: 09-03-2023 Emergency department patient visit [facility] Work Phone: Start: 07-15-2023 End: 07-15-2023 Emergency department patient visit [facility] Work Phone: Start: 07-15-2023 End: 07-15-2023 Emergency department patient visit [facility] Work Phone: Start: 06-20-2023 End: 06-20-2023 Emergency department patient visit DR ROHAN MEDRANO MD Facility: Start: 06-06-2023 End: 06-06-2023 Emergency department patient visit [facility] Work Phone: Start: 04-14-2023 End: 04-14-2023 Emergency department patient visit [facility] Work Phone: Start: 02-07-2023 End: 02-07-2023 Emergency department patient visit [facility] Work Phone: Start: 11-08-2022 End: 11-09-2022 Emergency department patient visit [facility] Start: 01-21-2022 End: 01-21-2022 Emergency department patient visit [facility] Start: 01-13-2022 End: 01-13-2022 Emergency department patient visit [facility] Procedures Date Procedure Procedure Detail Performing Clinician Start: 05-16-2025 Plain X-ray of shoulder Dr. Juliet Gao MD Work Phone: Start: 09-03-2023 Computed tomography of abdomen and pelvis with intravenous contrast Start: 02-07-2023 Urine culture Start: 01-13-2022 Computed tomography of abdomen and pelvis with intravenous contrast Plan of Treatment Date Care Activity Detail Author Start: 06-24-[address] [facility] Start: 06-17-[address] [facility] Start: 05-16-[address] [facility] Start: 12-27-[address] [facility] Start: 09-03-[address] [facility] Start: 09-03-2023 Computed tomography of abdomen and pelvis with intravenous contrast Abdomen/Pelvis W IV Cont ONLY [facility] Start: 09-03-2023 CT Abdomen and Pelvi s W contrast IV [facility] Start: 07-15-[address] [facility] Start: 07-15-[address] [facility] Patient Education [facility] Work Phone: Patient referral [facility] Work Phone: Immunizations Immunization Date Immunization Notes Care Provider Fa kevin 09-15-2016 tetanus toxoid, redu roxana diphtheria toxoid, and acellular pertussis vaccine, adsorbed [facility] Payers Date Payer Category Payer Self-pay [id number] 2019 Unknown [id number] 1980 Unknown [id number] 2.16.8 [id number] 1978 Unknown [id number] 2.16.8 [id number] 1978 Unknown [id number] 2.16.8 [id number] 1978 Unknown [id number] 2.16.8 [id number] 1978 Unknown [id number] 2.16.8 [id number] Unknown [id number] Unknown [id number] 2.16.8 [id number] Unknown [id number] 2.16.8 [id number] Unknown [id number] 2.16.8 [id number] Unknown [id number] 2.16.8 [id number] Unknown [id number] 2.16.8 [id number] Unknown [id number] 2.16.8 [id number] Unknown [id number] 2.16.8 [id number] Unknown [id number] 2.16.8 [id number] Unknown [id number] 2.16.8 [id number] Social History Date Type Detail Facility [facility] Work Phone: Start: 01-13-2022 End: 12-27-2023 Tobacco smoking status NHIS Unknown if ever smoked [facility] Start: 03-17-[address] [facility] Start: 08-26-2019 Non-smoker [facility] Start: 1980 Sex Assigned At Female [facility] Start: 05-16-2025 End: 06-24-2025 Tobacco smoking status NHIS Ex-smoker (finding) [facility] Sex Female [facility] NEGATED: Highlighted row [facility] Medical Equipment Procedure Code Equipment Code Equipment Origin al Text Equipment Identifier Dates Total cholecystectomy with exploration of common bile duct CLIP,HEMOLOCK MED WECK FDA Start: 08-27-2019 Total cholecystectomy with exploration of common bile duct CLIP,HEMOLOJHONNY JACOBS WECK FDA Start: 08-27-2019 Total cholecystectomy with exploration of common bile duct CLIP,HEMOLOCK MED WECK FDA Start: 08-27-2019 Total cholecystectomy with exploration of common bile duct SURGICEL, POWDER 3GR FDA Start: 08-27-2019 Total cholecystectomy with exploration of common bile duct CLIP,HEMOLOCK MED WECK FDA Start: 08-27-2019 Total cholecystectomy with exploration of common bile duct CLIP,HEMOLOJHONNY JACOBS WECK FDA Start: 08-27-2019 Total cholecystectomy with exploration of common bile duct CLIP,HEMOLOJHONNY JACOBS WECK FDA Start: 08-27-2019 Total cholecystectomy with exploration of common bile duct SURGICEL, POWDER 3GR FDA Start: 08-27-2019 Total cholecystectomy with exploration of common bile duct CLIP,HEMMADDIE JACOBS WECK FDA Start: 08-27-2019 Total cholecystectomy with [...] with exploration of common bile duct CLIP,LATESHA GREENCK FDA Start: 08-27-2019 Total cholecystectomy with exploration of common bile duct CLIP,HEMOLOJHONNY JACOSB WECK FDA Start: 08-27-2019 Total cholecystectomy with exploration of common bile duct CLIP,HEMMADDIE GREENCK FDA Start: 08-27-2019 Total cholecystectomy with exploration of common bile duct SURGICEL, POWDER 3GR FDA Start: 08-27-2019 Total cholecystectomy with exploration of common bile duct CLIP,LATESHA GREENCK FDA Start: 08-27-2019 Total cholecystectomy with exploration of common bile duct CLIP,LATESHA GREENCK FDA Start: 08-27-2019 Total cholecystectomy with exploration of common bile duct CLIP,LATESHA JACOBS WECK FDA Start: 08-27-2019 Total cholecystectomy with [...] with exploration of common bile duct CLIP,LATESHA GREENCK FDA Start: 08-27-2019 Total cholecystectomy with exploration of common bile duct SURGICEL, POWDER 3GR FDA Start: 08-27-2019 Total cholecystectomy with exploration of common bile duct CLIP,LATESHA JACOBS WECK FDA Start: 08-27-2019 Total cholecystectomy with exploration of common bile duct CLIP,HEMOLOJHONNY JACOBS WECK FDA Start: 08-27-2019 Total cholecystectomy with exploration of common bile duct CLIP,LATESHA JACOBS WECK FDA Start: 08-27-2019 Total cholecystectomy with exploration of common bile duct SURGICEL, POWDER 3GR FDA Start: 08-27-2019 Total cholecystectomy with exploration of common bile duct CLIP,LATESHA NAGY FDA Start: 08-27-2019 Total cholecystectomy with exploration of common bile duct CLIP,LATESHA NAGY FDA Start: 08-27-2019 Total cholecystectomy with exploration of common bile duct CLIP,LATESHA GREENCK FDA Start: 08-27-2019 Total cholecystectomy with exploration [...] with exploration of common bile duct CLIP,LATESHA ANGY FDA Start: 08-27-2019 Total cholecystectomy with exploration of common bile duct CLIP,LATESHA NAGY FDA Start: 08-27-2019 Total cholecystectomy with exploration of common bile duct CLIP,LATESHA NAGY FDA Start: 08-27-2019 Total cholecystectomy with exploration of common bile duct SURGICEL, POWDER 3GR FDA Start: 08-27-2019 Blood Sugar Diagnostic strip Start: 12-27-2023 Blood Sugar Diagnostic strip Start: 12-27-2023 Blood Sugar Diagnostic strip Start: 12-27-2023 Blood Sugar Diagnostic strip Start: 12-27-2023 Mental Status Date Assessment Result Facility 01-21-2022 Cognitive function Level Of Cons ciousness Awake;Alert;Appropriate;Follow s [facility] Work Phone: Clinical Notes 11-09-2022 to 06-24-2025 Note Date & Type Note Facility 06-24-2025 Discharge summary [facility] 06-24-2025 Evaluation note Diagnosis Onset Date Resolution Impingement of left shoulder acute June 24 1:27pm Injury of tendon of left rotator cuff inactive June 24, 2025 1:27pm Left shoulder pain inactive Octobe r 2024 1:27pm [facility] Work Phone: 1(854) 105-472210-10-2025 [facility] [address] [place] [address] OFFICE VISIT Date of Service: 06/24/25 MR#: [id number] Acct: [id number] Name: REKHA LEWIS Rep #: [id number] Provider: Dr. Luis Carlos Sawyer MD Age/Sex: 45/F Location: [facility] Status: Signed with Addenda ADDENDUM by Evelyn Centeno on 06/24/25 at 1411 Office Procedure Documentation entered by Evelyn Centeno 06/24/25 14:11: Ortho Injections Injections Yes Subacromial Injection Left Is this a patient provided medication?: No Details: Obtained consent for injection. Under sterile conditions, injected the patientsleft subacromial with 2cc kenalog 4cc Bupivacaine. The patient tolerated the injection well without any noted complication. Patient should call our office if redness develops, pain worsens or if they have any concerns. Office Meds Kenalog 40 mg/mL suspension for injection Performing Provider: Oswaldo Sawyer MD Performing Location: [facility] Administered by: Oswaldo Sawyer MD on 06/24/25 14:09 Dose Route Admin Location Dispensed Lot Number Expiration Date Pack age NDC ND Gospel Singer 80 mg intra-articular left subacromial 2 mL [id number] 09/15/26 20439- 623-10 [id number] [facility] Date _ cc: ~* Signed Intake Vital Signs 06/17/25 18:14 06/24/25 13:28 Height 5 ft 4 in 5 ft 4 in Weight: 275 lb BMI 47.2 Intake Visit Reasons: LEFT SHOULDER Chief Complaint: Left shoulder pain Accompanied by: Self Is patient in pain?: Yes Pain scale (1-10): 10 Allergies diphenhydramine Allergy (Severe, Verified 06/24/25 13:30) Angioedema ibuprofen Allergy (Intermediate, Verified 06/24/25 13:30) Swelling tramadol Allergy (Intermediate, Verified 06/24/25 13:30) Swelling meloxicam Adverse Reaction (Intermediate, Verified 06/24/25 13:30) irritable Medications ?Medication ?Instructions ?Recorded ?Confirmed ?Type albuterol sulfate 90 mcg/actuation 1 - 2 puff inhalati on Q6H PRN PRN 08/26/19 06/24/25 History aerosol inhaler Sob &/Or Wheezing lisinopril 20 mg tablet (Zestril) 20 mg PO QHS bloodpr essure 01/30/21 06/24/25 History atorvastatin 20 mg tablet 20 mg PO QHS 11/08/22 History metformin 500 mg tablet 500 mg PO DAILY 11/08/2207/09 History sertraline 100 mg tablet (Zoloft) 200 mg PO DAILY 10/1706/24/25 History alprazolam 1 mg tablet 1 mg PO BID PRN anxiety 08/1606/24/25 History insulin glargine 100 unit/mL (3 20 unit subcut DAILY h yperglycemia 09/03/23 06/24/25 History mL) subcutaneous pen (Lantus Solostar U-100 Insulin) insulin lispro 100 unit/mL 8 unit subcut Q8H hyperglyc emia 09/03/23 06/24/25 History subcutaneous pen (Humalog KwikPen (U-100) Insulin) blood sugar diagnostic (True 12/27/23 06/24/25 Histor y Metrix Glucose Test Strip) Have you fallen in the past year?: No PFSH Medical History (Updated 06/24/25 @ 13:53 by Oswaldo Sawyer MD) Impingement of left shoulder Hyperlipidemia Diabetes Dental caries Recurrent hernia Hemorrhoids RUQ abdominal pain Abdominal pain SOB (shortness of breath) Anxiety Depression Hypertension Back problem Fatigue Surgical History History of laparoscopic cholecystectomy Family History Mother Asthma Aunt Colon cancer Father Asthma Sister Asthma Social History housing: house Smoking Status: Former smoker second hand exposure: No alcohol intake: never substance use type: does not use caffeine: Yes what type of physical activity do you participate in: none frequency: does not exercise HPI LEFT SHOULDER Details: This documentation accurately reflects the service provided and the decisions made by me, Dr. Umesh MD 06/24/25 8784. Part of today?s visit was documented by [ ], acting as scribe. REKHA LEWIS is a 45 year old F here today for L shoulder pain. 6 yrs hx. did some PT back in the day. has a 200 lb dog, pulled on her arm. it hurts. lateral pain, going down the arm, hurts to reach behind the back. RHD. 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 worse at night, can't sleep. tx - medication. meloxicam. can't take it incr. blood pressure. no injections orsurgery. no PT formally, did some pendulums. per ED a week ago 45-year-old female with history of anxiety, depression, hypertension, cholecystectomy and ongoing left shoulder pain with recent MRI that did show some rotator cuff tears and a small effusion (this was performed [facility] but she showed me her results on her phone). She is presenting with worsening pain to her left shoulder. She states that she is alsofelt that her left hand has been weaker. Pain was worse with range of motion. She denies any fever or chills. Is following with Dr. Sawyer but has not seenhim yet because she needs to get her MRI first. Does voice dissatisfaction withher current primary care doctor she does not feel that she has been taking her pain seriously. Denies any new trauma or injury. States that she has had priorrelief with Percocet but does not have any currently. States Tylenol's not beenhelping and she has been taking much Aleve that she can with no relief today. Ice does help as well. No other complaints or concerns reported at this time. Supplemental Info [facility] Imaging Services [address] [place] [address] Shoulder min 2 Views MR#: [id number] Acct: [id number] Name: REKHA LEWIS Rep #: [id number] : 1980 F 45 From: Mani Johansen MD PCP: Dr. Juliet Gao MD Status: REG ER Study: Shoulder min 2 Views Date of Exam: 05/16/25 Exam# [id number] Ordering Dr: Ac Flores MD PROCEDURE: SHOULDER [...] a nonspecific glenohumeral joint effusion. Reading Location: [facility] 06/14/25 L shoulder - Radiologist conclusion 1. There is degeneration of the labrum 2. Interstitial and articular surface tear of the supraspinatus tendon. I independently reviewed the imaging. Concur with radiologist report. Coding Level of Care Code Attention Amanda Diagnoses Left shoulder pain M25.512 Injury of tendon of left rotator cuff S46.002A Impingement of left shoulder M25.812 Comment 89610 and CPT inject major joint Assessment and Plan Assessment and Plan (1) Left shoulder pain: Status: Acute Plan: REKHA LEWIS is a 45 year old F here today for L shoulder pain, MRI evidence of degeneration of the labrum and an interstitial and articular surface tear of thesupraspinatus tendon. Patient counseled on diagnosis prognosis different treatment options they elect start with cortisone injection and physical therapy I put in the referral for that and follow-up in 6 weeks time or as needed. Other option be surgery for possible debridement of the tear or repair based on intraoperative findings. Pros and cons risks and benefits of left shoulder subacromial steroid injection were discussed. Patient wished to proceed. Risks include but not limited to infection, pain, stiffness, damage to otherstructures, neurovascular injury, wear further tear of the tendon and other structures such as the skin, bleeding,allergic reaction, acute flare reaction and other risks. Obtained informed consent for injection. Posterior lateral aspect of the shoulder was prepped with chlorhexidine solutionallowed to thoroughly dry over 3 minutes. Used Gebauer spray per bottle instructions. Using sterile technique, injectedthe left subacromial joint with a 4cc 0.25% bupivacaine and 2cc 40 mg/mL kenalog. Bandage placed. The patient tolerated the injection well without any noted complication. Red flag symptoms were discussed such as redness, swelling, discharge, drainage, pain worsens or if they have any concerns to present to the ED or to call the clinic immediately. Patient counselled on non-operative and operative means of treating shoulder pain. Conservative options include but not limited to: 1. Rest and Activity Modification: Giving your shoulder time to heal by avoidingmovements that cause pain can help. This may involve limiting overhead activities or heavy lifting. 2. Physical Therapy: A physical therapist can guide you through exercises that strengthen the muscles around the shoulder, improve flexibility, and reduce strain on the rotator cuff tendon. 3. Ice and Heat Therapy: Applying ice to the shoulder can help reduce swelling and pain, especiallyafter activity. Heat can be helpful to relax tense muscles and improve blood flow before exercises. 4. Anti-Inflammatory Medications: Ldmg-bkb-tzicqbd medications like ibuprofen ornaproxen can help reduce pain and inflammation in the tendon. 5. Corticosteroid Injections: If the pain is more severe, a steroid injection can reduce inflammation in the shoulder and provide relief for a longer period. 6. Platelet-Rich Plasma (PRP) Injection: This treatment involves using your own blood to promote healing in the tendon. The plasma is rich in growth factors that can encourage tissue repair. 7. TENS (Transcutaneous Electrical Nerve Stimulation): This therapy uses a smallelectrical current to help manage pain and promote healing by stimulating nerves. (2) Injury of tendon of left rotator cuff: Status: Acute (3) Impingement of left shoulder: Status: Acute Orders: Referrals Pain Management M25.512 - Pain in left shoulder, S46.002A - Unspecified injuryof muscle(s) and tendon(s) of the rotator cuff of left shoulder, initial encounter PT Referral M25.512 - Pain in left shoulder, M25.812 - Other specified joint disorders, left shoulder, S46.002A - Unspecified injury of muscle(s) and tendon(s) of the rotator cuff of left shoulder, initial encounter Clinical Quality Measures Falls Risk Screening/Assistive Devices Have you fallen in the past year?: No Ortho Exam General General: Yes no acute distress Neurologic: Yes alert and Yes oriented x3 Psychologic: Yes reasonable and appropriate Left Shoulder Skin/Wound: Yes CDI, No ecchymosis, No erythema and No swelling Testing: Yes Hawkin's, Yes Neer's, Yes Speed's, Yes TTP Biceps, No TTP AC Joint,Yes AROM-External Rotation at side 0-60 and Yes empty can SHOULDER: normal motor and sens to axillary N, MRU and AIN/PIN. Hand warm well perfused normal radial pulse acive fe 30, passive 90, strength 4/5 painful arc. er 4+/5 strength. 06/24/25 1405 n MD> Date _ Oswaldo Sawyer MD Cosigner Signature: Date (if applicable) CC: ~ [facility]10-10-2025 Discharge summary Author [facility] Note Date/Time June 24, 2025 1 0:39pm [facility] Medical Records Department [address] [place] [address] Emergency Department Summary 06/24/25 MR#: [id number] Acct: [id number] Name: REKHA LEWIS Rep #:[id number] : 1980 45 From: Jt Ibarra DO PCP: Care Physician,No Primary Status :DEP ER Location: ED HPI History of Present Illness Chief Complaint: Upper Extremity Injury Informant: patient Narrative Narrative: Patient is a 45-year-old female with past medical history of hypertension depression and insulin-dependent diabetes. She states she has been struggling with left shoulder pain for the past few months. She underwent MRI which showedrotator cuff and labrum injuries. She followed up with orthopedic surgeon Dr. Sawyer today. He provided a steroid injection to the left shoulder to see if this would help reduce pain. She states she initially felt relief but a few hours after the injection has noticed return of the pain. She states aoik-ipz-xnrsgjv medication does not help control the symptoms. She reports herhas been no fever. She states other than the injection there has been no trauma. She states she has a appointment with pain management on Friday. However based on the persistent pain she presents for evaluation. [facility] Medical History (Updated 06/24/25 @ 22:[address] Jt Ibarra, DO) Impingement of left shoulder Hyperlipidemia Diabetes Dental caries Recurrent hernia Hemorrhoids [...] mg PO DAILY 10/17 01/05 Unknown History alprazolam 1 mg tablet 1 mg PO BID PRN anxiety 08/16 Unknown History insulin glargine 100 unit/mL (3 20 unit subcut DAILY h yperglycemia 09/03/23 Unknown History mL) subcutaneous pen (Lantus Solostar U-100 Insulin) insulin lispro 100 unit/mL 8 unit subcut Q8H hyperglyc emia 09/03/23 Unknown History subcutaneous pen (Humalog KwikPen (U-100) Insulin) blood sugar diagnostic (True 12/27/23 Unknown History Metrix Glucose Test Strip) ondansetron 4 mg disintegrating 4 mg PO TID PRN nausea and 06/24/25 Unknown Rx tablet vomiting #21 tabs oxycodone-acetaminophen 5 mg-325 1 tab PO Q6H PRN pain 3 days #12 06/24/25 Unknown Rx mg tablet (Percocet) tabs Allergy/AdvReac Type Severity Reaction Status Date / Time diphenhydramine Allergy Severe Angioedema Verified 06/24/25 21:51 ibuprofen Allergy Intermediate Swelling Verified 06/24/25 21:51 tramadol Allergy Intermediate Swelling Verified 06/24/25 21:51 meloxicam AdvReac Intermediate irritable Verified 06/24/25 21:51 Family History Mother Asthma Aunt Colon cancer Father Asthma Sister Asthma Surgical History History of laparoscopic cholecystectomy Social History housing: house Smoking Status: Former smoker second hand exposure: No alcohol intake: never substance use type: does not use caffeine: Yes what type of physical activity do you participate in: none frequency: does not exercise ROS ROS ED Constitutional Constitutional ED: Denies chills or fever(s) ENT ENT ED: Denies sore throat Cardiovascular Cardiovascular: Denies chest pain Respiratory/Chest Respiratory/Chest: Denies cough or dyspnea Gastrointestinal Gastrointestinal: Denies abdominal pain, diarrhea, nausea or vomiting Musculoskeletal Musculoskeletal: Reports other Details: Positive left shoulder pain ; Denies neck pain Integumentary Denies rash Neurologic Neurologic: Denies headache(s) or paresthesias Hematologic/Lymphatic Hematologic/Lymphatic: Denies easy bleeding or easy bruising EXAM Physical Exam Const Vital Signs: 06/24/25 21:51 Temperature 97 F L Temperature Source Temporal Pulse Rate 110 H Respiratory Rate 16 Blood Pressure 163/98 H Blood Pressure Mean 119 Pulse Ox 99 Oxygen Delivery Method Room Air Positive well nourished, well developed and obese General Appearance ED: well developed Nutritional Appearance: obese HEENT HEENT Narrative: Normocephalic atraumatic Eyes PERRL and EOMs intact bilaterally Neck full ROM and supple Resp normal respiratory effort and clear to auscultation bilaterally Cardio regular rate and regular rhythm Extremity Extremity Narrative: Left upper extremity is neurovascularly intact; AIN/PIN are intact with normal. Active and passive range of motion is decreased secondary to pain. There is a pinpoint injection within the left posterior aspect of the left shoulder consistent with recent shoulder injection however it is clean dry and intact without secondary findings to suggest infection. No crepitance noted. All compartments are soft and compressible going against compartment syndrome Neuro oriented x3 and CN's II-XII intact bilaterally Sensorium / Orientation: alert Psych mental status grossly normal Skin no rashes or lesions noted Skin Narrative: Small injection to the left posterior shoulder as documented above without secondary findings of infection MDM MDM MDM Narrative Medical decision making narrative: Patient arrived to the ER hypertensive but has a past medical history of this. She has had persistent shoulder pain for the past few months. She has had an outpatient MRI diagnosing rotator cuff and labrum abnormalities and she is also already seeing orthopedic surgery. At this time she denies any recent trauma orexcessive activity and therefore I do not feel the need for x-ray as I have low concern for underlying bony abnormality or dislocation. Physical exam does not suggest any findings of secondary infection such as cellulitis or abscess. There is no findings of compartment syndrome. Therefore this time I feel no need for workup and patient will be given symptomatic care for her pain and is otherwise safe for discharge. 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, Hypertension, Insulin dependent diabetes mellitus Instructions: ED Shoulder Impingement Syndrome Prescriptions: New ondansetron 4 mg tablet,disintegrating 4 mg PO TID PRN (Reason: nausea and vomiting) Qty: 21 0RF oxycodone-acetaminophen [Percocet] 5-325 mg tablet 1 tab PO Q6H PRN (Reason: pain) 3 Days Qty: 12 0RF No Action [...] BY MOUTH TWICE DAILY NEEDED FOR ANXIETY insulin glargine [Lantus Solostar U-100 Insulin] 100 unit/mL (3 mL) insulin pen 20 unit SUBCUT DAILY Patient Comments: INJECT 20 Units subcutaneously once daily In a.m insulin lispro [Humalog KwikPen Insulin] 100 unit/mL insulin pen 8 unit SUBCUT Q8H Patient Comments: INJECT 8 UNITS SUBCUTANEOUSLY THREE TIMES DAILY WITH MEALS; rarely takes d/t more controlled blood sugar Rx Instructions: 8 units subcutaneously; (DME) True Metrix Glucose Test Strip Strip MISCELLANEOUS 4X/DAY Primary Care Provider: Care Physician,No Primary Referrals: Oswaldo Sawyer MD [Med Staff - Active Staff, Orthopedics] Care Physician,No Primary [Primary Care Provider, Medical] Activity Restrictions/Additional Instructions: Please follow-up with the orthopedic surgeon to discuss need for surgical intervention as the steroid injection is not controlling your pain. Use the prescribed medication as directed for pain relief and return to the ER should you have any further concerns Print Language: Anguillan Disposition Disposition: Home, Self Care Discharge Date/Time: 06/24/25 22:39 What to do if you have Problems For any increased pain, shortness of breath, bleeding, nausea or vomiting, chestpain, or any unexpected problems, contact your Primary Care Provider. Call [facility] ([phone]) or report to the closest Emergency Room. Call 911 if necessary. 06/24/252249 <Electronically signed by Jt Ibarra DO> Cosigner Signature (if applicable): CC: No Primary Care Physician ~ Signed [facility] Work Phone: [phone] 120-333110-10-2025 Progress note Author Oswaldo Sawyer [facility] Note Date/Time June 24, 2025 2 :04pm [facility] [address] [place] [id number] OFFICE VISIT Date of Service: 06/24/25 MR#: [id number] Acct: [id number] Name: REKHA LEWIS Rep #: [id number] : 1980 Provider: Dr. Luis Carlos Sawyer MD Age/Sex: 45/F Location: [facility] Status: Signed with Addenda ADDENDUM by Evelyn Centeno on 06/24/25 at 1411 Office Procedure Documentation entered by Evelyn Centeno 06/24/25 14:11: Ortho Injections Injections Yes Subacromial Injection Left Is this a patient provided medication?: No Details: Obtained consent for injection. Under sterile conditions, injected the patientsleft subacromial with 2cc kenalog 4cc Bupivacaine. The patient tolerated the injection well without any noted complication. Patient should call our office if redness develops, pain worsens or if they have any concerns. Office Meds Kenalog 40 mg/mL suspension for injection Performing Provider: Oswaldo Sawyer MD Performing Location: [facility] Administered by: Oswaldo Sawyer MD on 06/24/25 14:09 Dose Route Admin Location Dispensed Lot Number Expiration Date Pack age NDC NDC [employer] 80 mg intra-articular left subacromial 2 mL [id number] 09/15/26 81275- 623-10 [id number] [facility] Date _ cc: ~* Signed Intake Vital Signs 06/17/25 18:14 06/24/25 13:28 Height 5 ft 4 in 5 ft 4 in Weight: 275 lb BMI 47.2 Intake Visit Reasons: LEFT SHOULDER Chief Complaint: Left shoulder pain Accompanied by: Self Is patient in pain?: Yes Pain scale (1-10): 10 Allergies diphenhydramine Allergy (Severe, Verified 06/24/25 13:30) Angioedema ibuprofen Allergy (Intermediate, Verified 06/24/25 13:30) Swelling tramadol Allergy (Intermediate, Verified 06/24/25 13:30) Swelling meloxicam Adverse Reaction (Intermediate, Verified 06/24/25 13:30) irritable Medications ?Medication ?Instructions ?Recorded ?Confirmed ?Type albuterol sulfate 90 mcg/actuation 1 - 2 puff inhalati on Q6H PRN PRN 08/26/19 06/24/25 History aerosol inhaler Sob &/Or Wheezing lisinopril 20 mg tablet (Zestril) 20 mg PO QHS bloodpr essure 01/30/21 06/24/25 History atorvastatin 20 mg tablet 20 mg PO QHS 11/08/22 History metformin 500 mg tablet 500 mg PO DAILY 11/08/2207/09 History sertraline 100 mg tablet (Zoloft) 200 mg PO DAILY 10/1706/24/25 History alprazolam 1 mg tablet 1 mg PO BID PRN anxiety 08/1606/24/25 History insulin glargine 100 unit/mL (3 20 unit subcut DAILY h yperglycemia 09/03/23 06/24/25 History mL) subcutaneous pen (Lantus Solostar U-100 Insulin) insulin lispro 100 unit/mL 8 unit subcut Q8H hyperglyc emia 09/03/23 06/24/25 History subcutaneous pen (Humalog KwikPen (U-100) Insulin) blood sugar diagnostic (True 12/27/23 06/24/25 Histor y Metrix Glucose Test Strip) Have you fallen in the past year?: No PFSH Medical History (Updated 06/24/25 @ 13:53 by Oswaldo Sawyer MD) Impingement of left shoulder Hyperlipidemia Diabetes Dental caries Recurrent hernia Hemorrhoids RUQ abdominal pain Abdominal pain SOB (shortness of breath) Anxiety Depression Hypertension Back problem Fatigue Surgical History History of laparoscopic cholecystectomy Family History Mother Asthma Aunt Colon cancer Father Asthma Sister Asthma Social History housing: house Smoking Status: Former smoker second hand exposure: No alcohol intake: never substance use type: does not use caffeine: Yes what type of physical activity do you participate in: none frequency: does not exercise HPI LEFT SHOULDER Details: This documentation accurately reflects the service provided and the decisions made by me, Dr. Oswaldo Sawyer MD 06/24/25 0109. Part of today?s visit was documented by [ ], acting as scribe. REKHA LEWIS is a 45 year old F here today for L shoulder pain. 6 yrs hx. did some PT back in the day. has a 200 lb dog, pulled on her arm. it hurts. lateral pain, going down the arm, hurts to reach behind the back. RHD. 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 worse at night, can't sleep. tx - medication. meloxicam. can't take it incr. blood pressure. no injections orsurgery. no PT formally, did some pendulums. per ED a week ago 45-year-old female with history of anxiety, depression, hypertension, cholecystectomy and ongoing left shoulder pain with recent MRI that did show some rotator cuff tears and a small effusion (this was performed [facility] but she showed me her results on her phone). She is presenting with worsening pain to her left shoulder. She states that she is alsofelt that her left hand has been weaker. Pain was worse with range of motion. She denies any fever or chills. Is following with Dr. Sawyer but has not seenhim yet because she needs to get her MRI first. Does voice dissatisfaction withher current primary care doctor she does not feel that she has been taking her pain seriously. Denies any new trauma or injury. States that she has had priorrelief with Percocet but does not have any currently. States Tylenol's not beenhelping and she has been taking much Aleve that she can with no relief today. Ice does help as well. No other complaints or concerns reported at this time. Supplemental Info [facility] Imaging Services [address] [place] [address] [id number] Shoulder min 2 Views MR#: [id number] Acct: [id number] Name: REKHA LEWIS Rep #: [id number] : 1980 F 45 From: Mani Johansen MD PCP: Dr. Juliet Gao MD Status: REG ER Study: Shoulder min 2 Views Date of Exam: 05/16/25 Exam# [id number] Ordering Dr: Ac Flores MD PROCEDURE: SHOULDER [...] a nonspecific glenohumeral joint effusion. Reading Location: [id number] [place] 06/14/25 shoulder - Radiologist conclusion 1. There is degeneration of the labrum 2. Interstitial and articular surface tear of the supraspinatus tendon. I independently reviewed the imaging. Concur with radiologist report. Coding Level of Care Code Attention Tire Classifier Diagnoses Left shoulder pain M25.512 Injury of tendon of left rotator cuff S46.002A Impingement of left shoulder M25.812 Comment 86058 and CPT inject major joint Assessment and Plan Assessment and Plan (1) Left shoulder pain: Status: Acute Plan: REKHA LEWIS is a 45 year old F here today for L shoulder pain, MRI evidence of degeneration of the labrum and an interstitial and articular surface tear of thesupraspinatus tendon. Patient counseled on diagnosis prognosis different treatment options they elect start with cortisone injection and physical therapy I put in the referral for that and follow-up in 6 weeks time or as needed. Other option be surgery for possible debridement of the tear or repair based on intraoperative findings. Pros and cons risks and benefits of left shoulder subacromial steroid injection were discussed. Patient wished to proceed. Risks include but not limited to infection, pain, stiffness, damage to other structures, neurovascular injury, wear further tear of the tendon and other structures such as the skin, bleeding,allergic reaction, acute flare reaction and other risks. Obtained informed consent for injection. Posterior lateral aspect of the shoulder was prepped with chlorhexidine solutionallowed to thoroughly dry over 3 minutes. Used Gebauer spray per bottle instructions. Using sterile technique, injected the left subacromial joint with a 4cc 0.25% bupivacaine and 2cc 40 mg/mL kenalog. Bandage placed. The patient tolerated the injection well without any noted complication. Red flag symptoms were discussed such as redness, swelling, discharge, drainage, pain worsens or if they have any concerns to present to the ED or to call the clinic immediately. Patient counselled on non-operative and operative means of treating shoulder pain. Conservative options include but not limited to: 1. Rest and Activity Modification: Giving your shoulder time to heal by avoidingmovements that cause pain can help. This may involve limiting overhead activities or heavy lifting. 2. Physical Therapy: A physical therapist can guide you through exercises that strengthen the muscles around the shoulder, improve flexibility, and reduce strain on the rotator cuff tendon. 3. Ice and Heat Therapy: Applying ice to the shoulder can help reduce swelling and pain, especially after activity. Heat can be helpful to relax tense muscles and improve blood flow before exercises. 4. Anti-Inflammatory Medications: Izdk-ctw-nfkxzww medications like ibuprofen ornaproxen can help reduce pain and inflammation in the tendon. 5. Corticosteroid Injections: If the pain is more severe, a steroid injection can reduce inflammation in the shoulder and provide relief for a longer period. 6. Platelet-Rich Plasma (PRP) Injection: This treatment involves using your own blood to promote healing in the tendon. The plasma is rich in growth factors that can encourage tissue repair. 7. TENS (Transcutaneous Electrical Nerve Stimulation): This therapy uses a smallelectrical current to help manage pain and promote healing by stimulating nerves. (2) Injury of tendon of left rotator cuff: Status: Acute (3) Impingement of left shoulder: Status: Acute Orders: Referrals Pain Management M25.512 - Pain in left shoulder, S46.002A - Unspecified injuryof muscle(s) and tendon(s) of the rotator cuff of left shoulder, initial encounter PT Referral M25.512 - Pain in left shoulder, M25.812 - Other specified joint disorders, left shoulder, S46.002A - Unspecified injury of muscle(s) and tendon(s) of the rotator cuff of left shoulder, initial encounter Clinical Quality Measures Falls Risk Screening/Assistive Devices Have you fallen in the past year?: No Ortho Exam General General: Yes no acute distress Neurologic: Yes alert and Yes oriented x3 Psychologic: Yes reasonable and appropriate Left Shoulder Skin/Wound: Yes CDI, No ecchymosis, No erythema and No swelling Testing: Yes Hawkin's, Yes Neer's, Yes Speed's, Yes TTP Biceps, No TTP AC Joint,Yes AROM-External Rotation at side 0-60 and Yes empty can SHOULDER: normal motor and sens to axillary N, MRU and AIN/PIN. Hand warm well perfused normal radial pulse acive fe 30, passive 90, strength 4/5 painful arc. er 4+/5 strength. 06/24/25 1405 <Electronically signed by Oswaldo brandt MD> Date _ Oswaldo Sawyer MD Cosigner Signature: Date (if applicable) CC: ~ [place] [employer] Work Phone: 1(247) 696-521509-01-2025 Discharge summary [facility] Medical Records Department [address] [place] [address] Emergency Department Summary 05/16/25 MR#: [id number] Acct: [id number] Name: REKHA LEWIS Rep #:[id number] : 1980 45 From: Ac Flores MD PCP: Dr. Juliet Gao MD Status:R ER Location: ED HPI History of Present Illness HPI Narrative: 45-year-old female past medical history of hypertension diabetes. She has had chronic left shoulderpain for years. Is progressively gotten worse over the last week. Denies any fall injury or trauma.She has never had surgery of her left shoulder and denies ever having an MRI. She was told by her primary care physician in [place] that she might have a rotator cuff [...] this week. She be written for limited Reno for pain and then she needsfurther evaluation. We discussed but she did not [...] Loss of Funtion Narrative Narrative: 45-year-old female butnn-uwvv-qpmjihjx acute on chronic worsening left shoulder pain. [...] nontender. Abdomen soft nontender. Moving all 4 extremit ies. Left shoulder is not specifically tender. No swelling or redness. No warmth. No deformity exquisite pain with range of motion. No signs of septic joint. Normal flexion extension of the elbow andwrist. Normal optical glass wet inspector strength. Normal radial pulse intact sensation. Shoulder is normal in appearancethere is no axillary lymphadenopathy. This does not [...] redness. No warmth. No effusion or swelling. Nodeformity. She can hold the arm up above [...] an acute MRI today. She was given Reno for pain. History & Record Review Discussion [...] (ONE) TABLET at noon, 2 (TWO) TABLETS atbedtime NEEDED (don't drive if you take medication) Rx Instructions: 2 mg orally ONCE DAILY in the IN THE MORNING, 1 (ONE) TABLET at noon, 2 (TWO) TABLETS at bedtime ASNEEDED; PRN; insulin glargine [Lantus Solostar U-100 Insulin] [...] Days Qty: 12 0RF Primary Care Provider: Juliet Gao Referrals: Kevin Malik DO [Med Staff - Active Staff] - As soon as possible Juliet Gao MD [Primary Care Provider] - Keep Deepa appointment Activity Restrictions/Additional Instructions: Call and follow-up with an orthopedic physician. I gave you Dr. Kevin Malik for referral. Ice to your shoulder. Motrin for pain and inflammation. Reno for more severe pain. Return if fever, redness or swelling to your shoulder. But at this time there is no signs of infection. Print Language: Anguillan Disposition Disposition: Home, Self Care What to do if you have Problems For any increased pain, shortness of breath, bleeding, nausea or vomiting, chestpain, or any unexpected problems, contact your Primary Care Provider. Call [facility] ([phone]) or report tothe closest Emergency Room. Call 911 if necessary. 05/16/25 1700 Cosigner Signature (if applicable): CC: Dr. Juliet Gao MD ~ [facility]igned [facility]09-01-2025 Radiology Diagnostic study note [facility] Imaging Services [address] [place], [place] [address] Shoulder min 2 Views MR#: [id number] Acct: [id number] Name: REKHA LEWIS Rep #: [id number] : 1980 F 45 From: Cecilia Johansen MD PCP: Dr. Juliet Gao MD Status: R EG ER Study:Shoulder min 2 Views Date of Exam: 05/16/25 Exam# [id number] Ordering Dr: Yoselyn Flores MD PROCEDURE: SHOULDER MIN 2 VIEWS 05/16/2025 REASON FOR EXAM: ATRAUMATIC PAIN TECHNIQUE: Procedure Code: RAD Modality: DX Procedure: SHOULDER MIN 2 VIEWS [...] a nonspecific glenohumeral joint effusion. Reading Location: [facility] CC: Dr. Ac Flores MD; Dr. Juliet Gao MD ~ Loader Engineer: [facility]igned [facility]09-01-2025 Discharge summary Author Ac Flores [facility] Note Date/Time May 16, 2025 5:00pm [facility] Medical Records Department [address] [place] [address] Emergency Department Summary 05/16/25 MR#: [id number] Acct: [id number] Name: REKHA LEWIS Rep #:[id number] : 1980 45 From: Ac Flores MD PCP: Dr. Juliet Gao MD Status:R EG ER Location: ED [...] told by her primary care physician in [place] that she might have a rotator cuff [...] this week. She be written for limited Reno for pain and then she needs further [...] Loss of Funtion Narrative Narrative: 45-year-old female hsthz-smov-qoakeuku acute on chronic worsening left shoulder pain. No fall injury or trauma. No fever or redness nor swelling. No prior surgery. Much worse with movement. Prior similar symptoms: Yes Recent Illness/Hospitalization: No PFSH PFSH Medical History Hyperlipidemia Diabetes Dental [...] extension of the elbow and wrist. Normal optical glass wet inspector strength. Normal radial pulse intact sensation. Shoulder [...] an acute MRI today. She was given Reno for pain. History & Record Review Discussion [...] Days Qty: 12 0RF Primary Care Provider: Juliet Gao Referrals: Kevin Malik DO [Med Staff - Active Staff] - As soon as possible Juliet Gao MD [Primary Care Provider] - Keep Deepa appointment Activity Restrictions/Additional Instructions: Call and follow-up with an orthopedic physician. I gave you Dr. Kevin Malik for referral. Ice to your shoulder. Motrin for pain and inflammation. Reno for more severe pain. Return if fever, redness or swelling to your shoulder. But at this time there is no signs of infection. Print Language: Anguillan Disposition Disposition: Home, Self Care What to do if you have Problems For any increased pain, shortness of breath, bleeding, nausea or vomiting, chestpain, or any unexpected problems, contact your Primary Care Provider. Call [facility] ([phone]) or report to the closest Emergency Room. Call 911 if necessary. 05/16/25 1700 <Electronically signed by Ac Flores MD> Cosigner Signature (if applicable): CC: Dr. Juliet Gao MD ~ [facility] Work Phone: 1(770) 440-550804-13-2024 Discharge summary Author Andrews Scruggs [facility] December 27, 2023 9:54pm Note Date/Time December 27, 2023 9:4 8pm [facility] Medical Records Department [address] [place] [address] Emergency Department Summary 12/27/23 MR#: [id number] Acct: [id number] Name: REKHA LEWIS Rep #:[id number] : 1980 43 From: Andrews Scruggs MD PCP: Dr. Juliet Gao MD Status:P RE ER Location: ED HPI <ROWAN Lewis - Last Filed: 12/27/23 21:50> History of Present Illness Chief Complaint: Dental Narrative Narrative: Patient is a 43-year-old female with history of recurrent dental infections, anxiety, depression, back pain, obesity who presents the emergency department for pain to her upper jaw. Patient had gum flap surgery 4 days ago, she was given Reno for 3 days, however she states the pain is getting significantly worse. She is currently on amoxicillin. She called the dentist however they were unable to see her. She is here for evaluation for her pain. She did drivehere, she was hoping to get a prescription for Percocet. She states Reno does not help her PFSH <ROWAN Lewis [...] Ox 96 Oxygen Delivery Method Room Air [facility] <ROWAN Lewis - Last Filed: 12/27/23 21:50> [facility] Treatment and Re-Evaluation :: Differential diagnosis includes however is not limited to: Dental abscess, reversible pulpitis, gum abscess, postsurgery pain Patient appears to be in mild discomfort secondary to pain to her mouth. Patient is present to the emergency department for pain control following a recent gum flap surgery 4 days ago. Patient was given Reno, and she states Reno does not help, she also used all [...] Scruggs MD - Last Filed: 12/27/23 21:54> [facility] Narrative Medical decision making narrative: Dr. Scruggs: [...] She was written for 10 tablets of Reno which she states does not really work [...] 1 tab PO BID Primary Care Provider: Juliet Gao Referrals: Jluiet Gao MD [Primary Care Provider] - Activity Restrictions/Additional Instructions: Please follow-up with your dentist. Disposition Disposition: Home, Self Care What to do if you have Problems For any increased pain, shortness of breath, bleeding, nausea or vomiting, chestpain, or any unexpected problems, contact your Primary Care Provider. Call [facility] ([phone]) or report to the closest Emergency Room. Call 911 if necessary. 12/27/232153 <Electronically signed by Andrews Scruggs MD> Cosigner Signature (if applicable): 12/27/232149 <Electronically signed by Diallo DONAHUE> CC: Dr. Juliet Gao MD ~ [facility] Work Phone: 1(800) 177-744612-20-2023 Discharge summary Author Jesús Khan [facility] September 03, 2023 3:32am Note Date/Time September 03, 2023 12:24am [facility] Medical Records Department [address] [place] [address] Emergency Department Summary 09/03/23 MR#: [id number] Acct: [id number] Name: REKHA LEWIS Rep #:[id number] : 1980 43 From: Jesús Khan MD PCP: Dr. Juliet Gao MD Status:R EG ER Location: ED [...] the abdomen was cholecystectomy several years ago [facility] Medical History Abdominal pain Anxiety Back [...] % (Auto) 62.6 Lymph % (Auto) 25.1 [place] % (Auto) 5.5 Eos % (Auto) 5.5 [...] Clarity Clear Urine pH 5.0 Ur Specific [place] 1.025 Urine Protein 15 H Urine Glucose [...] every week on Wednesdays; Primary Care Provider: Juliet Gao Referrals: Juliet Gao MD [Primary Care Provider] - 3-5 Days Disposition Disposition: Home, Self Care What to do if you have Problems For any increased pain, shortness of breath, bleeding, nausea or vomiting, chestpain, or any unexpected problems, contact your Primary Care Provider. Call [facility] ([phone]) or report to the closest Emergency Room. Call 911 if necessary. 09/03/232 <Electronically signed by Jesús Khan MD> Cosigner Signature (if applicable): CC: Dr. Juliet Gao MD ~ [facility] Work Phone: 1(532) 970-145310-31-2023 Discharge summary Author Andrea Luna [facility] July 15, 2023 8:47pm Note Date/Time July 15, 2023 7 :05pm [facility] Medical Records Department [address] [place] [address] Emergency Department Summary 07/15/23 MR#: [id number] Acct: [id number] Name: REKHA LEWIS Rep #:[id number] : 1980 43 From: Andrea Luna DO PCP: Dr. Juliet Gao MD Status:R EG ER Location: ED [...] to the emergency room for pain managementconsult. [facility] Medical History Abdominal pain Anxiety Back [...] narcotics for this either. I did further clinical counselor her that I cannot provide her [...] TID Qty: 15 0RF Primary Care Provider: Juliet Gao Referrals: Juliet Gao MD [Primary Care Provider] - Disposition Disposition: Home, Self Care What to do if you have Problems For any increased pain, shortness of breath, bleeding, nausea or vomiting, chestpain, or any unexpected problems, contact your Primary Care Provider. Call [facility] ([phone]) or report to the closest Emergency Room. Call 911 if necessary. 07/15/232046 <Electronically signed by Andrea Luna DO> Cosigner Signature (if applicable): CC: Dr. Juliet Gao MD ~ [facility] Work Phone: 1(172) 321-585107-31-2023 Discharge summary Author Jorge Eldridge [facility] April 14, 2023 10:00pm Note Date/Time April 14, 2023 9:58 pm [facility] Medical Records Department [address] [place] [address] Emergency Department Summary 04/14/23 MR#: [id number] Acct: [id number] Name: REKHA LEWIS Rep #:[id number] : 1980 42 From: Jorge Eldridge MD PCP: Dr. Juliet Gao MD Status:R EG ER Location: ED [...] Days Qty: 21 0RF Primary Care Provider: Juliet Gao Referrals: Juliet Gao MD [Primary Care Provider] - Disposition Disposition: Home, Self Care What to do if you have Problems For any increased pain, shortness of breath, bleeding, nausea or vomiting, chestpain, or any unexpected problems, contact your Primary Care Provider. Call [facility] ([phone]) or report to the closest Emergency Room. Call 911 if necessary. 04/14/23 2200 <Electronically signed by Jorge Eldridge MD> Cosigner Signature (if applicable): CC: Dr. Juliet Gao MD ~ [facility] Work Phone: [phone]) 420-508302-25-[address] Flores [facility] November 09, 2022 2:56am Note Date/Time November 08, 2022 10:51pm [facility] Medical Records Department [address] [place] [address] Emergency Department Summary 11/08/22 MR#: [id number] Acct: [id number] Name: REKHA LEWIS Rep #:[id number] : 1980 42 From: Ac Flores MD PCP: Dr. Juliet Gao MD Status:R EG ER Location: ED [...] similar symptoms: Yes Recent Illness/Hospitalization: No PFSH [facility] Medical History Abdominal pain Anxiety Back problem [...] a primary care physician at the local [facility]. Lab Data Attestation: I reviewed the [...] 81.4 H Lymph % (Auto) 10.3 L [place] % (Auto) 5.6 Eos % (Auto) 0.3 [...] 20 unit SUBCUT BREAKFAST Primary Care Provider: Juliet Gao Referrals: Juliet Gao MD [Primary Care Provider] - Activity Restrictions/Additional Instructions: Follow-up with your doctor Disposition Disposition: Home, Self Care What to do if you have Problems For any increased pain, shortness of breath, bleeding, nausea or vomiting, chestpain, or any unexpected problems, contact your Primary Care Provider. Call [facility] ([phone]) or report to the closest Emergency Room. Call 911 if necessary. 11/09/22 0256 <Electronically signed by Ac Flores MD> Cosigner Signature (if applicable): CC: Dr. Juliet Gao MD ~ [facility] Work Phone: Discharge summary Author Andrews Scruggs [facility] June 06, 2023 4:43am Note Date/Time June 06, 2023 4:19am [facility] Medical Records Department [address] [place] [address] Emergency Department Summary 06/06/23 MR#: [id number] Acct: [id number] Name: REKHA LEWIS Rep #:[id number] : 1980 43 From: Andrews Scruggs MD PCP: Dr. Juliet Gao MD Status:R EG ER Location: ED [...] [facility] Medical History Abdominal pain Anxiety Back problem [...] written a prescription for 12 tablets of Reno which she has been prescribed in the [...] DAY FOR 10 DAYS Primary Care Provider: Juliet Gao Referrals: Juliet Gao MD [Primary Care Provider] - Activity Restrictions/Additional Instructions: Follow-up with your dentist, Dr. Irvin on Friday. Disposition Disposition: Home, Self Care What to do if you have Problems For any increased pain, shortness of breath, bleeding, nausea or vomiting, chestpain, or any unexpected problems, contact your Primary Care Provider. Call [facility] ([phone]) or report to the closest Emergency Room. Call 911 if necessary. 06/06/23 7496 <Electronically signed by Andrews Scrgugs MD> Cosigner Signature (if applicable): CC: Dr. Juliet Gao MD ~ [facility]igned [facility] Work Phone: Discharge summary Author Diallo Harley [facility] July 15, 2023 2:27am Note Date/Time July 15, 2023 2 :26am [facility] Medical Records Department [address] [place] [address] Emergency Department Summary 07/15/23 MR#: [id number] Acct: [id number] Name: REKHA LEWIS Rep #:[id number] : 1980 43 From: Diallo Harley MD PCP: Dr. Juliet Gao MD Status:R EG ER Location: ED [...] or 6 different teeth that are hurting. [facility] Medical History Abdominal pain Anxiety Back [...] ML SUBCUTANEOUSLY EVERY WEEK Primary Care Provider: Juliet Gao Referrals: Juliet Gao MD [Primary Care Provider] - Activity Restrictions/Additional Instructions: Follow-up with your dentist who can prescribe pain medications and can reevaluate you. Disposition Disposition: Home, Self Care What to do if you have Problems For any increased pain, shortness of breath, bleeding, nausea or vomiting, chestpain, or any unexpected problems, contact your Primary Care Provider. Call [facility] ([phone]) or report to the closest Emergency Room. Call 911 if necessary. 07/15/23226 <Electronically signed by Diallo Harley MD> Cosigner Signature (if applicable): CC: Dr. Juliet Gao MD ~ [facility] Work Phone: Evaluation noteNo assessment information available [facility] Work Phone: Evaluation note* Diagnosis Onset Date Resolution Status Admit Date Impingement of left shoulder acute June 24, 2025 1:27pm Injury of tendon of left rotator cuff inactive June 24 1:27pm Left shoulder pain inactive r 2024 1:27pm [facility] Work Phone: Hospital Discharge instructions Additional Instructions CAT scan labs are unremarkable. No specific cause for your right flank pain. Follow-up with your surgeon for your umbilical hernia.[facility] Work Phone: [facility] Work Phone: [facility] Discharge instructions Additional Instructions Follow-up with your doctorW[facility] Work Phone: Hospital Discharge instructions Additional Instructions Follow-up with your dentist, Dr. Irvin on Friday.[facility] Work Phone: Hospital Discharge instructions Additional Instructions Follow-up with your dentist who can prescribe pain medications and can reevaluate you.[facility] Work Phone: Hospital Discharge instructions Additional Instructions Please follow-up with your dentist.[facility] Work Phone: Hospital Discharge instructionsAdditional Instructions Call and follow-up with an orthopedic physician. I gave you Dr. Kevin Malik for referral. Ice to your shoulder. Motrin for pain and inflammation. Reno for more severe pain. Return if fever, redness or swelling to your shoulder. But at this time there is no signs of infection.[facility] Work Phone: Hospital Discharge instructionsAdditional Instructions Please make sure you are doing the range of motion exercises for your shoulder as we discussed while wearing the sling to prevent frozen shoulder. Please follow-up with orthopedics as we discussed. Have also given you information for pain management to hopefully help you achieve better pain control while you try to figure out a plan for your shoulder. Please return if you have any progression or worsen your symptoms. Is okay for you to also continue taking your tizanidine as needed for muscle tightness.[facility] Work Phone: Hospital Discharge instructionsAmbulatory Orders* Pain Management Location: None Selected * PT Referral Location: None Selected [facility] Work Phone: Hospital Discharge instructionsAdditional Instructions Please follow-up with the orthopedic surgeon to discuss need for surgical intervention as the steroid injection is not controlling your pain. Use the prescribed medication as directed for pain relief and return to the ER should you have any further concernsWVan Wert [facility] Hospital Work Phone: Reason for referral (narrative)No reason for referral information availableRegional Medical Center Work Phone: Summary Purpose Family History Relationship Condition Age at Onset Recorded Date/T jeremie mother Asthma Unknown aunt Malignant neoplasm of colon Unknown father Asthma Unknown sister Asthma Unknown Advance Directives Advance Directive Response Recorded Date/ Time Living Will No January 13, 2022 6: 27pm Power of Mainframe Software Developer No January 13, 2022 6:27pm Advance Directive Response Recorded Date/ Time Living Will No January 21, 2022 9: 50pm Power of Mainframe Software Developer No January 21, 2022 9:50pm Advance Directive Response Recorded Date/ Time Living Will No November 08 023 11:41pm Power of Mainframe Software Developer No November 08, 2022 11:41pm Advance Directive Response Recorded Date/ Time Living Will No April 14, 2023 9:52pm Power of Mainframe Software Developer No April 14 9:52pm Advance Directive Response Recorded Date/ Time Living Will No June 06, 2023 4:05am Power of Mainframe Software Developer No May 4:05am Advance Directive Response Recorded Date/ Time Living Will No July 15 2:17am Power of Mainframe Software Developer No July 15, 2023 2:17am Advance Directive Response Recorded Date/ Time Living Will No July 15 6:21pm Power of Mainframe Software Developer No July 15, 2023 6:21pm Advance Directive Response Recorded Date/ Time Living Will No September 03 023 2:31am Power of Mainframe Software Developer No September 03, 2023 2:31am Advance Directive Response Recorded Date/ Time Living Will No December 27, 2023 9:43pm Power of Mainframe Software Developer No December 26 9:43pm Advance Directive Response Recorded Date/ Time Do you have a Healthcare Power of Mainframe Software Developer? No May 16, 2025 4:07pm Advance Directive Response Recorded Date/ Time Do you have a Healthcare Power of Mainframe Software Developer? No May 16, 2025 4:07pm Do you have a Healthcare Power of Mainframe Software Developer? No June 17, 2025 7:45pm Advance Directive Response Recorded Date/ Time Do you have a Healthcare Power of Mainframe Software Developer? No May 16, 2025 4:07pm Do you have a Healthcare Power of Mainframe Software Developer? No June 17, 2025 7:45pm Do you have a Healthcare Power of Mainframe Software Developer? No June 24, 2025 9:59pm Chief Complaint and Reason for Visit Chief [...] Date upper extremity May 16, 2025 3:27pm Chief Complaint Admit Date upper extremity May 16, 2025 3:27pm left shoulder pain June 17, 2025 6: 12pm Chief Complaint Admit Date upper extremity May 16, 2025 3:27pm left shoulder pain June 17, 2025 6: 12pm LEFT SHOULDER June 24, 2025 1 :27pm SHOULDER June 24, 2025 9 :50pm Reason for Visit Admit Date Impingement of left shoulder June 1:27pm Injury of tendon of left rotator cuff O[place] tober 2024 1:27pm Left shoulder pain June 24, 2025 1 :27pm Additional Source Comments INFORMATION SOURCE (unrecogn ized section and content) DATE CREATED AUTHOR 06/02/2021 [facility] DATE CREATED AUTHOR AUTHOR'S ORGANIZ ATION 06/30/2023 [facility] ([place]) DATE CREATED AUTHOR AUTHOR'S ORGANIZ ATION 06/19/2025 [facility] DATE CREATED AUTHOR AUTHOR'S ORGANIZ ATION 07/03/2025 [facility] Goals (unrecognized section and content) Goals may [...] Status: Active Member Role Status Dates Dr. Juliet Gao MD Family Provider Active Dr. Juliet Gao MD Primary Care Provider Active Team Status: Inactive Member Role Status Dates Dr. Juliet Gao MD Primary Care Provider Active Dr. Ac Flores MD Emergency Provider Active Team Status: Inactive Member Role Status Dates Dr. Juliet Gao MD Primary Care Provider Active Dr. Hugo Nick MD Attending Provider, Emergency Provider Active Team Status: Inactive Member Role Status Dates Dr. Juliet Gao MD Primary Care Provider Active Dr. Jorge Eldridge MD Emergency Provider Active Team Status: Inactive Member Role Status Dates Dr. Juliet Gao MD Primary Care Provider Active Dr. Jorge Eldridge MD Attending Provider, Emergency Provi mansoor Active Team Status: Inactive Member Role Status Dates Dr. Juliet Gao MD Primary Care Provider Active Andrews Scruggs MD Emergency Provider Active Team Status: Inactive Member Role Status Dates Dr. Juliet Gao MD Primary Care Provider Active Andrews Scruggs MD Attending Provider, Emergency Provid er Active Team Status: Inactive Member Role Status Dates Dr. Juliet Gao MD Primary Care Provider Active Dr. Diallo Harley MD Emergency Provider Active Team Status: Inactive Member Role Status Dates Dr. Juliet Gao MD Primary Care Provider Active Dr. Andrea Luna DO Emergency Provider Active Team Status: Inactive Member Role Status Dates Dr. Juliet Gao MD Primary Care Provider Active Dr. Andrea Luna DO Attending Provider, Emergency Provider Active Team Status: Inactive Member Role Status Dates Dr. Juliet Gao MD Primary Care Provider Active Dr. Jesús Khan MD Emergency Provider Active Team Status: Inactive Member Role Status Dates Dr. Juliet Gao MD Primary Care Provider Active Dr. Diallo Harley MD Attending Provider, Emergency Pr ovider Active Team Status: Active Member Role Status Dates Dr. Juliet Gao MD Family Provider Active No Primary Care Physician Primary Care Provider Active Team Status: Inactive Member Role Status Dates Dr. Juliet Gao MD Primary Care Provider Active Dr. Jesús Khan MD Attending Provider, Emergency Provider Active Team Status: Inactive Member Role Status Dates Andrews Scruggs MD Emergency Provider Active No Primary Care Physician Primary Care Provider Active Team Status: Active Member Role/Relationship Status Dates Dr. Juliet Gao MD Primary Care Provider Active Team Status: Inactive Member Role/Relationship Status Dates Dr. Juliet Gao MD Primary Care Provider Active Start: May 16, 2025 End: May 16, 2025 Dr. Ac Flores MD Emergency Provider Active S tart: May 16, 2025 End: May 16, 2025 Team Status: Active Member Role/Relationship Status Dates Dr. Juliet Gao MD Primary care physician Activ e Team Status: Inactive Member Role/Relationship Status Dates Dr. Juliet Gao MD Primary care physician Activ e Start: May 16, 2025 End: May 16, 2025 Dr. Ac Flores MD Attending physician Active Start: May 16, 2025 End: May 16, 2025 Dr. [facility] Active Start: May 16, 2025 End: May 16, 2025 Team Status: Inactive Member Role/Relationship Status Dates Dr. Juliet Gao MD Primary care physician Activ e Start: June 17, 2025 End: June 17, 2025 Dr. Anni Gomez DO Emergency Departm ent Physician Active Start: June 17, 2025 End: June 17, 2025 Team Status: Active Member Role/Relationship Status Dates No Primary Care Physician Primary care physician Activ e Team Status: Inactive Member Role/Relationship Status Dates Dr. Juliet Gao MD Primary care physician Activ e Start: June 17, 2025 End: June 17, 2025 Dr. Anni Gomez DO Attending physician Active Start: June 17, 2025 End: June 17, 2025 Dr. Anni Gomez DO Emergency Departm ent Physician Active Start: June 17, 2025 End: June 17, 2025 Team Status: Inactive Member Role/Relationship Status Dates Dr. Juliet Gao MD Referring Provider Active Start: June 24, 2025 End: June 24, 2025 Oswaldo Sawyer MD Attending physician Active S tart: June 24, 2025 End: June 24, 2025 Team Status: Inactive Member Role/Relationship Status Dates No Primary Care Physician Primary care physician Activ e Start: June 24, 2025 End: June 24, 2025 Dr. Jt Ibarra DO Attending physician Active Start: June 24, 2025 End: June 24, 2025 Dr. Jt Ibarra , [facility] Active Start: June 24, 2025 End: June 24, 2025 FOR RECORDS PERTAINING TO PATIENTS WHO [...] BE BASED ON THE PRIMARY CLINICAL RECORDS. [facility] [employer] [facility]. provides no warranty or guarantee of the accuracy or completeness of information in this document.
--- NOTE | 2025-08-14 19:07 | EX.ED.UPPERE ---
HPI History of Present Illness Chief Complaint: Upper Extremity Injury Detail of Chief Complaint: Posterior left neck pain and left trapezius as well as left shoulder pain Informant: patient Occured/Mechanism Mechanism/Context: Yes blunt trauma Onset/Context/Timing Onset: Hours Context: Sudden Onset Timing: Continuous Quality of Pain: Dull and Aching Location: Posterior left neck, posterior upper back/shoulder and arm. Current Severity: Moderate Maximum Severity: Severe Worsened by: Movement Relieved by: Nothing Associated Symptoms Associated Symptoms: Positive for Loss of Funtion (Due to pain); Negative for Parasthesia or Weakness Narrative Narrative: Patient is a 45-year-old [id number] woman. She is seeing Dr. Sawyer and apparently has a rotator cuff tear, tear of the labrum and tendon involvement. Reviewing images at [facility] indicates that she did not have the MRI here. She apparently had the MRI at outside facility. She states she has had no imaging of her neck. Patient does have pain in her neck that is worse with movement. She is reluctant to move her left upper extremity at the shoulder joint. She denies paresthesia, anesthesia or motor aches. She denies cardiac or respiratory symptoms. She has significant reaction to NSAIDs. She has had morphine in the past with no reaction. MRI was documented in Dr. Oswaldo Sawyer's note. This revealed interstitial and articular surface tear of the supraspinatus tendon. There is also degeneration of the labrum. She had a left subacromial steroid injection at that time. She presents today after her large dog bumping into her and then pulling her arm. She complained of severe pain. She is reluctant to move it. Prior similar symptoms: No Recent Illness/Hospitalization: Yes (Has seen Dr. Oswaldo Sawyer. His office note authored on June 24, 2025 ) [facility] Medical History Former smoker Impingement of left shoulder Hyperlipidemia Diabetes Dental caries Recurrent hernia Hemorrhoids RUQ abdominal pain Abdominal pain SOB (shortness of breath) Anxiety Depression Hypertension Back problem Fatigue Home Medications ?Medication ?Instructions ?Recorded ?Last Taken ?Type albuterol sulfate 90 mcg/actuation 1 - 2 puff inhalation Q6H PRN PRN 08/26/19 Unknown History aerosol inhaler Sob &/Or Wheezing lisinopril 20 mg tablet (Zestril) 20 mg PO QHS bloodpressure 01/30/21 Unknown History atorvastatin 20 mg tablet 20 mg PO QHS 11/08/22 Unknown History metformin 500 mg tablet 500 mg PO DAILY 11/08/22 Unknown History sertraline 100 mg tablet (Zoloft) 200 mg PO DAILY 11/08/22 Unknown History alprazolam 1 mg tablet 1 mg PO BID PRN anxiety 09/03/23 Unknown History insulin glargine 100 unit/mL (3 20 unit subcut DAILY hyperglycemia 09/03/23 Unknown History mL) subcutaneous pen (Lantus Solostar U-100 Insulin) insulin lispro 100 unit/mL 8 unit subcut Q8H hyperglycemia 09/03/23 Unknown History subcutaneous pen (Humalog KwikPen (U-100) Insulin) blood sugar diagnostic (True 12/27/23 Unknown History Metrix Glucose Test Strip) ondansetron 4 mg disintegrating 4 mg PO TID PRN nausea and 06/24/25 Unknown Rx tablet vomiting #21 tabs oxycodone-acetaminophen 5 mg-325 1 tab PO Q6H PRN pain 3 days #12 06/24/25 Unknown Rx mg tablet (Percocet) tabs oxycodone-acetaminophen 5 mg-325 1 tab PO Q6H PRN PRN pain 5 days 08/14/25 Unknown Rx mg tablet #20 TABLETS Allergy/AdvReac Type Severity Reaction Status Date / Time diphenhydramine Allergy Severe Angioedema Verified 08/14/25 18:35 ibuprofen Allergy Intermediate Swelling Verified 08/14/25 18:35 tramadol Allergy Intermediate Swelling Verified 08/14/25 18:35 meloxicam AdvReac Intermediate irritable Verified 08/14/25 18:35 Family History Mother Asthma Aunt Colon cancer Father Asthma Sister Asthma Surgical History (Updated 08/14/25 @ 18:49 by Nica Jurado) History of cholecystectomy History of laparoscopic cholecystectomy Social History housing: house Smoking Status: Former smoker second hand exposure: No alcohol intake: never substance use type: does not use caffeine: Yes what type of physical activity do you participate in: none frequency: does not exercise ROS ROS ED Constitutional Constitutional ED: Denies chills, fever(s), subjective, sweats or weight loss Cardiovascular Cardiovascular: Denies chest pain, orthopnea, palpitations or paroxysmal nocturnal dyspnea Respiratory/Chest Respiratory/Chest: Denies cough, dyspnea, dyspnea on exertion, orthopnea or paroxysmal nocturnal dyspnea Musculoskeletal Musculoskeletal: Reports back pain and neck pain Integumentary Denies Abrasions or rash Neurologic Neurologic: Denies paresthesias or weakness Psychiatric Psychiatric: Reports anxiety Hematologic/Lymphatic Hematologic/Lymphatic: Denies easy bleeding or easy bruising EXAM Physical Exam Const Vital Signs: 08/14/25 18:35 Temperature 98 F Temperature Source Temporal Pulse Rate 103 H Respiratory Rate 18 Blood Pressure 155/95 H Blood Pressure Mean 115 Pulse Ox 97 Oxygen Delivery Method Room Air Positive well nourished and well developed Constitutional Narrative: Patient is uncomfortable. Her left arm is held internally rotated and abducted. BMI is 52.6. Blood pressure and heart rate are elevated. General Appearance ED: well developed HEENT normocephalic and atraumatic Eyes PERRL and EOMs intact bilaterally Neck No full ROM Neck Narrative: Tenderness predominate left side and over the left trapezius area. There is also some mild discomfort of the left shoulder. Axillary, median, radial and ulnar function intact. Bicep and tricep reflex are 1-2+ and symmetric. The brachial radialis reflex is diminished on the left and diminished in comparison to the right brachial radialis tendon. She does have altered sensation C6 dermatome. She also has a positive Weston reflex on the left only. General: tenderness Chest Wall inspection of chest normal Resp normal respiratory effort and clear to auscultation bilaterally Cardio regular rate and regular rhythm Extremity normal to inspection; Negative for full ROM Extremity Narrative: Documented under the neck portion of the medical record Neuro oriented x3, CN's II-XII intact bilaterally, moves all extremities, no focal motor deficits and No no sensory deficits noted Neuro Narrative: Altered sensation C6 dermatome on the left Psych Mood & Affect: anxious Skin Lesions: no lesions Rashes: no rashes MDM MDM MDM Narrative Medical decision making narrative: Since there is no evidence of prior imaging of the neck will obtain C-spine films including obliques to assess the nerve root foramens. Suspect patient is going to need an MRI in light of her diminished brachioradialis deep tendon reflex, altered sensation C6 dermatome and positive Weston sign on the left. Patient was medicated with IV morphine. She states last time she received 8 mg that was too much. 4 mg was ordered. I presume the 8 mg was based on her weight and would have been equivalent to 0.05 mg/kg. History & Record Review Additional record(s) reviewed:: Prior outpatient record (Documented HPI narrative) Radiography Chest X-Ray - ED: Read by ED Physician (5 view x-ray of the cervical spine was obtained interpreted by me at 1952. There is narrowing of the C5-6 foraminal nerve root opening on the left greater than right. This may explain her symptoms and findings.) Treatment and Re-Evaluation Narrative: Patient feels markedly better after 4 morphine. Will send home with prescription for Percocet. She has been instructed to contact Dr. 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 Instructions: ED Radiculopathy, Cervical Prescriptions: New oxycodone-acetaminophen 5-325 mg tablet 1 tab PO Q6H PRN PRN (Reason: pain) 5 Days Qty: 20 0RF No Action albuterol sulfate 1 PUFF inhaler 1 - 2 puff inhalation Q6H PRN PRN (Reason: Sob &/Or Wheezing) lisinopril [Zestril] 20 mg tablet 20 mg PO QHS metformin 500 mg tablet 500 mg PO DAILY Patient Comments: once daily due to undesirable side effects atorvastatin 20 mg tablet 20 mg PO QHS sertraline [Zoloft] 100 mg tablet 200 mg PO DAILY alprazolam 1 mg tablet 1 mg PO BID PRN (Reason: anxiety) Patient Comments: TAKE 1 TABLET BY MOUTH TWICE DAILY NEEDED FOR ANXIETY insulin glargine [Lantus Solostar U-100 Insulin] 100 unit/mL (3 mL) insulin pen 20 unit SUBCUT DAILY Patient Comments: INJECT 20 Units subcutaneously once daily In a.m insulin lispro [Humalog KwikPen Insulin] 100 unit/mL insulin pen 8 unit SUBCUT Q8H Patient Comments: INJECT 8 UNITS SUBCUTANEOUSLY THREE TIMES DAILY WITH MEALS; rarely takes d/t more controlled blood sugar Rx Instructions: 8 units subcutaneously; ondansetron 4 mg tablet,disintegrating 4 mg PO TID PRN (Reason: nausea and vomiting) Qty: 21 0RF oxycodone-acetaminophen [Percocet] 5-325 mg tablet 1 tab PO Q6H PRN (Reason: pain) 3 Days Qty: 12 0RF (DME) True Metrix Glucose Test Strip Strip MISCELLANEOUS 4X/DAY Primary Care Provider: Care Physician,No Primary Referrals: Oswaldo Sawyer MD [Med Staff - Active Staff, Orthopedics] - 3-5 Days Care Physician,No Primary [Primary Care Provider, Medical] Print Language: Divehi Disposition Disposition: Home, Self Care
--- NOTE | 2025-08-14 19:20 | RAD_ITS ---
PROCEDURE: CERV SPINE 4 OR 5 VIEWS 08/14/2025 REASON FOR EXAM: DIMINISHED BRACHIAL REFLEX AND POSITIVE MEGAN S TECHNIQUE: [facility] Procedure: CERV SPINE 4 OR 5 VIEWS FINDINGS: No acute fracture or subluxation. [id number] disc space narrowing and anterior osteophytosis is noted throughout the cervical spine, most pronounced at C5-6. The relationship of C1 on C2 appears normal. The prevertebral soft tissues appear unremarkable. RAD/Cerv Spine 4 or 5 Views IMPRESSION: As above. Reading Location: [id number]
[2025-08-14 20:11] VITALS: BP 132/89; PULSE 93; RESP 20; TEMP 36.8; O2SAT 100
== END 2025-08-14 20:18 | disposition home or self-care (01) ==
PROVIDERS: Emergency Provider Emergency Medicine; Visit Provider Emergency Medicine
DX: M54.12 Radiculopathy, cervical region (principal); E11.9 Type 2 diabetes mellitus without complications; Z87.891 Personal history of nicotine dependence; I10 Essential (primary) hypertension; E78.5 Hyperlipidemia, unspecified; M75.112 Incomplete rotator cuff tear or rupture of left shoulder, not specified as traumatic; S43.432A Superior glenoid labrum lesion of left shoulder, initial encounter; X50.9XXA Other and unspecified overexertion or strenuous movements or postures, initial encounter
CPT/HCPCS: 72050; 96374; 96375; 99283; A4216; J2405

== ENCOUNTER 2025-08-23 07:51 | Emergency (ER) | payer MEDICAID, SELFPAY ==
[2025-08-23 07:52] VITALS: BP 153/94; PULSE 84; RESP 18; TEMP 36.6; O2SAT 100; BMI 52.9
--- NOTE | 2025-08-23 09:17 | EDS_ITS ---
HPI History of Present Illness HPI Narrative: 45-year-old female history of diabetes, hypertension and degenerative disc disease in her cervical spine. Has chronic left-sided neck and shoulder pain. And MRI showing 3 tears in her shoulder region including the rotator cuff and labrum. Also there is a concern that she might have a cervical radiculopathy. She has been having chronic pain in her neck shoulder and arm. She sees her primary care physician, if she is seen pain management. She has been seen in the emergency department. Last November part of visit she was written for Percocet for pain. She has not upcoming appointment to see orthopedic spine. Chief Complaint: Upper Extremity Injury Occured/Mechanism Mechanism/Context: No injury and No blunt trauma Onset/Context/Timing Onset: Month(s) Context: Gradual Onset Timing: Continuous Quality of Pain: Sharp Current Severity: Moderate Maximum Severity: Moderate Associated Symptoms Associated Symptoms: Negative for Parasthesia, Weakness or Loss of Funtion Narrative Narrative: 45-year-old female with acute on chronic neck and shoulder pain with a history of degenerative disc disease and suspected cervical radiculopathy. Currently is using Aleve and Tylenol. States is not controlling her pain. Had a recent prescription about 10 days ago for 20 Percocet. Primary care physician referred her back to the emergency department. Prior similar symptoms: Yes Recent Illness/Hospitalization: No PFSH PFSH Medical History Former smoker Impingement of left shoulder Hyperlipidemia Diabetes Dental caries Recurrent hernia Hemorrhoids RUQ abdominal pain Abdominal pain SOB (shortness of breath) Anxiety Depression Hypertension Back problem Fatigue Medical History unable to obtain Home Medications ?Medication ?Instructions ?Recorded ?Last Taken ?Type albuterol sulfate 90 mcg/actuation 1 - 2 puff inhalati on Q6H PRN PRN 08/26/19 Unknown History aerosol inhaler Sob &/Or Wheezing lisinopril 20 mg tablet (Zestril) 20 mg PO QHS bloodpr essure 01/30/21 Unknown History atorvastatin 20 mg tablet 20 mg PO QHS 11/08/22 Unknow n History metformin 500 mg tablet 500 mg PO DAILY 11/08/22 Unk nown History sertraline 100 mg tablet (Zoloft) 200 mg PO DAILY 10/17 01/05 Unknown History alprazolam 1 mg tablet 1 mg PO BID PRN anxiety 08/16 Unknown History insulin glargine 100 unit/mL (3 20 unit subcut DAILY h yperglycemia 09/03/23 Unknown History mL) subcutaneous pen (Lantus Solostar U-100 Insulin) insulin lispro 100 unit/mL 8 unit subcut Q8H hyperglyc emia 09/03/23 Unknown History subcutaneous pen (Humalog KwikPen (U-100) Insulin) blood sugar diagnostic (True 12/27/23 Unknown History Metrix Glucose Test Strip) ondansetron 4 mg disintegrating 4 mg PO TID PRN nausea and 06/24/25 Unknown Rx tablet vomiting #21 tabs oxycodone-acetaminophen 5 mg-325 1 tab PO Q6H PRN pain 3 days #12 06/24/25 Unknown Rx mg tablet (Percocet) tabs oxycodone-acetaminophen 5 mg-325 1 tab PO Q6H PRN PRN pain 5 days 08/14/25 Unknown Rx mg tablet #20 TABLETS dulaglutide 0.75 mg/0.5 mL 0.75 mg subcut QWEEK Unknown History subcutaneous pen injector (Trulicity) lisdexamfetamine 50 mg capsule 50 mg PO 08/23/25 Unkno wn History (Vyvanse) oxycodone-acetaminophen 5 mg-325 1 tab PO Q8H PRN pain 4 days #10 08/23/25 Unknown Rx mg tablet (Percocet) tabs prazosin 2 mg capsule 2 mg PO QHS 08/23/25 Unknown History tizanidine 2 mg tablet 2 mg PO BID PRN PRN muscle 1 10/24/24 Unknown History spasticity Allergy/AdvReac Type Severity Reaction Status Date / Time diphenhydramine Allergy Severe Angioedema Verified 08/23/25 07:55 ibuprofen Allergy Intermediate Swelling Verified 08/23/25 07:55 tramadol Allergy Intermediate Swelling Verified 08/23/25 07:55 meloxicam AdvReac Intermediate irritable Verified 08/23/25 07:55 Family History Mother Asthma Aunt Colon cancer Father Asthma Sister Asthma Family History no significant family his Surgical History History of cholecystectomy History of laparoscopic cholecystectomy Surgical History no surgical history Social History housing: house Smoking Status: Former smoker second hand exposure: No alcohol intake: never substance use type: does not use caffeine: Yes what type of physical activity do you participate in: none frequency: does not exercise ROS ROS ED ROS Narrative Nausea due to the pain. Chronic neck and shoulder pain. Constitutional Constitutional ED: Denies chills or fever(s) Eyes Eyes: Denies blurry vision ENT ENT ED: Denies ear pain Cardiovascular Cardiovascular: Denies chest pain Respiratory/Chest Respiratory/Chest: Denies cough or dyspnea Gastrointestinal Gastrointestinal: Reports nausea; Denies abdominal pain, constipation, diarrhea or melena Genitourinary Genitourinary ED: Denies dysuria or hematuria Musculoskeletal Musculoskeletal: Denies back pain Integumentary Denies abscess or Abrasions Neurologic Neurologic: Denies headache(s) Psychiatric Psychiatric: Denies anxiety Endocrine Endocrinology: Denies cold intolerance Hematologic/Lymphatic Hematologic/Lymphatic: Denies easy bleeding, easy bruising or lymphadenopathy Allergic/Immunologic Allergic/Immunologic ED: Denies mouth swelling, tongue swelling or urticaria EXAM Physical Exam Narrative Exam Narrative: 41-year-old female sitting upright in a chair. Vital signs are stable afebrile. She has no acute distress other than discomfort. H EENT exam pupils round react to light. Moist mutes memories. No trauma to her face or scalp. Nont perry. C-spine and trachea nontender no lymphadenopathy. She has tenderness along the left lateral neck and trapezius consistent with muscle spasm. Lungs clear to auscultation bilaterally. Heart regular rhythm no murmur. Chest wall nontender. Abdomen soft nontender normal bowel sounds without peritoneal signs. She can move all 4 extremities. She has 5/5 yield improvement engineer strength and strong radial pulse in the right wrist. Dorsi plantarflexion and normal strength and sensation both lower extremities. Her left arm she has held against her body with her elbow flexed at 90 degrees. She has 5-5 yield improvement engineer strength. She has normal sensation. She has strong radial pulse. She has discomfort in her neck and shoulder with movement of the arm. But she has normal strength and has sensation in the hand and arm. There is no discoloration or deformity. Back is otherwise nontender other than the musculature on the posterior upper shoulder and neck. Consistent with muscle spasm. Neurologically she is awake alert. Answer questions following commands. Exam is consistent with cervical radiculopathy and some muscle spasm. Const Vital Signs: 08/23/25 07:52 Temperature 97.9 F Temperature Source Oral Pulse Rate 84 Respiratory Rate 18 Blood Pressure 153/94 H Blood Pressure Mean 113 Pulse Ox 100 Oxygen Delivery Method Room Air MDM MDM MDM Narrative Medical decision making narrative: 45-year-old female chronic pain most likely has degenerative disc disease and cervical radiculopathy of the left upper extremity including muscle spasm. I do not think she needs any further workup today. She has an MRI of her shoulder she is following up with orthopedic spine they can determine if they need to do an MRI of her C-spine. It is not emergent. Should be written for a total of 10 more Percocet. She is already on Aleve and Tylenol. An outpatient follow-up with orthopedic spine and her primary care physician. Patient is comfortable to plan. Lab Data Labs: Laboratory Results - last 24 hr 08/23/25 08:17 POC Glucose 99 Discharge Plan Triage Chief Complaint: Upper Extremity Injury ED Provider: Ac Flores Dx/Rx/DC Orders Clinical Impression: Cervical radiculopathy, Chronic pain, Degenerative disc disease, cervical, History of diabetes mellitus Instructions: Cervical Radiculopathy, ED Chronic Pain Prescriptions: New oxycodone-acetaminophen [Percocet] 5-325 mg tablet 1 tab PO Q8H PRN (Reason: pain) 4 Days Qty: 10 0RF No Action albuterol sulfate 1 PUFF inhaler 1 - 2 puff inhalation Q6H PRN PRN (Reason: Sob &/Or Wheezing) lisinopril [Zestril] 20 mg tablet 20 mg PO QHS metformin 500 mg tablet 500 mg PO DAILY Patient Comments: once daily due to undesirable side effects atorvastatin 20 mg tablet 20 mg PO QHS sertraline [Zoloft] 100 mg tablet 200 mg PO DAILY alprazolam 1 mg tablet 1 mg PO BID PRN (Reason: anxiety) Patient Comments: TAKE 1 TABLET BY MOUTH TWICE DAILY NEEDED FOR ANXIETY insulin glargine [Lantus Solostar U-100 Insulin] 100 unit/mL (3 mL) insulin pen 20 unit SUBCUT DAILY Patient Comments: INJECT 20 Units subcutaneously once daily In a.m insulin lispro [Humalog KwikPen Insulin] 100 unit/mL insulin pen 8 unit SUBCUT Q8H Patient Comments: INJECT 8 UNITS SUBCUTANEOUSLY THREE TIMES DAILY WITH MEALS; rarely takes d/t more controlled blood sugar Rx Instructions: 8 units subcutaneously; ondansetron 4 mg tablet,disintegrating 4 mg PO TID PRN (Reason: nausea and vomiting) Qty: 21 0RF oxycodone-acetaminophen [Percocet] 5-325 mg tablet 1 tab PO Q6H PRN (Reason: pain) 3 Days Qty: 12 0RF (DME) True Metrix Glucose Test Strip Strip MISCELLANEOUS 4X/DAY oxycodone-acetaminophen 5-325 mg tablet 1 tab PO Q6H PRN PRN (Reason: pain) 5 Days Qty: 20 0RF lisdexamfetamine [Vyvanse] 50 mg capsule 50 mg PO Trulicity 0.75 mg/0.5 mL pen injector 0.75 mg subcut QWEEK tizanidine 2 mg tablet 2 mg PO BID PRN PRN (Reason: muscle spasticity) prazosin 2 mg capsule 2 mg PO QHS Primary Care Provider: Juliet Gao Referrals: Earl Garg MD [Med Staff - Active Staff, Orthopedics] - Keep Deepa appointment Juliet Gao MD [Primary Care Provider, Internal Medicine] Activity Restrictions/Additional Instructions: Use your Aleve and Tylenol for pain. Hot shower, warm bath, massage and hot compresses for the muscle spasms in your shoulder or neck. The pain most likely is from degenerative disc disease and compression of a nerve in your neck called a cervical radiculopathy. The best way to determine that is through a MRI of your neck. When you follow-up with the spine doctor they will determine your next steps and studies. I did write you for a limited Percocet for pain also. Print Language: Thai Disposition Disposition: Home, Self Care
[2025-08-23 09:28] VITALS: BP 132/74; PULSE 92; RESP 18; TEMP 36.6; O2SAT 100
== END 2025-08-23 09:29 | disposition home or self-care (01) ==
PROVIDERS: Emergency Provider Emergency Medicine; PCP Student in an Organized Health Care Education/Training Program; Visit Provider Emergency Medicine
DX: M50.10 Cervical disc disorder with radiculopathy, unspecified cervical region (principal); E11.9 Type 2 diabetes mellitus without complications; M75.100 Unspecified rotator cuff tear or rupture of unspecified shoulder, not specified as traumatic; E78.5 Hyperlipidemia, unspecified; Z87.891 Personal history of nicotine dependence; I10 Essential (primary) hypertension; G89.29 Other chronic pain; Z79.85 Long-term (current) use of injectable non-insulin antidiabetic drugs; Z79.899 Other long term (current) drug therapy
CPT/HCPCS: 82962; 99282

== ENCOUNTER 2025-09-06 08:21 | Emergency (ER) | payer MEDICAID, SELFPAY ==
[2025-09-06 08:21] VITALS: BP 145/100; PULSE 100; RESP 18; TEMP 36.8; O2SAT 98; BMI 52.4
--- NOTE | 2025-09-06 08:57 | EX.ED.UPPERE ---
HPI History of Present Illness Chief Complaint: Upper Extremity Injury Narrative Narrative: Chief complaint and HPI: 45-year-old female with history of DM, HTN, degenerative disc disease in her cervical spine presents for evaluation of chronic left-sided neck and shoulder pain. Patient has a history of rotator cuff and labrum tears. There is concerned that she might have cervical radiculopathy due to the chronic pain in her neck, shoulder, arm. She states that she is scheduled to see pain management in the next several days. She follows up with her primary care physician which she states refuses to write her pain medicine. She has an upcoming appointment to see orthopedic spine with a scheduled MRI in the next several days. She denies any new symptoms such as fever, chills, shortness of breath, chest pain, rash. Patient states she has been taking Tylenol, Aleve, intermittent Percocet, and tenacity in for pain. She denies any injury or trauma. Review of systems: See HPI Medications: As listed on the chart Allergies: As listed on the chart PFSH: Per chart Vital signs: As listed on the chart. Reviewed. Physical exam: Gen: A&O x3, NAD Head: Normocephalic, atraumatic Eyes: No sclera icterus, conjunctiva clear, PERRL ENT: Moist mucous membranes Neck: Trachea midline, full range of motion, no midline spinal tenderness, no bony step-offs, tenderness to palpation along the paraspinal musculature of the left cervical spine and down into the left trapezius muscle CV: RRR, no murmurs Resp: Lungs CTA BL, no w/r/c Musc: She has full range of motion of all the extremities except for the left upper extremity secondary to pain with movement, she prefers to keep her left arm held against the body with her elbow flexed at 90 degrees. 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 Radial pulses are +2 bilaterally. Good capillary refill. Sensation intact. There is no erythema, warmth, rash, ecchymosis. No deformity. Compartments are soft. No midline spinal tenderness, no bony step-offs. Skin: Warm, dry Psych: Cooperative, appropriate mood and affect [facility] Medical History Former smoker Impingement of left shoulder Hyperlipidemia Diabetes Dental caries Recurrent hernia Hemorrhoids RUQ abdominal pain Abdominal pain SOB (shortness of breath) Anxiety Depression Hypertension Back problem Fatigue Medical History unable to obtain Home Medications ?Medication ?Instructions ?Recorded ?Last Taken ?Type albuterol sulfate 90 mcg/actuation 1 - 2 puff inhalation Q6H PRN PRN 08/26/19 Unknown History aerosol inhaler Sob &/Or Wheezing lisinopril 20 mg tablet (Zestril) 20 mg PO QHS bloodpressure 01/30/21 Unknown History atorvastatin 20 mg tablet 20 mg PO QHS 11/08/22 Unknown History metformin 500 mg tablet 500 mg PO DAILY 11/08/22 Unknown History sertraline 100 mg tablet (Zoloft) 200 mg PO DAILY 11/08/22 Unknown History alprazolam 1 mg tablet 1 mg PO BID PRN anxiety 09/03/23 Unknown History insulin glargine 100 unit/mL (3 20 unit subcut DAILY hyperglycemia 09/03/23 Unknown History mL) subcutaneous pen (Lantus Solostar U-100 Insulin) insulin lispro 100 unit/mL 8 unit subcut Q8H hyperglycemia 09/03/23 Unknown History subcutaneous pen (Humalog KwikPen (U-100) Insulin) blood sugar diagnostic (True 12/27/23 Unknown History Metrix Glucose Test Strip) ondansetron 4 mg disintegrating 4 mg PO TID PRN nausea and 06/24/25 Unknown Rx tablet vomiting #21 tabs oxycodone-acetaminophen 5 mg-325 1 tab PO Q6H PRN pain 3 days #12 06/24/25 Unknown Rx mg tablet (Percocet) tabs oxycodone-acetaminophen 5 mg-325 1 tab PO Q6H PRN PRN pain 5 days 08/14/25 Unknown Rx mg tablet #20 TABLETS dulaglutide 0.75 mg/0.5 mL 0.75 mg subcut QWEEK 08/23/25 Unknown History subcutaneous pen injector (Trulicity) lisdexamfetamine 50 mg capsule 50 mg PO 08/23/25 Unknown History (Vyvanse) oxycodone-acetaminophen 5 mg-325 1 tab PO Q8H PRN pain 4 days #10 08/23/25 Unknown Rx mg tablet (Percocet) tabs prazosin 2 mg capsule 2 mg PO QHS 08/23/25 Unknown History tizanidine 2 mg tablet 2 mg PO BID PRN PRN muscle 08/23/25 Unknown History spasticity Allergy/AdvReac Type Severity Reaction Status Date / Time diphenhydramine Allergy Severe Angioedema Verified 09/06/25 08:22 ibuprofen Allergy Intermediate Swelling Verified 09/06/25 08:22 tramadol Allergy Intermediate Swelling Verified 09/06/25 08:22 meloxicam AdvReac Intermediate irritable Verified 09/06/25 08:22 Family History Mother Asthma Aunt Colon cancer Father Asthma Sister Asthma Surgical History History of cholecystectomy History of laparoscopic cholecystectomy Surgical History no surgical history Social History housing: house Smoking Status: Former smoker second hand exposure: No alcohol intake: never substance use type: does not use caffeine: Yes what type of physical activity do you participate in: none frequency: does not exercise EXAM Physical Exam Const Vital Signs: 09/06/25 08:21 Temperature 98.2 F Temperature Source Oral Pulse Rate 100 Respiratory Rate 18 Blood Pressure 145/100 H Blood Pressure Mean 115 Pulse Ox 98 Oxygen Delivery Method Room Air MDM MDM MDM Narrative Medical decision making narrative: 45-year-old female with history of DM, HTN, degenerative disc disease in her cervical spine presents for evaluation of chronic left-sided neck and shoulder pain. Patient has a history of rotator cuff and labrum tears. There is concerned that she might have cervical radiculopathy due to the chronic pain in her neck, shoulder, arm. She states that she is scheduled to see pain management in the next several days. She follows up with her primary care physician which she states refuses to write her pain medicine. She has an upcoming appointment to see orthopedic spine with a scheduled MRI in the next several days. She denies any injury or trauma. On chart review, patient has been seen in our emergency department in July as well as earlier this month for the same complaint. She was written for Percocet. Patient states she is currently out of her Percocet. Patient's pain is chronic in nature. There has been no injury or trauma. There is nothing to suggest any infectious etiology. At this point I do not feel any emergent imaging such as x-rays or MRI are warranted. Patient symptoms will be treated with IM morphine and p.o. Valium. She did not drive to the ER today. She is told to follow-up with pain management and orthopedic spine as well as her primary care physician. I will write her for another prescription of Percocet however she is informed that this prescription may stop in the future if she needs to see pain management. She confirmed understand the plan. Patient will discharge home. Impression: 1. Chronic left shoulder, neck, arm pain Discharge Plan Triage Chief Complaint: Upper Extremity Injury ED Provider: Ghulam Bazzi Dx/Rx/DC Orders Prescriptions: No Action albuterol sulfate 1 PUFF inhaler 1 - 2 puff inhalation Q6H PRN PRN (Reason: Sob &/Or Wheezing) lisinopril [Zestril] 20 mg tablet 20 mg PO QHS metformin 500 mg tablet 500 mg PO DAILY Patient Comments: once daily due to undesirable side effects atorvastatin 20 mg tablet 20 mg PO QHS sertraline [Zoloft] 100 mg tablet 200 mg PO DAILY alprazolam 1 mg tablet 1 mg PO BID PRN (Reason: anxiety) Patient Comments: TAKE 1 TABLET BY MOUTH TWICE DAILY NEEDED FOR ANXIETY insulin glargine [Lantus Solostar U-100 Insulin] 100 unit/mL (3 mL) insulin pen 20 unit SUBCUT DAILY Patient Comments: INJECT 20 Units subcutaneously once daily In a.m insulin lispro [Humalog KwikPen Insulin] 100 unit/mL insulin pen 8 unit SUBCUT Q8H Patient Comments: INJECT 8 UNITS SUBCUTANEOUSLY THREE TIMES DAILY WITH MEALS; rarely takes d/t more controlled blood sugar Rx Instructions: 8 units subcutaneously; ondansetron 4 mg tablet,disintegrating 4 mg PO TID PRN (Reason: nausea and vomiting) Qty: 21 0RF oxycodone-acetaminophen [Percocet] 5-325 mg tablet 1 tab PO Q6H PRN (Reason: pain) 3 Days Qty: 12 0RF (DME) True Metrix Glucose Test Strip Strip MISCELLANEOUS 4X/DAY oxycodone-acetaminophen 5-325 mg tablet 1 tab PO Q6H PRN PRN (Reason: pain) 5 Days Qty: 20 0RF oxycodone-acetaminophen [Percocet] 5-325 mg tablet 1 tab PO Q8H PRN (Reason: pain) 4 Days Qty: 10 0RF lisdexamfetamine [Vyvanse] 50 mg capsule 50 mg PO Trulicity 0.75 mg/0.5 mL pen injector 0.75 mg subcut QWEEK tizanidine 2 mg tablet 2 mg PO BID PRN PRN (Reason: muscle spasticity) prazosin 2 mg capsule 2 mg PO QHS Primary Care Provider: Juliet Gao Referrals: Juliet Gao MD [Primary Care Provider, Internal Medicine] Print Language: Frisian
== END 2025-09-06 09:24 | disposition home or self-care (01) ==
PROVIDERS: Emergency Provider Surgery; PCP Student in an Organized Health Care Education/Training Program; Visit Provider Surgery
DX: G89.29 Other chronic pain (principal); E11.9 Type 2 diabetes mellitus without complications; I10 Essential (primary) hypertension; Z87.891 Personal history of nicotine dependence; E78.5 Hyperlipidemia, unspecified; M50.30 Other cervical disc degeneration, unspecified cervical region; M25.512 Pain in left shoulder
CPT/HCPCS: 96372; 99283